=== PATIENT | female | born 1985 | race Caucasian/White ===

== ENCOUNTER 2019-07-07 18:50 | Emergency (ER) | payer OTHER ==
[2019-07-07] MEDS ORDERED: NA CHLORIDE 0.9% 1,000 ML ONE (21:12)
[2019-07-07] MEDS ORDERED: LACTULOSE 20 GM/30 ML UCUP ONE (21:12)
[2019-07-07] MEDS ORDERED: ONDANSETRON 4 MG/2 ML VIAL ONE (21:12)
--- NOTE | 2019-07-07 22:39 | ER ---
Nurse's Notes [facility] Name: Beverly Lino Age: 33 yrs Sex: Female : 1985 Arrival Date: 07/07/2019 Time: 18:52 Bed 23 Private MD: Diagnosis: Constipation, unspecified Presentation: 07/07 19:06 Presenting complaint: Patient states: "I've been having constipation problems for about aj1 2 years and so I've went to 2 different doctors and they can't find out what wrong with me. Sometimes I wake up in the middle of the night throwing up. The doctor told me to take Miralax daily which I've been doing. I normally have a bowel movement everyday. Today when I tried to go I noticed it was hard to go and I have a huge chunk that right there that I can't seem to get out and there's a lot of blood". Transition of care: patient was not received from another setting of care. Onset of symptoms was July 07, 2019. Risk Assessment: Do you want to hurt yourself or someone else? Patient reports no desire to harm self or others. Initial Sepsis Screen: Does the patient meet any 2 criteria? No. Patient's initial sepsis screen is negative. Does the patient have a suspected source of infection? No. Patient's initial sepsis screen is negative. Care prior to arrival: None. 19:06 Method Of Arrival: Ambulatory aj1 19:06 Acuity: SALVADOR 3 aj1 Triage Assessment: 19:11 General: Appears in no apparent distress. comfortable, Behavior is calm, cooperative, aj1 appropriate for age. Pain: Complains of pain in buttocks Pain currently is 9 out of 10 on a pain scale. Neuro: Level of Consciousness is awake, alert, obeys commands. Cardiovascular: Patient's skin is warm and dry. Respiratory: Airway is patent Respiratory effort is even, unlabored, Respiratory pattern is regular, symmetrical. GI: Reports constipation. 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 - Social history:: Smoking status: Patient/guardian denies using tobacco. - Ebola Screening: : Patient denies travel to an Ebola-affected area in the 21 days before illness onset. Screenin:24 Abuse screen: Denies threats or abuse. Denies injuries from another. Nutritional wh screening: No deficits noted. Tuberculosis screening: No symptoms or risk factors identified. Fall Risk None identified. Assessment: 21:25 General: Appears in no apparent distress. Behavior is calm, cooperative, appropriate wh for age. 21:25 Pain: Complains of pain in abdomen Pain does not radiate. Pain currently is 8 out of 10 wh on a pain scale. Quality of pain is described as crampy, Pain began this morning. Neuro: Level of Consciousness is awake, alert, obeys commands. Cardiovascular: Heart tones S1 S2. Respiratory: Airway is patent Respiratory effort is even, unlabored, Respiratory pattern is regular, symmetrical. GI: Abdomen is flat, non-distended, Bowel sounds present X 4 quads. Abd is soft and non tender X 4 quads. Reports constipation, bloody stool, nausea. : No signs and/or symptoms were reported regarding the genitourinary system. EENT: No signs and/or symptoms were reported regarding the EENT system. Derm: Skin is intact, is healthy with good turgor, Skin is pink, warm \\T\\ dry. normal. Musculoskeletal: Circulation, motion, and sensation intact. 22:24 Reassessment: Patient appears in no apparent distress at this time. No changes from previously documented assessment. Patient and/or family updated on plan of care and expected duration. Pain level reassessed. Patient is alert, oriented x 3, equal unlabored respirations, skin warm/dry/pink. Patient states feeling better. 07/08 00:00 Reassessment: Patient appears in no apparent distress at this time. No changes from previously documented assessment. Patient and/or family updated on plan of care and expected duration. Pain level reassessed. Patient is alert, oriented x 3, equal unlabored respirations, skin warm/dry/pink. Patient states feeling better. Vital Signs: 07/07 19:11 BP 146 / 89; Pulse 116; Resp 20; Temp 97.8; Pulse Ox 100% on R/A; Weight 58.97 kg (R); aj1 Height 5 ft. 5 in. (165.10 cm) (R); 21:00 BP 136 / 87; Pulse 107; Resp 18; Pulse Ox 99% on R/A; wh 22:15 BP 132 / 84; Pulse 97; Resp 18; Pulse Ox 100% on R/A; wh 19:11 Body Mass Index 21.63 (58.97 kg, 165.10 cm) aj1 ED Course: 18:52 Patient arrived in ED. as 19:10 Triage completed. aj1 19:11 Arm band placed on Patient placed in waiting room, Patient notified of wait time. aj1 20:48 Efrain Haider MD is Attending Physician. tw4 20:55 Meng Dhillon is Primary Nurse. 21:10 Inserted saline lock: 22 gauge in right antecubital area, using aseptic technique. Blood collected. 22:19 Abdomen 1 View (KUB) XRAY In Process Unspecified. EDSC 22:24 Patient has correct armband on for positive identification. Placed in gown. Bed in low wh position. Call light in reach. Side rails up X 1. Pulse ox on. NIBP on. 07/08 00:00 Served as a fire prevention officer during rectal exam. Ramón Sue RN. IV discontinued, intact, bleeding controlled, No redness/swelling at site. Administered Medications: 07/07 21:16 Drug: Lactulose 20 grams Volume: 30 ml; Route: PO; 22:20 Follow up: Response: No adverse reaction 21:17 Drug: NS 0.9% 1000 ml Route: IV; Rate: 1 bolus; Site: right antecubital; 22:20 Follow up: Response: No adverse reaction; IV Status: Completed infusion 21:17 Drug: Zofran 4 mg Route: IVP; Site: right antecubital; 22:20 Follow up: Response: No adverse reaction Outcome: 22:38 Discharge ordered by . tw4 07/08 00:01 Discharged to home ambulatory. Condition: good Discharge instructions given to patient, Instructed on discharge instructions, follow up and referral plans. medication usage, POC Constipation Demonstrated understanding of instructions, follow-up care, medications, POC Prescriptions given X 2. 00:01 Patient left the ED. Signatures: Dispatcher [employer] EDSC Marii Parker RN RN aj1 Juliane Samuels as Meng Dhillon Efrain Haider MD MD tw4 Corrections: (The following items were deleted from the chart) 07/07 22:21 21:29 General: Appears in no apparent distress. Behavior is calm, cooperative, wh appropriate for age, wh 22:24 21:25 GI: Abdomen is flat, non-distended, Bowel sounds present X 4 quads. Abd is soft wh and non tender X 4 quads. Reports constipation, bloody stool, wh
--- NOTE | 2019-07-07 22:39 | EDPHYS ---
Physician Documentation [facility] Name: Beverly Lino Age: 33 yrs Sex: Female : 1985 Arrival Date: 07/07/2019 Time: 18:52 Bed 23 Private MD: ED Physician Efrain Haider HPI: 07/08 01:50 This 33 yrs old Female presents to ER via Ambulatory with complaints of tw4 Constipation, Rectal Bleeding. 01:50 The patient presents to the emergency department with pain in the rectal area, that is tw4 mild. Onset: The symptoms/episode began/occurred today. Context: the patient constipation. Modifying factors: The symptoms are alleviated by nothing, The symptoms are aggravated by nothing. The patient has not experienced similar symptoms in the past. 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 - Social history:: Smoking status: Patient/guardian denies using tobacco. - Ebola Screening: : Patient denies travel to an Ebola-affected area in the 21 days before illness onset. ROS: 07/08 01:50 Constitutional: Negative for fever, chills, and weight loss, Eyes: Negative for injury, tw4 pain, redness, and discharge, Cardiovascular: Negative for chest pain, palpitations, and edema, Respiratory: Negative for shortness of breath, cough, wheezing, and pleuritic chest pain, Back: Negative for injury and pain, Skin: Negative for injury, rash, and discoloration, Neuro: Negative for headache, weakness, numbness, tingling, and seizure. Abdomen/GI: Positive for constipation, rectal pain. Exam: 01:50 Constitutional: This is a well developed, well nourished patient who is awake, alert, tw4 and in no acute distress. Head/Face: Normocephalic, atraumatic. Chest/axilla: Normal chest wall appearance and motion. Nontender with no deformity. No lesions are appreciated. Cardiovascular: Regular rate and rhythm with a normal S1 and S2. No gallops, murmurs, or rubs. Normal PMI, no JVD. No pulse deficits. Respiratory: Lungs have equal breath sounds bilaterally, clear to auscultation and percussion. No rales, rhonchi or wheezes noted. No increased work of breathing, no retractions or nasal flaring. MS/ Extremity: Pulses equal, no cyanosis. Neurovascular intact. Full, normal range of motion. Neuro: Awake and alert, GCS 15, oriented to person, place, time, and situation. Cranial nerves II-XII grossly intact. Motor strength 5/5 in all extremities. Sensory grossly intact. Cerebellar exam normal. Normal gait. 01:50 Abdomen/GI: Inspection: distension. Vital Signs: 07/07 19:11 BP 146 / 89; Pulse 116; Resp 20; Temp 97.8; Pulse Ox 100% on R/A; Weight 58.97 kg (R); aj1 Height 5 ft. 5 in. (165.10 cm) (R); 21:00 BP 136 / 87; Pulse 107; Resp 18; Pulse Ox 99% on R/A; wh 22:15 BP 132 / 84; Pulse 97; Resp 18; Pulse Ox 100% on R/A; wh 19:11 Body Mass Index 21.63 (58.97 kg, 165.10 cm) aj1 MDM: 20:48 Patient medically screened. tw4 07/08 01:53 Data reviewed: vital signs, nurses notes. Data interpreted: Pulse oximetry: tw4 Interpretation: normal. Counseling: I had a detailed discussion with the patient and/or guardian regarding: the historical points, exam findings, and any diagnostic results supporting the discharge/admit diagnosis. 07/07 20:49 Order name: Abdomen 1 View (KUB) XRAY tw4 Administered Medications: 07/07 21:16 Drug: Lactulose 20 grams Volume: 30 ml; Route: PO; 22:20 Follow up: Response: No adverse reaction 21:17 Drug: NS 0.9% 1000 ml Route: IV; Rate: 1 bolus; Site: right antecubital; 22:20 Follow up: Response: No adverse reaction; IV Status: Completed infusion 21:17 Drug: Zofran 4 mg Route: IVP; Site: right antecubital; 22:20 Follow up: Response: No adverse reaction Disposition: 07/07/19 22:38 Discharged to Home. Impression: Constipation, unspecified. - Condition is Stable. - Discharge Instructions: Constipation, Adult, High-Fiber Diet, Anal Fissure, Adult, [id number]. - Prescriptions for Dulcolax 10 mg Rectal Suppository - insert 1 suppository by RECTAL route every 6 hours As needed; 10 suppository. Miralax 17 gram/dose Oral - take 1 packet by ORAL route once daily dilute powder in 8 ounces of water or juice; 1 packet. - Medication Reconciliation Form, Thank You Letter, Antibiotic Education, Prescription Opioid Use form. - Follow up: Private Physician; When: Upon discharge from the Emergency Department; Reason: If symptoms return, Recheck today's complaints, Continuance of care. - Problem is new. - Symptoms have improved. Signatures: Dispatcher [employer] EDMarii Travis RN RN ajMeng Vera Terrence, MD MD tw4 Corrections: (The following items were deleted from the chart) 07/08 00:01 07/07 22:38 07/07/2019 22:38 Discharged to Home. Impression: Constipation, unspecified. wh Condition is Stable. Forms are Medication Reconciliation Form, Thank You Letter, Antibiotic Education, Prescription Opioid Use. Follow up: Private Physician; When: Upon discharge from the Emergency Department; Reason: If symptoms return, Recheck today's complaints, Continuance of care. Problem is new. Symptoms have improved. tw4
[2019-07-08 00:59] VITALS: TEMP 97.8
[2019-07-08 01:08] VITALS: BP 132/84; O2SAT 100
--- NOTE | 2019-07-08 09:15 | RAD REPORT ---
EXAM DESCRIPTION: RAD - Abdomen 1 View (KUB) - 07/07/2019 10:21 pm CLINICAL HISTORY: ABD PAIN COMPARISON: No comparisons FINDINGS: Moderately large stool volume is present throughout the colon. Colon is distended but not dilated by the retained bowel content. No distention of the stomach. No acute small bowel finding. No obstruction, free air or pneumatosis. No suspicious calcifications. No significant bony findings IMPRESSION: Large stool volume is present filling but not dilating the large intestine.
== END 2019-07-08 00:01 | disposition home or self-care (01) ==
LOC: ER 18:50
DX: K59.00 Constipation, unspecified (principal)
CPT/HCPCS: 96361; 74018; 96374; 99284; J7030; J2405

== ENCOUNTER 2020-07-02 09:46 | Emergency (ER) | payer OTHER ==
--- NOTE | 2020-07-02 12:16 | EDPHYS ---
Physician Documentation [facility] Name: Beverly Lino Age: 34 yrs Sex: Female : 1985 Arrival Date: 07/02/2020 Time: 09:47 Bed 24 Private MD: ED Physician Manuel Ferreira HPI: 07/02 11:30 This 34 yrs old Female presents to ER via Ambulatory with complaints of Arm kb Pain. 11:30 The patient or guardian complains of pain, that is acute. The complaints affect the kb right elbow. Context: The problem was sustained at home, resulted from unknown cause. Onset: The symptoms/episode began/occurred today. Treatment prior to arrival includes: no previous treatment. Modifying factors: The symptoms are alleviated by nothing. the symptoms are aggravated by nothing. Associated signs and symptoms: Pertinent positives: pain, Pertinent negatives: decreased range of motion, deformity, erythema, fever, nausea, numbness, swelling, tingling, vomiting, warmth, weakness. Severity of symptoms: At their worst the symptoms were mild, in the emergency department the symptoms are unchanged. The patient has not experienced similar symptoms in the past. The patient has not recently seen a physician. Historical: - Allergies: 10:02 No Known Allergies; ll1 - PSHx: 10:02 Tubal ligation; Cholecystectomy; ll1 - Immunization history:: Flu vaccine is up to date. - Social history:: Smoking status: Patient denies any tobacco usage or history of. ROS: 11:29 Constitutional: Negative for fever, chills, and weight loss, Cardiovascular: Negative kb for chest pain, palpitations, and edema, Respiratory: Negative for shortness of breath, cough, wheezing, and pleuritic chest pain, Abdomen/GI: Negative for abdominal pain, nausea, vomiting, diarrhea, and constipation, Skin: Negative for injury, rash, and discoloration, Neuro: Negative for headache, weakness, numbness, tingling, and seizure. 11:29 MS/extremity: Positive for pain, tenderness, of the right elbow. Exam: 11:29 Constitutional: This is a well developed, well nourished patient who is awake, alert, kb and in no acute distress. Head/Face: Normocephalic, atraumatic. Chest/axilla: Normal chest wall appearance and motion. Nontender with no deformity. No lesions are appreciated. Cardiovascular: Regular rate and rhythm with a normal S1 and S2. No gallops, murmurs, or rubs. Normal PMI, no JVD. No pulse deficits. Respiratory: Lungs have equal breath sounds bilaterally, clear to auscultation and percussion. No rales, rhonchi or wheezes noted. No increased work of breathing, no retractions or nasal flaring. Abdomen/GI: Soft, non-tender, with normal bowel sounds. No distension or tympany. No guarding or rebound. No evidence of tenderness throughout. Skin: Warm, dry with normal turgor. Normal color with no rashes, no lesions, and no evidence of cellulitis. Neuro: Awake and alert, GCS 15, oriented to person, place, time, and situation. Cranial nerves II-XII grossly intact. Motor strength 5/5 in all extremities. Sensory grossly intact. Cerebellar exam normal. Normal gait. 11:29 Musculoskeletal/extremity: Extremities: grossly normal except: noted in the right elbow: pain, ROM: intact in all extremities, Circulation is intact in all extremities. Sensation intact. Vital Signs: 10:02 BP 103 / 87; Pulse 88; Resp 16; Temp 98.3; Pulse Ox 97% ; Weight 59.87 kg; Height 5 ft. ll1 5 in. (165.10 cm); Pain 9/10; 10:02 Body Mass Index 21.97 (59.87 kg, 165.10 cm) ll1 MDM: 10:28 Patient medically screened. kb 11:29 Data reviewed: vital signs, nurses notes. Data interpreted: Pulse oximetry: on room air kb is 97 %. Interpretation: normal. Counseling: I had a detailed discussion with the patient and/or guardian regarding: the historical points, exam findings, and any diagnostic results supporting the discharge/admit diagnosis, radiology results, the need for outpatient follow up, a family practitioner, to return to the emergency department if symptoms worsen or persist or if there are any questions or concerns that arise at home. 07/02 11:23 Order name: Extremity Nonvascular Complete EDMS 07/02 11:26 Order name: Elbow Right 3 View XRAY kb Administered Medications: No medications were administered Disposition: 07/03 09:25 Co-signature as Attending Physician, Manuel Ferreira MD I agree with the assessment and kdr plan of care. Disposition: 07/02/20 12:15 Discharged to Home. Impression: Pain in right elbow. - Condition is Stable. - Discharge Instructions: Musculoskeletal Pain. - Prescriptions for Diclofenac Sodium 75 mg Oral Tablet, Delayed Release (E.C.) - take 1 tablet by ORAL route 2 times per day As needed; 30 tablet. - Medication Reconciliation Form, Thank You Letter, Antibiotic Education, Prescription Opioid Use form. - Follow up: Emergency Department; When: As needed; Reason: Worsening of condition. Follow up: Private Physician; When: 2 - 3 days; Reason: Recheck today's complaints, Continuance of care, Re-evaluation by your physician. Signatures: Dispatcher [employer] [facility] Esther Frazier, LEATHER SORTER-C LEATHER SORTER-CkManuel Kaplan MD MD kdr Williams, Irene, MAGDIEL RN iw Caryl Chaudhary RN RN ll1 Corrections: (The following items were deleted from the chart) 07/02 11:23 10:43 Extrmty Nonvasular Limited+US.RAD.BRZ ordered. [facility] 12:30 12:15 07/02/2020 12:15 Discharged to Home. Impression: Pain in right elbow. Condition iw is Stable. Forms are Medication Reconciliation Form, Thank You Letter, Antibiotic Education, Prescription Opioid Use. Follow up: Emergency Department; When: As needed; Reason: Worsening of condition. Follow up: Private Physician; When: 2 - 3 days; Reason: Recheck today's complaints, Continuance of care, Re-evaluation by your physician. kb
--- NOTE | 2020-07-02 12:16 | ER ---
Nurse's Notes [facility] Name: Beverly Lino Age: 34 yrs Sex: Female : 1985 Arrival Date: 07/02/2020 Time: 09:47 Bed 24 Private MD: Diagnosis: Pain in right elbow Presentation: 07/02 10:02 Chief complaint: Patient states: Small painful lump to right arm AC area for 2 days. No ll1 fever. Coronavirus screen: Client denies travel out of the [place] in the last 14 days. At this time, the client does not indicate any symptoms associated with coronavirus-19. Ebola Screen: Patient denies travel to an Ebola-affected area in the 21 days before illness onset. Initial Sepsis Screen: Does the patient meet any 2 criteria? No. Patient's initial sepsis screen is negative. Risk Assessment: Do you want to hurt yourself or someone else? Patient reports no desire to harm self or others. Onset of symptoms was July 01, 2020. 10:02 Method Of Arrival: Ambulatory ll1 10:02 Acuity: SALVADOR 4 ll1 11:30 Initial Sepsis Screen: Does the patient have a suspected source of infection? No. iw Patient's initial sepsis screen is negative. Triage Assessment: 11:30 General: Appears in no apparent distress. Behavior is calm, cooperative. iw Historical: - Allergies: 10:02 No Known Allergies; ll1 - PSHx: 10:02 Tubal ligation; Cholecystectomy; ll1 - Immunization history:: Flu vaccine is up to date. - Social history:: Smoking status: Patient denies any tobacco usage or history of. Screenin:00 Abuse screen: Denies threats or abuse. Denies injuries from another. Nutritional iw screening: No deficits noted. Tuberculosis screening: No symptoms or risk factors identified. Fall Risk None identified. Assessment: 11:30 General: Appears in no apparent distress. Behavior is calm, cooperative. Pain: iw Complains of pain in right antecubital area. Neuro: Level of Consciousness is awake, alert, obeys commands, Oriented to person, place, time, situation, Moves all extremities. Full function. Cardiovascular: Patient's skin is warm and dry. Respiratory: Respiratory effort is even, unlabored, Respiratory pattern is regular, symmetrical. Derm: Skin is intact, is healthy with good turgor. Musculoskeletal: Range of motion: intact in all extremities, Swelling present in right antecubital area. Vital Signs: 10:02 BP 103 / 87; Pulse 88; Resp 16; Temp 98.3; Pulse Ox 97% ; Weight 59.87 kg; Height 5 ft. ll1 5 in. (165.10 cm); Pain 9/10; 10:02 Body Mass Index 21.97 (59.87 kg, 165.10 cm) ll1 ED Course: 09:47 Patient arrived in ED. ds1 10:03 Triage completed. ll1 10:03 Arm band placed on. ll1 10:25 Mecca Johnson, RN is Primary Nurse. iw 10:28 Esther Frazier FNP-C [facility]. kb 10:28 Manuel Ferreira MD is Attending Physician. kb 11:23 Extremity Nonvascular Complete In Process Unspecified. EDMS 11:30 Patient has correct armband on for positive identification. iw 12:29 No provider procedures requiring assistance completed. Patient did not have IV access iw during this emergency room visit. 12:47 Elbow Right 3 View XRAY In Process Unspecified. EDMS Administered Medications: No medications were administered Outcome: 12:15 Discharge ordered by . kb 12:29 Discharged to home ambulatory. iw 12:29 Condition: good 12:29 Discharge instructions given to patient, Instructed on discharge instructions, follow up and referral plans. Demonstrated understanding of instructions, follow-up care. 12:30 Patient left the ED. iw Signatures: Dispatcher [employer] EDMS Esther Frazier FNP-C FNP-Ckb Sanford, Demi ds1 Mecca Johnson RN RN iw Caryl Chaudhary RN RN ll1
[2020-07-02 12:34] VITALS: BP 103/87; TEMP 98.3; O2SAT 97
--- NOTE | 2020-07-03 11:10 | RAD REPORT ---
EXAM DESCRIPTION: US - Extremity Nonvascular Complete - 07/02/2020 10:19 pm CLINICAL HISTORY: lump, medial aspect of elbow;Pain COMPARISON: Elbow Right 3 View dated 07/02/2020 FINDINGS: Limited sonographic evaluation of the right antecubital fossa soft tissues. Fat and muscle seen as normal structures. No solid or cystic mass. No suspicious finding seen. Final report was delayed due to malfunction of the real estate teacher system. Preliminary findings were pr ovided at the time of the study. IMPRESSION: Negative ultrasound of the anterior right elbow soft tissues.
--- NOTE | 2020-07-03 13:20 | RAD REPORT ---
EXAM DESCRIPTION: RAD - Elbow Right 3 View - 07/03/2020 7:49 am CLINICAL HISTORY: Right elbow pain FINDINGS: No fracture or dislocation seen. No bone or joint abnormality noted
--- OUTSIDE RECORDS SUMMARY | 2020-07-08 15:18 | XMS REPORT | Continuity of Care Document ---
:1985 Author Organization [facility] t Address [facility] [place] [address] [place] [id number] Care Team Providers Name Role Phone Unavailable Unavailable Unavailable Problems This patient has no known problems. Allergies, Adverse Reactions, Alerts This patient has no known allergies or adverse reactions. Medications This patient has no known medications. Procedures This patient has no known procedures. Results This patient has no known results.
== END 2020-07-02 12:30 | disposition home or self-care (01) ==
LOC: ER 09:46
DX: M25.521 Pain in right elbow (principal)
CPT/HCPCS: 76881; 99283

== ENCOUNTER 2022-10-18 10:30 | Emergency (ER) | payer OTHER ==
--- OUTSIDE RECORDS SUMMARY | 2022-10-18 10:34 | XMS REPORT | Continuity of Care Document ---
:1985 Author Organization [facility] t Address [address] [place] [address] Care Team Providers Name Role Phone Britton Tejeda [facility], [facility] Primary Care P hysician Doctor Unassigned, [place] Attending Clinician Unavailable FIDENCIO DONALD Attending Clinician Unavailable Fidencio Donald MD Attending Clinician [place] Attending Clinician CARMELO PEREZ Attending Clinician Unavailable LOUIE PADRON Attending Clinician Unavailable FIDENCIO DONALD Admitting Clinician Unavailable Payers Payer Name Policy Type Policy Number Effective Date Expiration Date S ource Problems Condition Condition Condition Status Onset Resolution Last Treating Co mments Source Name Details Category Date Date Treatment Clinician Date No known No known Disease Unive rs active active ity of problems problems [facility] Allergies, Adverse Reactions, Alerts Allergy Allergy Status Severity Reaction(s) Onset Inactive Treating Comm ents Source Name Type Date Date Clinician NO KNOWN Drug Active Univers ALLERGIE Class ity of S [facility] Social History Social Habit Start Date Stop Date Quantity Comments Source Exposure to 2022-08-21 2022-08-31 Not sure [facility]-CoV-2 00:00:00 14:04:00 [facility] ([facility] [place] Alcohol intake 2022-07-29 2022-07-29 Current University 00:00:00 00:00:00 non-drinker of [facility] alcohol (finding) Branch Tobacco use and 2022-06-29 2022-06-29 Smokeless tobacco Un iversity of exposure 00:00:00 00:00:00 non-user [facility] Sex Assigned At [birth year] Universit y of 00:00:00 00:00:00 [facility] Smoking Status Start Date Stop Date Source Never smoked tobacco [facility] Medications Ordered Filled Start Stop Current Ordering Indication Dosage Frequency Signature Comments Components Source Medication Medication Date Date Medication? Clinician (SIG) Name Name triamcinolo 2021- No [id number] 40mg Univers nc 06-29 [id number] ity of acetonide 21:30: 20:17 [place] (KENALOG) 00 :00 Medical injection Branch 40 mg triamcinolo 2021- No [id number] 40mg 40 mg, Univers ne 06-29 [id number] Intramuscu ity of acetonide 21:30: 20:17 [place] ([place] 00 :00 1 dose, On [facility] injection Wed Branch 40 mg 06/29/22 at 1630, Routine triamcinolo 2021- No [id number] 40mg Univers ne 06-29 [id number] ity of acetonide 21:30: 20:17 [place] (KENALOG) 00 :00 Medical injection Branch 40 mg triamcinolo 2021- No [id number] 40mg 40 mg, Univers ne 06-29 [id number] Intramuscu ity of acetonide 21:30: 20:17 [place] (KE[place]LOG) 00 :00 1 dose, On [facility] injection Wed Branch 40 mg 06/29/22 at 1630, Routine norethindro Yes 1{tbl} Take 1 Un mick ne-ethinyl 6-26 tablet by ity of estradiol 14:07: mouth [place] 1-5 mg-mcg 55 daily. Medical tablet Branch norethindro Yes 1{tbl} Take 1 Un mick ne-ethinyl 6-26 tablet by ity of estradiol 14:07: mouth [place] 1-5 mg-mcg 55 daily. Medical tablet Branch norethindro Yes 1{tbl} Take 1 Un mick ne-ethinyl 6-26 tablet by ity of estradiol 14:07: mouth [place] 1-5 mg-mcg 55 daily. Medical tablet Branch norethindro Yes 1{tbl} Take 1 Un mick ne-ethinyl 6-26 tablet by ity of estradiol 14:07: mouth [place] 1-5 mg-mcg 55 daily. Medical tablet Branch norethindro Yes 1{tbl} Take 1 Un mick ne-ethinyl 6-26 tablet by ity of estradiol 14:07: mouth [place] 1-5 mg-mcg 55 daily. Medical tablet Branch norethindro Yes 1{tbl} Take 1 Un mick ne-ethinyl 6-26 tablet by ity of estradiol 14:07: mouth [place] 1-5 mg-mcg 55 daily. Medical tablet Branch norethindro Yes 1{tbl} Take 1 Un mick ne-ethinyl 6-26 tablet by ity of estradiol 14:07: mouth [place] 1-5 mg-mcg 55 daily. Medical tablet Branch norethindro Yes 1{tbl} Take 1 Un mick ne-ethinyl 6-26 tablet by ity of estradiol 14:07: mouth [place] 1-5 mg-mcg 55 daily. Medical tablet Branch norethindro Yes 1{tbl} Take 1 Un mick ne-ethinyl 6-26 tablet by ity of estradiol 14:07: mouth [place] 1-5 mg-mcg 55 daily. Medical tablet Branch norethindro Yes 1{tbl} Take 1 Un mick ne-ethinyl 6-26 tablet by ity of estradiol 14:07: mouth [place] 1-5 mg-mcg 55 daily. Medical tablet Branch norethindro Yes 1{tbl} Take 1 Un mick ne-ethinyl 6-26 tablet by ity of estradiol 14:07: mouth [place] 1-5 mg-mcg 55 daily. Medical tablet Branch norethindro Yes 1{tbl} Take 1 Un mick ne-ethinyl 6-26 tablet by ity of estradiol 14:07: mouth [place] 1-5 mg-mcg 55 daily. Medical tablet Branch norethindro 2018-0 Yes 1{tbl} Take 1 Un mick ne-ethinyl 6-26 tablet by ity of estradiol 14:07: mouth [place] 1-5 mg-mcg 55 daily. Medical tablet Branch traMADOL 50 2016-10 Yes Take 1-2 Un mick mg tablet 0-02 tabs by ity of 00:00: mouth [place] 00 every 4-6 Medical hours as Branch needed for severe pain traMADOL 50 2016-10 Yes Take 1-2 Un mick mg tablet 0-02 tabs by ity of 00:00: mouth [place] 00 every 4-6 Medical hours as Branch needed for severe pain traMADOL 50 2016-10 Yes Take 1-2 Un mick mg tablet 0-02 tabs by ity of 00:00: mouth [place] 00 every 4-6 Medical hours as Branch needed for severe pain traMADOL 50 2016-10 Yes Take 1-2 Un mick mg tablet 0-02 tabs by ity of 00:00: mouth [place] 00 every 4-6 Medical hours as Branch needed for severe pain traMADOL 50 2016-10 Yes Take 1-2 Un mick mg tablet 0-02 tabs by ity of 00:00: mouth [place] 00 every 4-6 Medical hours as Branch needed for severe pain traMADOL 50 2016-10 Yes Take 1-2 Un mick mg tablet 0-02 tabs by ity of 00:00: mouth [place] 00 every 4-6 Medical hours as Branch needed for severe pain traMADOL 50 2016-10 Yes Take 1-2 Un mick mg tablet 0-02 tabs by ity of 00:00: mouth [place] 00 every 4-6 Medical hours as Branch needed for severe pain traMADOL 50 2016-10 Yes Take 1-2 Un mick mg tablet 0-02 tabs by ity of 00:00: mouth [place] 00 every 4-6 Medical hours as Branch needed for severe pain traMADOL 50 2016-10 Yes Take 1-2 Un mick mg tablet 0-02 tabs by ity of 00:00: mouth [place] 00 every 4-6 Medical hours as Branch needed for severe pain traMADOL 50 2016-10 Yes Take 1-2 Un mick mg tablet 0-02 tabs by ity of 00:00: mouth [place] 00 every 4-6 Medical hours as Branch needed for severe pain traMADOL 50 2016-10 Yes Take 1-2 Un mick mg tablet 0-02 tabs by ity of 00:00: mouth [place] 00 every 4-6 Medical hours as Branch needed for severe pain traMADOL 50 2016-10 Yes Take 1-2 Un mick mg tablet 0-02 tabs by ity of 00:00: mouth [place] 00 every 4-6 Medical hours as Branch needed for severe pain traMADOL 50 2016-10 Yes Take 1-2 Un mick mg tablet 0-02 tabs by ity of 00:00: mouth [place] 00 every 4-6 Medical hours as Branch needed for severe pain proMETHazin Yes 25mg Take 1 Univ ers e 25 mg 9-07 tablet by ity of tablet 00:00: mouth [place] 00 every 6 Medical (six) Branch hours as needed for N/V unresponsi ve to Ondansetro n. proMETHazin Yes 25mg Take 1 Univ ers e 25 mg 9-07 tablet by ity of tablet 00:00: mouth [place] 00 every 6 Medical (six) Branch hours as needed for N/V unresponsi ve to Ondansetro n. proMETHazin Yes 25mg Take 1 Univ ers e 25 mg 9-07 tablet by ity of tablet 00:00: mouth [place] 00 every 6 Medical (six) Branch hours as needed for N/V unresponsi ve to Ondansetro n. proMETHazin Yes 25mg Take 1 Univ ers e 25 mg 9-07 tablet by ity of tablet 00:00: mouth [place] 00 every 6 Medical (six) Branch hours as needed for N/V unresponsi ve to Ondansetro n. proMETHazin Yes 25mg Take 1 Univ ers e 25 mg 9-07 tablet by ity of tablet 00:00: mouth [place] 00 every 6 Medical (six) Branch hours as needed for N/V unresponsi ve to Ondansetro n. proMETHazin 0 Yes 25mg Take 1 Univ ers e 25 mg 9-07 tablet by ity of tablet 00:00: mouth [place] 00 every 6 Medical (six) Branch hours as needed for N/V unresponsi ve to Ondansetro n. proMETHazin Yes 25mg Take 1 Univ ers e 25 mg 9-07 tablet by ity of tablet 00:00: mouth [place] 00 every 6 Medical (six) Branch hours as needed for N/V unresponsi ve to Ondansetro n. proMETHazin Yes 25mg Take 1 Univ ers e 25 mg 9-07 tablet by ity of tablet 00:00: mouth [place] 00 every 6 Medical (six) Branch hours as needed for N/V unresponsi ve to Ondansetro n. proMETHazin Yes 25mg Take 1 Univ ers e 25 mg 9-07 tablet by ity of tablet 00:00: mouth [place] 00 every 6 Medical (six) Branch hours as needed for N/V unresponsi ve to Ondansetro n. proMETHazin Yes 25mg Take 1 Univ ers e 25 mg 9-07 tablet by ity of tablet 00:00: mouth [place] 00 every 6 Medical (six) Branch hours as needed for N/V unresponsi ve to Ondansetro n. proMETHazin Yes 25mg Take 1 Univ ers e 25 mg 9-07 tablet by ity of tablet 00:00: mouth [place] 00 every 6 Medical (six) Branch hours as needed for N/V unresponsi ve to Ondansetro n. proMETHazin Yes 25mg Take 1 Univ ers e 25 mg 9-07 tablet by ity of tablet 00:00: mouth [place] 00 every 6 Medical (six) Branch hours as needed for N/V unresponsi ve to Ondansetro n. proMETHazin Yes 25mg Take 1 Univ ers e 25 mg 9-07 tablet by ity of tablet 00:00: mouth [place] 00 every 6 Medical (six) Branch hours as needed for N/V unresponsi ve to Ondansetro n. diclofenac Yes Apply 2-3 Un mick 3 % gel 8-18 grams TO ity of 00:00: affected [place] 00 area THREE Medical TIMES Branch DAILY max EIGHT grams/day diclofenac Yes Apply 2-3 Un mick 3 % gel 8-18 grams TO ity of 00:00: affected [place] 00 area THREE Medical TIMES Branch DAILY max EIGHT grams/day diclofenac Yes Apply 2-3 Un mick 3 % gel 8-18 grams TO ity of 00:00: affected [place] 00 area THREE Medical TIMES Branch DAILY max EIGHT grams/day diclofenac Yes Apply 2-3 Un mick 3 % gel 8-18 grams TO ity of 00:00: affected [place] area THREE Medical TIMES Branch DAILY max EIGHT grams/day diclofenac Yes Apply 2-3 Un mick 3 % gel 8-18 grams TO ity of 00:00: affected [place] [address] [facility] THREE Medical TIMES Branch DAILY max EIGHT grams/day diclofenac Yes Apply 2-3 Un mick 3 % gel 8-18 grams TO ity of 00:00: affected [place] area THREE Medical TIMES Branch DAILY max EIGHT grams/day diclofenac Yes Apply 2-3 Un mick 3 % gel 8-18 grams TO ity of 00:00: affected [place] area THREE Medical TIMES Branch DAILY max EIGHT grams/day diclofenac Yes Apply 2-3 Un mick 3 % gel 8-18 grams TO ity of 00:00: affected [place] [facility] THREE Medical TIMES Branch DAILY max EIGHT grams/day diclofenac Yes Apply 2-3 Un mick 3 % gel 8-18 grams TO ity of 00:00: affected [place] area THREE Medical TIMES Branch DAILY max EIGHT grams/day diclofenac Yes Apply 2-3 Un mick 3 % gel 8-18 grams TO ity of 00:00: affected [place] area THREE Medical TIMES Branch DAILY max EIGHT grams/day diclofenac Yes Apply 2-3 Un mick 3 % gel 8-18 grams TO ity of 00:00: affected [place] [facility] THREE Medical TIMES Branch DAILY max EIGHT grams/day diclofenac Yes Apply 2-3 Un mick 3 % gel 8-18 grams TO ity of 00:00: affected [place] area THREE Medical TIMES Branch DAILY max EIGHT grams/day diclofenac Yes Apply 2-3 Un mick 3 % gel 8-18 grams TO ity of 00:00: affected [place] [facility] THREE Medical TIMES Branch DAILY max EIGHT grams/day SUBOXONE Yes Univers 8-2 mg 6-13 ity of sublingual 00:00: [place] film Medical Branch SUBOXONE Yes Univers 8-2 mg 6-13 ity of sublingual 00:00: [place] film Medical Branch SUBOXONE Yes Univers 8-2 mg 6-13 ity of sublingual 00:00: [place] film Medical Branch SUBOXONE Yes Univers 8-2 mg 6-13 ity of sublingual 00:00: [place] film Medical Branch SUBOXONE 2017-0 Yes Univers 8-2 mg 6-13 ity of sublingual 00:00: [place] film Medical Branch SUBOXONE 2017-0 Yes Univers 8-2 mg 6-13 ity of sublingual 00:00: [place] film Medical Branch SUBOXONE 2017-0 Yes Univers 8-2 mg 6-13 ity of sublingual 00:00: [place] film Medical Branch SUBOXONE 2017-0 Yes Univers 8-2 mg 6-13 ity of sublingual 00:00: [place] film Medical Branch SUBOXONE 2017-0 Yes Univers 8-2 mg 6-13 ity of sublingual 00:00: [place] film Medical Branch SUBOXONE 2017-0 Yes Univers 8-2 mg 6-13 ity of sublingual 00:00: [place] film Medical Branch SUBOXONE 2016-0 Yes Univers 8-2 mg 6-13 ity of sublingual 00:00: [place] film Medical Branch SUBOXONE 2016- Yes Univers 8-2 mg 6-13 ity of sublingual 00:00: [place] film Medical Branch SUBOXONE 2016-0 Yes Univers 8-2 mg 6-13 ity of sublingual 00:00: [place] film Medical Branch nystatin Yes APPLY TO Unive rs 100,000 4-20 THE ity of unit/gram 00:00: [place]int[place] 00 AREA BID Medical FOR 10 Branch DAYS nystatin Yes APPLY TO Unive rs 100,000 4-20 THE ity of unit/gram 00:00: [place] 00 AREA BID Medical FOR 10 Branch DAYS nystatin Yes APPLY TO Unive rs 100,000 4-20 THE ity of unit/gram 00:00: [place] 00 AREA BID Medical FOR 10 Branch DAYS nystatin Yes APPLY TO Unive rs 100,000 4-20 THE ity of unit/gram 00:00: [place] 00 AREA BID Medical FOR 10 Branch DAYS nystatin Yes APPLY TO Unive rs 100,000 4-20 THE ity of unit/gram 00:00: [place] 00 AREA BID Medical FOR 10 Branch DAYS nystatin Yes APPLY TO Unive rs 100,000 4-20 THE ity of unit/gram 00:00: [place] 00 AREA BID Medical FOR 10 Branch DAYS nystatin 2017 Yes APPLY TO Unive rs 100,000 4-20 THE ity of unit/gram 00:00: [place] 00 AREA BID Medical FOR 10 Branch DAYS nystatin 2017 Yes APPLY TO Unive rs 100,000 4-20 THE ity of unit/gram 00:00: [place] 00 AREA BID Medical FOR 10 Branch DAYS nystatin 2017 Yes APPLY TO Unive rs 100,000 4-20 THE ity of unit/gram 00:00: [place] 00 AREA BID Medical FOR 10 Branch DAYS nystatin 2017 Yes APPLY TO Unive rs 100,000 4-20 THE ity of unit/gram 00:00: [place] 00 AREA BID Medical FOR 10 Branch DAYS nystatin 2017 Yes APPLY TO Unive rs 100,000 4-20 THE ity of unit/gram 00:00: [place] 00 AREA BID Medical FOR 10 Branch DAYS nystatin 2017 Yes APPLY TO Unive rs 100,000 4-20 THE ity of unit/gram 00:00: [place] 00 AREA BID Medical FOR 10 Branch DAYS nystatin 2017 Yes APPLY TO Unive rs 100,000 4-20 THE ity of unit/gram 00:00: [place] 00 AREA BID Medical FOR 10 Branch DAYS Immunizations Ordered Filled Immunization Date Status Comments [facility] e Immunization Name Name SARS-COV-2 COVID-19 2021-01-07 Completed Unive rsity of PFIZER VACCINE 00:00:00 [facility] SARS-COV-2 COVID-19 2021-01-07 Completed Unive rsity of PFIZER VACCINE 00:00:00 [facility] SARS-COV-2 COVID-19 2021-01-07 Completed Unive rsity of PFIZER VACCINE 00:00:00 [facility] SARS-COV-2 COVID-19 2021-01-07 Completed Unive rsity of PFIZER VACCINE 00:00:00 [facility] SARS-COV-2 COVID-19 2021-01-07 Completed Unive rsity of PFIZER VACCINE 00:00:00 [facility] SARS-COV-2 COVID-19 2021-01-07 Completed Unive rsity of PFIZER VACCINE 00:00:00 [facility] Branch SARS-COV-2 COVID-19 2021-01-07 Completed Unive rsity of PFIZER VACCINE 00:00:00 [facility] Branch SARS-COV-2 COVID-19 2021-01-07 Completed Unive rsity of PFIZER VACCINE 00:00:00 [facility] Branch SARS-COV-2 COVID-19 2021-01-07 Completed Unive rsity of PFIZER VACCINE 00:00:00 [facility] Branch SARS-COV-2 COVID-19 2021-01-07 Completed Unive rsity of PFIZER VACCINE 00:00:00 [facility] Branch SARS-COV-2 COVID-19 2021-01-07 Completed Unive rsity of PFIZER VACCINE 00:00:00 [facility] Branch SARS-COV-2 COVID-19 2021-01-07 Completed Unive rsity of PFIZER VACCINE 00:00:00 [facility] Branch SARS-COV-2 COVID-19 2021-01-07 Completed Unive rsity of PFIZER VACCINE 00:00:00 [facility] Branch SARS-COV-2 COVID-19 2020-12-17 Completed Unive rsity of PFIZER VACCINE 00:00:00 [facility] Branch SARS-COV-2 COVID-19 2020-12-17 Completed Unive rsity of PFIZER VACCINE 00:00:00 [facility] Branch SARS-COV-2 COVID-19 2020-12-17 Completed Unive rsity of PFIZER VACCINE 00:00:00 [facility] Branch SARS-COV-2 COVID-19 2020-12-17 Completed Unive rsity of PFIZER VACCINE 00:00:00 [facility] Branch SARS-COV-2 COVID-19 2020-12-17 Completed Unive rsity of PFIZER VACCINE 00:00:00 [facility] Branch SARS-COV-2 COVID-19 2020-12-17 Completed Unive rsity of PFIZER VACCINE 00:00:00 [facility] Branch SARS-COV-2 COVID-19 2020-12-17 Completed Unive rsity of PFIZER VACCINE 00:00:00 [facility] SARS-COV-2 COVID-19 2020-12-17 Completed Unive rsity of PFIZER VACCINE 00:00:00 [facility] SARS-COV-2 COVID-19 2020-12-17 Completed Unive rsity of PFIZER VACCINE 00:00:00 [facility] SARS-COV-2 COVID-19 2020-12-17 Completed Unive rsity of PFIZER VACCINE 00:00:00 [facility] SARS-COV-2 COVID-19 2020-12-17 Completed Unive rsity of PFIZER VACCINE 00:00:00 [facility] SARS-COV-2 COVID-19 2020-12-17 Completed Unive rsity of PFIZER VACCINE 00:00:00 [facility] SARS-COV-2 COVID-19 2020-12-17 Completed Unive rsity of PFIZER VACCINE 00:00:00 [facility] Vital Signs Vital Name Observation Time Observation Value Comments Source Body height 2022-08-31 20:15:00 165.1 cm Universi ty of [facility] Body weight 2022-08-31 20:15:00 61.689 kg Universi ty [facility] BMI 2022-08-31 20:15:00 22.63 kg/m2 Universi ty [facility] Systolic blood 2022-07-29 14:28:00 145 mm[Hg] Univer [facility] [place] Diastolic blood 2022-07-29 14:28:00 87 mm[Hg] [facility] [place] [facility] Heart rate 2022-07-29 14:28:00 108 /min Universi ty of [facility] Body height 2022-07-29 14:28:00 165.1 cm Universi ty of [facility] Body weight 2022-07-29 14:28:00 61.689 kg Universi ty of [facility] Branch BMI 2022-07-29 14:28:00 22.63 kg/m2 Universi ty of [facility] Body height 2022-06-29 20:01:00 165.1 cm Universi ty of [facility] Body weight 2022-06-29 20:01:00 61.689 kg Universi ty of [facility] BMI 2022-06-29 20:01:00 22.63 kg/m2 Universi ty [facility] Procedures Procedure Date / Time Performed Performing Clinician Sour e REFERRAL- 2022-09-28 06:01:00 Doctor Unassigned, No [facility]iver [facility] [place] REQUEST/RESPONSE Name Medical Branch MR SHOULDER RIGHT WO 2022-08-11 21:44:59 Fidencio Donald [facility] [place] [facility] [place] CONTRAST Medical Branch REFERRAL- 2022-07-27 05:01:00 [facility], [facility] Name [facility] XR SHOULDER 2+ VW 2022-06-28 15:06:30 Fidencio Donald [facility] ASSIGNMENT OF BENEFITS 2022-06-27 20:21:10 Doctor Unassigned, No [facility] Encounters Start End Encounter Admission Attending Care Care Encounter Source Date/Time Date/Time Type Type Clinicians Facility Department ID 2022-09-28 2022-09-28 Orders Doctor AREVALO [id number] Univers 00:00:00 00:00:00 Only Unassigned, [place] 350.1.13.10 ity of [place] [facility] 4.2.7.2.[id number] [facility] 009 Branch 2022-08-31 2022-08-31 [facility] [id number] Univers 14:30:00 14:41:03 FIDENCIO gallego [facility] 2022-08-31 2022-08-31 Office [facility] [id number] Univers 14:30:00 14:41:03 Visit Fidencio Rojas [facility] [id number] it y of [place] [id number] [place] as JL?BLEA [id number] [address] MEDICAL OFFICE BUILDING 2022-08-11 2022-08-11 Outpatient [facility] [id number] Univers 13:26:16 23:59:00 FIDENCIO gallego [facility] 2022-08-11 2022-08-11 [facility] [id number] Univers 13:26:16 23:59:00 Encounter Fidencio [place] 350.1.13.10 it[place]2.[place] [id number] [facility] 804 Branch 2022-07-29 2022-07-29 [facility] [id number] Univers 10:15:00 10:15:00 Visit Fidencio YOUNG 350.1.13.10 it y of [place] 4.2.7.2.686 [place] as JL?BLEA [id number] Ri claus [address] OFFICE [facility] 2022-07-29 2022-07-29 Outpatient [facility] [id number] Univers 10:15:00 10:01:38 FIDENCIO gallego [facility] 2022-07-27 2022-07-27 [facility] [id number] Univers 13:45:00 13:45:00 FIDENCIO gallego [facility] 2022-07-27 2022-07-27 Orders Doctor MICKEY [id number] Univers 00:00:00 00:00:00 Only Unassigned, [place] 350.1.13.10 ity of [place] [facility] 4.2.7.2.686 [place] as [id number] [address] 2022-07-20 2022-07-20 Telephone [facility] [id number] Univers 00:00:00 00:00:00 Reid [facility] 350.1.13.10 it y of [place] 4.2.7.2.686 [place] as JL?BLEA [id number] Ri claus [address] OFFICE [facility] 2022-06-29 2022-06-29 Outpatient [facility] [id number] Univers 14:45:00 15:21:38 FIDENCIO gallego [facility] 2022-06-29 2022-06-29 Office [facility] [id number] Univers 14:45:00 15:21:38 Visit Fidencio Rojas HEALTH 350.1.13.10 it y of [place] 4.2.7.2.686 [place] as JL?BLEA [id number] Ri claus [address] OFFICE [facility] 2022-06-28 2022-06-28 Outpatient [facility] [id number] Univers 09:55:35 23:59:00 FIDENCIO haydeny [facility] 2022-06-28 2022-06-28 [facility] [id number] Univers 09:55:35 23:59:00 Encounter Fidencio GO 350.1.13.10 ity [facility] 4[place]2.7.2.[place] [id number] [facility] [address] [place] 2022-06-27 2022-06-27 Outpatient [facility] [id number] Univers 15:30:00 15:30:00 [facility] 2022-06-27 Orders Doctor MICKEY [id number] Univers 00:00:00 00:00:00 Only Unassigned, [place] 350.1.13.10 ity [place] [facility] 4.2.7.2.[id number] [facility] [address] [place] 2022-06-27 2022-06-27 Telephone [facility] [id number] [facility] 00:00:00 00:00:00 [facility] 350.1.13.10 it y of [place] 4.2.7.2.686 [place] as JL?BLEA [id number] Ri claus [address] MEDICAL OFFICE BUILDING 2021-01-07 2021-01-07 Outpatient Dano PEREZ [facility] [id number] Univers 09:10:00 09:10:00 CARMELO ity of [facility] 2020-12-17 2020-12-17 Outpatient [facility] [id number] Univers 09:20:00 09:20:00 ity of [facility] 2020-10-22 2020-10-22 Outpatient R LOUIE PADRON [facility] [id number] Univers 00:00:00 00:00:00 ity [facility] Results This patient has no known results.
--- NOTE | 2022-10-18 10:38 | ER ---
Nurse's Notes [facility] Name: Beverly Lino Age: 36 yrs Sex: Female : 1985 Arrival Date: 10/18/2022 Time: 10:32 Bed Waiting [facility] MD: Diagnosis: Cutaneous abscess of right lower limb Presentation: 10/18 10:36 Chief complaint: Patient states: "I'm not sure if I got bit by a spider but I have this aa5 redness on my inner thigh". Coronavirus screen: At this time, the client does not indicate any symptoms associated with coronavirus-19. Ebola Screen: Patient denies travel to an Ebola-affected area in the 21 days before illness onset. Initial Sepsis Screen: Does the patient meet any 2 criteria? No. Patient's initial sepsis screen is negative. Does the patient have a suspected source of infection? Yes:. Risk Assessment: Do you want to hurt yourself or someone else? Patient reports no desire to harm self or others. Onset of symptoms was October 2022. 10:36 Method Of Arrival: Ambulatory aa5 10:36 Acuity: [place] 4 aa5 Historical: - Allergies: 10:36 No Known Allergies; aa5 - PMHx: 10:36 None; aa5 - PSHx: 10:36 Cholecystectomy; tubal ligation; R carpal tunnel; aa5 - Immunization history:: Adult Immunizations unknown. - Social history:: Smoking status: Patient denies any tobacco usage or history of. Assessment: 10:43 Reassessment: Patient is alert, oriented x 3, equal unlabored respirations, skin aa5 warm/dry/pink. Vital Signs: 10:36 BP 148 / 82; Pulse 102; Resp 18 S; Temp 98.2(TE); Pulse Ox 100% on R/A; Weight 52.16 kg aa5 (R); Height 5 ft. 5 in. (165.10 cm) (R); 10:36 Body Mass Index 19.14 (52.16 kg, 165.10 cm) aa5 ED Course: 10:32 Patient arrived in ED. mr 10:36 Esther Frazier FNP-C is [facility]. kb 10:36 Shon Sinha MD is Attending Physician. kb 10:36 Arm band placed on. aa5 10:37 Triage completed. aa5 10:43 No provider procedures requiring assistance completed. Patient did not have IV access aa5 during this emergency room visit. Administered Medications: No medications were administered Medication: 10:43 VIS not applicable for this client. aa5 Outcome: 10:38 Discharge ordered by . kb 10:43 Discharged to home ambulatory. aa5 10:43 Condition: stable 10:43 Discharge instructions given to patient, Instructed on discharge instructions, follow up and referral plans. medication usage, Demonstrated understanding of instructions, follow-up care, medications, Prescriptions given X 1. 10:44 Patient left the ED. aa5 Signatures: Esther Frazier, JEFFC AURELIANO-Kari Mendosa CarrilloManjula medina, RN RN aa5
--- NOTE | 2022-10-18 10:38 | EDPHYS ---
Physician Documentation [facility] Name: Beverly Lino Age: 36 yrs Sex: Female : 1985 Arrival Date: 10/18/2022 Time: 10:32 Bed Waiting Private MD: ED Physician Shon Sinha HPI: 10/18 10:56 This 36 yrs old Female presents to ER via Ambulatory with complaints of Abscess. kb 10:56 The patient presents with an abscess of the medial aspect of right thigh. Description: kb erythematous, swollen, warm. Onset: The symptoms/episode began/occurred yesterday. Possible cause(s): unknown. Associated signs and symptoms: Pertinent positives: erythema, swelling. Modifying factors: the symptoms are alleviated by nothing, the symptoms are aggravated by pressure. Severity of symptoms: At their worst the symptoms were mild, moderate, in the emergency department the symptoms are unchanged. The patient has not experienced similar symptoms in the past. The patient has not recently seen a physician. Pt reports she noticed a red spot that looked like an insect bite yesterday. Today the area is bigger and more painful. Historical: - Allergies: 10:36 No Known Allergies; aa5 - PMHx: 10:36 None; aa5 - PSHx: 10:36 Cholecystectomy; tubal ligation; R carpal tunnel; aa5 - Immunization history:: Adult Immunizations unknown. - Social history:: Smoking status: Patient denies any tobacco usage or history of. ROS: 10:55 Constitutional: Negative for fever, chills, and weight loss. kb 10:55 Skin: Positive for abscess, of the medial aspect of right thigh. 10:55 All other systems are negative. Exam: 10:55 Constitutional: This is a well developed, well nourished patient who is awake, alert, kb and in no acute distress. Head/Face: Normocephalic, atraumatic. ENT: Moist Mucous membranes Cardiovascular: Regular rate and rhythm with a normal S1 and S2. No gallops, murmurs, or rubs. No pulse deficits. Respiratory: Respirations even and unlabored. No increased work of breathing. Talking in full sentences Abdomen/GI: Soft, non-tender. No distention MS/ Extremity: Pulses equal, no cyanosis. Neurovascular intact. Full, normal range of motion. Neuro: Awake and alert, GCS 15, oriented to person, place, time, and situation. Moves all extremities. Normal gait. 10:55 Skin: abscess, that is small, of the medial aspect of right thigh, with induration, with surrounding cellulitis, that is mild. Vital Signs: 10:36 BP 148 / 82; Pulse 102; Resp 18 S; Temp 98.2(TE); Pulse Ox 100% on R/A; Weight 52.16 kg aa5 (R); Height 5 ft. 5 in. (165.10 cm) (R); 10:36 Body Mass Index 19.14 (52.16 kg, 165.10 cm) aa5 MDM: 10:36 Patient medically screened. kb 10:55 Differential diagnosis: abscess, cellulitis, insect bite. Data reviewed: vital signs, kb nurses notes. Counseling: I had a detailed discussion with the patient and/or guardian regarding: the historical points, exam findings, and any diagnostic results supporting the discharge/admit diagnosis, the need for outpatient follow up, a family practitioner, to return to the emergency department if symptoms worsen or persist or if there are any questions or concerns that arise at home. Administered Medications: No medications were administered Disposition: 12:48 Co-signature as Attending Physician, Shon Sinha MD I reviewed the patient's care rt provided by the Advanced Practice Provider and agree with the diagnosis and treatment plan. Disposition Summary: 10/18/22 10:38 Discharge Ordered Location: Home kb Condition: Stable kb Diagnosis - Cutaneous abscess of right lower limb kb Followup: kb - With: Emergency Department - When: As needed - Reason: Worsening of condition Followup: kb - With: Private Physician - When: 2 - 3 days - Reason: Recheck today's complaints, Continuance of care, Re-evaluation by your physician Discharge Instructions: - Discharge Summary Sheet kb - Skin Abscess, [id number] kb Forms: - Medication Reconciliation Form kb - Thank You Letter kb - Antibiotic Education kb - Prescription Opioid Use kb Prescriptions: - Bactrim DS 800-160 mg Oral Tablet - take 1 tablet by ORAL route every 12 hours for 7 days; 14 tablet; Refills: 0, kb Product Selection Permitted Signatures: Esther Frazier, Manjula Hardy RN RN aa5 Shon Sinha MD MD rt
[2022-10-18 11:17] VITALS: BP 148/82; TEMP 98.2; O2SAT 100
== END 2022-10-18 10:44 | disposition home or self-care (01) ==
LOC: ER 10:30
DX: L02.415 Cutaneous abscess of right lower limb (principal)

== ENCOUNTER 2024-03-13 10:35 | Emergency (ER) | payer OTHER ==
--- OUTSIDE RECORDS SUMMARY | 2024-03-13 10:46 | XMS REPORT | Continuity of Care Document ---
Author Name Unknown Address [address] [facility]. [address] [facility] Address [address] [facility]. [address] [place] [address] Care Team Providers Care Privacy Officer Name Role Phone Neva Craig PA-C Primary Care Physician MACKENZIE DAVIS Attending Clinician Unavailab CONOR Polk Attending Clinician Unavailable CONOR DIXON Attending Clinician Unavailable Mica Grayson Attending Clinician MICA DUNCAN Attending Clinician Unavailable [facility] Attending Clinician Unavailable Erin Montesinos MD Attending Clinician ERIN MONTESINOS Attending Clinician Antonia vailable Mackenzie Davis DO Attending Clinician [phone] HUNTER YUEN Attending Clinician Unavailable ROE MCGARRY Attending Clinician UnavailROE Hill Attending Clinician UnavailRoe Hill MD Attending Clinician [phone] NIKKI BRUNNER Attending Clinician Unav ailNIKKI Yost Attending Clinician Unav ailable Doctor Unassigned, [place] Attending Clinician U britt JACQUELINE BAINS Attending Clinician Unavailable Jacqueline Rock Attending Clinician [phone] Pob, [facility] Attending Clinician UnavailNIRMALA Zarco Attending Clinician UnavailNIRMALA Zarco Attending Clinician Unavailjavid Webb MD, [facility] Campbell Attending Clinic radha Conor Dixon MD Attending Clinician [phone] AUGUSTIN OTERO Attending Clinician Unavailjavid weiner RADIOLOGY Attending Clinician Unavailable POP GALINDO Attending Clinician Unavail able JUAREZ BENNETT Attending Clinician Unavailable WILFRIDO KENT Attending Clinician Unavailab radames VAZQUEZ, Bashir Attending Clinician [phone] Baldo Cervantes MD Attending Clinician [phone] BALDO CERVANTES Attending Clinician Unavailable Parvin Longo MD Attending Clinician [phone] Gabriella Weaver MD Attending Clinician [phone] Augustin Otero MD Attending Clinician [phone] PARVIN LONGO Attending Clinician Unavailable [facility] Attending Clinician Unavailable ISIDRA BALES Attending Clinician Unavailable AMY VALDEZ Attending Clinician Unavailab Amy Alicia DO Attending Clinician [phone] DOTTIE ANDUJAR Attending Clinician Unavailable Dottie Andujar MD Attending Clinician [phone] Isidra Neville Attending Clinician [phone] Lab, Ang - Db Attending Clinician Unavailable MOHSEN PAULINO Attending Clinician Unavail able MOHSEN PAULINO Attending Clinician Unavail able Mohsen Paulino MD Attending Clinician [phone] JIHAN BAINS Attending Clinician Unavailable Jihan Bains MD Attending Clinician [phone] CARMELO PEREZ Attending Clinician Unavailable LOUIE PADRON Attending Clinician Unavailable ROE MCGARRY Admitting Clinician Roe Pascal MD Admitting Clinician NIKKI BRUNNER Admitting Clinician Unav wichoable DOTTIE ANDUJAR Admitting Clinician Unavailable ROE MCGARRY Admitting Clinician Melissa weiner Payers Payer Name Policy Type Policy Number Effective Date Expirati on Date Source [facility] [id number] 2015 00:00:00 Problems Condition Name Condition Details Condition Category Status Onset Date Resolution Date Last Treatment Date Treating Clinician Comments Source Carpal tunnel syndrome of left wrist Carpal tunnel syndrome of left wrist Disease Active 2022-10 1- 00:00: 00 [facility] Pre-op testing Pre-op testing Disease Active 2022-10 110 00:00: 00 [facility] Chronic interstiti al cystitis Chronic interstiti al cystitis Disease Active 2022-10 0-16 00:00: 00 [facility] Syncope and collapse Syncope and collapse Disease Active 8-24 00:00: 00 [facility] Dizziness Dizziness Disease Active 3-21 00:00: 00 [facility] Weight loss Weight loss Disease Active 3-21 00:00: 00 [facility] Encounter to establish care Encounter to establish care Disease Active 3-21 00:00: 00 [facility] Sinus tachycardi a Sinus tachycardi a Disease Active 3-21 00:00: 00 [facility] Abnormal EKG Abnormal EKG Disease Active 3-21 00:00: 00 [facility] No known active problems No known active problems Disease [facility] Allergies, Adverse Reactions, Alerts Allergy Name Allergy Type Status Severity Reaction(s) Onset Date Inactive Date Treating Clinician Comments Source NO KNOWN ALLERGIE S Drug Class Active [facility] Social History Social Habit Start Date Stop Date Quantity Comments Source Gender identity [facility] intake 2023-12-18 00:00:00 2023-12-18 00:00:00 Current non-drinker of alcohol (finding) [facility] Alcoholic beverage intake 2023-12-18 00:00:00 2023-12-18 00:00:00 Current non-drinker of alcohol (finding) [facility] History of Social function 2023-08-28 00:00:00 2023-08-28 00:00:00 [facility] Exposure to SARS-CoV-2 (event) 2023-03-25 00:00:00 2023-04-04 10:33:00 Not sure [facility] History SDOH Alcohol Frequency 2023-01-28 00:00:00 2023-01-28 00:00:00 2 [facility] History SDOH Alcohol Std Drinks 2023-01-28 00:00:00 2023-01-28 00:00:00 1 [facility] History SDOH Alcohol Binge 2023-01-28 00:00:00 2023-01-28 00:00:00 1 [facility] History SDOH Social Connections Phone 2023-01-28 00:00:00 2023-01-28 00:00:00 5 [facility] History SDOH Social Connections Get Together 2023-01-28 00:00:00 2023-01-28 00:00:00 3 [facility] History SDOH Social Connections Gnosticism 2023-01-28 00:00:00 2023-01-28 00:00:00 2 [facility] SDOH Social Connections Membership 2023-01-28 00:00:00 2023-01-28 00:00:00 2 [facility] History SDOH Social Connections Meetings 2023-01-28 00:00:00 2023-01-28 00:00:00 2 [facility] History SDOH Social Connections Living 2023-01-28 00:00:00 2023-01-28 00:00:00 3 [facility] History SDOH Physical Activity DPW 2023-01-28 00:00:00 2023-01-28 00:00:00 4 [facility] History SDOH Physical Activity MPS 2023-01-28 00:00:00 2023-01-28 00:00:00 10 [facility] History SDOH Stress 2023-01-28 00:00:00 2023-01-28 00:00:00 3 [facility] History SDOH Food Worry 2023-01-28 00:00:00 2023-01-28 00:00:00 1 [facility] History SDOH Food Scarcity 2023-01-28 00:00:00 2023-01-28 00:00:00 2 [facility] History SDOH Transport Med 2023-01-28 00:00:00 2023-01-28 00:00:00 2 [facility] History SDOH Transport Non-Med 2023-01-28 00:00:00 2023-01-28 00:00:00 2 [facility] History SDOH Housing Unable to Pay 2023-01-28 00:00:00 2023-01-28 00:00:00 2 [facility] History SDOH Housing Places Lived 2023-01-28 00:00:00 2023-01-28 00:00:00 1 [facility] History SDOH Housing Homeless Last Year 2023-01-28 00:00:00 2023-01-28 00:00:00 2 [facility] Tobacco use and exposure 2022-06-29 00:00:00 2022-06-29 00:00:00 Smokeless tobacco non-user [facility] Sex assigned at 1985 00:00:00 1985 00:00:00 [facility] Smoking Status Start Date Stop Date Source Never smoked tobacco [facility] Medications Ordered Medication Name Filled Medication Name Start Date Stop Date Current Medication? Ordering Clinician Indication Dosage Frequency Signature (SIG) Comments Components Source mupirocin 2 % topical ointment 02-13 00:00: 00 Yes 1% Britton Fry Bactrim DS 800 mg-160 mg tablet 02-13 00:00: 00 Yes 1mg Britton Fry meclizine 25 mg tablet 01-22 00:00: 00 Yes 1mg Britton Fry NARCAN 4 MG/0.1ML LIQD 01-04 00:00: 00 Yes Britton Fry TAKE 1 TABLET BY MOUTH TWICE DAILY 2024-0 4-05 00:00: 00 Yes Britton Fry calcium carbonate (CALCIUM 500 ORAL) 12-17 16:06: 28 Yes 3{tbl} Take 3 tablets by mouth in the morning. [facility] iron bis-gly/FA/ C/B12/Ca/richardson cc (IRON 21/7 ORAL) 12-17 16:06: 28 Yes 1{tbl} Take 1 tablet by mouth in the morning. [facility] TAKE 1 TABLET BY MOUTH IN THE MORNING AND IN THE EVENING 12-17 00:00: 00 Yes Britton Fry MUPIROCIN 2 % OINT 12-17 00:00: 00 Yes Britton Fry mupirocin 2 % ointment 12-17 00:00: 00 Yes [id number] Apply to area(s) 3 (three) times daily. [facility] sulfamethox azole-trime thoprim (BACTRIM) 400-80 mg per tablet 12-17 00:00: 00 Yes [id number] 1{tbl} Take 1 tablet by mouth in the morning and 1 tablet in the evening. [facility] TAKE 1 TABLET BY MOUTH TWICE DAILY 11-21 00:00: 00 Yes Britton Fry DISSOLVE 1 FILM UNDER THE TONGUE TWICE DAILY FOR 28 DAYS. 11-21 00:00: 00 Yes 8 Britton Fry QUEtiapine 25 mg tablet 10-23 00:00: 00 Yes [id number] 50mg Take 2 tablets by mouth in the morning. NEEDS APPT FOR FUTURE REFILLS [facility] METOPROLOL SUCCINATE ER 50 MG TB24 10-04 00:00: 00 Yes Britton Fry DISSOLVE 1 FILM UNDER THE TONGUE TWICE DAILY. 2022-10 00:00: 00 Yes Britton Fry TAKE 1 TABLET BY MOUTH IN THE MORNING AND IN THE EVENING WITH MEALS 2022-10 00:00: 00 Yes Britton Fry diclofenac 75 mg EC tablet 2022-10 00:00: 00 Yes [id number] 75mg Take 1 tablet by mouth in the morning and 1 tablet in the evening. Take with meals. [facility] lactated ringers IV infusion 1,000 mL 2022-10 19:45: 00 Yes 1000mL at 75 mL/hr, 1,000 mL, IV Infusion, CONTINUOUS , Starting on Mon08/28/23 at 1345, Until Discontinu ed, Routine, PACU [facility] proMETHazin e (PHENERGAN) 12.5 mg in NS 50 mL IV piggyback (CNR) 2022-10 19:32: 33 Yes 12.5mg 12.5 mg, IV Piggyback, at 200 mL/hr Administer over 15 Minutes, PRN, 1 dose, Starting on Mon08/28/23 at 1332, Until Discontinu ed, Routine, Nausea and Vomiting (N/V), PACU [facility] meperidine (DEMEROL) injection 12.5 mg 2022-10 19:32: 33 Yes 12.5mg 12.5 mg, Slow IV Push, PRN, 1 dose, Starting on Mon08/28/23 at 1332, Until Discontinu ed, Routine, Shivering, PACU
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
Us e approved by (Faculty): PACU USE -ANESTHESI A SERVICE-HY DROMORPHON E INJECTIONS [facility] FENTanyl PF (SUBLIMAZE (PF)) injection 25 mcg 2022-10 19:32: 33 Yes 25ug 25 mcg, Slow IV Push, Q5MIN PRN, 4 doses, Starting on Mon08/28/23 at 1332, Until Discontinu ed, Routine, Pain (scale 4-6), PACU [facility] acetaminoph en-codeine (TYLENOL #3) 300-30 mg tablet 1 tablet 2022-10 19:32: 33 08-28 20:07 :00 No 1{tbl} 1 tablet, Oral, PRN, 1 dose, Starting on Mon08/28/23 at 1332, Until Discontinu ed, Routine, Pain (scale 1-3), PACU [facility] bupivacaine (preserv free) (SENSORCAIN E MPF) 0.25 % (2.5 mg/mL) injection 2022-10 19:14: 00 Yes PRN, Starting on Mon08/28/23 at 1314, Until Discontinu ed, Routine, Intra-op [facility] lactated ringers IV infusion 1,000 mL 2022-10 17:00: 00 08-28 17:29 :00 No 1000mL at 42 mL/hr, 1,000 mL, IV Infusion, ONCE, 1 dose, On Mon08/28/23 at 1100, Routine, DSU Pre-op [facility] cetirizine 10 mg tablet 2022-10 15:02: 49 Yes 10mg Take 1 tablet by mouth. [facility] multivit with calcium,iro n,min (WOMEN'S DAILY MULTIVITAMI N ORAL) 2022-10 15:02: 49 Yes 1{tbl} Take 1 tablet by mouth in the morning. [facility] Cholecalcif alisha, Vitamin D3, (VITAMIN D3) 50 mcg (2,000 unit) tablet 2022-10 15:02: 49 Yes 2000U Take 1 tablet by mouth in the morning. [facility] NON-FORMULA RY MEDICATION 2022-10 15:02: 49 Yes 60mg Take 60 mg by mouth in the morning. Tumeric [facility] calcium carbonate (CALCIUM 500 ORAL) 2022-10 15:02: 49 Yes 3{tbl} Take 3 tablets by mouth in the morning. [facility] fluticasone propionate 50 mcg/actuati on nasal spray 2022-10 15:02: 49 Yes [facility] TAKE 1 TABLET BY MOUTH EVERY 6 HOURS FOR UP TO 7 DAYS NEEDED FOR MODERATE PAIN OR SEVERE PAIN OR ACUTE PAIN 2022-10 00:00: 00 Yes Britton Fry traMADoL 50 mg tablet 2022-10 00:00: 00 09-05 05:59 :00 No [id number] 50mg Take 1 tablet by mouth every 6 (six) hours as needed for Pain (scale 4-6) or Pain (scale 7-10) for up to 7 days. Indication s: acute pain [facility] TAKE 1/2 TO 1 TABLET BY MOUTH EVERY NIGHT NEEDED FOR INSOMNIA 2022-10 00:00: 00 Yes Britton Fry iron bis-gly/FA/ C/B12/Ca/richardson cc (IRON 21/7 ORAL) 2022-10 10:25: 06 Yes 1{tbl} Take 1 tablet by mouth in the morning. [facility] iron bis-gly/FA/ C/B12/Ca/richardson cc (IRON 21/7 ORAL) 2022-10 10:22: 55 Yes 1{tbl} Take 1 tablet by mouth in the morning. [facility] Cholecalcif alisha, Vitamin D3, (VITAMIN D3) 50 mcg (2,000 unit) tablet 2022-10 10:22: 55 Yes 2000U Take 1 tablet by mouth in the morning. [facility] NON-FORMULA RY MEDICATION 2022-10 10:22: 55 Yes 60mg Take 60 mg by mouth in the morning. Tumeric [facility] calcium carbonate (CALCIUM 500 ORAL) 2022-10 10:22: 55 Yes 3{tbl} Take 3 tablets by mouth in the morning. [facility] cetirizine 10 mg tablet 2022-10 10:20: 29 Yes 10mg Take 1 tablet by mouth. [facility] SULFAMETHOX AZOLE/TRIME THOPRIM DS 800-160 MG TABS 2022-10 00:00: 00 Yes Britton Fry sulfamethox azole-trime thoprim (BACTRIM DS) 800-160 mg per tablet 2022-10 00:00: 00 08-12 05:59 :00 No [id number] 1{tbl} Take 1 tablet by mouth in the morning and 1 tablet in the evening. Do all this for 10 days. [facility] Chlorhexidi ne Gluconate 2 % Towl 2022-10 0 00:00: 00 08-07 05:59 :00 No [id number] Apply to area(s) daily for 5 days. [facility] pantoprazol e 40 mg EC tablet 2022-10 030 00:00: 00 Yes [facility] buPROPion SR 150 mg SR tablet 2022-10 00:00: 00 Yes 150mg Take 1 tablet by mouth in the morning. [facility] SUBOXONE 8-2 MG FILM 2022-10 0 00:00: 00 Yes Britton Fry TAKE 1 TABLET BY MOUTH EVERY DAY 2022-10 0 00:00: 00 Yes Britton Fry FLUoxetine 40 mg capsule 2022-10 016 16:11: 44 07-17 00:00 :00 No [facility] cetirizine 10 mg tablet 2022-10 016 16:03: 07 Yes 10mg Take 1 tablet by mouth. [facility] metoprolol succinate XL 25 mg 24 hr tablet 2022-10 016 00:00: 00 Yes [id number] 50mg Take 2 tablets by mouth in the morning. [facility] SWISH AND SPIT 15ML BY MOUTH EVERY MORNING AND EVERY EVENING TWICE DAILY 2022-10 016 00:00: 00 Yes Britton Nikhil Fry QUETIAPINE FUMARATE 25 MG TABS 2022-10 016 00:00: 00 Yes Britton Fry QUEtiapine (SEROQUEL) 25 mg tablet 2022-10 016 00:00: 00 10-23 00:00 :00 No [id number] 50mg Take 2 tablets by mouth in the morning. Start with 1 pill every day for 2 weeks then increase to 2 pills daily [facility] chlorhexidi ne 0.12 % mouthwash 2022-10 016 00:00: 00 08-14 00:00 :00 No [id number] 15mL Swish and spit out 15 mL in the morning and 15 mL in the evening. Twice daily x 5 days twice a month x 6 months [facility] Chlorhexidi ne Gluconate 2 % Towl 2022-10 00:00: 00 08-14 00:00 :00 No [id number] Apply to area(s) daily. Once daily x 5 days twice a month x 6 months [facility] TAKE 1 TABLET ONCE DAILY. 06-26 00:00: 00 02-13 00:00 :00 No 50 Britton Nikhil Fry TAKE 1 TABLET EVERY 8 HOURS NEEDED FOR NAUSEA AND VOMITING. 06-26 00:00: 00 02-13 00:00 :00 No 8 Britton Fry TAKE 1 TABLET EVERY 6-8 HOURS NEEDED FOR DIZZINESS 06-26 00:00: 00 02-13 00:00 :00 No 50 Britton Nikhil Ang TAKES 1/2 TO 1 TABLET NIGHTLY NEEDED FOR INSOMNIA 06-26 00:00: 00 02-13 00:00 :00 No 50 Britton Fry metoprolol succinate XL 50 mg 24 hr tablet 06-26 00:00: 00 07-17 00:00 :00 No 50mg Take 1 tablet by mouth in the morning. [facility] PANTOPRAZOL E SODIUM 40 MG TBEC 06-12 00:00: 00 Yes Britton Fry meclizine 25 mg tablet 05-30 00:00: 00 Yes CHEW AND SWALLOW 1 TABLET BY MOUTH EVERY 6 HOURS NEEDED FOR DIZZINESS [facility] TAKE 1 TABLET BY MOUTH EVERY 8 HOURS NEEDED 05-26 00:00: 00 Yes Britton Fry mupirocin 2 % ointment 05-15 00:00: 00 Yes [id number] Apply to nares twice daily for 5 days; repeat monthly for 3 months. [facility] TAKE 1 CAPSULE BY MOUTH IN THE MORNING 05-15 00:00: 00 Yes Britton Fry doxycycline monohydrate 100 mg capsule 05-15 00:00: 00 07-17 00:00 :00 No [id number] 100mg Take 1 capsule by mouth in the morning. [facility] AMOXICILLIN /CLAVULANAT E POTASSIUM 875-125 MG TABS 8-05 00:00: 00 Yes Britton Fry doxycycline monohydrate 100 mg capsule 04-26 00:00: 00 Yes [id number] 100mg Take 1 capsule by mouth in the morning and 1 capsule in the evening. [facility] TAKE 1 TABLET BY MOUTH IN THE MORNING 04-26 00:00: 00 Yes Britton Fry metoprolol succinate XL 25 mg 24 hr tablet 04-26 00:00: 00 07-17 00:00 :00 No [id number] 25mg Take 1 tablet by mouth in the morning. [facility] chlorhexidi ne 0.12 % mouthwash 04-26 00:00: 00 07-17 00:00 :00 No [id number] 15mL Swish and spit out 15 mL in the morning and 15 mL in the evening. Do all this for 120 days. Twice daily x 5 days twice a month x 6 months [facility] Chlorhexidi ne Gluconate 2 % Towl 04-26 00:00: 00 07-17 00:00 :00 No [id number] Apply to area(s) daily for 120 days. Once daily x 5 days twice a month x 6 months [facility] CHEW AND SWALLOW 1 TAB PO Q 6 HRS PRN DIZZINESS 04-20 00:00: 00 02-13 00:00 :00 No 25 Britton Fry SULFAMETHOX AZOLE/TRIME THOPRIM DS 800-160 MG TABS 04-13 00:00: 00 02-13 00:00 :00 No Britton Fry sulfamethox azole-trime thoprim (BACTRIM DS) 800-160 mg per tablet 04-13 00:00: 00 07-17 00:00 :00 No [id number] 1{tbl} Take 1 tablet by mouth in the morning and 1 tablet in the evening. [facility] TAKE 1 CAPSULE BY MOUTH IN THE MORNING AND IN THE EVENING 04-10 00:00: 00 02-13 00:00 :00 No Britton Nikhil Fry MUPIROCIN 2 % OINT 04-10 00:00: 00 02-13 00:00 :00 No Britton Nikhil Fry doxycycline monohydrate 100 mg capsule 04-10 00:00: 00 04-26 00:00 :00 No [id number] 100mg Take 1 capsule by mouth in the morning and 1 capsule in the evening. [facility] DOXYCYCLINE HYC 100MG 04-01 00:00: 00 Yes Britton Fry APPLY SOLUTION WITH CLEAN WASHCLOTH TO ALL SKIN FROM THE NECK DOWN IN THE SHOWER DAILY FOR 5 DAYS. RINSE WELL AFTER EACH APPLICATION . 03-30 00:00: 00 02-13 00:00 :00 No 4 Britton Nikhil Fry TAKE 1 TABLET TWICE DAILY UNTIL FINISHED. 03-30 00:00: 00 02-13 00:00 :00 No [id number] Britton Nikhil Fry APPLY PEA-SIZED AMOUNT OF OINTMENT TO INSIDE OF EACH NARE TWICE DAILY FOR 5 DAYS. 03-30 00:00: 00 02-13 00:00 :00 No 2 Britton Nikhil Fry PANTOPRAZOL E SODIUM 40 MG TBEC 03-13 00:00: 00 Yes Britton Nikhil Ang SUBOXONE 8-2 MG FILM 02-28 00:00: 00 Yes Britton Nikhil Ang TAKE 1 TABLET BY MOUTH IN THE MORNING 02-21 00:00: 00 Yes Britton Nikhil Fry metoprolol succinate XL 25 mg 24 hr tablet 02-21 00:00: 00 04-26 00:00 :00 No [id number] 25mg Take 1 tablet by mouth in the morning. [facility] doxycycline hyclate (Vibramycin ) capsule 100 mg 17 01:00: 00 02-14 21:51 :42 No [id number] 100mg [facility] Zinc 50 mg Tab 02-14 00:00: 00 Yes [id number] 50mg Take 50 mg by mouth in the morning. [facility] Zinc 50 mg Tab 02-14 00:00: 00 Yes [id number] 50mg Take 50 mg by mouth in the morning. [facility] doxycycline hyclate 100 mg capsule 02-14 00:00: 00 03-14 00:00 :00 No [id number] 100mg Take 1 capsule by mouth every 12 (twelve) hours. [facility] TAKE 1 TABLET TWICE DAILY UNTIL FINISHED. 02-09 00:00: 00 02-13 00:00 :00 No [id number] Britton Fry norethindro ne-ethinyl estradiol 1-5 mg-mcg tablet 01-30 08:26: 47 01-30 00:00 :00 No 1{tbl} Take 1 tablet by mouth in the morning. [facility] TAKE 1/2 TABLET BY MOUTH AT BEDTIME 01-30 00:00: 00 Yes Britton Fry CLINDAMYCIN HYDROCHLORI DE 300 MG 01-30 00:00: 00 02-13 00:00 :00 No Britton Fry QUEtiapine (SEROQUEL) 50 mg tablet 01-30 00:00: 00 03-14 00:00 :00 No [id number] 25mg Take 0.5 tablets by mouth at bedtime. [facility] pantoprazol e 40 mg EC tablet 01-30 00:00: 00 03-14 00:00 :00 No [id number] 40mg Take 1 tablet by mouth in the morning. Take 30 minutes before food or coffee or any other medication s [facility] clindamycin 300 mg capsule 01-30 00:00: 00 02-14 00:00 :00 No [id number] 300mg Take 1 capsule by mouth 4 (four) times daily. [facility] TAKE 1 CAPSULE BY MOUTH FOUR TIMES DAILY FOR 7 DAYS 01-05 00:00: 00 02-13 00:00 :00 No Britton Fry clindamycin 300 mg capsule 01-05 00:00: 00 01-13 04:59 :00 No [id number] 300mg Take 1 capsule by mouth 4 (four) times daily for 7 days. [facility] NaCl 0.9% (NS) bolus infusion 1,000 mL 01-04 04:00: 00 01-04 04:05 :00 No 1000mL at 999 mL/hr, 1,000 mL, IV Infusion, ONCE, 1 dose, On Mon01/03/23 at 2300, STAT [facility] cefTRIAXone (ROCEPHIN) 1,000 mg in NaCl 0.9% (NS) 100 mL MINI-BAG 01-04 03:00: 00 01-04 03:41 :00 No 1000mg 1,000 mg, IV Piggyback, ONCE, 1 dose, On Mon01/03/23 at 2200, Administer over 30 Minutes, 100 mL
Reas on for Anti-Infec tive: Documented Infection< br>Documen bernice Infection Site: Urine
D uration of Therapy: Other (see Comments) [facility] CEPHALEXIN 500 MG 01-03 00:00: 00 02-13 00:00 :00 Sinai Fry ONDANSETRON ODT 4 MG TBDP 01-03 00:00: 00 02-13 00:00 :00 [facility] Fry ondansetron 4 mg disintegrat ing tablet 01-03 00:00: 00 01-30 00:00 :00 No [id number] 4mg Take 1 tablet by mouth every 4 (four) hours as needed for Nausea and Vomiting (N/V). [facility] docusate sodium 250 mg capsule 01-03 00:00: 00 01-30 00:00 :00 No [id number] 250mg Take 1 capsule by mouth in the morning. [facility] cephALEXin 500 mg capsule 01-03 00:00: 00 01-05 00:00 :00 No [id number] 500mg Take 1 capsule by mouth in the morning and 1 capsule in the evening. [facility] polyethylen e glycol 3350 (MIRALAX) 17 gram powder 01-03 00:00: 00 01-05 00:00 :00 No [id number] 1{packe t} Take 1 Packet by mouth every 24 (twenty-fo ur) hours as needed for Constipati on. [facility] TAKE 1 TABLET BY MOUTH AT BEDTIME 01-02 00:00: 00 02-13 00:00 :00 No 15 Britton Fry APPLY THIN LAYER TOPICALLY TO THE AFFECTED AREA TWICE DAILY FOR 7 DAYS 12-27 00:00: 00 02-13 00:00 :00 Sinai Fry norethindro ne-ethinyl estradiol 1-5 mg-mcg tablet 12-20 13:12: 15 Yes 1{tbl} Take 1 tablet by mouth in the morning. [facility] SUBOXONE 8-2 MG FILM 12-19 00:00: 00 02-13 00:00 :00 Sinai Fry HYDROCORTIS ONE 2.5 % CREA 12-15 00:00: 00 02-13 00:00 :00 iSnai Fry PANTOPRAZOL E SODIUM 40 MG TBEC 12-15 00:00: 00 02-13 00:00 :00 Sinai Fry ONDANSETRON HYDROCHLORI DE 4 MG TABS 12-15 00:00: 00 02-13 00:00 :00 Sinai Fry TAKE 1 TABLET AT BEDTIME. 12-02 00:00: 00 02-13 00:00 :00 No 15 Britton Fry MIRTAZAPINE 15 MG TABS - 00:00: 00 02-13 00:00 :00 Sinai Fry mirtazapine 15 mg tablet - 00:00: 00 01-30 00:00 :00 No 15mg Take 1 tablet by mouth at bedtime. [facility] [facility] MUPIROCIN 2 % OINT - 00:00: 00 02-13 00:00 :00 [facility] DOXYCYCLINE HYCLATE 100 MG - 00:00: 00 02-13 00:00 :00 [facility] mupirocin 2 % ointment 12-01 00:00: 00 01-30 00:00 :00 No [id number] Apply to area(s) 3 (three) times daily. [facility] doxycycline hyclate 100 mg capsule 12-01 00:00: 00 01-05 00:00 :00 No [id number] 100mg Take 1 capsule by mouth in the morning and 1 capsule in the evening. [facility] DISSOLVE 1 FILM UNDER THE TONGUE TWICE DAILY FOR 28 DAYS 11-16 00:00: 00 02-13 00:00 :00 [facility] SUBOXONE 8-2 MG FILM 10-19 00:00: 00 02-13 00:00 :00 [facility] TAKE 1 TABLET BY MOUTH EVERY 12 HOURS FOR 7 DAYS. 10-18 00:00: 00 02-13 00:00 :00 [facility] DISSOLVE 1 FILM UNDER THE TONGUE TWICE DAILY FOR 28 DAYS. 2021-10 00:00: 00 02-13 00:00 :00 [facility] DISSOLVE 1 FILM ON TONGUE TWICE DAILY 2021-10 0 00:00: 00 02-13 00:00 :00 [facility] triamcinolo ne acetonide (KENALOG) injection 40 mg 06-29 21:30: 00 06-29 20:17 :00 No [id number] 40mg [facility] SUBOXONE 8-2 MG FILM 06-29 00:00: 00 02-13 00:00 :00 [facility] TAKE 1 FILM BY MOUTH TWICE DAILY FOR 28 DAYS 06-24 00:00: 00 02-13 00:00 :00 No [facility] TAKE 1/2 TO 1 TABLET BY MOUTH EVERY NIGHT 06-24 00:00: 00 02-13 00:00 :00 No [facility] BUPRENORPHI NE HYDROCHLORI DE/NALOXON E HYDROCHLORI DE 8-2 MG FILM 03-09 00:00: 00 02-13 00:00 :00 No [facility] BUPRENORPHI NE HYDROCHLORI DE/NALOXON E HYDROCHLORI DE 8-2 MG FILM 02-11 00:00: 00 02-13 00:00 :00 No [facility] Zoloft 50 mg tablet 2020-10 00:00: 00 Yes 1mg [facility] Dose Unknown 2020-10 00:00: 00 Yes [facility] Seroquel 50 mg tablet 2020-10 00:00: 00 Yes 1mg [facility] Zoloft 50 mg tablet 2020-10 00:00: 00 Yes 1mg [facility] Seroquel 50 mg tablet 2020-10 00:00: 00 Yes 1mg [facility] trazodone 100 mg tablet 2020-10 00:00: 00 Yes 51mg [facility] amoxicillin 875 mg-potassiu m clavulanate 125 mg tablet 2020-10 00:00: 00 Yes 1mg [facility] cephalexin 500 mg tablet 2020-10 00:00: 00 Yes 2mg [facility] fluconazole 200 mg tablet 2020-10 0 00:00: 00 Yes 1mg [facility] Zoloft 50 mg tablet 2020-1018 00:00: 00 Yes 1mg [facility] Seroquel 50 mg tablet 2020-1018 00:00: 00 Yes 1mg [facility] trazodone 100 mg tablet 2020-1018 00:00: 00 Yes 51mg [facility] Zoloft 50 mg tablet 06-23 00:00: 00 Yes 1mg [facility] trazodone 100 mg tablet 06-23 00:00: 00 Yes 51mg [facility] Seroquel 50 mg tablet 06-23 00:00: 00 Yes 1mg [facility] levofloxaci n 250 mg tablet 0 8- 00:00: 00 Yes 1mg [facility] Macrobid 100 mg capsule 0 -18 00:00: 00 Yes 1mg [facility] Zoloft 50 mg tablet 0 - 00:00: 00 Yes 1mg [facility] Seroquel 50 mg tablet 0 - 00:00: 00 Yes 1mg [facility] trazodone 100 mg tablet 0 - 00:00: 00 Yes 51mg [facility] Zoloft 50 mg tablet 0 6-16 00:00: 00 Yes 1mg [facility] Seroquel 50 mg tablet 0 - 00:00: 00 Yes 1mg [facility] trazodone 100 mg tablet 0 6- 00:00: 00 Yes 51mg [facility] Zoloft 50 mg tablet 0 5-29 00:00: 00 Yes 1mg [facility] trazodone 50 mg tablet 0 5-29 00:00: 00 Yes 51mg [facility] Seroquel 50 mg tablet 0 5-29 00:00: 00 Yes 1mg [facility] Zoloft 50 mg tablet 0 5-28 00:00: 00 Yes 1mg [facility] trazodone 50 mg tablet 0 5-28 00:00: 00 Yes 51mg [facility] Seroquel 50 mg tablet 0 5-28 00:00: 00 Yes 1mg [facility] Zoloft 25 mg tablet 0 5- 00:00: 00 Yes 1mg [facility] Seroquel 25 mg tablet 0 5- 00:00: 00 Yes 1mg [facility] trazodone 50 mg tablet 0 5-11 00:00: 00 Yes 51mg [facility] Flagyl 500 mg tablet 0 3-30 00:00: 00 Yes 1mg [facility] Zyrtec 10 mg capsule 2019-0 3-03 00:00: 00 Yes 1mg [facility] amoxicillin 875 mg tablet 0 9-17 00:00: 00 Yes 1mg [facility] Bromfed DM 2 mg-30 mg-10 mg/5 mL oral syrup 06-18 00:00: 00 Yes 10mg/5 mL [facility] mupirocin 2 % topical ointment 05-23 00:00: 00 Yes 1% [facility] sulfamethox azole 800 mg-trimetho prim 160 mg tablet 05-23 00:00: 00 Yes 1mg [facility] norethindro ne-ethinyl estradiol 1-5 mg-mcg tablet 03-27 14:07: 55 Yes 1{tbl} Take 1 tablet by mouth daily. [facility] promethazin e 12.5 mg tablet 11-24 00:00: 00 Yes 1mg [facility] amoxicillin 500 mg tablet 2016-10 00:00: 00 Yes 2mg [facility] clarithromy aaliyah 500 mg tablet 2016-10 00:00: 00 Yes 1mg [facility] omeprazole 20 mg capsule,del ayed release 2016-10 00:00: 00 Yes 1mg [facility] traMADOL 50 mg tablet 2016-10 00:00: 00 01-30 00:00 :00 No Take 1-2 tabs by mouth every 4-6 hours as needed for severe pain [facility] proMETHazin e 25 mg tablet 06-08 00:00: 00 01-05 00:00 :00 No 25mg Take 1 tablet by mouth every 6 (six) hours as needed for N/V unresponsi ve to Ondansetro n. [facility] diclofenac 3 % gel 05-19 00:00: 00 01-30 00:00 :00 No Apply 2-3 grams TO affected area THREE TIMES DAILY max EIGHT grams/day [facility] SUBOXONE 8-2 mg sublingual film 03-14 00:00: 00 Yes [facility] prednisone 10 mg tablet 02-09 00:00: 00 Yes mg [facility] gabapentin 100 mg capsule 02-09 00:00: 00 Yes 1mg [facility] cyclobenzap rine 5 mg tablet 02-06 00:00: 00 Yes 1mg [facility] nystatin 100,000 unit/gram ointment 01-19 00:00: 00 01-05 00:00 :00 No APPLY TO THE AFFECTED AREA BID FOR 10 DAYS [facility] prednisone 10 mg tablet 2015-10 00:00: 00 Yes 1mg [facility] cyclobenzap rine 10 mg tablet 2015-10 00:00: 00 Yes 51mg [facility] ibuprofen 800 mg tablet 2015-10 00:00: 00 Yes 1mg [facility] ranitidine 150 mg capsule 2015-10 00:00: 00 Yes 1mg [facility] clarithromy aaliyah 500 mg tablet 2015-10 00:00: 00 Yes 1mg [facility] amoxicillin 500 mg capsule 2015-10 00:00: 00 Yes 2mg [facility] amoxicillin 875 mg tablet 2015-10 00:00: 00 Yes 1mg [facility] Hufed DM 2 mg-30 mg-10 mg/5 mL syrup 2015-10 00:00: 00 Yes 10mg/5 mL [facility] Prozac 20 mg capsule 05-27 00:00: 00 Yes 1mg [facility] hydroxyzine HCl 25 mg tablet 04-22 00:00: 00 Yes 1mg [facility] Prozac 20 mg capsule 04-22 00:00: 00 Yes 1mg [facility] Bactrim DS 800 mg-160 mg tablet 12-06 00:00: 00 Yes 1mg [facility] Zithromax Z-Cameron 250 mg tablet 11-10 00:00: 00 Yes 1mg [facility] Bromfed DM 2 mg-30 mg-10 mg/5 mL syrup 11-10 00:00: 00 Yes 1mg/5 mL [facility] Bromfed DM 2 mg-30 mg-10 mg/5 mL syrup 05-15 00:00: 00 Yes 10mg/5 mL [facility] Lexapro 20 mg tablet 03-24 00:00: 00 Yes 1mg [facility] Vistaril 50 mg capsule 03-24 00:00: 00 Yes mg [facility] trazodone 50 mg tablet 03-05 00:00: 00 Yes 12mg [facility] Prozac 40 mg capsule 03-05 00:00: 00 Yes 1mg [facility] Vistaril 50 mg capsule 03-05 00:00: 00 Yes mg [facility] Prozac 10 mg capsule 01-08 00:00: 00 Yes 3mg [facility] NuvaRing 0.12 mg -0.015 mg/24 hr vaginal 10-28 00:00: 00 Yes 1mg/24 hr [facility] Prozac 10 mg capsule 10-28 00:00: 00 Yes 1mg [facility] Vistaril 50 mg capsule 10-28 00:00: 00 Yes mg [facility] Immunizations Ordered Immunization Name Filled Immunization Name Date Status Comments Source SARS-COV-2 COVID-19 PFIZER VACCINE 2021-08-21 00:00:00 Completed [facility] SARS-COV-2 COVID-19 PFIZER VACCINE 2021-08-21 00:00:00 Completed [facility] SARS-COV-2 COVID-19 PFIZER VACCINE 2021-08-21 00:00:00 Completed [facility] SARS-COV-2 COVID-19 PFIZER VACCINE 2021-08-21 00:00:00 Completed [facility] SARS-COV-2 COVID-19 PFIZER VACCINE 2021-08-21 00:00:00 Completed [facility] SARS-COV-2 COVID-19 PFIZER VACCINE 2021-08-21 00:00:00 Completed [facility] SARS-COV-2 COVID-19 PFIZER VACCINE 2021-08-21 00:00:00 Completed [facility] SARS-COV-2 COVID-19 PFIZER VACCINE 2021-08-21 00:00:00 Completed [facility] SARS-COV-2 COVID-19 PFIZER VACCINE 2021-08-21 00:00:00 Completed [facility] SARS-COV-2 COVID-19 PFIZER VACCINE 2021-08-21 00:00:00 Completed [facility] SARS-COV-2 COVID-19 PFIZER VACCINE 2021-08-21 00:00:00 Completed [facility] SARS-COV-2 COVID-19 PFIZER VACCINE 2021-08-21 00:00:00 Completed [facility] SARS-COV-2 COVID-19 PFIZER VACCINE 2021-08-21 00:00:00 Completed [facility] SARS-COV-2 COVID-19 PFIZER VACCINE 2021-08-21 00:00:00 Completed [facility] SARS-COV-2 COVID-19 PFIZER VACCINE 2021-08-21 00:00:00 Completed [facility] SARS-COV-2 COVID-19 PFIZER VACCINE 2021-08-21 00:00:00 Completed [facility] SARS-COV-2 COVID-19 PFIZER VACCINE 2021-08-21 00:00:00 Completed [facility] SARS-COV-2 COVID-19 PFIZER VACCINE 2021-08-21 00:00:00 Completed [facility] SARS-COV-2 COVID-19 PFIZER VACCINE 2021-08-21 00:00:00 Completed [facility] SARS-COV-2 COVID-19 PFIZER VACCINE 2021-08-21 00:00:00 Completed [facility] SARS-COV-2 COVID-19 PFIZER VACCINE 2021-08-21 00:00:00 Completed [facility] SARS-COV-2 COVID-19 PFIZER VACCINE 2021-08-21 00:00:00 Completed [facility] SARS-COV-2 COVID-19 PFIZER VACCINE 2021-08-21 00:00:00 Completed [facility] SARS-COV-2 COVID-19 PFIZER VACCINE 2021-08-21 00:00:00 Completed [facility] SARS-COV-2 COVID-19 PFIZER VACCINE 2021-08-21 00:00:00 Completed [facility] SARS-COV-2 COVID-19 PFIZER VACCINE 2021-08-21 00:00:00 Completed [facility] SARS-COV-2 COVID-19 PFIZER VACCINE 2021-08-21 00:00:00 Completed [facility] SARS-COV-2 COVID-19 PFIZER VACCINE 2021-08-21 00:00:00 Completed [facility] SARS-COV-2 COVID-19 PFIZER VACCINE 2021-08-21 00:00:00 Completed [facility] SARS-COV-2 COVID-19 PFIZER VACCINE 2021-08-21 00:00:00 Completed [facility] SARS-COV-2 COVID-19 PFIZER VACCINE 2021-08-21 00:00:00 Completed [facility] SARS-COV-2 COVID-19 PFIZER VACCINE 2021-08-21 00:00:00 Completed [facility] SARS-COV-2 COVID-19 PFIZER VACCINE 2021-08-21 00:00:00 Completed [facility] SARS-COV-2 COVID-19 PFIZER VACCINE 2021-08-21 00:00:00 Completed [facility] SARS-COV-2 COVID-19 PFIZER VACCINE 2021-08-21 00:00:00 Completed [facility] SARS-COV-2 COVID-19 PFIZER VACCINE 2021-08-21 00:00:00 Completed [facility] SARS-COV-2 COVID-19 PFIZER VACCINE 2021-08-21 00:00:00 Completed [facility] SARS-COV-2 COVID-19 PFIZER VACCINE 2021-08-21 00:00:00 Completed [facility] SARS-COV-2 COVID-19 PFIZER VACCINE 2021-08-21 00:00:00 Completed [facility] SARS-COV-2 COVID-19 PFIZER VACCINE 2021-08-21 00:00:00 Completed [facility] SARS-COV-2 COVID-19 PFIZER VACCINE 2021-08-21 00:00:00 Completed [facility] SARS-COV-2 COVID-19 PFIZER VACCINE 2021-08-21 00:00:00 Completed [facility] SARS-COV-2 COVID-19 PFIZER VACCINE 2021-08-21 00:00:00 Completed [facility] SARS-COV-2 COVID-19 PFIZER VACCINE 2021-08-21 00:00:00 Completed [facility] SARS-COV-2 COVID-19 PFIZER VACCINE 2021-08-21 00:00:00 Completed [facility] SARS-COV-2 COVID-19 PFIZER VACCINE 2021-08-21 00:00:00 Completed [facility] SARS-COV-2 COVID-19 PFIZER VACCINE 2021-08-21 00:00:00 Completed [facility] SARS-COV-2 COVID-19 PFIZER VACCINE 2021-08-21 00:00:00 Completed [facility] SARS-COV-2 COVID-19 PFIZER VACCINE 2021-08-21 00:00:00 Completed [facility] SARS-COV-2 COVID-19 PFIZER VACCINE 2021-08-21 00:00:00 Completed [facility] SARS-COV-2 COVID-19 PFIZER VACCINE 2021-08-21 00:00:00 Completed [facility] SARS-COV-2 COVID-19 PFIZER VACCINE 2021-08-21 00:00:00 Completed [facility] SARS-COV-2 COVID-19 PFIZER VACCINE 2021-08-21 00:00:00 Completed [facility] SARS-COV-2 COVID-19 PFIZER VACCINE 2021-01-07 00:00:00 Completed [facility] SARS-COV-2 COVID-19 PFIZER VACCINE 2021-01-07 00:00:00 Completed [facility] SARS-COV-2 COVID-19 PFIZER VACCINE 2021-01-07 00:00:00 Completed [facility] SARS-COV-2 COVID-19 PFIZER VACCINE 2021-01-07 00:00:00 Completed [facility] SARS-COV-2 COVID-19 PFIZER VACCINE 2021-01-07 00:00:00 Completed [facility] SARS-COV-2 COVID-19 PFIZER VACCINE 2021-01-07 00:00:00 Completed [facility] SARS-COV-2 COVID-19 PFIZER VACCINE 2021-01-07 00:00:00 Completed [facility] SARS-COV-2 COVID-19 PFIZER VACCINE 2021-01-07 00:00:00 Completed [facility] SARS-COV-2 COVID-19 PFIZER VACCINE 2021-01-07 00:00:00 Completed [facility] SARS-COV-2 COVID-19 PFIZER VACCINE 2021-01-07 00:00:00 Completed [facility] SARS-COV-2 COVID-19 PFIZER VACCINE 2021-01-07 00:00:00 Completed [facility] SARS-COV-2 COVID-19 PFIZER VACCINE 2021-01-07 00:00:00 Completed [facility] SARS-COV-2 COVID-19 PFIZER VACCINE 2021-01-07 00:00:00 Completed [facility] SARS-COV-2 COVID-19 PFIZER VACCINE 2021-01-07 00:00:00 Completed [facility] SARS-COV-2 COVID-19 PFIZER VACCINE 2021-01-07 00:00:00 Completed [facility] SARS-COV-2 COVID-19 PFIZER VACCINE 2021-01-07 00:00:00 Completed [facility] SARS-COV-2 COVID-19 PFIZER VACCINE 2021-01-07 00:00:00 Completed [facility] SARS-COV-2 COVID-19 PFIZER VACCINE 2021-01-07 00:00:00 Completed [facility] SARS-COV-2 COVID-19 PFIZER VACCINE 2021-01-07 00:00:00 Completed [facility] SARS-COV-2 COVID-19 PFIZER VACCINE 2021-01-07 00:00:00 Completed [facility] SARS-COV-2 COVID-19 PFIZER VACCINE 2021-01-07 00:00:00 Completed [facility] SARS-COV-2 COVID-19 PFIZER VACCINE 2021-01-07 00:00:00 Completed [facility] SARS-COV-2 COVID-19 PFIZER VACCINE 2021-01-07 00:00:00 Completed [facility] SARS-COV-2 COVID-19 PFIZER VACCINE 2021-01-07 00:00:00 Completed [facility] SARS-COV-2 COVID-19 PFIZER VACCINE 2021-01-07 00:00:00 Completed [facility] SARS-COV-2 COVID-19 PFIZER VACCINE 2021-01-07 00:00:00 Completed [facility] SARS-COV-2 COVID-19 PFIZER VACCINE 2021-01-07 00:00:00 Completed [facility] SARS-COV-2 COVID-19 PFIZER VACCINE 2021-01-07 00:00:00 Completed [facility] SARS-COV-2 COVID-19 PFIZER VACCINE 2021-01-07 00:00:00 Completed [facility] SARS-COV-2 COVID-19 PFIZER VACCINE 2021-01-07 00:00:00 Completed [facility] SARS-COV-2 COVID-19 PFIZER VACCINE 2021-01-07 00:00:00 Completed [facility] SARS-COV-2 COVID-19 PFIZER VACCINE 2021-01-07 00:00:00 Completed [facility] SARS-COV-2 COVID-19 PFIZER VACCINE 2021-01-07 00:00:00 Completed [facility] SARS-COV-2 COVID-19 PFIZER VACCINE 2021-01-07 00:00:00 Completed [facility] SARS-COV-2 COVID-19 PFIZER VACCINE 2021-01-07 00:00:00 Completed [facility] SARS-COV-2 COVID-19 PFIZER VACCINE 2021-01-07 00:00:00 Completed [facility] SARS-COV-2 COVID-19 PFIZER VACCINE 2021-01-07 00:00:00 Completed [facility] SARS-COV-2 COVID-19 PFIZER VACCINE 2021-01-07 00:00:00 Completed [facility] SARS-COV-2 COVID-19 PFIZER VACCINE 2021-01-07 00:00:00 Completed [facility] SARS-COV-2 COVID-19 PFIZER VACCINE 2021-01-07 00:00:00 Completed [facility] SARS-COV-2 COVID-19 PFIZER VACCINE 2021-01-07 00:00:00 Completed [facility] SARS-COV-2 COVID-19 PFIZER VACCINE 2021-01-07 00:00:00 Completed [facility] SARS-COV-2 COVID-19 PFIZER VACCINE 2021-01-07 00:00:00 Completed [facility] SARS-COV-2 COVID-19 PFIZER VACCINE 2021-01-07 00:00:00 Completed [facility] SARS-COV-2 COVID-19 PFIZER VACCINE 2021-01-07 00:00:00 Completed [facility] SARS-COV-2 COVID-19 PFIZER VACCINE 2021-01-07 00:00:00 Completed [facility] SARS-COV-2 COVID-19 PFIZER VACCINE 2021-01-07 00:00:00 Completed [facility] SARS-COV-2 COVID-19 PFIZER VACCINE 2021-01-07 00:00:00 Completed [facility] SARS-COV-2 COVID-19 PFIZER VACCINE 2021-01-07 00:00:00 Completed [facility] SARS-COV-2 COVID-19 PFIZER VACCINE 2021-01-07 00:00:00 Completed [facility] SARS-COV-2 COVID-19 PFIZER VACCINE 2021-01-07 00:00:00 Completed [facility] SARS-COV-2 COVID-19 PFIZER VACCINE 2021-01-07 00:00:00 Completed [facility] SARS-COV-2 COVID-19 PFIZER VACCINE 2021-01-07 00:00:00 Completed [facility] SARS-COV-2 COVID-19 PFIZER VACCINE 2021-01-07 00:00:00 Completed [facility] SARS-COV-2 COVID-19 PFIZER VACCINE 2021-01-07 00:00:00 Completed [facility] SARS-COV-2 COVID-19 PFIZER VACCINE 2021-01-07 00:00:00 Completed [facility] SARS-COV-2 COVID-19 PFIZER VACCINE 2021-01-07 00:00:00 Completed [facility] SARS-COV-2 COVID-19 PFIZER VACCINE 2021-01-07 00:00:00 Completed [facility] SARS-COV-2 COVID-19 PFIZER VACCINE 2021-01-07 00:00:00 Completed [facility] SARS-COV-2 COVID-19 PFIZER VACCINE 2021-01-07 00:00:00 Completed [facility] SARS-COV-2 COVID-19 PFIZER VACCINE 2021-01-07 00:00:00 Completed [facility] SARS-COV-2 COVID-19 PFIZER VACCINE 2021-01-07 00:00:00 Completed [facility] SARS-COV-2 COVID-19 PFIZER VACCINE 2021-01-07 00:00:00 Completed [facility] SARS-COV-2 COVID-19 PFIZER VACCINE 2021-01-07 00:00:00 Completed [facility] SARS-COV-2 COVID-19 PFIZER VACCINE 2021-01-07 00:00:00 Completed [facility] SARS-COV-2 COVID-19 PFIZER VACCINE 2021-01-07 00:00:00 Completed [facility] SARS-COV-2 COVID-19 PFIZER VACCINE 2021-01-07 00:00:00 Completed [facility] SARS-COV-2 COVID-19 PFIZER VACCINE 2021-01-07 00:00:00 Completed [facility] SARS-COV-2 COVID-19 PFIZER VACCINE 2021-01-07 00:00:00 Completed [facility] SARS-COV-2 COVID-19 PFIZER VACCINE 2021-01-07 00:00:00 Completed [facility] SARS-COV-2 COVID-19 PFIZER VACCINE 2020-12-17 00:00:00 Completed [facility] SARS-COV-2 COVID-19 PFIZER VACCINE 2020-12-17 00:00:00 Completed [facility] SARS-COV-2 COVID-19 PFIZER VACCINE 2020-12-17 00:00:00 Completed [facility] SARS-COV-2 COVID-19 PFIZER VACCINE 2020-12-17 00:00:00 Completed [facility] SARS-COV-2 COVID-19 PFIZER VACCINE 2020-12-17 00:00:00 Completed [facility] SARS-COV-2 COVID-19 PFIZER VACCINE 2020-12-17 00:00:00 Completed [facility] SARS-COV-2 COVID-19 PFIZER VACCINE 2020-12-17 00:00:00 Completed [facility] SARS-COV-2 COVID-19 PFIZER VACCINE 2020-12-17 00:00:00 Completed [facility] SARS-COV-2 COVID-19 PFIZER VACCINE 2020-12-17 00:00:00 Completed [facility] SARS-COV-2 COVID-19 PFIZER VACCINE 2020-12-17 00:00:00 Completed [facility] SARS-COV-2 COVID-19 PFIZER VACCINE 2020-12-17 00:00:00 Completed [facility] SARS-COV-2 COVID-19 PFIZER VACCINE 2020-12-17 00:00:00 Completed [facility] SARS-COV-2 COVID-19 PFIZER VACCINE 2020-12-17 00:00:00 Completed [facility] SARS-COV-2 COVID-19 PFIZER VACCINE 2020-12-17 00:00:00 Completed [facility] SARS-COV-2 COVID-19 PFIZER VACCINE 2020-12-17 00:00:00 Completed [facility] SARS-COV-2 COVID-19 PFIZER VACCINE 2020-12-17 00:00:00 Completed [facility] SARS-COV-2 COVID-19 PFIZER VACCINE 2020-12-17 00:00:00 Completed [facility] SARS-COV-2 COVID-19 PFIZER VACCINE 2020-12-17 00:00:00 Completed [facility] SARS-COV-2 COVID-19 PFIZER VACCINE 2020-12-17 00:00:00 Completed [facility] SARS-COV-2 COVID-19 PFIZER VACCINE 2020-12-17 00:00:00 Completed [facility] SARS-COV-2 COVID-19 PFIZER VACCINE 2020-12-17 00:00:00 Completed [facility] SARS-COV-2 COVID-19 PFIZER VACCINE 2020-12-17 00:00:00 Completed [facility] SARS-COV-2 COVID-19 PFIZER VACCINE 2020-12-17 00:00:00 Completed [facility] SARS-COV-2 COVID-19 PFIZER VACCINE 2020-12-17 00:00:00 Completed [facility] SARS-COV-2 COVID-19 PFIZER VACCINE 2020-12-17 00:00:00 Completed [facility] SARS-COV-2 COVID-19 PFIZER VACCINE 2020-12-17 00:00:00 Completed [facility] SARS-COV-2 COVID-19 PFIZER VACCINE 2020-12-17 00:00:00 Completed [facility] SARS-COV-2 COVID-19 PFIZER VACCINE 2020-12-17 00:00:00 Completed [facility] SARS-COV-2 COVID-19 PFIZER VACCINE 2020-12-17 00:00:00 Completed [facility] SARS-COV-2 COVID-19 PFIZER VACCINE 2020-12-17 00:00:00 Completed [facility] SARS-COV-2 COVID-19 PFIZER VACCINE 2020-12-17 00:00:00 Completed [facility] SARS-COV-2 COVID-19 PFIZER VACCINE 2020-12-17 00:00:00 Completed [facility] SARS-COV-2 COVID-19 PFIZER VACCINE 2020-12-17 00:00:00 Completed [facility] SARS-COV-2 COVID-19 PFIZER VACCINE 2020-12-17 00:00:00 Completed [facility] SARS-COV-2 COVID-19 PFIZER VACCINE 2020-12-17 00:00:00 Completed [facility] SARS-COV-2 COVID-19 PFIZER VACCINE 2020-12-17 00:00:00 Completed [facility] SARS-COV-2 COVID-19 PFIZER VACCINE 2020-12-17 00:00:00 Completed [facility] SARS-COV-2 COVID-19 PFIZER VACCINE 2020-12-17 00:00:00 Completed [facility] SARS-COV-2 COVID-19 PFIZER VACCINE 2020-12-17 00:00:00 Completed [facility] SARS-COV-2 COVID-19 PFIZER VACCINE 2020-12-17 00:00:00 Completed [facility] SARS-COV-2 COVID-19 PFIZER VACCINE 2020-12-17 00:00:00 Completed [facility] SARS-COV-2 COVID-19 PFIZER VACCINE 2020-12-17 00:00:00 Completed [facility] SARS-COV-2 COVID-19 PFIZER VACCINE 2020-12-17 00:00:00 Completed [facility] SARS-COV-2 COVID-19 PFIZER VACCINE 2020-12-17 00:00:00 Completed [facility] SARS-COV-2 COVID-19 PFIZER VACCINE 2020-12-17 00:00:00 Completed [facility] SARS-COV-2 COVID-19 PFIZER VACCINE 2020-12-17 00:00:00 Completed [facility] SARS-COV-2 COVID-19 PFIZER VACCINE 2020-12-17 00:00:00 Completed [facility] SARS-COV-2 COVID-19 PFIZER VACCINE 2020-12-17 00:00:00 Completed [facility] SARS-COV-2 COVID-19 PFIZER VACCINE 2020-12-17 00:00:00 Completed [facility] SARS-COV-2 COVID-19 PFIZER VACCINE 2020-12-17 00:00:00 [facility] [facility] SARS-COV-2 COVID-19 PFIZER VACCINE 2020-12-17 00:00:00 Completed [facility] SARS-COV-2 COVID-19 PFIZER VACCINE 2020-12-17 00:00:00 Completed [facility] SARS-COV-2 COVID-19 PFIZER VACCINE 2020-12-17 00:00:00 Completed [facility] SARS-COV-2 COVID-19 PFIZER VACCINE 2020-12-17 00:00:00 Completed [facility] SARS-COV-2 COVID-19 PFIZER VACCINE 2020-12-17 00:00:00 Completed [facility] SARS-COV-2 COVID-19 PFIZER VACCINE 2020-12-17 00:00:00 Completed [facility] SARS-COV-2 COVID-19 PFIZER VACCINE 2020-12-17 00:00:00 Completed [facility] SARS-COV-2 COVID-19 PFIZER VACCINE 2020-12-17 00:00:00 Completed [facility] SARS-COV-2 COVID-19 PFIZER VACCINE 2020-12-17 00:00:00 Completed [facility] SARS-COV-2 COVID-19 PFIZER VACCINE 2020-12-17 00:00:00 Completed [facility] SARS-COV-2 COVID-19 PFIZER VACCINE 2020-12-17 00:00:00 Completed [facility] SARS-COV-2 COVID-19 PFIZER VACCINE 2020-12-17 00:00:00 Completed [facility] SARS-COV-2 COVID-19 PFIZER VACCINE 2020-12-17 00:00:00 Completed [facility] SARS-COV-2 COVID-19 PFIZER VACCINE 2020-12-17 00:00:00 Completed [facility] SARS-COV-2 COVID-19 PFIZER VACCINE 2020-12-17 00:00:00 Completed [facility] SARS-COV-2 COVID-19 PFIZER VACCINE 2020-12-17 00:00:00 Completed [facility] SARS-COV-2 COVID-19 PFIZER VACCINE 2020-12-17 00:00:00 Completed [facility] SARS-COV-2 COVID-19 PFIZER VACCINE 2020-12-17 00:00:00 Completed [facility] SARS-COV-2 COVID-19 PFIZER VACCINE 2020-12-17 00:00:00 Completed [facility] SARS-COV-2 COVID-19 PFIZER VACCINE 2020-12-17 00:00:00 Completed [facility] Tdap Tdap 2018-05-29 00:00:00 Completed [facility] SARS-COV-2 COVID-19 PFIZER VACCINE Unknown Completed [facility] SARS-COV-2 COVID-19 PFIZER VACCINE Unknown Completed [facility] SARS-COV-2 COVID-19 PFIZER VACCINE Unknown Completed [facility] SARS-COV-2 COVID-19 PFIZER VACCINE Unknown Completed [facility] SARS-COV-2 COVID-19 PFIZER VACCINE Unknown Completed [facility] SARS-COV-2 COVID-19 PFIZER VACCINE Unknown Completed [facility] SARS-COV-2 COVID-19 PFIZER VACCINE Unknown Completed [facility] SARS-COV-2 COVID-19 PFIZER VACCINE Unknown Completed [facility] SARS-COV-2 COVID-19 PFIZER VACCINE Unknown Completed [facility] SARS-COV-2 COVID-19 PFIZER VACCINE Unknown Completed [facility] SARS-COV-2 COVID-19 PFIZER VACCINE Unknown Completed [facility] SARS-COV-2 COVID-19 PFIZER VACCINE Unknown Completed [facility] SARS-COV-2 COVID-19 PFIZER VACCINE Unknown Completed [facility] SARS-COV-2 COVID-19 PFIZER VACCINE Unknown Completed [facility] SARS-COV-2 COVID-19 PFIZER VACCINE Unknown Completed [facility] SARS-COV-2 COVID-19 PFIZER VACCINE Unknown Completed [facility] SARS-COV-2 COVID-19 PFIZER VACCINE Unknown Completed [facility] SARS-COV-2 COVID-19 PFIZER VACCINE Unknown Completed [facility] SARS-COV-2 COVID-19 PFIZER VACCINE Unknown Completed [facility] SARS-COV-2 COVID-19 PFIZER VACCINE Unknown Completed [facility] SARS-COV-2 COVID-19 PFIZER VACCINE Unknown Completed [facility] SARS-COV-2 COVID-19 PFIZER VACCINE Unknown Completed [facility] SARS-COV-2 COVID-19 PFIZER VACCINE Unknown Completed [facility] SARS-COV-2 COVID-19 PFIZER VACCINE Unknown Completed [facility] SARS-COV-2 COVID-19 PFIZER VACCINE Unknown Completed [facility] SARS-COV-2 COVID-19 PFIZER VACCINE Unknown Completed [facility] SARS-COV-2 COVID-19 PFIZER VACCINE Unknown Completed [facility] SARS-COV-2 COVID-19 PFIZER VACCINE Unknown Completed [facility] SARS-COV-2 COVID-19 PFIZER VACCINE Unknown Completed [facility] SARS-COV-2 COVID-19 PFIZER VACCINE Unknown Completed [facility] Influenza Virus Vaccine Quad IM, Preserv and ABX Free 6 MO-64 YRS (FLUCELVAX) Unknown Completed [facility] SARS-COV-2 COVID-19 PFIZER VACCINE Unknown Completed [facility] SARS-COV-2 COVID-19 PFIZER VACCINE Unknown Completed [facility] SARS-COV-2 COVID-19 PFIZER VACCINE Unknown Completed [facility] Influenza Virus Vaccine Quad IM, Preserv and ABX Free 6 MO-64 YRS (FLUCELVAX) Unknown Completed [facility] SARS-COV-2 COVID-19 PFIZER VACCINE Unknown Completed [facility] SARS-COV-2 COVID-19 PFIZER VACCINE Unknown Completed [facility] SARS-COV-2 COVID-19 PFIZER VACCINE Unknown Completed [facility] Influenza Virus Vaccine Quad IM, Preserv and ABX Free 6 MO-64 YRS (FLUCELVAX) Unknown Completed [facility] SARS-COV-2 COVID-19 PFIZER VACCINE Unknown Completed [facility] SARS-COV-2 COVID-19 PFIZER VACCINE Unknown Completed [facility] SARS-COV-2 COVID-19 PFIZER VACCINE Unknown Completed [facility] Influenza Virus Vaccine Quad IM, Preserv and ABX Free 6 MO-64 YRS (FLUCELVAX) Unknown Completed [facility] SARS-COV-2 COVID-19 PFIZER VACCINE Unknown Completed [facility] SARS-COV-2 COVID-19 PFIZER VACCINE Unknown Completed [facility] SARS-COV-2 COVID-19 PFIZER VACCINE Unknown Completed [facility] Influenza Virus Vaccine Quad IM, Preserv and ABX Free 6 MO-64 YRS (FLUCELVAX) Unknown Completed [facility] SARS-COV-2 COVID-19 PFIZER VACCINE Unknown Completed [facility] SARS-COV-2 COVID-19 PFIZER VACCINE Unknown Completed [facility] SARS-COV-2 COVID-19 PFIZER VACCINE Unknown Completed [facility] Influenza Virus Vaccine Quad IM, Preserv and ABX Free 6 MO-64 YRS (FLUCELVAX) Unknown Completed [facility] SARS-COV-2 COVID-19 PFIZER VACCINE Unknown Completed [facility] SARS-COV-2 COVID-19 PFIZER VACCINE Unknown Completed [facility] SARS-COV-2 COVID-19 PFIZER VACCINE Unknown Completed [facility] Influenza Virus Vaccine Quad IM, Preserv and ABX Free 6 MO-64 YRS (FLUCELVAX) Unknown Completed [facility] SARS-COV-2 COVID-19 PFIZER VACCINE Unknown Completed [facility] SARS-COV-2 COVID-19 PFIZER VACCINE Unknown Completed [facility] SARS-COV-2 COVID-19 PFIZER VACCINE Unknown Completed [facility] Influenza Virus Vaccine Quad IM, Preserv and ABX Free 6 MO-64 YRS (FLUCELVAX) Unknown Completed [facility] SARS-COV-2 COVID-19 PFIZER VACCINE Unknown Completed [facility] SARS-COV-2 COVID-19 PFIZER VACCINE Unknown Completed [facility] SARS-COV-2 COVID-19 PFIZER VACCINE Unknown Completed [facility] Influenza Virus Vaccine Quad IM, Preserv and ABX Free 6 MO-64 YRS (FLUCELVAX) Unknown Completed [facility] SARS-COV-2 COVID-19 PFIZER VACCINE Unknown Completed [facility] SARS-COV-2 COVID-19 PFIZER VACCINE Unknown Completed [facility] SARS-COV-2 COVID-19 PFIZER VACCINE Unknown Completed [facility] Influenza Virus Vaccine Quad IM, Preserv and ABX Free 6 MO-64 YRS (FLUCELVAX) Unknown Completed [facility] SARS-COV-2 COVID-19 PFIZER VACCINE Unknown Completed [facility] SARS-COV-2 COVID-19 PFIZER VACCINE Unknown Completed [facility] SARS-COV-2 COVID-19 PFIZER VACCINE Unknown Completed [facility] Influenza Virus Vaccine Quad IM, Preserv and ABX Free 6 MO-64 YRS (FLUCELVAX) Unknown Completed [facility] SARS-COV-2 COVID-19 PFIZER VACCINE Unknown Completed [facility] SARS-COV-2 COVID-19 PFIZER VACCINE Unknown Completed [facility] SARS-COV-2 COVID-19 PFIZER VACCINE Unknown Completed [facility] Influenza Virus Vaccine Quad IM, Preserv and ABX Free 6 MO-64 YRS (FLUCELVAX) Unknown Completed [facility] SARS-COV-2 COVID-19 PFIZER VACCINE Unknown Completed [facility] SARS-COV-2 COVID-19 PFIZER VACCINE Unknown Completed [facility] SARS-COV-2 COVID-19 PFIZER VACCINE Unknown Completed [facility] Influenza Virus Vaccine Quad IM, Preserv and ABX Free 6 MO-64 YRS (FLUCELVAX) Unknown Completed [facility] SARS-COV-2 COVID-19 PFIZER VACCINE Unknown Completed [facility] SARS-COV-2 COVID-19 PFIZER VACCINE Unknown Completed [facility] SARS-COV-2 COVID-19 PFIZER VACCINE Unknown Completed [facility] Influenza Virus Vaccine Quad IM, Preserv and ABX Free 6 MO-64 YRS (FLUCELVAX) Unknown Completed [facility] SARS-COV-2 COVID-19 PFIZER VACCINE Unknown Completed [facility] SARS-COV-2 COVID-19 PFIZER VACCINE Unknown Completed [facility] SARS-COV-2 COVID-19 PFIZER VACCINE Unknown Completed [facility] Influenza Virus Vaccine Quad IM, Preserv and ABX Free 6 MO-64 YRS (FLUCELVAX) Unknown Completed [facility] SARS-COV-2 COVID-19 PFIZER VACCINE Unknown Completed [facility] SARS-COV-2 COVID-19 PFIZER VACCINE Unknown Completed [facility] SARS-COV-2 COVID-19 PFIZER VACCINE Unknown Completed [facility] Influenza Virus Vaccine Quad IM, Preserv and ABX Free 6 MO-64 YRS (FLUCELVAX) Unknown Completed [facility] SARS-COV-2 COVID-19 PFIZER VACCINE Unknown Completed [facility] SARS-COV-2 COVID-19 PFIZER VACCINE Unknown Completed [facility] SARS-COV-2 COVID-19 PFIZER VACCINE Unknown Completed [facility] Influenza Virus Vaccine Quad IM, Preserv and ABX Free 6 MO-64 YRS (FLUCELVAX) Unknown Completed [facility] SARS-COV-2 COVID-19 PFIZER VACCINE Unknown Completed [facility] SARS-COV-2 COVID-19 PFIZER VACCINE Unknown Completed [facility] SARS-COV-2 COVID-19 PFIZER VACCINE Unknown Completed [facility] Influenza Virus Vaccine Quad IM, Preserv and ABX Free 6 MO-64 YRS (FLUCELVAX) Unknown Completed [facility] SARS-COV-2 COVID-19 PFIZER VACCINE Unknown Completed [facility] SARS-COV-2 COVID-19 PFIZER VACCINE Unknown Completed [facility] SARS-COV-2 COVID-19 PFIZER VACCINE Unknown Completed [facility] Influenza Virus Vaccine Quad IM, Preserv and ABX Free 6 MO-64 YRS (FLUCELVAX) Unknown Completed [facility] SARS-COV-2 COVID-19 PFIZER VACCINE Unknown Completed [facility] SARS-COV-2 COVID-19 PFIZER VACCINE Unknown Completed [facility] SARS-COV-2 COVID-19 PFIZER VACCINE Unknown Completed [facility] Influenza Virus Vaccine Quad IM, Preserv and ABX Free 6 MO-64 YRS (FLUCELVAX) Unknown Completed [facility] SARS-COV-2 COVID-19 PFIZER VACCINE Unknown Completed [facility] SARS-COV-2 COVID-19 PFIZER VACCINE Unknown Completed [facility] SARS-COV-2 COVID-19 PFIZER VACCINE Unknown Completed [facility] Influenza Virus Vaccine Quad IM, Preserv and ABX Free 6 MO-64 YRS (FLUCELVAX) Unknown Completed [facility] SARS-COV-2 COVID-19 PFIZER VACCINE Unknown Completed [facility] SARS-COV-2 COVID-19 PFIZER VACCINE Unknown Completed [facility] SARS-COV-2 COVID-19 PFIZER VACCINE Unknown Completed [facility] Influenza Virus Vaccine Quad IM, Preserv and ABX Free 6 MO-64 YRS (FLUCELVAX) Unknown Completed [facility] SARS-COV-2 COVID-19 PFIZER VACCINE Unknown Completed [facility] SARS-COV-2 COVID-19 PFIZER VACCINE Unknown Completed [facility] SARS-COV-2 COVID-19 PFIZER VACCINE Unknown Completed [facility] Influenza Virus Vaccine Quad IM, Preserv and ABX Free 6 MO-64 YRS (FLUCELVAX) Unknown Completed [facility] SARS-COV-2 COVID-19 PFIZER VACCINE Unknown Completed [facility] SARS-COV-2 COVID-19 PFIZER VACCINE Unknown Completed [facility] SARS-COV-2 COVID-19 PFIZER VACCINE Unknown Completed [facility] Influenza Virus Vaccine Quad IM, Preserv and ABX Free 6 MO-64 YRS (FLUCELVAX) Unknown Completed [facility] SARS-COV-2 COVID-19 PFIZER VACCINE Unknown Completed [facility] SARS-COV-2 COVID-19 PFIZER VACCINE Unknown Completed [facility] SARS-COV-2 COVID-19 PFIZER VACCINE Unknown Completed [facility] Influenza Virus Vaccine Quad IM, Preserv and ABX Free 6 MO-64 YRS (FLUCELVAX) Unknown Completed [facility] SARS-COV-2 COVID-19 PFIZER VACCINE Unknown Completed [facility] SARS-COV-2 COVID-19 PFIZER VACCINE Unknown Completed [facility] SARS-COV-2 COVID-19 PFIZER VACCINE Unknown Completed [facility] Influenza Virus Vaccine Quad IM, Preserv and ABX Free 6 MO-64 YRS (FLUCELVAX) Unknown Completed [facility] SARS-COV-2 COVID-19 PFIZER VACCINE Unknown Completed [facility] SARS-COV-2 COVID-19 PFIZER VACCINE Unknown Completed [facility] SARS-COV-2 COVID-19 PFIZER VACCINE Unknown Completed [facility] Influenza Virus Vaccine Quad IM, Preserv and ABX Free 6 MO-64 YRS (FLUCELVAX) Unknown Completed [facility] SARS-COV-2 COVID-19 PFIZER VACCINE Unknown Completed [facility] SARS-COV-2 COVID-19 PFIZER VACCINE Unknown Completed [facility] SARS-COV-2 COVID-19 PFIZER VACCINE Unknown Completed [facility] Influenza Virus Vaccine Quad IM, Preserv and ABX Free 6 MO-64 YRS (FLUCELVAX) Unknown Completed [facility] SARS-COV-2 COVID-19 PFIZER VACCINE Unknown Completed [facility] SARS-COV-2 COVID-19 PFIZER VACCINE Unknown Completed [facility] SARS-COV-2 COVID-19 PFIZER VACCINE Unknown Completed [facility] Influenza Virus Vaccine Quad IM, Preserv and ABX Free 6 MO-64 YRS (FLUCELVAX) Unknown Completed [facility] SARS-COV-2 COVID-19 PFIZER VACCINE Unknown Completed [facility] SARS-COV-2 COVID-19 PFIZER VACCINE Unknown Completed [facility] SARS-COV-2 COVID-19 PFIZER VACCINE Unknown Completed [facility] Influenza Virus Vaccine Quad IM, Preserv and ABX Free 6 MO-64 YRS (FLUCELVAX) Unknown Completed [facility] SARS-COV-2 COVID-19 PFIZER VACCINE Unknown Completed [facility] SARS-COV-2 COVID-19 PFIZER VACCINE Unknown Completed [facility] SARS-COV-2 COVID-19 PFIZER VACCINE Unknown Completed [facility] Influenza Virus Vaccine Quad IM, Preserv and ABX Free 6 MO-64 YRS (FLUCELVAX) Unknown Completed [facility] Vital Signs Vital Name Observation Time Observation Value Comments S ource Systolic blood pressure 2023-12-18 21:04:00 145 mm[Hg] [facility] Diastolic blood pressure 2023-12-18 21:04:00 98 mm[Hg] [facility] Heart rate 2023-12-18 21:04:00 110 /min [facility] Body temperature 2023-12-18 21:04:00 36.5 Radha [facility] Respiratory rate 2023-12-18 21:04:00 18 /min [facility] Body height 2023-12-18 21:04:00 165.1 cm [facility] Body weight 2023-12-18 21:04:00 46.267 kg [facility] BMI 2023-12-18 21:04:00 16.97 kg/m2 [facility] Oxygen saturation in Arterial blood by Pulse oximetry 2023-12-18 21:04:00 98 /min [facility] Body height 2023-09-11 21:41:00 165.1 cm [facility] Body weight 2023-09-11 21:41:00 50.304 kg [facility] BMI 2023-09-11 21:41:00 18.45 kg/m2 [facility] Heart rate 2023-08-28 20:25:00 82 /min [facility] Arterial blood by Pulse oximetry 2023-08-28 20:25:00 100 /min [facility] Systolic blood pressure 2023-08-28 20:20:00 127 mm[Hg] [facility] Diastolic blood pressure 2023-08-28 20:20:00 81 mm[Hg] [facility] Respiratory rate 2023-08-28 20:20:00 16 /min [facility] Body temperature 2023-08-28 19:26:00 36.39 Radha [facility] Body height 2023-08-16 16:00:00 165.1 cm [facility] Body weight 2023-08-16 16:00:00 48.535 kg [facility] BMI 2023-08-16 16:00:00 17.81 kg/m2 [facility] Heart rate 2023-08-28 20:25:00 82 /min [facility] Oxygen saturation in Arterial blood by Pulse oximetry 2023-08-28 20:25:00 100 /min [facility] Systolic blood pressure 2023-08-28 20:20:00 127 mm[Hg] [facility] Diastolic blood pressure 2023-08-28 20:20:00 81 mm[Hg] [facility] Respiratory rate 2023-08-28 20:20:00 16 /min [facility] Body temperature 2023-08-28 19:26:00 36.39 Radha [facility] Body height 2023-08-16 16:00:00 165.1 cm [facility] Body [facility] 2023-08-16 16:00:00 48.535 kg [facility] BMI 2023-08-16 16:00:00 17.81 kg/m2 [facility] Body weight 2023-08-10 19:00:00 48.535 kg [facility] BMI 2023-08-10 19:00:00 17.81 kg/m2 [facility] Systolic blood pressure 2023-08-01 18:01:00 120 mm[Hg] [facility] Diastolic blood pressure 2023-08-01 18:01:00 79 mm[Hg] [facility] Heart rate 2023-08-01 18:01:00 112 /min [facility] Body temperature 2023-08-01 18:01:00 35.11 Radha [facility] Respiratory rate 2023-08-01 18:01:00 16 /min [facility] Body height 2023-08-01 18:01:00 165.1 cm [facility] Body weight 2023-08-01 18:01:00 48.626 kg [facility] BMI 2023-08-01 18:01:00 17.84 kg/m2 [facility] Oxygen saturation in Arterial blood by Pulse oximetry 2023-08-01 18:01:00 100 /min [facility] Systolic blood pressure 2023-07-17 20:45:00 106 mm[Hg] [facility] Diastolic blood pressure 2023-07-17 20:45:00 68 mm[Hg] [facility] Heart rate 2023-07-17 20:45:00 101 /min [facility] Body temperature 2023-07-17 20:45:00 36.17 Radha [facility] Respiratory rate 2023-07-17 20:45:00 18 /min [facility] Body height 2023-07-17 20:45:00 165.1 cm [facility] Body weight 2023-07-17 20:45:00 46.448 kg [facility] BMI 2023-07-17 20:45:00 17.04 kg/m2 [facility] Oxygen saturation in Arterial blood by Pulse oximetry 2023-07-17 20:45:00 100 /min Room air [facility] Systolic blood pressure 2023-06-12 16:52:00 122 mm[Hg] [facility] Diastolic blood pressure 2023-06-12 16:52:00 82 mm[Hg] [facility] Respiratory rate 2023-06-12 16:52:00 13 /min [facility] Oxygen saturation in Arterial blood by Pulse oximetry 2023-06-12 16:52:00 100 /min [facility] Systolic blood pressure 2023-06-12 16:52:00 122 mm[Hg] [facility] Diastolic blood pressure 2023-06-12 16:52:00 82 mm[Hg] [facility] Respiratory rate 2023-06-12 16:52:00 13 /min [facility] Oxygen saturation in Arterial blood by Pulse oximetry 2023-06-12 16:52:00 100 /min [facility] Systolic blood pressure 2023-06-12 16:52:00 122 mm[Hg] [facility] Diastolic blood pressure 2023-06-12 16:52:00 82 mm[Hg] [facility] Respiratory rate 2023-06-12 16:52:00 13 /min [facility] Oxygen saturation in Arterial blood by Pulse oximetry 2023-06-12 16:52:00 100 /min [facility] Systolic blood pressure 2023-05-25 15:48:00 136 mm[Hg] [facility] Diastolic blood pressure 2023-05-25 15:48:00 89 mm[Hg] [facility] Heart rate 2023-05-25 15:48:00 123 /[facility] Res[facility] 2023-05-25 15:46:00 21 /min [facility] Body height 2023-05-25 15:46:00 165.1 cm [facility] Body weight 2023-05-25 15:46:00 43.999 kg [facility] BMI 2023-05-25 15:46:00 16.14 kg/m2 [facility] Oxygen saturation in Arterial blood by Pulse oximetry 2023-05-25 15:46:00 99 /min [facility] Systolic blood pressure 2023-04-26 13:27:00 93 mm[Hg] [facility] Diastolic blood pressure 2023-04-26 13:27:00 55 mm[Hg] [facility] Heart rate 2023-04-26 13:27:00 104 /min [facility] Body temperature 2023-04-26 13:27:00 36.89 Rdaha [facility] Respiratory rate 2023-04-26 13:27:00 18 /min [facility] Body height 2023-04-26 13:27:00 167.6 cm [facility] Body weight 2023-04-26 13:27:00 42.82 kg [facility] BMI 2023-04-26 13:27:00 15.24 kg/m2 [facility] Oxygen saturation in Arterial blood by Pulse oximetry 2023-04-26 13:27:00 100 /min [facility] Systolic blood pressure 2023-04-06 19:07:00 124 mm[Hg] [facility] Diastolic blood pressure 2023-04-06 19:07:00 74 mm[Hg] [facility] Heart rate 2023-04-06 19:07:00 102 /min [facility] Respiratory rate 2023-04-06 19:07:00 18 /min [facility] Body height 2023-04-06 19:07:00 165.1 cm [facility] Body weight 2023-04-06 19:07:00 43.908 kg [facility] BMI 2023-04-06 19:07:00 16.11 kg/m2 [facility] Oxygen saturation in Arterial blood by Pulse oximetry 2023-04-06 19:07:00 99 /min [facility] Systolic blood pressure 2023-03-14 15:46:00 125 mm[Hg] [facility] Diastolic blood pressure 2023-03-14 15:46:00 84 mm[Hg] [facility] Heart rate 2023-03-14 15:46:00 103 /min [facility] Body temperature 2023-03-14 15:46:00 36.78 Radha [facility] Respiratory rate 2023-03-14 15:46:00 16 /min [facility] Body height 2023-03-14 15:46:00 165.1 cm Univ [facility] Body weight 2023-03-14 15:46:00 43.5 kg [facility] BMI 2023-03-14 15:46:00 15.96 kg/m2 [facility] Oxygen saturation in Arterial blood by Pulse oximetry 2023-03-14 15:46:00 95 /min [facility] Systolic blood pressure 2023-02-14 20:22:00 134 mm[Hg] [facility] Diastolic blood pressure 2023-02-14 20:22:00 92 mm[Hg] [facility] Heart rate 2023-02-14 20:21:00 123 /min [facility] Body temperature 2023-02-14 20:21:00 36.61 Radha [facility] Respiratory rate 2023-02-14 20:21:00 16 /min [facility] Body height 2023-02-14 20:21:00 165.1 cm [facility] Body weight 2023-02-14 20:21:00 43.681 kg [facility] BMI 2023-02-14 20:21:00 16.03 kg/m2 [facility] Oxygen saturation in Arterial blood by Pulse oximetry 2023-02-14 20:21:00 96 /min room air [facility] Systolic blood pressure 2023-01-30 13:12:00 115 mm[Hg] [facility] Diastolic blood pressure 2023-01-30 13:12:00 71 mm[Hg] [facility] Heart rate 2023-01-30 13:12:00 107 /min [facility] Body temperature 2023-01-30 13:12:00 36.94 Radha [facility] Respiratory rate 2023-01-30 13:12:00 18 /min [facility] Body height 2023-01-30 13:12:00 165.1 cm [facility] Body weight 2023-01-30 13:12:00 43.545 kg [facility] BMI 2023-01-30 13:12:00 15.98 kg/m2 [facility] Oxygen saturation in Arterial blood by Pulse oximetry 2023-01-30 13:12:00 100 /min [facility] Systolic blood pressure 2023-01-05 16:39:00 127 mm[Hg] [facility] Diastolic blood pressure 2023-01-05 16:39:00 85 mm[Hg] [facility] Heart rate 2023-01-05 16:39:00 102 /min [facility] Body temperature 2023-01-05 16:39:00 37.28 Radha [facility] Respiratory rate 2023-01-05 16:39:00 18 /min [facility] Body height 2023-01-05 16:39:00 165.1 cm [facility] Body weight 2023-01-05 16:39:00 47.628 kg [facility] BMI 2023-01-05 16:39:00 17.47 kg/m2 [facility] Oxygen saturation in Arterial blood by Pulse oximetry 2023-01-05 16:39:00 98 /min [facility] Systolic blood pressure 2023-01-05 16:07:00 110 mm[Hg] [facility] Diastolic blood pressure 2023-01-05 16:07:00 76 mm[Hg] [facility] Heart rate 2023-01-05 16:07:00 109 /min [facility] Oxygen saturation in Arterial blood by Pulse oximetry 2023-01-05 16:07:00 97 /min [facility] Respiratory rate 2023-01-05 15:46:00 17 /min [facility] Body height 2023-01-05 15:46:00 165.1 cm [facility] 2023-01-05 15:46:00 47.129 kg [facility] BMI 2023-01-05 15:46:00 17.29 kg/m2 [facility] Systolic blood pressure 2023-01-04 04:00:00 130 mm[Hg] [facility] Diastolic blood pressure 2023-01-04 04:00:00 96 mm[Hg] [facility] Heart rate 2023-01-04 04:00:00 107 /min [facility] Respiratory rate 2023-01-04 04:00:00 16 /min [facility] Oxygen saturation in Arterial blood by Pulse oximetry 2023-01-04 04:00:00 100 /min [facility] Body temperature 2023-01-04 00:24:00 36.94 Radha [facility] Body height 2023-01-04 00:24:00 165.1 cm [facility] Body weight 2023-01-04 00:24:00 52.164 kg [facility] BMI 2023-01-04 00:24:00 19.14 kg/m2 [facility] Systolic blood pressure 2022-12-20 18:11:00 134 mm[Hg] [facility] Diastolic blood pressure 2022-12-20 18:11:00 83 mm[Hg] [facility] Heart rate 2022-12-20 18:11:00 107 /min [facility] Body temperature 2022-12-20 18:11:00 36.72 Radha [facility] Respiratory rate 2022-12-20 18:11:00 16 /min [facility] Body height 2022-12-20 18:11:00 165.1 cm [facility] Body weight 2022-12-20 18:11:00 47.446 kg [facility] BMI 2022-12-20 18:11:00 17.41 kg/m2 [facility] Oxygen saturation in Arterial blood by Pulse oximetry 2022-12-20 18:11:00 100 /min [facility] Systolic blood pressure 2022-12-13 19:56:00 128 mm[Hg] [facility] Diastolic blood pressure 2022-12-13 19:56:00 72 mm[Hg] [facility] Heart rate 2022-12-13 19:56:00 111 /min [facility] Body height 2022-12-13 19:56:00 165.1 cm [facility] Body weight 2022-12-13 19:56:00 46.267 kg [facility] BMI 2022-12-13 19:56:00 16.97 kg/m2 [facility] Oxygen saturation in Arterial blood by Pulse oximetry 2022-12-13 19:56:00 98 /min [facility] Systolic blood pressure 2022-12-01 17:22:00 124 mm[Hg] [facility] Diastolic blood pressure 2022-12-01 17:22:00 88 mm[Hg] [facility] Heart rate 2022-12-01 17:22:00 80 /min [facility] Body temperature 2022-12-01 17:22:00 37.11 Radha [facility] Respiratory rate 2022-12-01 17:22:00 18 /min [facility] Body weight 2022-12-01 17:22:00 48.535 kg [facility] BMI 2022-12-01 17:22:00 18.37 kg/m2 [facility] Oxygen saturation in Arterial blood by Pulse oximetry 2022-12-01 17:22:00 99 /min [facility] Systolic blood pressure 2022-10-19 20:30:00 150 mm[Hg] [facility] Diastolic blood pressure 2022-10-19 20:30:00 88 mm[Hg] [facility] Heart rate 2022-10-19 20:30:00 99 /min [facility] Body temperature 2022-10-19 20:30:00 37 Radha [facility] Respiratory rate 2022-10-19 20:30:00 18 /min [facility] Oxygen saturation in Arterial blood by Pulse oximetry 2022-10-19 20:30:00 99 /min [facility] Body height 2022-10-19 19:56:00 162.6 cm [facility] Body weight 2022-10-19 19:56:00 52.617 kg [facility] BMI 2022-10-19 19:56:00 19.91 kg/m2 [facility] Body height 2022-08-31 20:15:00 165.1 cm [facility] Body weight 2022-08-31 20:15:00 61.689 kg [facility] BMI 2022-08-31 20:15:00 22.63 kg/m2 [facility] Systolic blood pressure 2022-07-29 14:28:00 145 mm[Hg] [facility] Diastolic blood pressure 2022-07-29 14:28:00 87 mm[Hg] [facility] Heart rate 2022-07-29 14:28:00 108 /min [facility] Body height 2022-07-29 14:28:00 165.1 cm [facility] Body weight 2022-07-29 14:28:00 61.689 kg [facility] BMI 2022-07-29 14:28:00 22.63 kg/m2 [facility] Body height 2022-06-29 20:01:00 165.1 cm [facility] Body weight 2022-06-29 20:01:00 61.689 kg [facility] BMI 2022-06-29 20:01:00 22.63 kg/m2 [facility] BP Systolic 2024-02-14 17:46:00 131 mm[Hg] Step hen F Ang BP Diastolic 2024-02-14 17:46:00 78 mm[Hg] Milind phen F Ang Weight Measured 2024-02-14 17:46:00 101.40 pounds Britton Nikhil Fry Height Measured 2024-02-14 17:46:00 65.00 inches Britton F Ang Body Temperature 2024-02-14 17:46:00 98.00 degrees Britton F Ang Heart Rate 2024-02-14 17:46:00 99.00 /min Mely en F Ang Respiratory Rate 2024-02-14 17:46:00 18.00 /min Britton Nikhil Fry BP Systolic 2024-01-22 14:54:00 142 mm[Hg] Step hen F [facility] BP Diastolic 2024-01-22 14:54:00 86 mm[Hg] Milind phen F Ang Weight Measured 2024-01-22 14:54:00 100.60 pounds Britton F Ang Height Measured 2024-01-22 14:54:00 65.00 inches Britton F Ang Body Temperature 2024-01-22 14:54:00 98.10 degrees Britton F Ang Heart Rate 2024-01-22 14:54:00 109.00 /min Step hen F [facility] Respiratory Rate 2024-01-22 14:54:00 18.00 /min Britton F Ang BP Systolic 2023-06-26 11:19:00 150 mm[Hg] Step hen F Ang BP Diastolic 2023-06-26 11:19:00 102 mm[Hg] Milind phen F Ang Weight Measured 2023-06-26 11:19:00 96.80 pounds Britton F Ang Height Measured 2023-06-26 11:19:00 65.00 inches Britton F Ang Body Temperature 2023-06-26 11:19:00 98.20 degrees Britton F Ang Heart Rate 2023-06-26 11:19:00 114.00 /min Step hen F [facility] Respiratory Rate 2023-06-26 11:19:00 18.00 /min Britton F Ang BP Systolic 2023-04-20 13:42:00 151 mm[Hg] Step hen F Ang BP Diastolic 2023-04-20 13:42:00 108 mm[Hg] Milind phen F Ang Weight Measured 2023-04-20 13:42:00 95.00 pounds Britton F Ang Height Measured 2023-04-20 13:42:00 65.00 inches Britton F Ang Body Temperature 2023-04-20 13:42:00 98.00 degrees Britton F Ang Heart Rate 2023-04-20 13:42:00 120.00 /min Step hen F [facility] Respiratory Rate 2023-04-20 13:42:00 18.00 /min Britton F Ang BP Systolic 2023-03-30 13:53:00 125 mm[Hg] Step hen F Ang BP Diastolic 2023-03-30 13:53:00 93 mm[Hg] Milind phen F Ang Weight Measured 2023-03-30 13:53:00 95.20 pounds Britton F Ang Height Measured 2023-03-30 13:53:00 65.00 inches Britton F Ang Body Temperature 2023-03-30 13:53:00 98.10 degrees Britton F Ang Heart Rate 2023-03-30 13:53:00 103.00 /min Step hen F Ang Respiratory Rate 2023-03-30 13:53:00 Britton F Ang BP Systolic 2023-02-09 13:20:00 134 mm[Hg] Step hen F Ang BP Diastolic 2023-02-09 13:20:00 88 mm[Hg] Milind phen F Ang Weight Measured 2023-02-09 13:20:00 97.40 pounds Britton F Ang Height Measured 2023-02-09 13:20:00 65.00 inches Britton F Ang Body Temperature 2023-02-09 13:20:00 98.50 degrees Britton F Ang Heart Rate 2023-02-09 13:20:00 125.00 /min Step hen F Ang Respiratory Rate 2023-02-09 13:20:00 18.00 /min Britton F Ang BP Systolic 2022-12-27 16:49:00 145 mm[Hg] Step hen F Ang BP Diastolic 2022-12-27 16:49:00 93 mm[Hg] Milind phen F Ang Weight Measured 2022-12-27 16:49:00 100.80 pounds Britton F Ang Height Measured 2022-12-27 16:49:00 65.00 inches Britton F Ang Body Temperature 2022-12-27 16:49:00 98.40 degrees Britton F Ang Heart Rate 2022-12-27 16:49:00 105.00 /min Step hen F Ang Respiratory Rate 2022-12-27 16:49:00 Britton F Ang BP Systolic 2022-12-02 13:18:00 130 mm[Hg] Step hen F Ang BP Diastolic 2022-12-02 13:18:00 82 mm[Hg] Milind phen F Ang Weight Measured 2022-12-02 13:18:00 106.80 pounds Britton F Ang Height Measured 2022-12-02 13:18:00 65.00 inches Britton F Ang Body Temperature 2022-12-02 13:18:00 98.10 degrees Britton F Ang Heart Rate 2022-12-02 13:18:00 104.00 /min Step hen F Ang Respiratory Rate 2022-12-02 13:18:00 Britton F Ang BP Systolic 2022-11-28 14:19:00 143 mm[Hg] Step hen F Ang BP Diastolic 2022-11-28 14:19:00 85 mm[Hg] Milind phen F Ang Weight Measured 2022-11-28 14:19:00 105.80 pounds Britton F Ang Height Measured 2022-11-28 14:19:00 65.00 inches Britton F Ang Body Temperature 2022-11-28 14:19:00 98.40 degrees Britton F Ang Heart Rate 2022-11-28 14:19:00 108.00 /min Step hen F Ang Respiratory Rate 2022-11-28 14:19:00 Britton F Ang BP Systolic 2022-11-08 14:00:00 142 mm[Hg] Step hen F Ang BP Diastolic 2022-11-08 14:00:00 91 mm[Hg] Milind phen F Ang Weight Measured 2022-11-08 14:00:00 108.60 pounds Britton F Ang Height Measured 2022-11-08 14:00:00 65.00 inches Britton F Ang Body Temperature 2022-11-08 14:00:00 98.30 degrees Britton F Ang Heart Rate 2022-11-08 14:00:00 117.00 /min Step hen F Ang Respiratory Rate 2022-11-08 14:00:00 Britton F Ang BP Systolic 2021-08-02 12:48:00 123 mm[Hg] Step hen F Ang BP Diastolic 2021-08-02 12:48:00 75 mm[Hg] Milind phen F Ang Weight Measured 2021-08-02 12:48:00 140.40 pounds Britton F Ang Height Measured 2021-08-02 12:48:00 65.00 inches Britton F Ang Body Temperature 2021-08-02 12:48:00 97.60 degrees Britton F Ang Heart Rate 2021-08-02 12:48:00 92.00 /min Mely en F Ang Respiratory Rate 2021-08-02 12:48:00 Britton F Ang Procedures Procedure Date / Time Performed Performing Clinician Source OPEN CARPAL TUNNEL RELEASE 2023-08-28 18:30:00 Roe Mcgarry [facility] HB ABO GROUPING 2023-08-28 17:27:00 Jacqueline Bains [facility] HB ABO GROUPING 2023-08-28 17:27:00 Jacqueline Bains [facility] DAY SURGERY - ADC 2023-08-28 06:01:00 Doctor Unassigned, Pico Rivera [facility] EXTRA TUBE LAV 2023-08-17 22:50:00 Jacqueline Bains [facility] BASIC METABOLIC PANEL (NA, K, CL, CO2, GLUCOSE, BUN, CREATININE, CA) 2023-08-17 22:48:00 Jacqueline Bains [facility] CBC WITH DIFF 2023-08-17 22:48:00 Jacqueline Bains [facility] HB ABO GROUPING 2023-08-17 22:48:00 Jacqueline Bains [facility] XR CHEST 2 VW 2023-08-17 22:34:40 Jacqueline Bains [facility] INSURANCE CORRESPONDENCE 2023-08-17 06:01:00 Doctor Unassigned, Pico Rivera [facility] INSURANCE CORRESPONDENCE 2023-08-17 06:01:00 Doctor Unassigned, Pico Rivera [facility] INSURANCE CORRESPONDENCE 2023-08-16 06:01:00 Doctor Unassigned, Pico Rivera [facility] INSURANCE CORRESPONDENCE 2023-08-16 06:01:00 Doctor Unassigned, Pico Rivera [facility] EXTERNAL PROVIDER RECORDS 2023-08-11 06:01:00 Doctor Unassigned, Pico Rivera [facility] EXTERNAL PROVIDER RECORDS 2023-08-11 06:01:00 Doctor Unassigned, Pico Rivera [facility] DSU PRE-OP 2023-08-10 06:01:00 Doctor Unassigned, Pico Rivera [facility] DSU PRE-OP 2023-08-10 06:01:00 Doctor Unassigned, Pico Rivera [facility] FLU VACC ([id number]), 6 MO-64 YRS, .5ML, IM, QUAD (FLUCELVAX) 2023-07-17 21:16:29 Mica Duncan [facility] CONSENT/REFUSAL FOR DIAGNOSIS AND TREATMENT 2023-07-17 20:36:38 Doctor Unassigned, Pico Rivera [facility] ELECTROPHYSIOLOGY PROCEDURE 2023-06-12 16:52:46 Nikki Brunner [facility] ELECTROPHYSIOLOGY PROCEDURE 2023-06-12 16:52:46 Nikki Brunner [facility] HB ECG ROUTINE & RHYTHM STRIP 2023-06-12 15:46:15 Nikki Brunner [facility] DISCLOSURE AND CONSENT, MEDICAL AND SURGICAL PROCEDURES 2023-06-12 05:01:00 Doctor Unassigned, Pico Rivera [facility] WOUND CULTURE 2023-04-10 15:04:00 Gabriella Weaver [facility] THYROID STIMULATING HORMONE 2023-03-14 17:42:00 Mackenzie Davis [facility] COMP. METABOLIC PANEL ([id number]) 2023-03-14 17:42:00 Mackenzie Davis [facility] SEDIMENTATION RATE 2023-03-14 17:42:00 Mackenzie Davis [facility] CBC WITH DIFF 2023-03-14 17:42:00 Mackenzie Davis [facility] URINALYSIS 2023-03-14 17:42:00 Mackenzie Davis [facility] C-REACTIVE PROTEIN 2023-03-14 17:42:00 Mackenzie Davis [facility] C4 COMPLEMENT 2023-03-14 17:42:00 Mackenzie Davis [facility] HCV ANTIBODY 2023-03-14 17:42:00 Mackenzie Davis [facility] PROTEIN CREAT RATIO URINE RANDOM 2023-03-14 17:42:00 Mackenzie Davis [facility] ANTI-CENTROMERE B 2023-03-14 17:42:00 Mackenzie Davis [facility] ANTI-SSB(LA) 2023-03-14 17:42:00 Mackenzie Davis [facility] ANTI-DOUBLE STRANDED DNA 2023-03-14 17:42:00 Mackenzie Davis [facility] FREE T4 2023-03-14 17:42:00 Mackenzie Davsi [facility] TRIIODOTHYRONINE 2023-03-14 17:42:00 Mackenzie Davis [facility] HIV 1/2 AG-AB WITH REFLEX 2023-03-14 17:42:00 Mackenzie Davis [facility] WOUND CULTURE 2023-02-14 21:07:00 Jaguar Webb [facility] WOUND CULTURE 2023-02-14 21:06:00 [facility] CONSENT/REFUSAL FOR DIAGNOSIS AND TREATMENT 2023-01-05 16:36:40 Doctor Unassigned, Pico Rivera [facility] URINALYSIS 2023-01-04 02:14:00 [facility] URINE DRUG (IMMUNOASSAY) - COMPREHENSIVE DRUG SCREEN W/O REFLEX 2023-01-04 02:14:00 Dottie Andujar [facility] LIPASE 2023-01-04 00:37:00 [facility] TEST, SERUM 2023-01-04 00:37:00 [facility] COMP. METABOLIC PANEL ([id number]) 2023-01-04 00:37[facility] 2023-01-04 00:37:00 [facility] EKG-12 LEAD 2022-12-13 20:19:06 Doctor Unassigned, Pico Rivera [facility] NH INCISION & DRAINAGE ABSCESS SIMPLE/SINGLE 2022-12-01 17:34:50 Jihan Bains [facility] CONSENT/REFUSAL FOR DIAGNOSIS AND TREATMENT 2022-12-01 17:17:50 Doctor Unassigned, Pico Rivera [facility] REFERRAL- REQUEST/RESPONSE 2022-11-25 06:01:00 Doctor Unassigned, Pico Rivera [facility] NH INCISION & DRAINAGE ABSCESS SIMPLE/SINGLE 2022-10-19 20:12:40 Jihan Bains [facility] NOTICE OF PRIVACY PRACTICES 2022-10-19 19:46:53 Doctor Unassigned, Pico Rivera [facility] CONSENT/REFUSAL FOR DIAGNOSIS AND TREATMENT 2022-10-19 19:45:38 Doctor Unassigned, Pico Rivera [facility] REFERRAL- REQUEST/RESPONSE 2022-09-28 06:01:00 Doctor Unassigned, Pico Rivera [facility] MR SHOULDER RIGHT WO CONTRAST 2022-08-11 21:44:59 Roe Mcgarry [facility] REFERRAL- REQUEST/RESPONSE 2022-07-27 05:01:00 Doctor Unassigned, Pico Rivera [facility] XR SHOULDER 2+ VW RIGHT 2022-06-28 15:06:30 Roe Mcgarry [facility] ASSIGNMENT OF BENEFITS 2022-06-27 20:21:10 Doctor Unassigned, Pico Rivera [facility] Encounters Start Date/Time End Date/Time Encounter Type Admission Type Attending [facility] Facility Care Department Encounter ID Source 2024-06-18 15:00:00 2024-06-18 15:00:00 Outpatient MACKENZIE ANDUJAR [facility] [id number] [facility] 2024-03-21 13:00:00 2024-03-21 13:00:00 Outpatient MACKENZIE ANDUJAR [facility] [id number] [facility] 2024-02-23 10:00:00 2024-02-23 10:30:00 Office Visit Mica Duncan [facility] [id number] [id number] [id number] [id number] [facility] 2024-02-23 10:00:00 2024-02-23 10:00:00 Outpatient MICA CADE [facility] [id number] [facility] 2024-02-16 11:19:29 2024-02-16 11:19:29 Outpatient SFA [id number] [id number] Britton Nikhil Ang 2024-02-14 17:42:16 2024-02-14 17:42:16 Outpatient SFA [id number] [id number] Britton Fry 2024-02-14 00:00:00 2024-02-14 00:00:00 Outpatient Visit S[facility] [id number] Britton Fry 2024-01-22 14:50:28 2024-01-22 14:50:28 Outpatient SFA SFA [id number] Britton Fry 2024-01-22 00:00:00 2024-01-22 00:00:00 Outpatient Visit [facility] [id number] Britton Fry 2023-12-18 16:30:00 2023-12-18 16:45:00 Molding Room Supervisor Visit [facility] [id number] 350.1.13.10 4.2.7.2.686 [id number] [facility] 2023-12-18 16:00:00 2023-12-18 16:30:00 [facility] [id number] 350.1.13.10 4.2.7.2.686 [id number] [facility] 2023-12-18 16:00:00 2023-12-18 16:00:00 Outpatient R ELSI SYLVESTER [facility] [id number] [facility] 2023-12-15 00:00:00 2023-12-15 00:00:00 Telephone Mackenzie Davis [facility] [id number] 350.1.13.10 [id number] [id number] [facility] 2023-12-05 15:00:00 2023-12-05 15:00:00 Outpatient R MACKENZIE DAVIS [facility] [id number] [facility] 2023-11-17 10:00:00 2023-11-17 10:30:00 Office Visit Mica Duncan [facility] [id number] 350.1.13.10 [id number] [id number] [facility] 2023-11-17 10:00:00 2023-11-17 10:00:00 Outpatient R MICA DUNCAN [facility] [id number] [facility] 2023-10-31 13:30:00 2023-10-31 13:30:00 Outpatient R [facility] [id number] [facility] 2023-09-29 15:00:00 2023-09-29 15:00:00 Outpatient R HUNTER YUEN [facility] [id number] [facility] 2023-09-28 14:45:00 2023-09-28 14:45:00 Outpatient R ROE MCGARRY CRAIG [facility] [id number] [facility] 2023-09-11 16:15:00 2023-09-11 16:15:00 [facility] [id number] 350.1.13.10 4.2.7.2.686 [id number] [facility] 2023-09-11 16:15:00 2023-09-11 15:55:54 Outpatient R ROE MCGARRY CRAIG [facility] [id number] [facility] 2023-08-31 15:40:00 2023-08-31 15:40:00 Outpatient R PALMER BRUNNER CHOCKALINGA M [facility] [id number] [facility] 2023-08-30 00:00:00 2023-08-30 00:00:00 Patient Secure Msg Doctor Unassigned, Pico Rivera [facility] [id number] 350.1.13.10 4.2.7.2.686 [id number] [facility] 2023-08-29 00:00:00 2023-08-29 00:00:00 Telephone Roe Mcgarry [facility] [id number]..840.114 350.1.13.10 4.2.7.2.686 [id number] [facility] 2023-08-28 10:56:00 2023-08-28 14:45:00 Outpatient R ROE MCGARRY CRAIG [facility] [id number] [facility] 2023-08-28 10:56:00 2023-08-28 14:45:00 Hospital Encounter Roe Mcgarry [facility] [id number] 350.1.13.10 4.2.7.2.686 [id number] [facility] 2023-08-28 13:20:00 2023-08-28 14:36:00 Surgery [facility]oe Mcgar[facility] [facility] 1.2840.114 350.1.13.10 4.2.7.2.686 [id number] [facility] 2023-08-28 00:00:00 2023-08-28 00:00:00 Orders Only Doctor Unassigned, Pico Rivera [facility] 1.2840.114 350.1.13.10 4.2.7.2.686 [id number] [facility] 2023-08-21 16:00:00 2023-08-21 16:00:00 Outpatient R MICA DUNCAN [facility] [id number] [facility] 2023-08-17 16:02:25 2023-08-17 23:59:00 Outpatient R JACQUELINE BAINS [facility] [id number] [facility] 2023-08-17 16:00:00 2023-08-17 23:59:00 Hospital Encounter Jacqueline Bains [facility] 1.2840.114 350.1.13.10 4.2.7.2.686 [id number] [facility] 2023-08-17 16:30:00 2023-08-17 16:45:00 Molding Room Supervisor Visit Pob, Adc Lab Main [facility] 1.114 350.1.13.10 4.2.7.2.686 [id number] [facility] 2023-08-17 00:00:00 2023-08-17 00:00:00 Patient Secure Msg Doctor Unassigned, Pico Rivera [facility] 1.114 350.1.13.10 4.2.7.2.686 [id number] [facility] 2023-08-14 15:00:00 2023-08-14 15:00:00 Outpatient NIRMALA MAY EMILY [facility] [id number] [facility] 2023-08-11 00:00:00 2023-08-11 00:00:00 Prep For Surgery Jacqueline Bains [facility]?LINDYMalissa [facility] 1.114 350.1.13.10 4.2.7.2.686 [id number] [facility] 2023-08-10 13:15:00 2023-08-10 13:20:33 Outpatient R ROE MCGARRY CRAIG [facility] [id number] [facility] 2023-08-10 13:15:00 2023-08-10 13:20:33 Office Visit Roe Mcgarry [facility]?ALEENA MCGILL [facility] 1.114 350.1.13.10 4.2.7.2.686 [id number] [facility] 2023-08-01 13:00:00 2023-08-01 13:30:00 Office Visit Jaguar Webb Lucas S [facility] 1.114 350.1.13.10 4.2.7.2.686 [id number] [facility] 2023-08-01 13:00:00 2023-08-01 13:00:00 Outpatient R CONOR DIXON LUCAS [facility] [id number] [facility] 2023-08-01 00:00:00 2023-08-01 00:00:00 David Webb Jaguar Horndenilson [facility] 1.0.114 350.1.13.10 4.2.7.2.686 [id number] [facility] 2023-07-20 14:30:00 2023-07-20 14:30:00 Outpatient R AUGUTSIN OTERO [facility] [id number] [facility] 2023-07-17 16:00:00 2023-07-17 16:27:54 Outpatient MICA CADE [facility] [id number] [facility] 2023-07-17 16:00:00 2023-07-17 16:27:54 Office Visit Mica Duncan [facility] 1.0.114 350.1.13.10 4.2.7.2.686 [id number] [facility] 2023-07-17 00:00:00 2023-07-17 00:00:00 Orders Only Doctor Unassigned, Pico Rivera [facility] 1.840.114 350.1.13.10 4.2.7.2.686 [id number] [facility] 2023-07-17 00:00:00 2023-07-17 00:00:00 Patient Secure Msg Doctor Unassigned, Pico Rivera [facility] 1.2840.114 350.1.13.10 4.2.7.2.686 [id number] [facility] 2023-07-05 00:00:00 2023-07-05 00:00:00 Outpatient R RADIOLOGY [facility] [id number] [facility] 2023-06-27 13:00:00 2023-06-27 13:00:00 Outpatient R [facility] [id number] [facility] 2023-06-26 11:11:23 2023-06-26 11:11:23 Outpatient BRANDON TAYLOR [id number] Britton Fry 2023-06-12 10:20:00 2023-06-12 12:26:00 Outpatient R PALMER BRUNNER CHOCKALINGA M [facility] [id number] [facility] 2023-06-12 10:20:00 2023-06-12 12:26:00 Hospital Encounter Palmer Brunner [facility] 1.840.114 350.1.13.10 4.2.7.2.686 [id number] [facility] 2023-06-12 11:30:00 2023-06-12 12:15:00 Surgery Palmer Brunner [facility] 1.2840.114 350.1.13.10 4.2.7.2.686 [id number] [facility] 2023-06-12 00:00:00 2023-06-12 00:00:00 Orders Only Doctor Unassigned, Pico Rivera [facility] 1.2840.114 350.1.13.10 4.2.7.2.686 [id number] [facility] 2023-06-08 13:00:00 2023-06-08 13:15:00 Molding Room Supervisor Visit Pob, Adc Lab Main Palmer Brunner [facility] 1.2840.114 350.1.13.10 4.2.7.2.686 [id number] [facility] 2023-06-08 13:00:00 2023-06-08 13:00:00 Outpatient R PALMER BRUNNER CHOCKALINGA M [facility] [id number] [facility] 2023-06-01 16:00:00 2023-06-01 16:00:00 Outpatient R [facility] [id number] [facility] 2023-05-25 10:40:00 2023-05-25 11:20:28 Outpatient R PALMER BRUNNER CHOCKALINGA M [facility] [id number] [facility] 2023-05-25 10:40:00 2023-05-25 11:20:28 [facility] ..840.114 350.1.13.10 4.2.7.2.686 [id number] [facility] 2023-05-15 11:15:00 2023-05-15 11:38:24 Outpatient R JUAREZ BENNETT [facility] [id number] [facility] 2023-05-06 16:23:00 2023-05-06 18:53:00 Emergency [facility] [id number] [facility] 2023-05-06 16:23:00 2023-05-06 18:53:00 emergency [id number] 2023-04-26 14:30:00 2023-04-26 15:00:00 Office Visit Mica Duncan [facility] ..840.114 350.1.13.10 4.2.7.2.686 [id number] [facility] 2023-04-26 08:00:00 2023-04-26 08:30:00 Office Visit Bashir Vasquez [facility] 1.114 350.1.13.10 4.2.7.2.686 [id number] [facility] 2023-04-26 08:00:00 2023-04-26 08:00:00 Outpatient BALDO CORONEL [facility] [id number] [facility] 2023-04-26 00:00:00 2023-04-26 00:00:00 Parvin Daily [facility] 1.114 350.1.13.10 4.2.7.2.686 [id number] [facility] 2023-04-26 00:00:00 2023-04-26 00:00:00 Telephone Bashir Vasquez [facility] 1.114 350.1.13.10 4.2.7.2.686 [id number] [facility] 2023-04-20 13:31:38 2023-04-20 13:31:38 Outpatient SFA [facility] [id number] Britton Fry 2023-04-10 09:00:00 2023-04-10 09:23:49 Outpatient AUGUSTIN KEITH [facility] [id number] [facility] 2023-04-10 09:00:00 2023-04-10 09:23:49 Office Visit Gabriella Weaver [facility] 1.114 350.1.13.10 4.2.7.2.686 [id number] [facility] 2023-04-08 00:00:00 2023-04-08 00:00:00 Patient Secure Mica Frankel [facility] 1.114 350.1.13.10 4.2.7.2.686 [id number] [facility] 2023-04-06 14:20:00 2023-04-06 14:20:00 Office Visit [facility] 1.2840.114 350.1.13.10 4.2.7.2.686 [id number] [facility] 2023-04-06 14:20:00 2023-04-06 14:18:35 [facility] [id number] [facility] 2023-03-30 13:39:52 2023-03-30 13:39:52 Outpatient SFA [facility] [id number] Britton Fry 2023-03-28 00:00:00 2023-03-28 00:00:00 Telephone Jaguar Webb [facility] 1.284.114 350.1.13.10 4.2.7.2.686 [id number] [facility] 2023-03-26 00:00:00 2023-03-26 00:00:00 Patient Secure Msg Mica Duncan [facility] 1.2840.114 350.1.13.10 4.2.7.2.686 [id number] [facility] 2023-03-15 15:00:00 2023-03-15 15:15:00 Molding Room Supervisor Visit Pob, Adc Lab Main Mackenzie Davis [facility] 1.284.114 350.1.13.10 4.2.7.2.686 [id number] [facility] 2023-03-15 15:00:00 2023-03-15 15:00:00 Outpatient R MACKENZIE DAVIS [facility] [id number] [facility] 2023-03-14 14:30:00 2023-03-14 14:45:00 Molding Room Supervisor Visit Pcp-Lab Mackenzie Davis [facility] 1.2.840.114 350.1.13.10 4.2.7.2.686 [id number] [facility] 2023-03-14 11:00:00 2023-03-14 11:48:29 Outpatient R MACKENZIE DAVIS [facility] [id number] [facility] 2023-03-14 11:00:00 2023-03-14 11:48:29 Office Visit Mackenzie Davis [facility] 1.2.840.114 350.1.13.10 4.2.7.2.686 [id number] [facility] 2023-03-14 09:30:00 2023-03-14 10:00:00 Office Visit Mica Duncan [facility] 1.2.840.114 350.1.13.10 4.2.7.2.686 [id number] [facility] 2023-03-14 00:00:00 2023-03-14 00:00:00 Telephone Mackenzie Davis [facility] 1.2.840.114 350.1.13.10 4.2.7.2.686 [id number] [facility] 2023-02-14 15:30:00 2023-02-14 16:30:00 Office Visit Jaguar Webb Lucas S [facility] 1.2.840.114 350.1.13.10 4.2.7.2.686 [id number] [facility] 2023-02-14 15:30:00 2023-02-14 15:30:00 Outpatient CONOR UNGER LUCAS [facility] [id number] [facility] 2023-02-09 13:15:02 2023-02-09 13:15:02 Outpatient BRANDON TAYLOR [id number] Britton Fry 2023-02-09 00:00:00 2023-02-09 00:00:00 [facility] 1.2.840.114 350.1.13.10 4.2.7.2.686 [id number] [facility] 2023-02-01 00:00:00 2023-02-01 00:00:00 Patient [facility] 1.2.840.114 350.1.13.10 4.2.7.2.686 [id number] [facility] 2023-01-31 14:27:04 2023-01-31 23:59:00 [facility] [id number] 2023-01-30 10:45:00 2023-01-30 11:00:00 Molding Room Supervisor Visit Pcp-Lab Mica Duncan [facility] 1.2.840.114 350.1.13.10 4.2.7.2.686 [id number] [facility] 2023-01-30 08:30:00 2023-01-30 09:18:35 Outpatient MICA CADE [facility] [id number] [facility] 2023-01-30 08:30:00 2023-01-30 09:18:35 Office Visit Mica Duncan [facility] 1.2.840.114 350.1.13.10 4.2.7.2.686 [id number] [facility] 2023-01-17 14:30:00 2023-01-17 14:30:00 Outpatient ISIDRA TORRES [facility] [id number] [facility] 2023-01-10 00:00:00 2023-01-10 00:00:00 Outpatient ISIDRA TORRES [facility] [id number] [facility] 2023-01-08 00:00:00 2023-01-08 00:00:00 Patient Secure Modesto Robleskem [facility] 1.2.840.114 350.1.13.10 4.2.7.2.686 [id number] [facility] 2023-01-05 11:41:00 2023-01-05 12:20:00 Emergency X AMY VALDEZ [facility] ERT [id number] [facility] 2023-01-05 11:41:00 2023-01-05 12:20:00 Emergency Amy Valdez [facility] 1.2.840.114 350.1.13.10 4.2.7.2.686 [id number] [facility] 2023-01-05 11:00:00 2023-01-05 11:15:54 Out[facility] [id number] [facility] 2023-01-05 11:00:00 2023-01-05 11:15:54 [facility] 1.2.840.114 350.1.13.10 4.2.7.2.686 [id number] [facility] 2023-01-04 13:05:09 2023-01-04 13:05:00 Emergency [facility] [id number] [facility] 2023-01-03 19:20:00 2023-01-03 23:13:00 Emergency X DOTTIE ANDUJAR [facility] E[facility] [id number] [facility] 2023-01-03 19:20:00 2023-01-03 23:13:00 Emergency Dottie Andujar [facility] 1.2.840.114 350.1.13.10 4.2.7.2.686 [id number] [facility] 2022-12-27 16:43:57 2022-12-27 16:43:57 Outpatient SFA [facility] [id number] Britton Fry 2022-12-26 00:00:00 2022-12-26 00:00:00 Patient Secure Msg Doctor Unassigned, Pico Rivera [facility] 1.0114 350.1.13.10 4.2.7.2.686 [id number] [facility] 2022-12-26 00:00:00 2022-12-26 00:00:00 Telephone Nii Isidra [facility] 1..114 350.1.13.10 4.2.7.2.686 [id number] [facility] 2022-12-24 00:00:00 2022-12-24 00:00:00 Patient Secure Msg Doctor Unassigned, Pico Rivera [facility] 1.114 350.1.13.10 4.2.7.2.686 [id number] [facility] 2022-12-20 13:45:00 2022-12-20 16:43:47 Outpatient R ISIDRA BALES [facility] [id number] [facility] 2022-12-20 13:45:00 2022-12-20 14:00:00 Molding Room Supervisor Visit Lab, Tk - Carlton Bales IsidraCounts include 234 beds at the [facility] JL?[facility] 1..114 350.1.13.10 4.2.7.2.686 [id number] [facility] 2022-12-20 13:00:00 2022-12-20 13:39:25 Office [facility] 1..114 350.1.13.10 4.2.7.2.686 [id number] [facility] 2022-12-19 14:08:10 2022-12-19 14:08:10 Outpatient [place] [id number] Britton Fry 2022-12-13 15:20:00 2022-12-13 16:26:29 Outpatient MOHSEN BEAULIEU HOWARD [facility] [id number] [facility] 2022-12-13 15:20:00 2022-12-13 16:26:29 Office Visit Mohsen Paulino [facility]?ALEENA MCGILL [facility] 1..114 350.1.13.10 4.2.7.2.686 [id number] [facility] 2022-12-07 11:20:56 2022-12-07 11:20:[address] [facility] [id number] Britton Fry 2022-12-02 13:13:09 2022-12-02 13:13:09 Outpatient [place] [id number] Britton Fry 2022-12-01 11:23:00 2022-12-01 11:42:00 Emergency X JIHAN BAINS [facility] ERT [id number] [facility] 2022-12-01 11:23:00 2022-12-01 11:42:00 Emergency Jihan Bains [facility] 1..114 350.1.13.10 4.2.7.2.686 [id number] [facility] 2022-11-28 14:01:21 2022-11-28 14:01:21 Outpatient [place] [id number] Britton Fry 2022-11-25 00:00:00 2022-11-25 00:00:00 Orders Only Doctor Unassigned, Pico Rivera [facility] 1.0.114 350.1.13.10 4.2.7.2.686 [id number] [facility] 2022-11-08 13:54:40 2022-11-08 13:54:40 Outpatient SFA [facility] [id number] Britton Fry 2022-10-19 13:59:00 2022-10-19 14:50:00 Emergency X BAINSJIHAN [facility] ERT [id number] [facility] 2022-10-19 13:59:00 2022-10-19 14:50:00 Emergency Sydnee Jihan Landis [facility] 1.840.114 350.1.13.10 4.2.7.2.686 [id number] [facility] 2022-10-19 00:00:00 2022-10-19 00:00:00 Orders Only Doctor Unassigned, Pico Rivera [facility] 1.840.114 350.1.13.10 4.2.7.2.686 [id number] [facility] 2022-09-28 00:00:00 2022-09-28 00:00:00 Orders Only Doctor Unassigned, Pico Rivera [facility] 1.2840.114 350.1.13.10 4.2.7.2.686 [id number] [facility] 2022-08-31 14:30:00 2022-08-31 14:41:03 Outpatient R ROE MCGARRY [facility] [id number] [facility] 2022-08-31 14:30:00 2022-08-31 14:41:03 Office Visit Roe Mcgarry [facility]?ALEENA MCGILL [facility] 1..840.114 350.1.13.10 4.2.7.2.686 [id number] [facility] 2022-08-11 13:26:16 2022-08-11 23:59:00 Outpatient R ROE MCGARRY [facility] [id number] [facility] 2022-08-11 13:26:16 2022-08-11 23:59:00 Hospital Encounter Roe Mcgarry [facility] 1..114 350.1.13.10 4.2.7.2.686 [id number] [facility] 2022-07-29 10:15:00 2022-07-29 10:15:00 Office Visit Roe Mcgarry [facility]?LINDYMalissa MADELYNALISHA MEDICAL OFFICE BUILDING 1.114 350.1.13.10 4.2.7.2.686 [id number] [facility] 2022-07-29 10:15:00 2022-07-29 10:01:38 Outpatient R ROE MCGARRY [facility] [id number] [facility] 2022-07-27 13:45:00 2022-07-27 13:45:00 Outpatient R ROE MCGARRY [facility] [id number] [facility] 2022-07-27 00:00:00 2022-07-27 00:00:00 Orders Only Doctor Unassigned, Pico Rivera [facility] 1.114 350.1.13.10 4.2.7.2.686 [id number] [facility] 2022-07-20 00:00:00 2022-07-20 00:00:00 Telephone Jacqueline Bains [facility]?ALEENA JOSHI [facility] OFF[facility]ILD[facility] 1.114 350.1.13.10 4.2.7.2.686 [id number] [facility] 2022-06-29 14:45:00 2022-06-29 15:21:38 Outpatient R ROE MCGARRY [facility] [id number] [facility] 2022-06-29 14:45:00 2022-06-29 15:21:38 Office Visit Roe Mcgarry [facility]?LINDYMalissa MADELYN [facility] 1.114 350.1.13.10 4.2.7.2.686 [id number] [facility] 2022-06-28 09:55:35 2022-06-28 23:59:00 Outpatient ROE CAMACHO [facility] [id number] [facility] 2022-06-28 09:55:35 2022-06-28 23:59:00 Hospital Encounter Roe Mcgarry [facility] 1..840.114 350.1.13.10 4.2.7.2.686 [id number] [facility] 2022-06-27 15:30:00 2022-06-27 15:30:00 Outpatient ROE CAMACHO [facility] [id number] [facility] 2022-06-27 00:00:00 2022-06-27 00:00:00 Orders Only Doctor Unassigned, Pico Rivera [facility] 1..840.114 350.1.13.10 4.2.7.2.686 [id number] [facility] 2022-06-27 00:00:00 2022-06-27 00:00:00 Telephone Jacqueline Bains [facility]?LINDYMalissa [facility] 1..840.114 350.1.13.10 4.2.7.2.686 [id number] [facility] 2021-01-07 09:10:00 2021-01-07 09:10:00 Outpatient CARMELO JACOB [facility] [id number] [facility] 2020-12-17 09:20:00 2020-12-17 09:20:00 Outpatient [facility] [id number] [facility] 2020-10-22 00:00:00 2020-10-22 00:00:00 Outpatient LOUIE ROSENBERG [facility] [id number] [facility] Results Test Description Test Time Test Comments Results Result Co mments Source TSH REFLEX TO FREE [id number] 05:22:45* Test Item Value Reference Range Interpretation Comme nts TSH REFLEX TO FREE T4 (test code = 2834) 1.070 UIU/ML 0.400-4.100 UNLESS OTHERWISE INDICATED, ALL TESTING PERFORMED AT [facility] [address] [place] [id number] [employer] COORDINATOR: PATY POLLARD M.D. CLIA NUMBER [id number] [facility] [place]. [id number] CBC W/AUTO DIFF WITH [id number] 03:29:48* Test Item Value Reference Range Interpretation Comme nts WBC (test code = 1001) 3.6 K/UL 3.5-11.0 RBC (test code = 1002) 3.99 M/UL 3.80-5.40 HEMOGLOBIN (test code = 1003) 11.9 G/DL 11.5-15.5 HEMATOCRIT (test code = 1004) 36.4 % 34.0-45.0 MCV (test code = 1005) 91.2 fL 80.0-99.0 MCH (test code = 1006) 29.8 PG 25.0-33.0 MCHC (test code = 1007) 32.7 G/DL 31.0-36.0 RDW (test code = 1038) 14.2 % 11.5-15.0 NEUTROPHILS (test code = 1008) 53.9 % LYMPHOCYTES (test code = 1010) 34.1 % MONOCYTES (test code = 1011) 9.5 % EOSINOPHILS (test code = 1012) 2.2 % BASOPHILS (test code = 1013) 0.0 % IMMATURE GRANULOCYTES (test code = 1036) 0.3 % NUCLEATED RBCS (test code = 1065) 0.0 /100 WBC'S See_Comment [Automated messa ge] The system which generated this result transmitted reference range: 0.0. The reference range was not used to interpret this result as normal/abnormal. PLATELET COUNT (test code = 1015) 324 K/UL 130-400 ABSOLUTE NEUTROPHILS (test code = 1066) 1.93 K/UL 1.50-7.50 ABSOLUTE LYMPHOCYTES (test code = 1067) 1.22 K/UL 1.00-4.00 ABSOLUTE MONOCYTES (test code = 1068) 0.34 K/UL 0.20-1.00 ABSOLUTE EOSINOPHILS (test code = 1040) 0.08 K/UL 0.00-0.50 ABSOLUTE BASOPHILS (test code = 1069) 0.00 K/UL 0.00-0.20 ABS IMMATURE GRANULOCYTES (test code = 1020) 0.01 K/UL 0.00-0.10 ABS NUCLEATED RBCS (test code = 91586) 0.00 K/UL 0.00-0.11 COMPREHENSIVE METABOLIC [id number] 00:00:00* Test Item Value Reference Range Interpretation Comme nts GLUCOSE (test code = 2217) 86 MG/DL BUN (test code = 2208) 14 MG/DL CREATININE (test code = 2214) 0.75 MG/DL eGFR (2020 CKD-EPI) (test code = 01019) 104 ML/MIN/1.73 CALC BUN/CREAT (test code = 2235) 19 RATIO SODIUM (test code = 2231) 139 MEQ/L POTASSIUM (test code = 2228) 4.1 MEQ/L CHLORIDE (test code = 2215) 102 MEQ/L CARBON DIOXIDE (test code = 2206) 29 MEQ/L CALCIUM (test code = 2209) 9.3 MG/DL PROTEIN, TOTAL (test code = 2229) 6.9 G/DL ALBUMIN (test code = 2201) 4.5 G/DL CALC GLOBULIN (test code = 2240) 2.4 G/DL CALC A/G RATIO (test code = 2234) 1.9 RATIO BILIRUBIN, TOTAL (test code = 2207) <0.2 MG/DL ALKALINE PHOSPHATASE (test code = 2204) 101 U/L AST (test code = 2218) 18 U/L ALT (test code = 2219) 19 U/L Britton FryTSH REFLEX TO FREE [id number] 00:00:00* Test Item Value Reference Range Interpretation Comme nts TSH REFLEX TO FREE T4 (test code = 2834) 1.070 UIU/ML Britton FryCBC W/AUTO [id number] 00:00:00* Test Item Value Reference Range Interpretation Comme nts WBC (test code = 1001) 3.6 K/UL RBC (test code = 1002) 3.99 M/UL HEMOGLOBIN (test code = 1003) 11.9 G/DL HEMATOCRIT (test code = 1004) 36.4 % MCV (test code = 1005) 91.2 fL MCH (test code = 1006) 29.8 PG MCHC (test code = 1007) 32.7 G/DL RDW (test code = 1038) 14.2 % NEUTROPHILS (test code = 1008) 53.9 % LYMPHOCYTES (test code = 1010) 34.1 % MONOCYTES (test code = 1011) 9.5 % EOSINOPHILS (test code = 1012) 2.2 % BASOPHILS (test code = 1013) 0.0 % IMMATURE GRANULOCYTES (test code = 1036) 0.3 % NUCLEATED RBCS (test code = 1065) 0.0 /100WBC'S PLATELET COUNT (test code = 1015) 324 K/UL ABSOLUTE NEUTROPHILS (test c ode = 1066) 1.93 K/UL ABSOLUTE LYMPHOCYTES (test c ode = 1067) 1.22 K/UL ABSOLUTE MONOCYTES (test cod e = 1068) 0.34 K/UL ABSOLUTE EOSINOPHILS (test c ode = 1040) 0.08 K/UL ABSOLUTE BASOPHILS (test cod e = 1069) 0.00 K/UL ABS IMMATURE GRANULOCYTES (t est code = 1020) 0.01 K/UL ABS NUCLEATED RBCS (test cod e = 40392) 0.00 K/UL Britton F AngCOMPREHENSIVE METABOLIC [id number] 00:00:00* Test Item Value Reference Range Interpretation Comme nts GLUCOSE (test code = 2217) 86 MG/DL BUN (test code = 2208) 14 MG/DL CREATININE (test code = 2214) 0.75 MG/DL eGFR (2020 CKD-EPI) (test code = 21392) 104 ML/MIN/1.73 CALC BUN/CREAT (test code = 2235) 19 RATIO SODIUM (test code = 2231) 139 MEQ/L POTASSIUM (test code = 2228) 4.1 MEQ/L CHLORIDE (test code = 2215) 102 MEQ/L CARBON DIOXIDE (test code = 2206) 29 MEQ/L CALCIUM (test code = 2209) 9.3 MG/DL PROTEIN, TOTAL (test code = 2229) 6.9 G/DL ALBUMIN (test code = 2201) 4.5 G/DL CALC GLOBULIN (test code = 2240) 2.4 G/DL CALC A/G RATIO (test code = 2234) 1.9 RATIO BILIRUBIN, TOTAL (test code = 2207) <0.2 MG/DL ALKALINE PHOSPHATASE (test code = 2204) 101 U/L AST (test code = 2218) 18 U/L ALT (test code = 2219) 19 U/L Britton FryTSH REFLEX TO FREE [id number] 00:00:00* Test Item Value Reference Range Interpretation Comme nts TSH REFLEX TO FREE T4 (test code = 2834) 1.070 UIU/ML Britton Tejeda AngCBC W/AUTO [id number] 00:00:00* Test Item Value Reference Range Interpretation Comme nts WBC (test code = 1001) 3.6 K/UL RBC (test code = 1002) 3.99 M/UL HEMOGLOBIN (test code = 1003) 11.9 G/DL HEMATOCRIT (test code = 1004) 36.4 % MCV (test code = 1005) 91.2 fL MCH (test code = 1006) 29.8 PG MCHC (test code = 1007) 32.7 G/DL RDW (test code = 1038) 14.2 % NEUTROPHILS (test code = 1008) 53.9 % LYMPHOCYTES (test code = 1010) 34.1 % MONOCYTES (test code = 1011) 9.5 % EOSINOPHILS (test code = 1012) 2.2 % BASOPHILS (test code = 1013) 0.0 % IMMATURE GRANULOCYTES (test code = 1036) 0.3 % NUCLEATED RBCS (test code = 1065) 0.0 /100WBC'S PLATELET COUNT (test code = 1015) 324 K/UL ABSOLUTE NEUTROPHILS (test c ode = 1066) 1.93 K/UL ABSOLUTE LYMPHOCYTES (test c ode = 1067) 1.22 K/UL ABSOLUTE MONOCYTES (test cod e = 1068) 0.34 K/UL ABSOLUTE EOSINOPHILS (test c ode = 1040) 0.08 K/UL ABSOLUTE BASOPHILS (test cod e = 1069) 0.00 K/UL ABS IMMATURE GRANULOCYTES (t est code = 1020) 0.01 K/UL ABS NUCLEATED RBCS (test cod e = 99193) 0.00 K/UL Britton Tejeda AngType and Screen - This is a pre-surgical type and screen. ONCE [id number] 17:33:00* Test Item Value Reference Range Interpretation Comme nts ABO & RH (test code = 20) A Positive IAT (test code = 1185) Negative [facility] This is a pre-surgical type and screen. ONCE [id number] 17:33:00* Test Item Value Reference Range Interpretation Comme nts ABO & RH (test code = 20) A Positive IAT (test code = 1185) Negative [facility] (NA, K, CL, CO2, GLUCOSE, BUN, CREATININE, CA)2023-08-17 23:30:33* Test Item Value Reference Range Interpretation Comme nts NA (test code = 9729217014) 137 mmol/L 135-145 K (test code = 2145304056) 3.9 mmol/L 3.5-5.0 CL (test code = 6715919756) 102 mmol/L 98-108 CO2 TOTAL (test code = 2539171421) 26 mmol/L 23-31 AGAP (test code = 3491959245) 9 2-16 BUN (test code = 6065734415) 17 mg/dL 7-23 GLUCOSE (test code = 6599739579) 105 mg/dL 70-110 CREATININE (test code = 9994615890) 0.55 mg/dL 0.50-1.04 CALCIUM (test code = 1555405103) 9.2 mg/dL 8.6-10.6 eGFR (test code = 24310-8) 120.5 mL/min/1.73m2 CKD-EPI eGFR (20 21). Assuming creatinine has been stable day-to-day for at least three months, the eGFR indicates Category G1 (>= 90 mL/min/1.73 m2) [facility] WITH [id number] 22:58:06* Test Item Value Reference Range Interpretation Comme nts WBC (test code = 6690-2) 5.23 See_Comment [Automated Blaasta ge] The system which generated this result transmitted reference range: 4.30 - 11.10 10*3/?L. The reference range was not used to interpret this result as normal/abnormal. RBC (test code = 789-8) 4.13 See_Comment [Automated Blaasta ge] The system which generated this result transmitted reference range: 3.93 - 5.25 10*6/?L. The reference range was not used to interpret this result as normal/abnormal. HGB (test code = 718-7) 12.3 g/dL 11.6-15.0 HCT (test code = 4544-3) 37.5 % 35.7-45.2 MCV (test code = 787-2) 90.8 fL 80.6-95.5 MCH (test code = 785-6) 29.8 pg 25.9-32.8 MCHC (test code = 786-4) 32.8 g/dL 31.6-35.1 RDW-SD (test code = 38813-1) 50.2 fL 39.0-49.9 H RDW-CV (test code = 788-0) 15.2 % 12.0-15.5 PLT (test code = 777-3) 388 See_Comment H [Automated messa ge] The system which generated this result transmitted reference range: 166 - 358 10*3/?L. The reference range was not used to interpret this result as normal/abnormal. MPV (test code = 03217-4) 8.7 fL 9.5-12.9 L NRBC/100 WBC (test code = 2016678410) 0.0 See_Comment [Automated BALALIKEA ssage] The system which generated this result transmitted reference range: 0.0 - 10.0 /100 WBCs. The reference range was not used to interpret this result as normal/abnormal. NRBC x10^3 (test code = 0886569553) See_Comment [Automated messa ge] The system which generated this result transmitted reference range: 10*3/?L. The reference range was not used to interpret this result as normal/abnormal. GRAN MAT (NEUT) % (test code = 770-8) 59.2 % IMM GRAN % (test code = 0038593192) 0.20 % LYMPH % (test code = 736-9) 31.5 % MONO % (test code = 5905-5) 7.6 % EOS % (test code = 713-8) 1.5 % BASO % (test code = 706-2) 0.0 % GRAN MAT x10^3(ANC) (test code = 3135675893) 3.09 10*3/uL 1.88-7.09 IMM GRAN x10^3 (test code = 1172754341) 0.00-0.06 LYMPH x10^3 (test code = 731-0) 1.65 10*3/uL 1.32-3.29 MONO x10^3 (test code = 742-7) 0.40 10*3/uL 0.33-0.92 EOS x10^3 (test code = 711-2) 0.08 10*3/uL 0.03-0.39 BASO x10^3 (test code = 704-7) 0.01-0.07 Lab Interpretation (test code = 73213-3) [facility]normal [facility] -[facility]23-[facility]-17 22:48:00* Test Item Value Reference Range Interpretation Comme nts ABO & RH (test code = 20) A Positive IAT (test code = 1185) Negative [facility]AUTO [id number] 00:00:00* Test Item Value Reference Range Interpretation Comme nts WBC (test code = 1001) 3.6 K/UL RBC (test code = 1002) 4.09 M/UL HEMOGLOBIN (test code = 1003) 12.4 G/DL HEMATOCRIT (test code = 1004) 36.6 % MCV (test code = 1005) 89.5 fL MCH (test code = 1006) 30.3 PG MCHC (test code = 1007) 33.9 G/DL RDW (test code = 1038) 13.7 % NEUTROPHILS (test code = 1008) 59.7 % LYMPHOCYTES (test code = 1010) 31.5 % MONOCYTES (test code = 1011) 7.9 % EOSINOPHILS (test code = 1012) 0.6 % BASOPHILS (test code = 1013) 0.3 % IMMATURE GRANULOCYTES (test code = 1036) 0.0 % NUCLEATED RBCS (test code = 1065) 0.0 /100WBC'S PLATELET COUNT (test code = 1015) 347 K/UL ABSOLUTE NEUTROPHILS (test c ode = 1066) 2.12 K/UL ABSOLUTE LYMPHOCYTES (test c ode = 1067) 1.12 K/UL ABSOLUTE MONOCYTES (test cod e = 1068) 0.28 K/UL ABSOLUTE EOSINOPHILS (test c ode = 1040) 0.02 K/UL ABSOLUTE BASOPHILS (test cod e = 1069) 0.01 K/UL ABS IMMATURE GRANULOCYTES (t est code = 1020) 0.00 K/UL ABS NUCLEATED RBCS (test cod e = 94506) 0.00 K/UL Britton Garrett, THIRD [id number] 00:00:00* Test Item Value Reference Range Interpretation Comme nts TSH, THIRD GENERATION (test code = 2821) 0.659 UIU/ML Britton FryCOMPREHENSIVE METABOLIC [id number] 00:00:00* Test Item Value Reference Range Interpretation Comme nts GLUCOSE (test code = 2217) 119 MG/DL BUN (test code = 2208) 10 MG/DL CREATININE (test code = 2214) 0.66 MG/DL eGFR (2020 CKD-EPI) (test code = 85597) 115 ML/MIN/1.73 CALC BUN/CREAT (test code = 2235) 15 RATIO SODIUM (test code = 2231) 139 MEQ/L POTASSIUM (test code = 2228) 3.6 MEQ/L CHLORIDE (test code = 2215) 101 MEQ/L CARBON DIOXIDE (test code = 2206) 26 MEQ/L CALCIUM (test code = 2209) 9.3 MG/DL PROTEIN, TOTAL (test code = 2229) 6.9 G/DL ALBUMIN (test code = 2201) 4.4 G/DL CALC GLOBULIN (test code = 2240) 2.5 G/DL CALC A/G RATIO (test code = 2234) 1.8 RATIO BILIRUBIN, TOTAL (test code = 2207) <0.2 MG/DL ALKALINE PHOSPHATASE (test code = 2204) 95 U/L AST (test code = 2218) 18 U/L ALT (test code = 2219) 17 U/L Britton FryCBC W/AUTO [id number] 00:00:00* Test Item Value Reference Range Interpretation Comme nts WBC (test code = 1001) 3.6 K/UL RBC (test code = 1002) 4.09 M/UL HEMOGLOBIN (test code = 1003) 12.4 G/DL HEMATOCRIT (test code = 1004) 36.6 % MCV (test code = 1005) 89.5 fL MCH (test code = 1006) 30.3 PG MCHC (test code = 1007) 33.9 G/DL RDW (test code = 1038) 13.7 % NEUTROPHILS (test code = 1008) 59.7 % LYMPHOCYTES (test code = 1010) 31.5 % MONOCYTES (test code = 1011) 7.9 % EOSINOPHILS (test code = 1012) 0.6 % BASOPHILS (test code = 1013) 0.3 % IMMATURE GRANULOCYTES (test code = 1036) 0.0 % NUCLEATED RBCS (test code = 1065) 0.0 /100WBC'S PLATELET COUNT (test code = 1015) 347 K/UL ABSOLUTE NEUTROPHILS (test c ode = 1066) 2.12 K/UL ABSOLUTE LYMPHOCYTES (test c ode = 1067) 1.12 K/UL ABSOLUTE MONOCYTES (test cod e = 1068) 0.28 K/UL ABSOLUTE EOSINOPHILS (test c ode = 1040) 0.02 K/UL ABSOLUTE BASOPHILS (test cod e = 1069) 0.01 K/UL ABS IMMATURE GRANULOCYTES (t est code = 1020) 0.00 K/UL ABS NUCLEATED RBCS (test cod e = 26394) 0.00 K/UL Britton TrevinoH, THIRD [id number] 00:00:00* Test Item Value Reference Range Interpretation Comme nts TSH, THIRD GENERATION (test code = 2821) 0.659 UIU/ML Britton Tejeda AngCOMPREHENSIVE METABOLIC [id number] 00:00:00* Test Item Value Reference Range Interpretation Comme nts GLUCOSE (test code = 2217) 119 MG/DL BUN (test code = 2208) 10 MG/DL CREATININE (test code = 2214) 0.66 MG/DL eGFR (2020 CKD-EPI) (test code = 23314) 115 ML/MIN/1.73 CALC BUN/CREAT (test code = 2235) 15 RATIO SODIUM (test code = 2231) 139 MEQ/L POTASSIUM (test code = 2228) 3.6 MEQ/L CHLORIDE (test code = 2215) 101 MEQ/L CARBON DIOXIDE (test code = 2206) 26 MEQ/L CALCIUM (test code = 2209) 9.3 MG/DL PROTEIN, TOTAL (test code = 2229) 6.9 G/DL ALBUMIN (test code = 2201) 4.4 G/DL CALC GLOBULIN (test code = 2240) 2.5 G/DL CALC A/G RATIO (test code = 2234) 1.8 RATIO BILIRUBIN, TOTAL (test code = 2207) <0.2 MG/DL ALKALINE PHOSPHATASE (test code = 2204) 95 U/L AST (test code = 2218) 18 U/L ALT (test code = 2219) 17 U/L Britton Tejeda AustinANTI-CENTROMERE [id number] 17:57:36* Test Item Value Reference Range Interpretation Comme nts ANTI-CENTR (test code = 2760534510) Negative Negative HIEN (test code = HIEN) Positive - Antibod y detected.Negative - No antibody detected. Lab Interpretation (test code = 68204-9) [facility]-[id number] 17:57:36* Test Item Value Reference Range Interpretation Comme nts ANTI-SCL70 (test code = 4498719627) Negative Negative HIEN (test code = HIEN) Positive - Antibod y detected.Negative - No antibody detected. Lab Interpretation (test code = 85860-2) [facility]-SM/[id number] 17:57:36* Test Item Value Reference Range Interpretation Comme nts ANTI-SMRNP (test code = 1796799075) Negative Negative HIEN (test code = HIEN) Positive - Antibod y detected.Negative - No antibody detected. Lab Interpretation (test code = 44654-9) [facility]-SSA(RO)2023-03-15 17:57:36* Test Item Value Reference Range Interpretation Comme nts ANTI-SSA(RO) (test code = 6736545282) Negative Negative HIEN (test code = HIEN) Positive - Antibod y detected.Negative - No antibody detected. Lab Interpretation (test code = 26114-0) [facility]-DOUBLE STRANDED [id number] 17:57:16* Test Item Value Reference Range Interpretation Comme nts ANTI-DSDNA (test code = 1373540350) See_Comment [Automated message] The system which generated this result transmitted reference range: 0.0 - 4.0 IU/mL. The reference range was not used to interpret this result as normal/abnormal. HIEN (test code = HIEN) Negative ? ?< or = 4 IU/mLPositive ? ? ?> or = 10 IU/mLIndetermin ate ?5-9 IU/mL Lab Interpretation (test code = 18578-5) Normal [facility]2023-[facility]-15 17:57:16* Test Item Value Reference Range Interpretation Comme nts Anti-SSB(LA) (test code = 2248421642) Negative Negative HIEN (test code = HIEN) Positive - Antibod y detected.Negative - No antibody detected. Lab Interpretation (test code = 03622-5) Normal [facility] [id number] 14:04:35* Test Item Value Reference Range Interpretation Comme nts C3 (test code = 8487714693) 92 mg/dL 86-184 Lab Interpretation (test cod e = 50406-9) Normal [place] [address] [id number] 14:04:35* Test Item Value Reference Range Interpretation Comme nts C3 (test code = 6614971525) 92 mg/dL 86-184 Lab Interpretation (test cod e = 70697-3) [facility] [id number] 13:53:46* Test Item Value Reference Range Interpretation Comme nts C4 (test code = 9189097932) 15 mg/dL 20-59 L Lab Interpretation (test cod e = 72062-1) Abnormal [facility] CentralC-REACTIVE [id number] 13:53:46* Test Item Value Reference Range Interpretation Comme nts CRP (test code = 7749785722) 0.1 mg/dL <=0.8 Lab Interpretation (test cod e = 81081-0) Normal [place] [address] [id number] 13:53:46* Test Item Value Reference Range Interpretation Comme nts C4 (test code = 9056250846) 15 mg/dL 20-59 L Lab Interpretation (test cod e = 14913-7) [facility]normal [facility]-REACT[facility] [id number] 13:53:46* Test Item Value Reference Range Interpretation Comme nts CRP (test code = 1595975892) 0.1 mg/dL <=0.8 Lab Interpretation (test cod e = 71884-2) Normal [facility] CentralHCV [id number] 22:18:15* Test Item Value Reference Range Interpretation Comme nts HCV Ab (test code = 93969-7) Negative HCV Semi-Quantitative (test code = 34257-6) 0.02 [facility] [id number] 22:18:15* Test Item Value Reference Range Interpretation Comme nts HCV Ab (test code = 01491-3) Negative HCV Semi-Quantitative (test code = 10308-5) 0.02 [facility] WITH [id number] 20:52:19* Test Item Value Reference Range Interpretation Comme nts WBC (test code = 6690-2) 3.61 See_Comment L [Automated messa ge] The system which generated this result transmitted reference range: 4.30 - 11.10 10*3/?L. The reference range was not used to interpret this result as normal/abnormal. RBC (test code = 789-8) 4.25 See_Comment [Automated messa ge] The system which generated this result transmitted reference range: 3.93 - 5.25 10*6/?L. The reference range was not used to interpret this result as normal/abnormal. HGB (test code = 718-7) 12.9 g/dL 11.6-15.0 HCT (test code = 4544-3) 39.1 % 35.7-45.2 MCV (test code = 787-2) 92.0 fL 80.6-95.5 MCH (test code = 785-6) 30.4 pg 25.9-32.8 MCHC (test code = 786-4) 33.0 g/dL 31.6-35.1 RDW-SD (test code = 11816-2) 48.1 fL 39.0-49.9 RDW-CV (test code = 788-0) 14.2 % 12.0-15.5 PLT (test code = 777-3) 419 See_Comment H [Automated messa ge] The system which generated this result transmitted reference range: 166 - 358 10*3/?L. The reference range was not used to interpret this result as normal/abnormal. MPV (test code = 32692-3) 8.7 fL 9.5-12.9 L NRBC/100 WBC (test code = 9449189664) 0.0 See_Comment [Automated me ssage] The system which generated this result transmitted reference range: 0.0 - 10.0 /100 WBCs. The reference range was not used to interpret this result as normal/abnormal. NRBC x10^3 (test code = 4380108374) See_Comment [Automated messa ge] The system which generated this result transmitted reference range: 10*3/?L. The reference range was not used to interpret this result as normal/abnormal. GRAN MAT (NEUT) % (test code = 770-8) 54.0 % IMM GRAN % (test code = 7020705879) 0.00 % LYMPH % (test code = 736-9) 37.7 % MONO % (test code = 5905-5) 5.3 % EOS % (test code = 713-8) 3.0 % BASO % (test code = 706-2) 0.0 % GRAN MAT x10^3(ANC) (test code = 5119323432) 1.95 10*3/uL 1.88-7.09 IMM GRAN x10^3 (test code = 8907881007) 0.00-0.06 LYMPH x10^3 (test code = 731-0) 1.36 10*3/uL 1.32-3.29 MONO x10^3 (test code = 742-7) 0.19 10*3/uL 0.33-0.92 L EOS x10^3 (test code = 711-2) 0.11 10*3/uL 0.03-0.39 BASO x10^3 (test code = 704-7) 0.01-0.07 Lab Interpretation (test code = 67774-0) Abnormal [facility] WITH [id number] 20:52:19* Test Item Value Reference Range Interpretation Comme nts WBC (test code = 6690-2) 3.61 See_Comment L [Automated messa ge] The system which generated this result transmitted reference range: 4.30 - 11.10 10*3/?L. The reference range was not used to interpret this result as normal/abnormal. RBC (test code = 789-8) 4.25 See_Comment [Automated messa ge] The system which generated this result transmitted reference range: 3.93 - 5.25 10*6/?L. The reference range was not used to interpret this result as normal/abnormal. HGB (test code = 718-7) 12.9 g/dL 11.6-15.0 HCT (test code = 4544-3) 39.1 % 35.7-45.2 MCV (test code = 787-2) 92.0 fL 80.6-95.5 MCH (test code = 785-6) 30.4 pg 25.9-32.8 MCHC (test code = 786-4) 33.0 g/dL 31.6-35.1 RDW-SD (test code = 53996-7) 48.1 fL 39.0-49.9 RDW-CV (test code = 788-0) 14.2 % 12.0-15.5 PLT (test code = 777-3) 419 See_Comment H [Automated messa ge] The system which generated this result transmitted reference range: 166 - 358 10*3/?L. The reference range was not used to interpret this result as normal/abnormal. MPV (test code = 74532-3) 8.7 fL 9.5-12.9 L NRBC/100 WBC (test code = 9683419326) 0.0 See_Comment [Automated BALALIKEA ssage] The system which generated this result transmitted reference range: 0.0 - 10.0 /100 WBCs. The reference range was not used to interpret this result as normal/abnormal. NRBC x10^3 (test code = 6435689454) See_Comment [Automated Blaasta ge] The system which generated this result transmitted reference range: 10*3/?L. The reference range was not used to interpret this result as normal/abnormal. GRAN MAT (NEUT) % (test code = 770-8) 54.0 % IMM GRAN % (test code = 0732888143) 0.00 % LYMPH % (test code = 736-9) 37.7 % MONO % (test code = 5905-5) 5.3 % EOS % (test code = 713-8) 3.0 % BASO % (test code = 706-2) 0.0 % GRAN MAT x10^3(ANC) (test code = 5815991833) 1.95 10*3/uL 1.88-7.09 IMM GRAN x10^3 (test code = 1307206925) 0.00-0.06 LYMPH x10^3 (test code = 731-0) 1.36 10*3/uL 1.32-3.29 MONO x10^3 (test code = 742-7) 0.19 10*3/uL 0.33-0.92 L EOS x10^3 (test code = 711-2) 0.11 10*3/uL 0.03-0.39 BASO x10^3 (test code = 704-7) 0.01-0.07 Lab Interpretation (test code = 73128-9) Abnormal [facility] WITH [id number] 20:52:19* Test Item Value Reference Range Interpretation Comme nts WBC (test code = 6690-2) 3.61 See_Comment L [Automated messa ge] The system which generated this result transmitted reference range: 4.30 - 11.10 10*3/?L. The reference range was not used to interpret this result as normal/abnormal. RBC (test code = 789-8) 4.25 See_Comment [Automated messa ge] The system which generated this result transmitted reference range: 3.93 - 5.25 10*6/?L. The reference range was not used to interpret this result as normal/abnormal. HGB (test code = 718-7) 12.9 g/dL 11.6-15.0 HCT (test code = 4544-3) 39.1 % 35.7-45.2 MCV (test code = 787-2) 92.0 fL 80.6-95.5 MCH (test code = 785-6) 30.4 pg 25.9-32.8 MCHC (test code = 786-4) 33.0 g/dL 31.6-35.1 RDW-SD (test code = 22728-2) 48.1 fL 39.0-49.9 RDW-CV (test code = 788-0) 14.2 % 12.0-15.5 PLT (test code = 777-3) 419 See_Comment H [Automated messa ge] The system which generated this result transmitted reference range: 166 - 358 10*3/?L. The reference range was not used to interpret this result as normal/abnormal. MPV (test code = 63349-6) 8.7 fL 9.5-12.9 L NRBC/100 WBC (test code = 0606063233) 0.0 See_Comment [Automated me ssage] The system which generated this result transmitted reference range: 0.0 - 10.0 /100 WBCs. The reference range was not used to interpret this result as normal/abnormal. NRBC x10^3 (test code = 3122056172) See_Comment [Automated messa ge] The system which generated this result transmitted reference range: 10*3/?L. The reference range was not used to interpret this result as normal/abnormal. GRAN MAT (NEUT) % (test code = 770-8) 54.0 % IMM GRAN % (test code = 2266626824) 0.00 % LYMPH % (test code = 736-9) 37.7 % MONO % (test code = 5905-5) 5.3 % EOS % (test code = 713-8) 3.0 % BASO % (test code = 706-2) 0.0 % GRAN MAT x10^3(ANC) (test code = 1271431082) 1.95 10*3/uL 1.88-7.09 IMM GRAN x10^3 (test code = 4097494122) 0.00-0.06 LYMPH x10^3 (test code = 731-0) 1.36 10*3/uL 1.32-3.29 MONO x10^3 (test code = 742-7) 0.19 10*3/uL 0.33-0.92 L EOS x10^3 (test code = 711-2) 0.11 10*3/uL 0.03-0.39 BASO x10^3 (test code = 704-7) 0.01-0.07 Lab Interpretation (test code = 33016-2) Abnormal [facility] WITH [id number] 20:52:19* Test Item Value Reference Range Interpretation Comme nts WBC (test code = 6690-2) 3.61 See_Comment L [Automated messa ge] The system which generated this result transmitted reference range: 4.30 - 11.10 10*3/?L. The reference range was not used to interpret this result as normal/abnormal. RBC (test code = 789-8) 4.25 See_Comment [Automated messa ge] The system which generated this result transmitted reference range: 3.93 - 5.25 10*6/?L. The reference range was not used to interpret this result as normal/abnormal. HGB (test code = 718-7) 12.9 g/dL 11.6-15.0 HCT (test code = 4544-3) 39.1 % 35.7-45.2 MCV (test code = 787-2) 92.0 fL 80.6-95.5 MCH (test code = 785-6) 30.4 pg 25.9-32.8 MCHC (test code = 786-4) 33.0 g/dL 31.6-35.1 RDW-SD (test code = 06724-3) 48.1 fL 39.0-49.9 RDW-CV (test code = 788-0) 14.2 % 12.0-15.5 PLT (test code = 777-3) 419 See_Comment H [Automated messa ge] The system which generated this result transmitted reference range: 166 - 358 10*3/?L. The reference range was not used to interpret this result as normal/abnormal. MPV (test code = 25979-5) 8.7 fL 9.5-12.9 L NRBC/100 WBC (test code = 1631295341) 0.0 See_Comment [Automated BALALIKEA ssage] The system which generated this result transmitted reference range: 0.0 - 10.0 /100 WBCs. The reference range was not used to interpret this result as normal/abnormal. NRBC x10^3 (test code = 8214972625) See_Comment [Automated messa ge] The system which generated this result transmitted reference range: 10*3/?L. The reference range was not used to interpret this result as normal/abnormal. GRAN MAT (NEUT) % (test code = 770-8) 54.0 % IMM GRAN % (test code = 3282029142) 0.00 % LYMPH % (test code = 736-9) 37.7 % MONO % (test code = 5905-5) 5.3 % EOS % (test code = 713-8) 3.0 % BASO % (test code = 706-2) 0.0 % GRAN MAT x10^3(ANC) (test code = 8303212107) 1.95 10*3/uL 1.88-7.09 IMM GRAN x10^3 (test code = 9720874803) 0.00-0.06 LYMPH x10^3 (test code = 731-0) 1.36 10*3/uL 1.32-3.29 MONO x10^3 (test code = 742-7) 0.19 10*3/uL 0.33-0.92 L EOS x10^3 (test code = 711-2) 0.11 10*3/uL 0.03-0.39 BASO x10^3 (test code = 704-7) 0.01-0.07 Lab Interpretation (test code = 99097-0) [facility] WITH [id number] 20:43:58* Test Item Value Reference Range Interpretation Comme nts HIV Semi-quantitative (test code = 00597-8) 0.08 Negative HIEN (test code = HIEN) Non-reactive for HIV-1 antigen and HIV-1/HIV-2 antibodies. ?No laboratory evidence of HIV infection. ?Repeat in 2-4 weeks if acute HIV infection is suspected. [facility] [id number] 20:10:51 * Test Item Value Reference Range Interpretation Comme nts TSH (test code = 7779968539) 0.66 See_Comment [Automated [place] ge] The system which generated this result transmitted reference range: 0.45 - 4.70 mIU/L. The reference range was not used to interpret this result as normal/abnormal. Lab Interpretation (test code = 12758-3) Normal [facility] [id number] 20:10:51 * Test Item Value Reference Range Interpretation Comme nts TSH (test code = 3547583463) 0.66 See_Comment [Automated [place] ge] The system which generated this result transmitted reference range: 0.45 - 4.70 mIU/L. The reference range was not used to interpret this result as normal/abnormal. Lab Interpretation (test code = 92929-6) [facility] [id number] 20:10:51 * Test Item Value Reference Range Interpretation Comme nts TSH (test code = 7720381629) 0.66 See_Comment [Automated messa ge] The system which generated this result transmitted reference range: 0.45 - 4.70 mIU/L. The reference range was not used to interpret this result as normal/abnormal. Lab Interpretation (test code = 17017-6) [facility] [id number] 20:10:51 * Test Item Value Reference Range Interpretation Comme nts TSH (test code = 5541111517) 0.66 See_Comment [Automated messa ge] The system which generated this result transmitted reference range: 0.45 - 4.70 mIU/L. The reference range was not used to interpret this result as normal/abnormal. Lab Interpretation (test code = 14834-9) [facility]INE2023-[facility]-13 20:10:51* Test Item Value Reference Range Interpretation Comme nts T3 (test code = 9330122560) 153.0 ng/dL 97.0-170.0 Lab Interpretation (test cod e = 05717-0) [id number]:56:44* Test Item Value Reference Range Interpretation Comme nts FREE T4 (test code = 1639583138) 1.13 See_Comment [Automated messa ge] The system which generated this result transmitted reference range: 0.78 - 2.20 ng/dL:. The reference range was not used to interpret this result as normal/abnormal. Lab Interpretation (test code = 40989-7) Normal [facility] [id number] 19:43:45* Test Item Value Reference Range Interpretation Comme nts ESR (test code = 00668-6) 14 See_Comment [Automated message] The system which generated this result transmitted reference range: 2 - 30 mm/HR. The reference range was not used to interpret this result as normal/abnormal. Lab Interpretation (test code = 02956-8) Normal [facility] [id number] 19:43:45* Test Item Value Reference Range Interpretation Comme nts ESR (test code = 54668-3) 14 See_Comment [Automated message] The system which generated this result transmitted reference range: 2 - 30 mm/HR. The reference range was not used to interpret this result as normal/abnormal. Lab Interpretation (test code = 82180-7) Normal [facility] [id number] 19:43:45* Test Item Value Reference Range Interpretation Comme nts ESR (test code = 54151-4) 14 See_Comment [Automated message] The system which generated this result transmitted reference range: 2 - 30 mm/HR. The reference range was not used to interpret this result as normal/abnormal. Lab Interpretation (test code = 35941-5) Normal [facility] [id number] 19:43:45* Test Item Value Reference Range Interpretation Comme nts ESR (test code = 82083-4) 14 See_Comment [Automated message] The system which generated this result transmitted reference range: 2 - 30 mm/HR. The reference range was not used to interpret this result as normal/abnormal. Lab Interpretation (test code = 11650-2) [facility] METABOLIC PANEL ([id number])2023-03-14 19:38:19* Test Item Value Reference Range Interpretation Comme nts NA (test code = 0370241828) 139 mmol/L 135-145 K (test code = 9904311201) 3.5 mmol/L 3.5-5.0 CL (test code = 3559873510) 99 mmol/L 98-108 CO2 TOTAL (test code = 3404030070) 29 mmol/L 23-31 AGAP (test code = 6888195459) 11 2-16 BUN (test code = 3048597361) 18 mg/dL 7-23 GLUCOSE (test code = 9256203402) 80 mg/dL 70-110 CREATININE (test code = 1849786606) 0.60 mg/dL 0.50-1.04 TOTAL BILI (test code = 2336783953) 0.5 mg/dL 0.1-1.1 CALCIUM (test code = 0339901459) 9.2 mg/dL 8.6-10.6 T PROTEIN (test code = 1246857933) 7.7 g/dL 6.3-8.2 ALBUMIN (test code = 8392402614) 4.4 g/dL 3.5-5.0 ALK PHOS (test code = 5455881732) 98 U/L 34-122 ALTv (test code = 1742-6) 44 U/L 5-35 H AST(SGOT) (test code = 3645847587) 31 U/L 13-40 eGFR (test code = 0708628868) 111.9 mL/min/1.73m2 HIEN (test code = HIEN) Association of Glomerular Filtration Rate (GFR) and Staging of Kidney Disease* + --+ --+ ------+| GFR (mL/min/1.73 m2) ?| With Kidney Damage ?| ?Without Kidney Damage+ --------+ --------+ +| ?>90 ?| ?Stage one ?| ? Normal ?+ ---+ ---+ -------+| ?60-89 ?| ?Stage two ?| ? Decreased GFR ? + --+ --+ ------+| ?30-59 ?| ?Stage three ?| ? Stage three ? + --+ --+ ------+| ?15-29 ?| ?Stage four ? | ? Stage four ?+ ---+ ---+ -------+| ?<15 (or dialysis) ? ?| ?Stage five ? | ? Stage five ?+ ---+ ---+ -------+ *Each stage assumes the associated GFR level has been in effect for at least three months. ?Stages 1 to 5, with or without kidney disease, indicate chronic kidney disease. Notes: Determination of stages one and two (with eGFR >59mL/min/1.73 m2) requires estimation of kidney damage for at least three months as defined by structural or functional abnormalities of the kidney, manifested by either:Pathological abnormalities or Markers of kidney damage (including abnormalities in the composition of the blood or urine or abnormalities in imaging tests). Lab Interpretation (test code = 34622-3) [facility] METABOLIC PANEL ([id number])2023-03-14 19:38:19* Test Item Value Reference Range Interpretation Comme nts NA (test code = 2241607671) 139 mmol/L 135-145 K (test code = 7543885797) 3.5 mmol/L 3.5-5.0 CL (test code = 6746910427) 99 mmol/L 98-108 CO2 TOTAL (test code = 5860589521) 29 mmol/L 23-31 AGAP (test code = 1661064524) 11 2-16 BUN (test code = 0427083658) 18 mg/dL 7-23 GLUCOSE (test code = 7953994391) 80 mg/dL 70-110 CREATININE (test code = 7897388265) 0.60 mg/dL 0.50-1.04 TOTAL BILI (test code = 1663488122) 0.5 mg/dL 0.1-1.1 CALCIUM (test code = 2103507756) 9.2 mg/dL 8.6-10.6 T PROTEIN (test code = 3425987559) 7.7 g/dL 6.3-8.2 ALBUMIN (test code = 3925358151) 4.4 g/dL 3.5-5.0 ALK PHOS (test code = 0742300925) 98 U/L 34-122 ALTv (test code = 1742-6) 44 U/L 5-35 H AST(SGOT) (test code = 0479674606) 31 U/L 13-40 eGFR (test code = 8632388491) 111.9 mL/min/1.73m2 HIEN (test code = HIEN) Association of Glomerular Filtration Rate (GFR) and Staging of Kidney Disease* + --+ --+ ------+| GFR (mL/min/1.73 m2) ?| With Kidney Damage ?| ?Without Kidney Damage+ --------+ --------+ +| ?>90 ?| ?Stage one ?| ? Normal ?+ ---+ ---+ -------+| ?60-89 ?| ?Stage two ?| ? Decreased GFR ? + --+ --+ ------+| ?30-59 ?| ?Stage three ?| ? Stage three ? + --+ --+ ------+| ?15-29 ?| ?Stage four ? | ? Stage four ?+ ---+ ---+ -------+| ?<15 (or dialysis) ? ?| ?Stage five ? | ? Stage five ?+ ---+ ---+ -------+ *Each stage assumes the associated GFR level has been in effect for at least three months. ?Stages 1 to 5, with or without kidney disease, indicate chronic kidney disease. Notes: Determination of stages one and two (with eGFR >59mL/min/1.73 m2) requires estimation of kidney damage for at least three months as defined by structural or functional abnormalities of the kidney, manifested by either:Pathological abnormalities or Markers of kidney damage (including abnormalities in the composition of the blood or urine or abnormalities in imaging tests). Lab Interpretation (test code = 20486-2) [facility] METABOLIC PANEL ([id number])2023-03-14 19:38:19* Test Item Value Reference Range Interpretation Comme nts NA (test code = 6090274862) 139 mmol/L 135-145 K (test code = 4008242976) 3.5 mmol/L 3.5-5.0 CL (test code = 7534793742) 99 mmol/L 98-108 CO2 TOTAL (test code = 3728934564) 29 mmol/L 23-31 AGAP (test code = 8445256093) 11 2-16 BUN (test code = 1129420997) 18 mg/dL 7-23 GLUCOSE (test code = 4569219628) 80 mg/dL 70-110 CREATININE (test code = 2239788992) 0.60 mg/dL 0.50-1.04 TOTAL BILI (test code = 0157545297) 0.5 mg/dL 0.1-1.1 CALCIUM (test code = 4485610629) 9.2 mg/dL 8.6-10.6 T PROTEIN (test code = 8079093107) 7.7 g/dL 6.3-8.2 ALBUMIN (test code = 3473773257) 4.4 g/dL 3.5-5.0 ALK PHOS (test code = 0070118285) 98 U/L 34-122 ALTv (test code = 1742-6) 44 U/L 5-35 H AST(SGOT) (test code = 4399972993) 31 U/L 13-40 eGFR (test code = 9475894859) 111.9 mL/min/1.73m2 HIEN (test code = HIEN) Association of Glomerular Filtration Rate (GFR) and Staging of Kidney Disease* + --+ --+ ------+| GFR (mL/min/1.73 m2) ?| With Kidney Damage ?| ?Without Kidney Damage+ --------+ --------+ +| ?>90 ?| ?Stage one ?| ? Normal ?+ ---+ ---+ -------+| ?60-89 ?| ?Stage two ?| ? Decreased GFR ? + --+ --+ ------+| ?30-59 ?| ?Stage three ?| ? Stage three ? + --+ --+ ------+| ?15-29 ?| ?Stage four ? | ? Stage four ?+ ---+ ---+ -------+| ?<15 (or dialysis) ? ?| ?Stage five ? | ? Stage five ?+ ---+ ---+ -------+ *Each stage assumes the associated GFR level has been in effect for at least three months. ?Stages 1 to 5, with or without kidney disease, indicate chronic kidney disease. Notes: Determination of stages one and two (with eGFR >59mL/min/1.73 m2) requires estimation of kidney damage for at least three months as defined by structural or functional abnormalities of the kidney, manifested by either:Pathological abnormalities or Markers of kidney damage (including abnormalities in the composition of the blood or urine or abnormalities in imaging tests). Lab Interpretation (test code = 00596-2) [facility] METABOLIC PANEL ([id number])2023-03-14 19:38:19* Test Item Value Reference Range Interpretation Comme nts NA (test code = 0409518683) 139 mmol/L 135-145 K (test code = 2604412109) 3.5 mmol/L 3.5-5.0 CL (test code = 5099062667) 99 mmol/L 98-108 CO2 TOTAL (test code = 1099117483) 29 mmol/L 23-31 AGAP (test code = 9751029344) 11 2-16 BUN (test code = 3277796122) 18 mg/dL 7-23 GLUCOSE (test code = 2573440031) 80 mg/dL 70-110 CREATININE (test code = 6466817703) 0.60 mg/dL 0.50-1.04 TOTAL BILI (test code = 2812425943) 0.5 mg/dL 0.1-1.1 CALCIUM (test code = 7860777424) 9.2 mg/dL 8.6-10.6 T PROTEIN (test code = 2588989904) 7.7 g/dL 6.3-8.2 ALBUMIN (test code = 7321654722) 4.4 g/dL 3.5-5.0 ALK PHOS (test code = 8704513360) 98 U/L 34-122 ALTv (test code = 1742-6) 44 U/L 5-35 H AST(SGOT) (test code = 1017218066) 31 U/L 13-40 eGFR (test code = 5328612997) 111.9 mL/min/1.73m2 HIEN (test code = HIEN) Association of Glomerular Filtration Rate (GFR) and Staging of Kidney Disease* + --+ --+ ------+| GFR (mL/min/1.73 m2) ?| With Kidney Damage ?| ?Without Kidney Damage+ --------+ --------+ +| ?>90 ?| ?Stage one ?| ? Normal ?+ ---+ ---+ -------+| ?60-89 ?| ?Stage two ?| ? Decreased GFR ? + --+ --+ ------+| ?30-59 ?| ?Stage three ?| ? Stage three ? + --+ --+ ------+| ?15-29 ?| ?Stage four ? | ? Stage four ?+ ---+ ---+ -------+| ?<15 (or dialysis) ? ?| ?Stage five ? | ? Stage five ?+ ---+ ---+ -------+ *Each stage assumes the associated GFR level has been in effect for at least three months. ?Stages 1 to 5, with or without kidney disease, indicate chronic kidney disease. Notes: Determination of stages one and two (with eGFR >59mL/min/1.73 m2) requires estimation of kidney damage for at least three months as defined by structural or functional abnormalities of the kidney, manifested by either:Pathological abnormalities or Markers of kidney damage (including abnormalities in the composition of the blood or urine or abnormalities in imaging tests). Lab Interpretation (test code = 76261-7) [facility] METABOLIC PANEL ([id number])2023-01-04 01:26:46* Test Item Value Reference Range Interpretation Comme nts NA (test code = 1447489848) 134 mmol/L 135-145 L K (test code = 0714953278) 4.1 mmol/L 3.5-5.0 CL (test code = 4767250996) 99 mmol/L 98-108 CO2 TOTAL (test code = 0509285754) 29 mmol/L 23-31 AGAP (test code = 0871003218) 6 2-16 BUN (test code = 5553519341) 18 mg/dL 7-23 GLUCOSE (test code = 3472532125) 116 mg/dL 70-110 H CREATININE (test code = 9858621433) 0.55 mg/dL 0.50-1.04 TOTAL BILI (test code = 2506910367) 0.4 mg/dL 0.1-1.1 CALCIUM (test code = 1094698329) 8.3 mg/dL 8.6-10.6 L T PROTEIN (test code = 8529392755) 6.4 g/dL 6.3-8.2 ALBUMIN (test code = 4869614246) 3.8 g/dL 3.5-5.0 ALK PHOS (test code = 6827198813) 91 U/L 34-122 ALTv (test code = 1742-6) 29 U/L 5-35 AST(SGOT) (test code = 5776981693) 44 U/L 13-40 H eGFR (test code = 1636669635) 123.7 mL/min/1.73m2 HIEN (test code = HIEN) Association of Glomerular Filtration Rate (GFR) and Staging of Kidney Disease* + --+ --+ ------+| GFR (mL/min/1.73 m2) ?| With Kidney Damage ?| ?Without Kidney Damage+ --------+ --------+ +| ?>90 ?| ?Stage one ?| ? Normal ?+ ---+ ---+ -------+| ?60-89 ?| ?Stage two ?| ? Decreased GFR ? + --+ --+ ------+| ?30-59 ?| ?Stage three ?| ? Stage three ? + --+ --+ ------+| ?15-29 ?| ?Stage four ? | ? Stage four ?+ ---+ ---+ -------+| ?<15 (or dialysis) ? ?| ?Stage five ? | ? Stage five ?+ ---+ ---+ -------+ *Each stage assumes the associated GFR level has been in effect for at least three months. ?Stages 1 to 5, with or without kidney disease, indicate chronic kidney disease. Notes: Determination of stages one and two (with eGFR >59mL/min/1.73 m2) requires estimation of kidney damage for at least three months as defined by structural or functional abnormalities of the kidney, manifested by either:Pathological abnormalities or Markers of kidney damage (including abnormalities in the composition of the blood or urine or abnormalities in imaging tests). Lab Interpretation (test code = 47725-3) [facility] 01:26:46* Test Item Value Reference Range Interpretation Comme nts LIPASE (test code = 5037318029) 110 U/L 0-220 Lab Interpretation (test cod e = 54328-9) [facility], [id number] 01:24:51* Test Item Value Reference Range Interpretation Comme nts PREG SERUM (test code = 5582457637) Negative HIEN (test code = HIEN) Less than 10 IU/L. ?If low titer or ectopic is suspected, resubmit specimen in 48-72 hours. [facility] WITH [id number] 01:16:28* Test Item Value Reference Range Interpretation Comme nts WBC (test code = 6690-2) 10.41 See_Comment [Automated Blaasta ge] The system which generated this result transmitted reference range: 4.30 - 11.10 10*3/?L. The reference range was not used to interpret this result as normal/abnormal. RBC (test code = 789-8) 3.62 See_Comment L [Automated Blaasta ge] The system which generated this result transmitted reference range: 3.93 - 5.25 10*6/?L. The reference range was not used to interpret this result as normal/abnormal. HGB (test code = 718-7) 11.2 g/dL 11.6-15.0 L HCT (test code = 4544-3) 33.9 % 35.7-45.2 L MCV (test code = 787-2) 93.6 fL 80.6-95.5 MCH (test code = 785-6) 30.9 pg 25.9-32.8 MCHC (test code = 786-4) 33.0 g/dL 31.6-35.1 RDW-SD (test code = 37944-3) 45.4 fL 39.0-49.9 RDW-CV (test code = 788-0) 13.2 % 12.0-15.5 PLT (test code = 777-3) 293 See_Comment [Automated messa ge] The system which generated this result transmitted reference range: 166 - 358 10*3/?L. The reference range was not used to interpret this result as normal/abnormal. MPV (test code = 39691-4) 9.5 fL 9.5-12.9 NRBC/100 WBC (test code = 9687482485) 0.0 See_Comment [Automated BALALIKEA ssage] The system which generated this result transmitted reference range: 0.0 - 10.0 /100 WBCs. The reference range was not used to interpret this result as normal/abnormal. NRBC x10^3 (test code = 8790401137) See_Comment [Automated Blaasta ge] The system which generated this result transmitted reference range: 10*3/?L. The reference range was not used to interpret this result as normal/abnormal. GRAN MAT (NEUT) % (test code = 770-8) 87.2 % IMM GRAN % (test code = 2904309517) 0.30 % LYMPH % (test code = 736-9) 7.5 % MONO % (test code = 5905-5) 4.3 % EOS % (test code = 713-8) 0.6 % BASO % (test code = 706-2) 0.1 % GRAN MAT x10^3(ANC) (test code = 2433885237) 9.08 10*3/uL 1.88-7.09 H IMM GRAN x10^3 (test code = 6967381761) 0.03 10*3/uL 0.00-0.06 LYMPH x10^3 (test code = 731-0) 0.78 10*3/uL 1.32-3.29 L MONO x10^3 (test code = 742-7) 0.45 10*3/uL 0.33-0.92 EOS x10^3 (test code = 711-2) 0.06 10*3/uL 0.03-0.39 BASO x10^3 (test code = 704-7) 0.01-0.07 Lab Interpretation (test code = 09979-7) [facility]HEMOGLOB[facility] [id number] 15:40:25* Test Item Value Reference Range Interpretation Comme nts HEMOGLOBIN A1c (test code = 41235) 5.8 % 4.2-5.6 H [employer] GUIDELINES FOR HGB A1C: PREDIABETES/INCREASED RISK . . . . . . . 5.7-6.4% DIAGNOSIS OF DIABETES . . . . . . . . . >=6.5% WITH CONFIRMATION OR APPROPRIATE SYMPTOMS NOTE: ASSAY MAY BE AFFECTED BY HEMOGLOBINOPATHIES (SICKLE CELL ANEMIA, S-C DISEASE, OTHERS) OR ARTIFICIALLY LOWERED BY DECREASED RED CELL SURVIVAL (HEMOLYTIC ANEMIAS, BLOOD LOSS, ETC.). CONSIDER ALTERNATE TESTING OR LABORATORY CONSULTATION. CBC W/AUTO DIFF WITH [id number] 12:25:44* Test Item Value Reference Range Interpretation Comme nts WBC (test code = 1001) 4.0 K/UL 3.5-11.0 RBC (test code = 1002) 3.85 M/UL 3.80-5.40 HEMOGLOBIN (test code = 1003) 12.1 G/DL 11.5-15.5 HEMATOCRIT (test code = 1004) 36.5 % 34.0-45.0 MCV (test code = 1005) 94.8 fL 80.0-99.0 MCH (test code = 1006) 31.4 PG 25.0-33.0 MCHC (test code = 1007) 33.2 G/DL 31.0-36.0 RDW (test code = 1038) 12.6 % 11.5-15.0 NEUTROPHILS (test code = 1008) 38.9 % LYMPHOCYTES (test code = 1010) 50.5 % MONOCYTES (test code = 1011) 7.3 % EOSINOPHILS (test code = 1012) 3.0 % BASOPHILS (test code = 1013) 0.0 % IMMATURE GRANULOCYTES (test code = 1036) 0.3 % NUCLEATED RBCS (test code = 1065) 0.0 /100 WBC'S See_Comment [Automated message] The system which generated this result transmitted reference range: 0.0. The reference range was not used to interpret this result as normal/abnormal. PLATELET COUNT (test code = 1015) 441 K/UL 130-400 H ABSOLUTE NEUTROPHILS (test code = 1066) 1.54 K/UL 1.50-7.50 ABSOLUTE LYMPHOCYTES (test code = 1067) 2.00 K/UL 1.00-4.00 ABSOLUTE MONOCYTES (test code = 1068) 0.29 K/UL 0.20-1.00 ABSOLUTE EOSINOPHILS (test code = 1040) 0.12 K/UL 0.00-0.50 ABSOLUTE BASOPHILS (test code = 1069) 0.00 K/UL 0.00-0.20 ABS IMMATURE GRANULOCYTES (test code = 1020) 0.01 K/UL 0.00-0.10 ABS NUCLEATED RBCS (test code = 56738) 0.00 K/UL 0.00-0.11 [facility] has important pathology staff changes effective 11/30/2022. New pathology staff will provide uninterrupted, excellent patient care and clinical consultation. See URL: [email or web address]. UNLESS OTHERWISE INDICATED, ALL TESTING PERFORMED AT [facility] [address] [place] [address] [employer] COORDINATOR: PATY POLLARD M.D. CLIA NUMBER [id number] [facility] [place]. [id number] CBC W/AUTO DIFF WITH PLATELETS [ADDED]2022-12-08 00:00:00* Test Item Value Reference Range Interpretation Comme nts WBC (test code = 1001) 4.0 K/UL RBC (test code = 1002) 3.85 M/UL HEMOGLOBIN (test code = 1003) 12.1 G/DL HEMATOCRIT (test code = 1004) 36.5 % MCV (test code = 1005) 94.8 fL MCH (test code = 1006) 31.4 PG MCHC (test code = 1007) 33.2 G/DL RDW (test code = 1038) 12.6 % NEUTROPHILS (test code = 1008) 38.9 % LYMPHOCYTES (test code = 1010) 50.5 % MONOCYTES (test code = 1011) 7.3 % EOSINOPHILS (test code = 1012) 3.0 % BASOPHILS (test code = 1013) 0.0 % IMMATURE GRANULOCYTES (test code = 1036) 0.3 % NUCLEATED RBCS (test code = 1065) 0.0 /100WBC'S PLATELET COUNT (test code = 1015) 441 K/UL ABSOLUTE NEUTROPHILS (test c ode = 1066) 1.54 K/UL ABSOLUTE LYMPHOCYTES (test c ode = 1067) 2.00 K/UL ABSOLUTE MONOCYTES (test cod e = 1068) 0.29 K/UL ABSOLUTE EOSINOPHILS (test c ode = 1040) 0.12 K/UL ABSOLUTE BASOPHILS (test cod e = 1069) 0.00 K/UL ABS IMMATURE GRANULOCYTES (t est code = 1020) 0.01 K/UL ABS NUCLEATED RBCS (test cod e = 99896) 0.00 K/UL Britton FryHEMOGLOBIN [id number] 00:00:00* Test Item Value Reference Range Interpretation Comme nts HEMOGLOBIN A1c (test code = 19460) 5.8 % Britton FryCBC W/AUTO DIFF WITH PLATELETS [ADDED]2022-12-08 00:00:00* Test Item Value Reference Range Interpretation Comme nts WBC (test code = 1001) 4.0 K/UL RBC (test code = 1002) 3.85 M/UL HEMOGLOBIN (test code = 1003) 12.1 G/DL HEMATOCRIT (test code = 1004) 36.5 % MCV (test code = 1005) 94.8 fL MCH (test code = 1006) 31.4 PG MCHC (test code = 1007) 33.2 G/DL RDW (test code = 1038) 12.6 % NEUTROPHILS (test code = 1008) 38.9 % LYMPHOCYTES (test code = 1010) 50.5 % MONOCYTES (test code = 1011) 7.3 % EOSINOPHILS (test code = 1012) 3.0 % BASOPHILS (test code = 1013) 0.0 % IMMATURE GRANULOCYTES (test code = 1036) 0.3 % NUCLEATED RBCS (test code = 1065) 0.0 /100WBC'S PLATELET COUNT (test code = 1015) 441 K/UL ABSOLUTE NEUTROPHILS (test c ode = 1066) 1.54 K/UL ABSOLUTE LYMPHOCYTES (test c ode = 1067) 2.00 K/UL ABSOLUTE MONOCYTES (test cod e = 1068) 0.29 K/UL ABSOLUTE EOSINOPHILS (test c ode = 1040) 0.12 K/UL ABSOLUTE BASOPHILS (test cod e = 1069) 0.00 K/UL ABS IMMATURE GRANULOCYTES (t est code = 1020) 0.01 K/UL ABS NUCLEATED RBCS (test cod e = 36441) 0.00 K/UL Britton FryHEMOGLOBIN [id number] 00:00:00* Test Item Value Reference Range Interpretation Comme nts HEMOGLOBIN A1c (test code = 85022) 5.8 % Britton FryHPV HIGH RISK WITH GENOTYPE, [id number] 16:58:23* Test Item Value Reference Range Interpretation Comme nts HPV HIGH RISK INTERP (test code = 24049) NEGATIVE NEGATIVE HPV 16 (test code = 08395) NEGATIVE HPV 18 (test code = 55753) NEGATIVE HPV, HR, OTHER GENOTYPES (test code = 41805) NEGATIVE Testing methodol ogy is real-time PCR utilizing hydrolysis probes with the [employer] 4800 system. The test individually detects genotypes 16 and 18, as well as the other 12 high risk types (31,33,35,39,45,51,52,56 ,58,59,66,68). The expected result is negative. A negative result does not rule out the presence of HPV not included in the genotype set, a low level of infection or specimen sampling error. NOTE:2022-12-06 06:05:21* Test Item Value Reference Range Interpretation Comme nts NOTE: (test code = 998) (NOTE) IN ACCORDANCE [facility] FEDERAL GUIDELINES REQUIRING ALL VERBAL REQUESTS FOR LABORATORY TESTS TO BE ACCOMPANIED BY WRITTEN AUTHORIZATION WITHIN 30 DAYS OF THIS REQUEST, PLEASE SIGN BELOW AND RETURN A COPY OF THIS REPORT BY FAX TO THE LABORATORY SCANNING DEPARTMENT AT [phone]. PHYSICIAN'S SIGNATURE DATE [facility] has important pathology staff changes effective 11/30/2022. New pathology staff will provide uninterrupted, excellent patient care and clinical consultation. See URL: [email or web address]. UNLESS OTHERWISE INDICATED, ALL TESTING PERFORMED AT [facility] [address] [place] [id number] [employer] COORDINATOR: PATY POLLARD M.D. CLIA NUMBER [id number] [facility] [place] [place]. [id number] NOTE: [ADDED]2022-12-06 00:00:00* Test Item Value Reference Range Interpretation Comme nts NOTE: (test code = 998) (NOTE) Britton FryHPV HIGH RISK WITH GENOTYPE, TP [ADDED]2022-12-06 00:00:00* Test Item Value Reference Range Interpretation Comme nts HPV HIGH RISK INTERP (test c ode = 59232) NEGATIVE HPV 16 (test code = 29779) NEGATIVE HPV 18 (test code = 21790) NEGATIVE HPV, HR, OTHER GENOTYPES (te st code = 14576) NEGATIVE Britton FryNOTE: [ADDED]2022-12-06 00:00:00* Test Item Value Reference Range Interpretation Comme nts NOTE: (test code = 998) (NOTE) Britton FryHPV HIGH RISK WITH GENOTYPE, TP [ADDED]2022-12-06 00:00:00* Test Item Value Reference Range Interpretation Comme nts HPV HIGH RISK INTERP (test c ode = 54772) NEGATIVE HPV 16 (test code = 34797) NEGATIVE HPV 18 (test code = 87689) NEGATIVE HPV, HR, OTHER GENOTYPES (te st code = 63651) NEGATIVE Britton FryFOLATE, [id number] 13:36:15* Test Item Value Reference Range Interpretation Comme nts HEMATOCRIT (test code = 1004) 35.6 % 34.0-45.0 FOLATE, RBC (test code = 2690) 1295 NG/ML 499-1504 INTERPRETI VE RANGES DEFICIENCY . . . . . . . . . . . . . . . NG/ML <=150 POSSIBLE DEFICIENCY. . . . . . . . . . . NG/ML 151-498 SUFFICIENT . . . . . . . . . . . . . . . NG/ML 499-1504 EXCESS . . . . . . . . . . . . . . . . . NG/ML >1504 [facility] has important pathology staff changes effective 11/30/2022. New pathology staff will provide uninterrupted, excellent patient care and clinical consultation. See URL: [email or web address]. UNLESS OTHERWISE INDICATED, ALL TESTING PERFORMED AT [facility] [address] [place] [address] RESIDENCE LIFE COORDINATOR: INGRID BURKETT M.D. [place] NUMBER [id number] [facility] [place]. [id number] VITAMIN D, 25 [id number] 06:40:49* Test Item Value Reference Range Interpretation Comme [facility] VITAMIN D, 25 OH (test code = 4958) 28 NG/ML SEE BELOW L EFFECTIVE 06/2023, PLEASE NOTE NEW METHODOLOGY IS ELECTROCHEMILUMINESCENCE BINDING ASSAY. NOTE: 25-HYDROXYVITAMIN D ASSAY INCLUDES 25-HYDROXYVITAMIN D2 AND D3. INTERPRETIVE RANGES PEDIATRIC (<17 YEARS) . . . . . . . . . . . NG/ML 20-100ADULT: INSUFFICIENT . . . . . . . . . . . . . . NG/ML <20 SUBOPTIMAL . . . . . . . . . . . . . . . NG/ML 20-29 OPTIMAL . . . . . . . . . . . . . . . . . NG/ML 30-100 TSH, THIRD [id number] 06:40:01* Test Item Value Reference Range Interpretation Comme [facility] TSH, THIRD GENERATION (test code = 2821) 0.466 UIU/ML 0.400-4.100 VITAMIN [id number] 06:40:01* Test Item Value Reference Range Interpretation Comme [facility] VITAMIN B-12 (test code = 2840) 580 PG/ML 200-950 COMPREHENSIVE METABOLIC [id number] 03:56:35* Test Item Value Reference Range Interpretation Comme nts GLUCOSE (test code = 2217) 115 MG/DL 70-99 H BUN (test code = 2208) 16 MG/DL 6-20 CREATININE (test code = 2214) 0.55 MG/DL 0.60-1.30 L eGFR (2020 CKD-EPI) (test code = 48268) 120 ML/MIN/1.73 >60 CALC BUN/CREAT (test code = 2235) 29 RATIO 6-28 H SODIUM (test code = 2231) 140 MEQ/L 133-146 POTASSIUM (test code = 2228) 3.7 MEQ/L 3.5-5.4 CHLORIDE (test code = 2215) 101 MEQ/L 95-107 CARBON DIOXIDE (test code = 2205) 31 MEQ/L 19-31 CALCIUM (test code = 2208) 9.1 MG/DL 8.5-10.5 PROTEIN, TOTAL (test code = 2228) 6.6 G/DL 6.1-8.3 ALBUMIN (test code = 2200) 4.2 G/DL 3.5-5.2 CALC GLOBULIN (test code = 0) 2.4 G/DL 1.9-3.7 CALC A/G RATIO (test code = 2233) 1.8 RATIO 1.0-2.6 BILIRUBIN, TOTAL (test code = 2206) 0.3 MG/DL See_Comment [Automated me ssage] The system which generated this result transmitted reference range: <=1.2. The reference range was not used to interpret this result as normal/abnormal. ALKALINE PHOSPHATASE (test code = 2203) 107 U/L 40-112 AST (test code = 2217) 17 U/L 9-40 ALT (test code = 2218) 16 U/L 5-40 CBC W/AUTO DIFF WITH [id number] 03:05:55* Test Item Value Reference Range Interpretation Comme nts WBC (test code = 1001) 12.2 K/UL 3.5-11.0 H RBC (test code = 1002) 3.85 M/UL 3.80-5.40 HEMOGLOBIN (test code = 1003) 12.1 G/DL 11.5-15.5 HEMATOCRIT (test code = 1004) 35.6 % 34.0-45.0 MCV (test code = 1005) 92.5 fL 80.0-99.0 MCH (test code = 1006) 31.4 PG 25.0-33.0 MCHC (test code = 1007) 34.0 G/DL 31.0-36.0 RDW (test code = 1038) 12.2 % 11.5-15.0 NEUTROPHILS (test code = 1008) 82.3 % LYMPHOCYTES (test code = 1010) 11.6 % MONOCYTES (test code = 1011) 4.7 % EOSINOPHILS (test code = 1012) 0.9 % BASOPHILS (test code = 1013) 0.0 % IMMATURE GRANULOCYTES (test code = 1036) 0.5 % NUCLEATED RBCS (test code = 1065) 0.0 /100 WBC'S See_Comment [Automated messa ge] The system which generated this result transmitted reference range: 0.0. The reference range was not used to interpret this result as normal/abnormal. PLATELET COUNT (test code = 1015) 364 K/UL 130-400 ABSOLUTE NEUTROPHILS (test code = 1066) 10.00 K/UL 1.50-7.50 H ABSOLUTE LYMPHOCYTES (test code = 1067) 1.41 K/UL 1.00-4.00 ABSOLUTE MONOCYTES (test code = 1068) 0.57 K/UL 0.20-1.00 ABSOLUTE EOSINOPHILS (test code = 1040) 0.11 K/UL 0.00-0.50 ABSOLUTE BASOPHILS (test code = 1069) 0.00 K/UL 0.00-0.20 ABS IMMATURE GRANULOCYTES (test code = 1020) 0.06 K/UL 0.00-0.10 ABS NUCLEATED RBCS (test code = 88541) 0.00 K/UL 0.00-0.11 [id number] 00:00:00* Test Item Value Reference Range Interpretation Comme [facility] TSH, THIRD GENERATION (test code = 2821) 0.466 UIU/ML Britton FryVITAMIN [id number] 00:00:00* Test Item Value Reference Range Interpretation Comme [facility] VITAMIN B-12 (test code = 2840) 580 PG/ML Britton FryVITAMIN D, 25 [id number] 00:00:00* Test Item Value Reference Range Interpretation Comme [facility] VITAMIN D, 25 OH (test code = 4958) 28 NG/ML Britton FryFOLATE, [id number] 00:00:00* Test Item Value Reference Range Interpretation Comme [facility] HEMATOCRIT (test code = 1004) 35.6 % FOLATE, RBC (test code = 2690) 1295 NG/ML Britton FryCBC W/AUTO [id number] 00:00:00* Test Item Value Reference Range Interpretation Comme nts WBC (test code = 1001) 12.2 K/UL RBC (test code = 1002) 3.85 M/UL HEMOGLOBIN (test code = 1003) 12.1 G/DL HEMATOCRIT (test code = 1004) 35.6 % MCV (test code = 1005) 92.5 fL MCH (test code = 1006) 31.4 PG MCHC (test code = 1007) 34.0 G/DL RDW (test code = 1038) 12.2 % NEUTROPHILS (test code = 1008) 82.3 % LYMPHOCYTES (test code = 1010) 11.6 % MONOCYTES (test code = 1011) 4.7 % EOSINOPHILS (test code = 1012) 0.9 % BASOPHILS (test code = 1013) 0.0 % IMMATURE GRANULOCYTES (test code = 1036) 0.5 % NUCLEATED RBCS (test code = 1065) 0.0 /100WBC'S PLATELET COUNT (test code = 1015) 364 K/UL ABSOLUTE NEUTROPHILS (test c ode = 1066) 10.00 K/UL ABSOLUTE LYMPHOCYTES (test c ode = 1067) 1.41 K/UL ABSOLUTE MONOCYTES (test cod e = 1068) 0.57 K/UL ABSOLUTE EOSINOPHILS (test c ode = 1040) 0.11 K/UL ABSOLUTE BASOPHILS (test cod e = 1069) 0.00 K/UL ABS IMMATURE GRANULOCYTES (t est code = 1020) 0.06 K/UL ABS NUCLEATED RBCS (test cod e = 62070) 0.00 K/UL Britton F AngCOMPREHENSIVE METABOLIC [id number] 00:00:00* Test Item Value Reference Range Interpretation Comme nts GLUCOSE (test code = 2217) 115 MG/DL BUN (test code = 2208) 16 MG/DL CREATININE (test code = 2214) 0.55 MG/DL eGFR (2020 CKD-EPI) (test code = 84072) 120 ML/MIN/1.73 CALC BUN/CREAT (test code = 2235) 29 RATIO SODIUM (test code = 2231) 140 MEQ/L POTASSIUM (test code = 2228) 3.7 MEQ/L CHLORIDE (test code = 2215) 101 MEQ/L CARBON DIOXIDE (test code = 2206) 31 MEQ/L CALCIUM (test code = 2209) 9.1 MG/DL PROTEIN, TOTAL (test code = 2229) 6.6 G/DL ALBUMIN (test code = 2201) 4.2 G/DL CALC GLOBULIN (test code = 2240) 2.4 G/DL CALC A/G RATIO (test code = 2234) 1.8 RATIO BILIRUBIN, TOTAL (test code = 2207) 0.3 MG/DL ALKALINE PHOSPHATASE (test code = 2204) 107 U/L AST (test code = 2218) 17 U/L ALT (test code = 2219) 16 U/L Britton [id number] 00:00:00* Test Item Value Reference Range Interpretation Comme [facility] TSH, THIRD GENERATION (test code = 2821) 0.466 UIU/ML Britton FryVITAMIN [id number] 00:00:00* Test Item Value Reference Range Interpretation Comme [facility] VITAMIN B-12 (test code = 2840) 580 PG/ML Britton FryVITAMIN D, 25 [id number] 00:00:00* Test Item Value Reference Range Interpretation Comme [facility] VITAMIN D, 25 OH (test code = 4958) 28 NG/ML Britton FryFOLATE, [id number] 00:00:00* Test Item Value Reference Range Interpretation Comme [facility] HEMATOCRIT (test code = 1004) 35.6 % FOLATE, RBC (test code = 2690) 1295 NG/ML Britton FryCBC W/AUTO [id number] 00:00:00* Test Item Value Reference Range Interpretation Comme [facility] WBC (test code = 1001) 12.2 K/UL RBC (test code = 1002) 3.85 M/UL HEMOGLOBIN (test code = 1003) 12.1 G/DL HEMATOCRIT (test code = 1004) 35.6 % MCV (test code = 1005) 92.5 fL MCH (test code = 1006) 31.4 PG MCHC (test code = 1007) 34.0 G/DL RDW (test code = 1038) 12.2 % NEUTROPHILS (test code = 1008) 82.3 % LYMPHOCYTES (test code = 1010) 11.6 % MONOCYTES (test code = 1011) 4.7 % EOSINOPHILS (test code = 1012) 0.9 % BASOPHILS (test code = 1013) 0.0 % IMMATURE GRANULOCYTES (test code = 1036) 0.5 % NUCLEATED RBCS (test code = 1065) 0.0 /100WBC'S PLATELET COUNT (test code = 1015) 364 K/UL ABSOLUTE NEUTROPHILS (test c ode = 1066) 10.00 K/UL ABSOLUTE LYMPHOCYTES (test c ode = 1067) 1.41 K/UL ABSOLUTE MONOCYTES (test cod e = 1068) 0.57 K/UL ABSOLUTE EOSINOPHILS (test c ode = 1040) 0.11 K/UL ABSOLUTE BASOPHILS (test cod e = 1069) 0.00 K/UL ABS IMMATURE GRANULOCYTES (t est code = 1020) 0.06 K/UL ABS NUCLEATED RBCS (test cod e = 33612) 0.00 K/UL Britton FryCOMPREHENSIVE METABOLIC [id number] 00:00:00* Test Item Value Reference Range Interpretation Comme nts GLUCOSE (test code = 2217) 115 MG/DL BUN (test code = 2208) 16 MG/DL CREATININE (test code = 2214) 0.55 MG/DL eGFR (2020 CKD-EPI) (test code = 16255) 120 ML/MIN/1.73 CALC BUN/CREAT (test code = 2235) 29 RATIO SODIUM (test code = 2231) 140 MEQ/L POTASSIUM (test code = 2228) 3.7 MEQ/L CHLORIDE (test code = 2215) 101 MEQ/L CARBON DIOXIDE (test code = 2206) 31 MEQ/L CALCIUM (test code = 2209) 9.1 MG/DL PROTEIN, TOTAL (test code = 2229) 6.6 G/DL ALBUMIN (test code = 2201) 4.2 G/DL CALC GLOBULIN (test code = 2240) 2.4 G/DL CALC A/G RATIO (test code = 2234) 1.8 RATIO BILIRUBIN, TOTAL (test code = 2207) 0.3 MG/DL ALKALINE PHOSPHATASE (test code = 2204) 107 U/L AST (test code = 2218) 17 U/L ALT (test code = 2219) 16 U/L Britton FryCT/NG, NAAT, [id number] 21:32:13* Test Item Value Reference Range Interpretation Comme nts CHLAMYDIA, NAAT, URINE (test code = 63330) NEGATIVE NEGATIVE Testing is perfo rmed with [employer] 6800/8800 systems usingreal-time polymerase chain reaction (PCR) method. A negative result does not exclude low level infection, specimensampling error, or collection error. GONORRHEA, NAAT, URINE (test code = 62072) NEGATIVE NEGATIVE Testing is perfo rmed with [employer] 6800/8800 systems usingreal-time polymerase chain reaction (PCR) method. A negative result does not exclude low level infection, specimensampling error, or collection error. PAP TEST, THINPREP, [id number] 11:59:30* Test Item Value Reference Range Interpretation Comme nts SOURCE: (test code = 8001) Cervical/Endo cervical SLIDES: (test code = 8011) 1 LMP: (test code = 8021) 07/2022 SPECIMEN ADEQUACY: (test code = 67216) (NOTE) Satisfactory for evaluation. Endocervical cells/transformation zone component not identified. INTERPRETATION: (test code = 48970) NILM/NO EPITH. ABNORMALITY;S EE BELOW ---- NEGATIVE FOR INTRAEPITHELIAL LESION OR MALIGNANCY (NILM) - MOLDER HAND: (test code = 8101) [place], [place]( )[facility] LOCATION: (test code = 50780) (NOTE) Specimens proces sed and interpreted at [facility], [address] [place], [place] [id number], , CLIA: [id number] CPT: (test code = 8140) (NOTE) [address]39 UNLESS OTH ERWISE INDICATED, COMPUTER AIDED AND MOLDER HAND SCREENING PERFORMED. The Pap test is a screening test with an inherent, but low probability of error. Your patient should be reminded to consult you immediately if she experiences any suspicious signs or symptoms, regardless of her Pap test result. An alternate report format containing images or consolidated prior Pap history is available as applicable. [facility] has important pathology staff changes effective 11/30/2022. New pathology staff will provide uninterrupted, excellent patient care and clinical consultation. See URL: [email or web address]. UNLESS OTHERWISE INDICATED, ALL TESTING PERFORMED AT [facility] [address] [place] [address] [employer] COORDINATOR: INGRID BURKETT M.D. CLIA NUMBER [id number] [place]. [id number] HIV 1/2 4TH GEN, RFLX [id number] 04:20:00* Test Item Value Reference Range Interpretation Comme nts HIV 1/2 4TH GEN, RFLX CONF (test code = 3514) NON-REACTIVE NON-REACTIVE [facility] has impo rtant pathology staff changes effective 11/30/2022. New pathology staff will provide uninterrupted, excellent patient care and clinical consultation. See URL: [email or web address]. UNLESS OTHERWISE INDICATED, ALL TESTING PERFORMED AT [facility], [employer] [address] [place] [address] RESIDENCE LIFE COORDINATOR: INGRID BURKETT M.D. CLIA NUMBER [id number] [place]. [id number] HEPATITIS PANEL, [id number] 04:20:00* Test Item Value Reference Range Interpretation Comme nts HEPATITIS A IgM (test code = 16490) NON-REACTIVE NON-REACTIVE HEPATITIS B CORE IgM (test code = 4644) NON-REACTIVE NON-REACTIVE HEPATITIS B SURF AG (test code = 2739) NON-REACTIVE NON-REACTIVE HEPATITIS C ANTIBODY (test code = 4675) NON-REACTIVE NON-REACTIVE INTERPRETATION HEPATITIS A: (test code = 2552) (NOTE) Hepatitis A serology shows no evidence of acute hepatitis A. INTERPRETATION HEPATITIS B: (test code = 35091) (NOTE) Hepatitis B serology shows no evidence of acute hepatitis B andno indication of exposure to hepatitis B virus in the previous richie eight months. INTERPRETATION HEPATITIS C: (test code = 43787) (NOTE) Hepatitis C serology shows no evidence of exposure to hepatitisC virus at this time. It can take up to 12 months after exposure tothe hepatitis C virus for antibodies to become detectable in the blood in certain patients. [id number] 03:36:27* Test Item Value Reference Range Interpretation Comme nts RPR RESULT (test code = 3501) NON-REACTIVE NON-REACTIVE RPR TITER (test code = 3500) NOT INDIC. TITER NOT INDIC. [id number] 00:00:00* Test Item Value Reference Range Interpretation Comme nts RPR RESULT (test code = 3501) NON-REACTIVE RPR TITER (test code = 3500) NOT INDIC. TITER Britton FryCT/NG, TMA, [id number] 00:00:00* Test Item Value Reference Range Interpretation Comme nts CHLAMYDIA, NAAT, URINE (test code = 87041) NEGATIVE GONORRHEA, NAAT, URINE (test code = 31473) NEGATIVE Britton FryHIV 1/2 4TH GEN, RFLX [id number] 00:00:00* Test Item Value Reference Range Interpretation Comme nts HIV 1/2 4TH GEN, RFLX CONF ( test code = 3514) NON-REACTIVE Britton FryPAP TEST, THINPREP, [id number] 00:00:00* Test Item Value Reference Range Interpretation Comme nts SOURCE: (test code = 8001) Cervical/Endocervical SLIDES: (test code = 8011) 1 LMP: (test code = 8021) 07/2022 SPECIMEN ADEQUACY: (test code = 68075) (NOTE) INTERPRETATION: (test code = 01724) NILM/NO EPITH. ABNORMALITY;SEE BELOW MOLDER HAND: (test code = 8101) [place](ASCP)IAC LOCATION: (test code = 83944) (NOTE) CPT: (test code = 8140) (NOTE) Britton FryACUTE HEPATITIS [id number] 00:00:00* Test Item Value Reference Range Interpretation Comme nts HEPATITIS A IgM (test code = 47719) NON-REACTIVE HEPATITIS B CORE IgM (test c ode = 4644) NON-REACTIVE HEPATITIS B SURF AG (test co de = 2739) NON-REACTIVE HEPATITIS C ANTIBODY (test c ode = 46) NON-REACTIVE INTERPRETATION HEPATITIS A: (test code = 2552) (NOTE) INTERPRETATION HEPATITIS B: (test code = 17344) (NOTE) INTERPRETATION HEPATITIS C: (test code = 11700) (NOTE) Britton [id number] 00:00:00* Test Item Value Reference Range Interpretation Comme nts RPR RESULT (test code = 3501) NON-REACTIVE RPR TITER (test code = 3500) NOT INDIC. TITER Britton FryCT/NG, TMA, [id number] 00:00:00* Test Item Value Reference Range Interpretation Comme nts CHLAMYDIA, NAAT, URINE (test code = 12781) NEGATIVE GONORRHEA, NAAT, URINE (test code = 44065) NEGATIVE Britton FryHIV 1/2 4TH GEN, RFLX [id number] 00:00:00* Test Item Value Reference Range Interpretation Comme nts HIV 1/2 4TH GEN, RFLX CONF ( test code = 3514) NON-REACTIVE Britton FryACUTE HEPATITIS [id number] 00:00:00* Test Item Value Reference Range Interpretation Comme nts HEPATITIS A IgM (test code = 30797) NON-REACTIVE HEPATITIS B CORE IgM (test c ode = 4644) NON-REACTIVE HEPATITIS B SURF AG (test co de = 2739) NON-REACTIVE HEPATITIS C ANTIBODY (test c ode = 4675) NON-REACTIVE INTERPRETATION HEPATITIS A: (test code = 2552) (NOTE) INTERPRETATION HEPATITIS B: (test code = 32789) (NOTE) INTERPRETATION HEPATITIS C: (test code = 24096) (NOTE) Britton FryPAP TEST, THINPREP, [id number] 00:00:00* Test Item Value Reference Range Interpretation Comme nts SOURCE: (test code = 8001) Cervical/Endocervical SLIDES: (test code = 8011) 1 LMP: (test code = 8021) 07/2022 SPECIMEN ADEQUACY: (test code = 81723) (NOTE) INTERPRETATION: (test code = 76142) NILM/NO EPITH. ABNORMALITY;SEE BELOW MOLDER HAND: (test code = 8101) [facility] [place](ASCP)IAC LOCATION: (test code = 34014) (NOTE) CPT: (test code = 8140) (NOTE) Britton FryTHYROID II PROFILE (TU,T4,FTI,TSH)2022-11-09 05:51:41* Test Item Value Reference Range Interpretation Comme nts T-UPTAKE (test code = 2817) 30.2 % 24.3-39.0 THYROX. BIND. CAPAC. (test code = 78367) 1.1 0.8-1.3 T4 (THYROXINE) (test code = 2819) 8.2 UG/DL 4.5-10.5 CORRECTED T4 (FTI) (test code = 2820) 7.5 UG/DL 4.2-11.6 TSH, THIRD GENERATION (test code = 2821) 0.227 UIU/ML 0.400-4.100 L [facility] has important pathology staff changes effective 11/30/2022. New pathology staff will provide uninterrupted, excellent patient care and clinical consultation. See URL: [email or web address]. UNLESS OTHERWISE INDICATED, ALL TESTING PERFORMED AT [facility] [address] [place] [address] CLIA: [id number], CAP: [id number] COMPREHENSIVE METABOLIC [id number] 03:40:11* Test Item Value Reference Range Interpretation Comme nts GLUCOSE (test code = 2217) 85 MG/DL 70-99 BUN (test code = 2207) 11 MG/DL 6-20 CREATININE (test code = 2214) 0.66 MG/DL 0.60-1.30 eGFR (2020 CKD-EPI) (test code = 58354) 115 ML/MIN/1.73 >60 CALC BUN/CREAT (test code = 2235) 17 RATIO 6-28 SODIUM (test code = 2231) 142 MEQ/L 133-146 POTASSIUM (test code = 2228) 3.4 MEQ/L 3.5-5.4 L CHLORIDE (test code = 2215) 102 MEQ/L 95-107 CARBON DIOXIDE (test code = 2206) 27 MEQ/L 19-31 CALCIUM (test code = 2209) 9.4 MG/DL 8.5-10.5 PROTEIN, TOTAL (test code = 2229) 7.0 G/DL 6.1-8.3 ALBUMIN (test code = 2201) 4.7 G/DL 3.5-5.2 CALC GLOBULIN (test code = 2240) 2.3 G/DL 1.9-3.7 CALC A/G RATIO (test code = 2234) 2.0 RATIO 1.0-2.6 BILIRUBIN, TOTAL (test code = 2207) 0.2 MG/DL See_Comment [Automated me ssage] The system which generated this result transmitted reference range: <=1.2. The reference range was not used to interpret this result as normal/abnormal. ALKALINE PHOSPHATASE (test code = 2204) 88 U/L 40-112 AST (test code = 2218) 19 U/L 9-40 ALT (test code = 2219) 15 U/L 5-40 LIPID [id number] 03:40:11* Test Item Value Reference Range Interpretation Comme nts CHOLESTEROL (test code = 2210) 165 MG/DL <200 TRIGLYCERIDES (test code = 2232) 43 MG/DL <150 HDL CHOLESTEROL (test code = 2220) 61 MG/DL >39 CALC LDL CHOL (test code = 2237) 91 MG/DL <100 NOTE: CALCULATED LDL IS BASED ON JASSI-HERRMANN METHOD WHICHINCLUDES ADJUSTABLE TRIGLYCERIDE:VLDL CHOLESTEROL RATIO.THIS FACTOR VARIES BY MEASURED TRIGLYCERIDE AND NON-HDLCHOLESTEROL CONCENTRATIONS WITH INCREASED CALCULATED LDL SEENIN HIGHER TRIGLYCERIDE OR LOWER NON-HDL SPECIMENS. FOR MOREINFORMATION, SEE CLIENT ANNOUNCEMENT AT [email or web address] RATIO LDL/HDL (test code = 2238) 1.49 RATIO <3.22 CBC W/AUTO DIFF WITH [id number] 02:49:31* Test Item Value Reference Range Interpretation Comme nts WBC (test code = 1001) 4.3 K/UL 3.5-11.0 RBC (test code = 1002) 3.94 M/UL 3.80-5.40 HEMOGLOBIN (test code = 1003) 12.3 G/DL 11.5-15.5 HEMATOCRIT (test code = 1004) 36.8 % 34.0-45.0 MCV (test code = 1005) 93.4 fL 80.0-99.0 MCH (test code = 1006) 31.2 PG 25.0-33.0 MCHC (test code = 1007) 33.4 G/DL 31.0-36.0 RDW (test code = 1038) 12.3 % 11.5-15.0 NEUTROPHILS (test code = 1008) 61.3 % LYMPHOCYTES (test code = 1010) 30.6 % MONOCYTES (test code = 1011) 7.4 % EOSINOPHILS (test code = 1012) 0.5 % BASOPHILS (test code = 1013) 0.0 % IMMATURE GRANULOCYTES (test code = 1036) 0.2 % NUCLEATED RBCS (test code = 1065) 0.0 /100 WBC'S See_Comment [Automated Blaasta ge] The system which generated this result transmitted reference range: 0.0. The reference range was not used to interpret this result as normal/abnormal. PLATELET COUNT (test code = 1015) 408 K/UL 130-400 H ABSOLUTE NEUTROPHILS (test code = 1066) 2.64 K/UL 1.50-7.50 ABSOLUTE LYMPHOCYTES (test code = 1067) 1.32 K/UL 1.00-4.00 ABSOLUTE MONOCYTES (test code = 1068) 0.32 K/UL 0.20-1.00 ABSOLUTE EOSINOPHILS (test code = 1040) 0.02 K/UL 0.00-0.50 ABSOLUTE BASOPHILS (test code = 1069) 0.00 K/UL 0.00-0.20 ABS IMMATURE GRANULOCYTES (test code = 1020) 0.01 K/UL 0.00-0.10 ABS NUCLEATED RBCS (test code = 49971) 0.00 K/UL 0.00-0.11 HEMOGLOBIN [id number] 02:40:38* Test Item Value Reference Range Interpretation Comme nts HEMOGLOBIN A1c (test code = 96554) 5.8 % 4.2-5.6 H COMPREHENSIVE METABOLIC PANEL [ADDED]2022-11-09 00:00:00* Test Item Value Reference Range Interpretation Comme nts GLUCOSE (test code = 2217) 85 MG/DL BUN (test code = 2208) 11 MG/DL CREATININE (test code = 2214) 0.66 MG/DL eGFR (2020 CKD-EPI) (test code = 43112) 115 ML/MIN/1.73 CALC BUN/CREAT (test code = 2235) 17 RATIO SODIUM (test code = 2231) 142 MEQ/L POTASSIUM (test code = 2228) 3.4 MEQ/L CHLORIDE (test code = 2215) 102 MEQ/L CARBON DIOXIDE (test code = 2206) 27 MEQ/L CALCIUM (test code = 2209) 9.4 MG/DL PROTEIN, TOTAL (test code = 2229) 7.0 G/DL ALBUMIN (test code = 2201) 4.7 G/DL CALC GLOBULIN (test code = 2240) 2.3 G/DL CALC A/G RATIO (test code = 2234) 2.0 RATIO BILIRUBIN, TOTAL (test code = 2207) 0.2 MG/DL ALKALINE PHOSPHATASE (test code = 2204) 88 U/L AST (test code = 2218) 19 U/L ALT (test code = 2219) 15 U/L Britton FryHEMOGLOBIN A1c [ADDED]2022-11-09 00:00:00* Test Item Value Reference Range Interpretation Comme nts HEMOGLOBIN A1c (test code = 51905) 5.8 % Britton FryLIPID PANEL [ADDED]2022-11-09 00:00:00* Test Item Value Reference Range Interpretation Comme nts CHOLESTEROL (test code = 2210) 165 MG/DL TRIGLYCERIDES (test code = 2232) 43 MG/DL HDL CHOLESTEROL (test code = 2220) 61 MG/DL CALC LDL CHOL (test code = 2237) 91 MG/DL RISK RATIO LDL/HDL (test cod e = 2238) 1.49 RATIO Britton FryTHYROID II PROFILE (TU,T4,FTI,TSH) [ADDED]2022-11-09 00:00:00* Test Item Value Reference Range Interpretation Comme nts T-UPTAKE (test code = 2817) 30.2 % THYROX. BIND. CAPAC. (test c ode = 76417) 1.1 T4 (THYROXINE) (test code = 2819) 8.2 UG/DL CORRECTED T4 (FTI) (test cod e = 2820) 7.5 UG/DL TSH, THIRD GENERATION (test code = 2821) 0.227 UIU/ML Britton FryCBC W/AUTO DIFF WITH PLATELETS [ADDED]2022-11-09 00:00:00* Test Item Value Reference Range Interpretation Comme nts WBC (test code = 1001) 4.3 K/UL RBC (test code = 1002) 3.94 M/UL HEMOGLOBIN (test code = 1003) 12.3 G/DL HEMATOCRIT (test code = 1004) 36.8 % MCV (test code = 1005) 93.4 fL MCH (test code = 1006) 31.2 PG MCHC (test code = 1007) 33.4 G/DL RDW (test code = 1038) 12.3 % NEUTROPHILS (test code = 1008) 61.3 % LYMPHOCYTES (test code = 1010) 30.6 % MONOCYTES (test code = 1011) 7.4 % EOSINOPHILS (test code = 1012) 0.5 % BASOPHILS (test code = 1013) 0.0 % IMMATURE GRANULOCYTES (test code = 1036) 0.2 % NUCLEATED RBCS (test code = 1065) 0.0 /100WBC'S PLATELET COUNT (test code = 1015) 408 K/UL ABSOLUTE NEUTROPHILS (test c ode = 1066) 2.64 K/UL ABSOLUTE LYMPHOCYTES (test c ode = 1067) 1.32 K/UL ABSOLUTE MONOCYTES (test cod e = 1068) 0.32 K/UL ABSOLUTE EOSINOPHILS (test c ode = 1040) 0.02 K/UL ABSOLUTE BASOPHILS (test cod e = 1069) 0.00 K/UL ABS IMMATURE GRANULOCYTES (t est code = 1020) 0.01 K/UL ABS NUCLEATED RBCS (test cod e = 07029) 0.00 K/UL Britton FryCOMPREHENSIVE METABOLIC PANEL [ADDED]2022-11-09 00:00:00* Test Item Value Reference Range Interpretation Comme nts GLUCOSE (test code = 2217) 85 MG/DL BUN (test code = 2208) 11 MG/DL CREATININE (test code = 2214) 0.66 MG/DL eGFR (2020 CKD-EPI) (test code = 33479) 115 ML/MIN/1.73 CALC BUN/CREAT (test code = 2235) 17 RATIO SODIUM (test code = 2231) 142 MEQ/L POTASSIUM (test code = 2228) 3.4 MEQ/L CHLORIDE (test code = 2215) 102 MEQ/L CARBON DIOXIDE (test code = 2206) 27 MEQ/L CALCIUM (test code = 2209) 9.4 MG/DL PROTEIN, TOTAL (test code = 2229) 7.0 G/DL ALBUMIN (test code = 2201) 4.7 G/DL CALC GLOBULIN (test code = 2240) 2.3 G/DL CALC A/G RATIO (test code = 2234) 2.0 RATIO BILIRUBIN, TOTAL (test code = 2207) 0.2 MG/DL ALKALINE PHOSPHATASE (test code = 2204) 88 U/L AST (test code = 2218) 19 U/L ALT (test code = 2219) 15 U/L Britton FryHEMOGLOBIN A1c [ADDED]2022-11-09 00:00:00* Test Item Value Reference Range Interpretation Comme nts HEMOGLOBIN A1c (test code = 70888) 5.8 % Britton FryLIPID PANEL [ADDED]2022-11-09 00:00:00* Test Item Value Reference Range Interpretation Comme nts CHOLESTEROL (test code = 2210) 165 MG/DL TRIGLYCERIDES (test code = 2232) 43 MG/DL HDL CHOLESTEROL (test code = 2220) 61 MG/DL CALC LDL CHOL (test code = 2237) 91 MG/DL RISK RATIO LDL/HDL (test cod e = 2238) 1.49 RATIO Britton FryTHYROID II PROFILE (TU,T4,FTI,TSH) [ADDED]2022-11-09 00:00:00* Test Item Value Reference Range Interpretation Comme nts T-UPTAKE (test code = 2817) 30.2 % THYROX. BIND. CAPAC. (test c ode = 01110) 1.1 T4 (THYROXINE) (test code = 2819) 8.2 UG/DL CORRECTED T4 (FTI) (test cod e = 2820) 7.5 UG/DL TSH, THIRD GENERATION (test code = 2821) 0.227 UIU/ML Britton FryCBC W/AUTO DIFF WITH PLATELETS [ADDED]2022-11-09 00:00:00* Test Item Value Reference Range Interpretation Comme nts WBC (test code = 1001) 4.3 K/UL RBC (test code = 1002) 3.94 M/UL HEMOGLOBIN (test code = 1003) 12.3 G/DL HEMATOCRIT (test code = 1004) 36.8 % MCV (test code = 1005) 93.4 fL MCH (test code = 1006) 31.2 PG MCHC (test code = 1007) 33.4 G/DL RDW (test code = 1038) 12.3 % NEUTROPHILS (test code = 1008) 61.3 % LYMPHOCYTES (test code = 1010) 30.6 % MONOCYTES (test code = 1011) 7.4 % EOSINOPHILS (test code = 1012) 0.5 % BASOPHILS (test code = 1013) 0.0 % IMMATURE GRANULOCYTES (test code = 1036) 0.2 % NUCLEATED RBCS (test code = 1065) 0.0 /100WBC'S PLATELET COUNT (test code = 1015) 408 K/UL ABSOLUTE NEUTROPHILS (test c ode = 1066) 2.64 K/UL ABSOLUTE LYMPHOCYTES (test c ode = 1067) 1.32 K/UL ABSOLUTE MONOCYTES (test cod e = 1068) 0.32 K/UL ABSOLUTE EOSINOPHILS (test c ode = 1040) 0.02 K/UL ABSOLUTE BASOPHILS (test cod e = 1069) 0.00 K/UL ABS IMMATURE GRANULOCYTES (t est code = 1020) 0.01 K/UL ABS NUCLEATED RBCS (test cod e = 58464) 0.00 K/UL Britton FryCULTURE, [id number] 00:00:00* Test Item Value Reference Range Interpretation Comme nts CULTURE, URINE (test code = 76454) SPECIMEN NUMBER: [id number] Britton FryCULTURE, [id number] 00:00:00* Test Item Value Reference Range Interpretation Comme nts CULTURE, URINE (test code = 94590) SPECIMEN NUMBER: [id number] Britton Tejeda AustinURINALYSIS WITH [id number] 00:00:00* Test Item Value Reference Range Interpretation Comme nts COLOR (test code = 1501) DARK YELLOW APPEARANCE (test code = 1502) TURBID SPECIFIC GRAVITY (test code = 1503) 1.025 LEUKOCYTE ESTERASE (test cod e = 1504) 1+ NITRITE (test code = 1505) POSITIVE pH (test code = 1506) 5.5 PROTEIN (test code = 1507) TRACE GLUCOSE (test code = 1508) NEGATIVE KETONES (test code = 1509) NEGATIVE UROBILINOGEN (test code = 1510) 0.2 MG/DL BILIRUBIN (test code = 1511) NEGATIVE OCCULT BLOOD (test code = 1512) TRACE WHITE BLOOD CELLS (test code = 1513) >50 /HPF RED BLOOD CELLS (test code = 1514) 0-2 /HPF EPITHELIAL CELLS (test code = 75500) 5-10 /HPF BACTERIA (test code = 1515) 4+ CASTS, HYALINE (test code = 1517) TRACE Britton Tejeda AustinURINALYSIS WITH [id number] 00:00:00* Test Item Value Reference Range Interpretation Comme nts COLOR (test code = 1501) DARK YELLOW APPEARANCE (test code = 1502) TURBID SPECIFIC GRAVITY (test code = 1503) 1.025 LEUKOCYTE ESTERASE (test cod e = 1504) 1+ NITRITE (test code = 1505) POSITIVE pH (test code = 1506) 5.5 PROTEIN (test code = 1507) TRACE GLUCOSE (test code = 1508) NEGATIVE KETONES (test code = 1509) NEGATIVE UROBILINOGEN (test code = 1510) 0.2 MG/DL BILIRUBIN (test code = 1511) NEGATIVE OCCULT BLOOD (test code = 1512) TRACE WHITE BLOOD CELLS (test code = 1513) >50 /HPF RED BLOOD CELLS (test code = 1514) 0-2 /HPF EPITHELIAL CELLS (test code = 09938) 5-10 /HPF BACTERIA (test code = 1515) 4+ CASTS, HYALINE (test code = 1517) TRACE Britton FryVITAMIN [id number] 00:00:00* Test Item Value Reference Range Interpretation Comme atilio VITAMIN B-12 (test code = 2840) 1017 PG/ML Britton FryVITAMIN D, 25 [id number] 00:00:00* Test Item Value Reference Range Interpretation Comme atilio VITAMIN D, 25 OH (test code = 4958) 36 NG/ML Britton Tejeda AustinVITAMIN [id number] 00:00:00* Test Item Value Reference Range Interpretation Comme atilio VITAMIN B-12 (test code = 2840) 1017 PG/ML Britton FryVITAMIN D, 25 [id number] 00:00:00* Test Item Value Reference Range Interpretation Comme atilio VITAMIN D, 25 OH (test code = 4958) 36 NG/ML Britton FryLIPID [id number] 00:00:00* Test Item Value Reference Range Interpretation Comme nts CHOLESTEROL (test code = 2210) 181 MG/DL TRIGLYCERIDES (test code = 2232) 63 MG/DL HDL CHOLESTEROL (test code = 2220) 60 MG/DL CALC LDL CHOL (test code = 2237) 106 MG/DL RISK RATIO LDL/HDL (test cod e = 2238) 1.77 RATIO Britton FryCOMPREHENSIVE METABOLIC [id number] 00:00:00* Test Item Value Reference Range Interpretation Comme nts GLUCOSE (test code = 2217) 116 MG/DL BUN (test code = 2208) 12 MG/DL CREATININE (test code = 2214) 0.62 MG/DL eGFR AMER. (test cod e = 90145) 134 ML/MIN/1.73 eGFR NON- AMER. (test code = 72090) 116 ML/MIN/1.73 CALC BUN/CREAT (test code = 2235) 19 RATIO SODIUM (test code = 2231) 141 MEQ/L POTASSIUM (test code = 2228) 4.0 MEQ/L CHLORIDE (test code = 2215) 102 MEQ/L CARBON DIOXIDE (test code = 2206) 28 MEQ/L CALCIUM (test code = 2209) 9.2 MG/DL PROTEIN, TOTAL (test code = 2229) 6.6 G/DL ALBUMIN (test code = 2201) 4.3 G/DL CALC GLOBULIN (test code = 2240) 2.3 G/DL CALC A/G RATIO (test code = 2234) 1.9 RATIO BILIRUBIN, TOTAL (test code = 2207) <0.2 MG/DL ALKALINE PHOSPHATASE (test code = 2204) 77 U/L AST (test code = 2218) 22 U/L ALT (test code = 2219) 23 U/L Britton [id number] 00:00:00* Test Item Value Reference Range Interpretation Comme nts TSH, THIRD GENERATION (test code = 2821) 1.240 UIU/ML Britton FryCBC W/AUTO [id number] 00:00:00* Test Item Value Reference Range Interpretation Comme nts WBC (test code = 1001) 3.7 K/UL RBC (test code = 1002) 3.85 M/UL HEMOGLOBIN (test code = 1003) 12.1 G/DL HEMATOCRIT (test code = 1004) 36.2 % MCV (test code = 1005) 94.0 fL MCH (test code = 1006) 31.4 PG MCHC (test code = 1007) 33.4 G/DL RDW (test code = 1038) 12.2 % NEUTROPHILS (test code = 1008) 43.8 % LYMPHOCYTES (test code = 1010) 44.3 % MONOCYTES (test code = 1011) 6.5 % EOSINOPHILS (test code = 1012) 4.3 % BASOPHILS (test code = 1013) 0.0 % IMMATURE GRANULOCYTES (test code = 1036) 1.1 % NUCLEATED RBCS (test code = 1065) 0.0 /100WBC'S PLATELET COUNT (test code = 1015) 201 K/UL ABSOLUTE NEUTROPHILS (test c ode = 1066) 1.62 K/UL ABSOLUTE LYMPHOCYTES (test c ode = 1067) 1.64 K/UL ABSOLUTE MONOCYTES (test cod e = 1068) 0.24 K/UL ABSOLUTE EOSINOPHILS (test c ode = 1040) 0.16 K/UL ABSOLUTE BASOPHILS (test cod e = 1069) 0.00 K/UL ABS IMMATURE GRANULOCYTES (t est code = 1020) 0.04 K/UL ABS NUCLEATED RBCS (test cod e = 64141) 0.00 K/UL Britton FryHEMOGLOBIN [id number] 00:00:00* Test Item Value Reference Range Interpretation Comme nts HEMOGLOBIN A1c (test code = 46602) 5.4 % Britton FryLIPID [id number] 00:00:00* Test Item Value Reference Range Interpretation Comme nts CHOLESTEROL (test code = 2210) 181 MG/DL TRIGLYCERIDES (test code = 2232) 63 MG/DL HDL CHOLESTEROL (test code = 2220) 60 MG/DL CALC LDL CHOL (test code = 2237) 106 MG/DL RISK RATIO LDL/HDL (test cod e = 2238) 1.77 RATIO Britton FryCOMPREHENSIVE METABOLIC [id number] 00:00:00* Test Item Value Reference Range Interpretation Comme nts GLUCOSE (test code = 2217) 116 MG/DL BUN (test code = 2208) 12 MG/DL CREATININE (test code = 2214) 0.62 MG/DL eGFR AMER. (test cod e = 25180) 134 ML/MIN/1.73 eGFR NON- AMER. (test code = 63022) 116 ML/MIN/1.73 CALC BUN/CREAT (test code = 2235) 19 RATIO SODIUM (test code = 2231) 141 MEQ/L POTASSIUM (test code = 2228) 4.0 MEQ/L CHLORIDE (test code = 2215) 102 MEQ/L CARBON DIOXIDE (test code = 2206) 28 MEQ/L CALCIUM (test code = 2209) 9.2 MG/DL PROTEIN, TOTAL (test code = 2229) 6.6 G/DL ALBUMIN (test code = 2201) 4.3 G/DL CALC GLOBULIN (test code = 2240) 2.3 G/DL CALC A/G RATIO (test code = 2234) 1.9 RATIO BILIRUBIN, TOTAL (test code = 2207) <0.2 MG/DL ALKALINE PHOSPHATASE (test code = 2204) 77 U/L AST (test code = 2218) 22 U/L ALT (test code = 2219) 23 U/L Britton [id number] 00:00:00* Test Item Value Reference Range Interpretation Comme nts TSH, THIRD GENERATION (test code = 2821) 1.240 UIU/ML Britton FryCBC W/AUTO [id number] 00:00:00* Test Item Value Reference Range Interpretation Comme nts WBC (test code = 1001) 3.7 K/UL RBC (test code = 1002) 3.85 M/UL HEMOGLOBIN (test code = 1003) 12.1 G/DL HEMATOCRIT (test code = 1004) 36.2 % MCV (test code = 1005) 94.0 fL MCH (test code = 1006) 31.4 PG MCHC (test code = 1007) 33.4 G/DL RDW (test code = 1038) 12.2 % NEUTROPHILS (test code = 1008) 43.8 % LYMPHOCYTES (test code = 1010) 44.3 % MONOCYTES (test code = 1011) 6.5 % EOSINOPHILS (test code = 1012) 4.3 % BASOPHILS (test code = 1013) 0.0 % IMMATURE GRANULOCYTES (test code = 1036) 1.1 % NUCLEATED RBCS (test code = 1065) 0.0 /100WBC'S PLATELET COUNT (test code = 1015) 201 K/UL ABSOLUTE NEUTROPHILS (test c ode = 1066) 1.62 K/UL ABSOLUTE LYMPHOCYTES (test c ode = 1067) 1.64 K/UL ABSOLUTE MONOCYTES (test cod e = 1068) 0.24 K/UL ABSOLUTE EOSINOPHILS (test c ode = 1040) 0.16 K/UL ABSOLUTE BASOPHILS (test cod e = 1069) 0.00 K/UL ABS IMMATURE GRANULOCYTES (t est code = 1020) 0.04 K/UL ABS NUCLEATED RBCS (test cod e = 51430) 0.00 K/UL Britton F AustinHEMOGLOBIN [id number] 00:00:00* Test Item Value Reference Range Interpretation Comme nts HEMOGLOBIN A1c (test code = 47052) 5.4 % Britton FryCHLAMYDIA, AMPLIFIED, [id number] 00:00:00* Test Item Value Reference Range Interpretation Comme nts CHLAMYDIA, TMA (test code = 18898) NEGATIVE Britton Tejeda AustinGC, AMPLIFIED, [id number] 00:00:00* Test Item Value Reference Range Interpretation Comme nts GONORRHEA, TMA (test code = 26647) NEGATIVE Britton F AustinCHLAMYDIA, AMPLIFIED, [id number] 00:00:00* Test Item Value Reference Range Interpretation Comme nts CHLAMYDIA, TMA (test code = 02539) NEGATIVE Britton Tejeda AustinGC, AMPLIFIED, [id number] 00:00:00* Test Item Value Reference Range Interpretation Comme nts GONORRHEA, TMA (test code = 79174) NEGATIVE Britton Tejeda AustinGC AND CHLAMYDIA, AMPLIFIED, [id number] 00:00:00* Test Item Value Reference Range Interpretation Comme nts GONORRHEA, TMA (test code = 04963) NEGATIVE CHLAMYDIA, TMA (test code = 88970) NEGATIVE Britton F AustinGC AND CHLAMYDIA, AMPLIFIED, [id number] 00:00:00* Test Item Value Reference Range Interpretation Comme nts GONORRHEA, TMA (test code = 81284) NEGATIVE CHLAMYDIA, TMA (test code = 96339) NEGATIVE Britton Tejeda AustinHPV HIGH RISK WITH GENOTYPE, [id number] 00:00:00* Test Item Value Reference Range Interpretation Comme nts HPV HIGH RISK INTERP (test c ode = 29720) NEGATIVE HPV 16 (test code = 71938) NEGATIVE HPV 18 (test code = 38071) NEGATIVE HPV, HR, OTHER GENOTYPES (te st code = 91084) NEGATIVE Britton Tejeda AustinPAP TEST, THINPREP, [id number] 00:00:00* Test Item Value Reference Range Interpretation Comme nts SOURCE: (test code = 8001) Cervical/Endocervical SLIDES: (test code = 8011) 1 LMP: (test code = 8021) 05/09/18 SPECIMEN ADEQUACY: (test code = 38369) (NOTE) INTERPRETATION: (test code = 08841) NO EPITHELIAL ABNORMALITY SEE BELOW MOLDER HAND: (test code = 8101) [place], [place](ASCP) IAC LOCATION: (test code = 95513) (NOTE) CPT: (test code = 8140) (NOTE) Britton FryHPV HIGH RISK WITH GENOTYPE, [id number] 00:00:00* Test Item Value Reference Range Interpretation Comme nts HPV HIGH RISK INTERP (test c ode = 25751) NEGATIVE HPV 16 (test code = 09471) NEGATIVE HPV 18 (test code = 51506) NEGATIVE HPV, HR, OTHER GENOTYPES (te st code = 65765) NEGATIVE Britton FryPAP TEST, THINPREP, [id number] 00:00:00* Test Item Value Reference Range Interpretation Comme nts SOURCE: (test code = 8001) Cervical/Endocervical SLIDES: (test code = 8011) 1 LMP: (test code = 8021) 05/09/18 SPECIMEN ADEQUACY: (test code = 27077) (NOTE) INTERPRETATION: (test code = 70956) NO EPITHELIAL ABNORMALITY SEE BELOW MOLDER HAND: (test code = 8101) [place], [place](ASCP) IAC LOCATION: (test code = 56752) (NOTE) CPT: (test code = 8140) (NOTE) Britton FryCULTURE, [id number] 00:00:00* Test Item Value Reference Range Interpretation Comme nts CULTURE, URINE (test code = 03987) SPECIMEN NUMBER: [id number] Britton FryCULTURE, [id number] 00:00:00* Test Item Value Reference Range Interpretation Comme nts CULTURE, URINE (test code = 90911) SPECIMEN NUMBER: [id number] Britton FryVITAMIN D,1,67-[id number] 00:00:00* Test Item Value Reference Range Interpretation Comme nts VITAMIN D,1,25-DIHYDROXY (te st code = 4960) 40.2 PG/ML Britton Tejeda AustinVITAMIN D,1,93-[id number] 00:00:00* Test Item Value Reference Range Interpretation Comme nts VITAMIN D,1,25-DIHYDROXY (te st code = 4960) 40.2 PG/ML Britton F AustinHEMOGLOBIN [id number] 00:00:00* Test Item Value Reference Range Interpretation Comme atilio HEMOGLOBIN A1c (test code = 78255) 5.8 % Britton [id number] 00:00:00* Test Item Value Reference Range Interpretation Comme atilio TSH (test code = 2821) 1.08 UIU/ML Britton FryCOMPREHENSIVE METABOLIC [id number] 00:00:00* Test Item Value Reference Range Interpretation Comme nts GLUCOSE (test code = 2217) 90 MG/DL BUN (test code = 2208) 11 MG/DL CREATININE (test code = 2214) 0.61 MG/DL eGFR AMER. (test cod e = 24476) 139 ML/MIN/1.73 eGFR NON- AMER. (test code = 97466) 120 ML/MIN/1.73 CALC BUN/CREAT (test code = 2235) 18 RATIO SODIUM (test code = 2231) 139 MEQ/L POTASSIUM (test code = 2228) 4.2 MEQ/L CHLORIDE (test code = 2215) 97 MEQ/L CARBON DIOXIDE (test code = 2206) 18 MEQ/L CALCIUM (test code = 2209) 8.7 MG/DL PROTEIN, TOTAL (test code = 2229) 6.8 G/DL ALBUMIN (test code = 2201) 4.2 G/DL CALC GLOBULIN (test code = 2240) 2.6 G/DL CALC A/G RATIO (test code = 2234) 1.6 RATIO BILIRUBIN, TOTAL (test code = 2207) 0.1 MG/DL ALKALINE PHOSPHATASE (test code = 2204) 93 U/L AST (test code = 2218) 24 U/L ALT (test code = 2219) 20 U/L Britton FryVITAMIN [id number] 00:00:00* Test Item Value Reference Range Interpretation Comme atilio VITAMIN B-12 (test code = 2840) 647 PG/ML Britton FryCBC W/AUTO [id number] 00:00:00* Test Item Value Reference Range Interpretation Comme atilio WBC (test code = 1001) 4.6 K/UL RBC (test code = 1002) 3.74 M/UL HEMOGLOBIN (test code = 1003) 11.7 G/DL HEMATOCRIT (test code = 1004) 34.5 % MCV (test code = 1005) 92.2 fL MCH (test code = 1006) 31.3 PG MCHC (test code = 1007) 33.9 G/DL RDW (test code = 1038) 12.6 % NEUTROPHILS (test code = 1008) 36.5 % LYMPHOCYTES (test code = 1010) 50.4 % MONOCYTES (test code = 1011) 8.4 % EOSINOPHILS (test code = 1012) 4.1 % BASOPHILS (test code = 1013) 0.6 % PLATELET COUNT (test code = 1015) 335 K/UL Britton FryHEMOGLOBIN [id number] 00:00:00* Test Item Value Reference Range Interpretation Comme nts HEMOGLOBIN A1c (test code = 59631) 5.8 % Britton [id number] 00:00:00* Test Item Value Reference Range Interpretation Comme nts TSH (test code = 2821) 1.08 UIU/ML Britton FryCOMPREHENSIVE METABOLIC [id number] 00:00:00* Test Item Value Reference Range Interpretation Comme nts GLUCOSE (test code = 2217) 90 MG/DL BUN (test code = 2208) 11 MG/DL CREATININE (test code = 2214) 0.61 MG/DL eGFR AMER. (test cod e = 99551) 139 ML/MIN/1.73 eGFR NON- AMER. (test code = 74934) 120 ML/MIN/1.73 CALC BUN/CREAT (test code = 2235) 18 RATIO SODIUM (test code = 2231) 139 MEQ/L POTASSIUM (test code = 2228) 4.2 MEQ/L CHLORIDE (test code = 2215) 97 MEQ/L CARBON DIOXIDE (test code = 2206) 18 MEQ/L CALCIUM (test code = 2209) 8.7 MG/DL PROTEIN, TOTAL (test code = 2229) 6.8 G/DL ALBUMIN (test code = 2201) 4.2 G/DL CALC GLOBULIN (test code = 2240) 2.6 G/DL CALC A/G RATIO (test code = 2234) 1.6 RATIO BILIRUBIN, TOTAL (test code = 2207) 0.1 MG/DL ALKALINE PHOSPHATASE (test code = 2204) 93 U/L AST (test code = 2218) 24 U/L ALT (test code = 2219) 20 U/L [facility]CH[id number] 00:00:00* Test Item Value Reference Range Interpretation Comme nts VITAMIN B-12 (test code = 2840) 647 PG/ML Britton FryCBC W/AUTO [id number] 00:00:00* Test Item Value Reference Range Interpretation Comme nts WBC (test code = 1001) 4.6 K/UL RBC (test code = 1002) 3.74 M/UL HEMOGLOBIN (test code = 1003) 11.7 G/DL HEMATOCRIT (test code = 1004) 34.5 % MCV (test code = 1005) 92.2 fL MCH (test code = 1006) 31.3 PG MCHC (test code = 1007) 33.9 G/DL RDW (test code = 1038) 12.6 % NEUTROPHILS (test code = 1008) 36.5 % LYMPHOCYTES (test code = 1010) 50.4 % MONOCYTES (test code = 1011) 8.4 % EOSINOPHILS (test code = 1012) 4.1 % BASOPHILS (test code = 1013) 0.6 % PLATELET COUNT (test code = 1015) 335 K/UL Britton rFyCBC W/AUTO [id number] 00:00:00* Test Item Value Reference Range Interpretation Comme nts WBC (test code = 1001) 6.2 K/UL RBC (test code = 1002) 3.88 M/UL HEMOGLOBIN (test code = 1003) 12.4 G/DL HEMATOCRIT (test code = 1004) 36.5 % MCV (test code = 1005) 94.1 fL MCH (test code = 1006) 32.0 PG MCHC (test code = 1007) 34.0 G/DL RDW (test code = 1038) 11.5 % NEUTROPHILS (test code = 1008) 58.9 % LYMPHOCYTES (test code = 1010) 30.6 % MONOCYTES (test code = 1011) 6.0 % EOSINOPHILS (test code = 1012) 3.9 % BASOPHILS (test code = 1013) 0.6 % PLATELET COUNT (test code = 1015) 392 K/UL Britton FryCBC W/AUTO [id number] 00:00:00* Test Item Value Reference Range Interpretation Comme nts WBC (test code = 1001) 6.2 K/UL RBC (test code = 1002) 3.88 M/UL HEMOGLOBIN (test code = 1003) 12.4 G/DL HEMATOCRIT (test code = 1004) 36.5 % MCV (test code = 1005) 94.1 fL MCH (test code = 1006) 32.0 PG MCHC (test code = 1007) 34.0 G/DL RDW (test code = 1038) 11.5 % NEUTROPHILS (test code = 1008) 58.9 % LYMPHOCYTES (test code = 1010) 30.6 % MONOCYTES (test code = 1011) 6.0 % EOSINOPHILS (test code = 1012) 3.9 % BASOPHILS (test code = 1013) 0.6 % PLATELET COUNT (test code = 1015) 392 K/UL Britton FryCOMPREHENSIVE METABOLIC [id number] 00:00:00* Test Item Value Reference Range Interpretation Comme nts GLUCOSE (test code = 2217) 71 MG/DL BUN (test code = 2208) 13 MG/DL CREATININE (test code = 2214) 0.70 MG/DL eGFR AMER. (test cod e = 06084) 134 ML/MIN/1.73 eGFR NON- AMER. (test code = 07963) 115 ML/MIN/1.73 CALC BUN/CREAT (test code = 2235) 19 RATIO SODIUM (test code = 2231) 140 MEQ/L POTASSIUM (test code = 2228) 4.2 MEQ/L CHLORIDE (test code = 2215) 97 MEQ/L CARBON DIOXIDE (test code = 2206) 31 MEQ/L CALCIUM (test code = 2209) 9.4 MG/DL PROTEIN, TOTAL (test code = 2229) 7.2 G/DL ALBUMIN (test code = 2201) 4.3 G/DL CALC GLOBULIN (test code = 2240) 2.9 G/DL CALC A/G RATIO (test code = 2234) 1.5 RATIO BILIRUBIN, TOTAL (test code = 2207) 0.2 MG/DL ALKALINE PHOSPHATASE (test code = 2204) 87 U/L AST (test code = 2218) 29 U/L ALT (test code = 2219) 32 U/L Britton F AustinCOMPREHENSIVE METABOLIC [id number] 00:00:00* Test Item Value Reference Range Interpretation Comme nts GLUCOSE (test code = 2217) 71 MG/DL BUN (test code = 2208) 13 MG/DL CREATININE (test code = 2214) 0.70 MG/DL eGFR AMER. (test cod e = 24733) 134 ML/MIN/1.73 eGFR NON- AMER. (test code = 31635) 115 ML/MIN/1.73 CALC BUN/CREAT (test code = 2235) 19 RATIO SODIUM (test code = 2231) 140 MEQ/L POTASSIUM (test code = 2228) 4.2 MEQ/L CHLORIDE (test code = 2215) 97 MEQ/L CARBON DIOXIDE (test code = 2206) 31 MEQ/L CALCIUM (test code = 2209) 9.4 MG/DL PROTEIN, TOTAL (test code = 2229) 7.2 G/DL ALBUMIN (test code = 2201) 4.3 G/DL CALC GLOBULIN (test code = 2240) 2.9 G/DL CALC A/G RATIO (test code = 2234) 1.5 RATIO BILIRUBIN, TOTAL (test code = 2207) 0.2 MG/DL ALKALINE PHOSPHATASE (test code = 2204) 87 U/L AST (test code = 2218) 29 U/L ALT (test code = 2219) 32 U/L Britton FryPAP TEST, THINPREP, [id number] 00:00:00* Test Item Value Reference Range Interpretation Comme nts SOURCE: (test code = 8001) A) Unspecified SLIDES: (test code = 8011) 1 LMP: (test code = 8021) 06/28/2015 SPECIMEN ADEQUACY: (test code = 54786) (NOTE) INTERPRETATION: (test code = 12705) NO EPITHELIAL ABNORMALITY SEE BELOW MOLDER HAND: (test code = 8101) GARRICK AMOS(ASCP) LOCATION: (test code = 12718) (NOTE) CPT: (test code = 8140) (NOTE) Britton FryHPV HIGH RISK WITH GENOTYPE, [id number] 00:00:00* Test Item Value Reference Range Interpretation Comme nts HPV HIGH RISK INTERP (test c ode = 43748) NEGATIVE HPV 16 (test code = 96911) NEGATIVE HPV 18 (test code = 67388) NEGATIVE HPV, HR, OTHER GENOTYPES (te st code = 93088) NEGATIVE Britton FryPAP TEST, THINPREP, [id number] 00:00:00* Test Item Value Reference Range Interpretation Comme nts SOURCE: (test code = 8001) A) Unspecified SLIDES: (test code = 8011) 1 LMP: (test code = 8021) 06/28/2015 SPECIMEN ADEQUACY: (test code = 45824) (NOTE) INTERPRETATION: (test code = 32322) NO EPITHELIAL ABNORMALITY SEE BELOW MOLDER HAND: (test code = 8101) GARRICK AMOS(ASCP) LOCATION: (test code = 24505) (NOTE) CPT: (test code = 8140) (NOTE) Britton FryHPV HIGH RISK WITH GENOTYPE, [id number] 00:00:00* Test Item Value Reference Range Interpretation Comme nts HPV HIGH RISK INTERP (test c ode = 67913) NEGATIVE HPV 16 (test code = 99778) NEGATIVE HPV 18 (test code = 04670) NEGATIVE HPV, HR, OTHER GENOTYPES (te st code = 35144) NEGATIVE Britton FryFOLLICLE STIM [id number] 00:00:00* Test Item Value Reference Range Interpretation Comme nts FOLLICLE STIM HORMONE (test code = 2700) 6.8 MIU/ML FSH INTERPRETATION: (test co de = 14485) (NOTE) Britton [id number] 00:00:00* Test Item Value Reference Range Interpretation Comme nts TSH (test code = 2821) 1.7 UIU/ML Britton FryFOLLICLE STIM [id number] 00:00:00* Test Item Value Reference Range Interpretation Comme nts FOLLICLE STIM HORMONE (test code = 2700) 6.8 MIU/ML FSH INTERPRETATION: (test co de = 74290) (NOTE) Britton [id number] 00:00:00* Test Item Value Reference Range Interpretation Comme nts TSH (test code = 2821) 1.7 UIU/ML Britton Tejeda Ang Notes Date/Time Note Provider Source 2024-02-14 00:00:00 [id number] 5-15T00:00:00+ +-------- ----+| Plan Activity | Plan Date |+ + +| Continue OCPs and change Trinessa to sprintec one po qd after finishing pack | 2015-07-07 || Medication sent to pharmacy | || Verbal Prescription and side effects given | || RTC 2 weeks for WWE | || Transvaginal US | || TSH, FSH | || Await lab results | |+ + +| RTC on annual exam | 2015-07-21 || SBE | || If 40 or greater, schedule 1-2 year MMG | || If 50 or greater, schedule colonoscpy or give Heme card. | || Await labs | |+ + +| Meagan Barnes | 2015-11-10 || Increased rest | || Fluids | || Humidify inspired air | || Discontinue tobacco products | || Hard candy or lozenges for scratchy throat | || Saline nose drops and bulb syringe for infants | || Avoid tobacco products and alcohol | || Teach patients that hand washing is the single most effective preventive | || measure | || Flonase 2 sprays each nostril every day for 7 days | || Bromfed DM 10 ml by mouth every 4 hours as needed for cough. No refills | || Appended: 2019-06-18 | || amoxicillin 875mg 1 tablet by mouth BID | || Bromfed DM 2-30-10mg/5 mL 10 ml by mouth Q6h every 6 hours as needed | || prescription and side effects verbally given | || Rest. Push fluids. Salt water gargle. Good hand washing | || Fever/pain control with OTC Tylenol or ibuprofen. | || Return for worsening symptoms like rising fever, severe throat pain or ear pain | |+ + +| Referral for Urologist - Dr. Dickson | 2015-12-07 || Urinalysis dipstick - unable to read results secondary to patient taking Azo | || Bactrim DS take by mouth twice a day for 10 days | || Drink extra water | || Good perineal hygiene | || Monitor urine for blood | || Call 911 or go to nearest emergency room if experience intense abdominal pain. | |+ + +| Discontinue sprintec | 2016-04-19 || Begin trivora one po QD | || Medication sent to pharmacy | || Verbal prescription and side effects given | || RTC 3 months if remains with irregular menses | |+ + +| Hydroxyzine 25 mg by mouth at night as needed for sleep | 2016-04-22 || Appended: 2020-02-13 | || [facility] | |+ + +| H Pylori ,CMP, | 2016-07-20 || Plenty of fluids , diet as tolerated | || Go to ER for uncontolled vomiting, diarrhea or pain | || Appended: 2017-07-24 | || Recommend Vitamin B6, brandon and gingerale for nausea | || Recommend hydration | || Recommend b land diet and advance as tolerated | || RTC if no improvement of symptoms in 48-72 hours | || To ER for worsening s/s | || Appended: 2017-11-24 | || promethazine 12.5 mg tablet | || Discussed medication purpose and side effects | || When there is continued vomiting, make certain dehydration does not occur. | || Consume enough extra fluids to restore what has been lost through throwing up. | || Eat a bland diet | || Avoid exposure to cigarette smoke or fumes. | || Wash hands often | || Return to clinic in 7 days if symptoms do not improve | |+ + +| OTC miralax daily . 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 sitz bath for anal pain | |+ + +| Triple therapy as prescribed . Med SE as per pharmacy | 2016-07-23 || small frequent meals , avoid spicy food , Have meals 2 hrs prior to go to bed | || RTC for failure to improve the symptoms in 2 weeks | || Plan for GI referral if symptom continues | || Appended: 2017-07-24 | || h. pylori- positive | || Omeprazole 20mg BID x14 days | || Clarithromycin 500mg BID x 14 days | || Amoxicillin 1gram BID x 14 days | |+ + +| CBC today. Ranitidine 150 mg twice daily x 30 days | 2016-07-29 || Referral to gastroenterology | || small frequent meals , avoid spicy food , Have meals 2 hrs prior to go to bed | || RTC as needed | |+ + +| stool for occult blood | 2016-07-29 || Plenty of fluids , diet as tolerated , eat more of green vegetables and fruits | || , high fiber content food | || avoid constipation . continue miralax stay active , plenty of fluids | || Go to ER for severe bleeding from the rectum , abdominal pain or vomiting | |+ + +| stool for occult blood | 2016-07-29 || Plenty of fluids , diet as tolerated , eat more of green vegetables and fruits | || , high fiber content food | || avoid constipation . continue miralax stay active , sitz bath | || Go to ER for severe bleeding from the rectum , abdominal pain or vomiting | |+ + +| Radiography of right shoulder | 2016-09-13 || Cyclobenzaprine 10 mg take 0.5 or 1 pill every 6 hours for pain | || Prednisone 10 mg by mouth daily | || Solumedrol injection 120 mg im x 1 dose | || Ibuprofen 800 mg every 8 hours as needed for pain | || Discussed medication purpose and side effects | || sleep on back | || Follow up in two weeks to evaluate treatment plan | || Full panel labs | |+ + +| discussed the nature of the following dx with patient as being overuse | 2017-02-08 || injuries. Patient given stretching exercises to do daily, heating pad prn, | || consider TPI if not improving, tylenol/ibuprofen prn pain | |+ + +| Arterial and venous doppler of right arm | 2017-02-09 |+ + +| Limit fat intake to no more than 20% to 35% of your total calorie intake. For a | 2017-02-19 || person following a 1,800-calorie diet, this means eating no more than 40 to 70 | || grams of fat each day. | || Choose complex carbohydrates, such as whole grains, vegetables, and fruits. | || About 45% to 65% of your total calorie intake should come from carbohydrate. | || For someone following a 1,800-calorie diet, this means eating about 200 to 300 | || grams of carbohydrate each day. | || Choose low-fat protein sources, such as fish, poultry, and legumes (for | || example, chavarria beans, lentils, and split peas). About 10% to 35% of your total | || calorie intake should come from protein. For someone following a 1,800-calorie | || diet, this means eating about 45 to 160 grams of protein each day. | || Get enough fiber each day. Men should aim for 38 grams a day, and women should | || aim for 25 grams a day. | || Have no more than 1 alcohol drink a day for women and 2 alcohol drinks a day | || for men. | |+ + +| UA | 2017-07-24 || Urine culture | || Await results | || RTC if no improvement in 48-72 hours | || To ER for worsening s/s | || Appended: 2019-07-01 | || Ketorlac 30 mg IM x 1 dose | || Transvaginal ultrasound | || Clinical treatment will be based on results. | || Follow up with clinic after ultrasound | || Follow up with Dr. Ignacio regarding recent IUD placement | || Appended: 2019-12-09 | || Refer for complete abdominal ultrasound | |+ + +| Referral to GI for chronic abdominal pain | 2017-11-24 || Follow up with GI | || CBC, CMP, A1c | || Treatment will be based on labs | |+ + +| Prescribed: | 2018-05-23 || mupirocin 2 % 1 application apply on the skin BID | || sulfamethoxazole-trimethoprim 800-160 mg 1 tablet by mouth BID | || F/up with infectious disease | |+ + +| PAP with HPV | 2018-06-01 || STI today | || appropriate vaccines | || well-woman care visit includes screening, evaluation and counseling, and | || immunizations based on age and risk factors. | || PAP smear + HPV | || Pelvic exam | || vaccine up-todate | |+ + +| Hx of BTL | 2018-06-01 || Start TriNessa | || RTO in six months for follow-up | |+ + +| Immunizations given | 2018-06-01 |+ + +| Referral for pelvic ultrasound | 2018-06-01 || Appended: 2019-07-29 | || TV US | || send GC/chlam | || patient declined wet mount today, recommend if other testing is normal that she | || return for wet mount | |+ + +| Encouraged healthy diet, portion control, exercise, and weight management. | 2018-06-01 |+ + +| amoxicillin 875mg 1 tablet by mouth BID. | 2019-06-18 || prescription and side effects verbally given. | || take antibiotic food. | || RTO in 2 weeks to assess ear and edema of neck. pt reports maternal aunt and | || cousin have thyroid cancer. | || RTO sooner if symptoms worsen | |+ + +| Recommend healthy eating with foods from a variety of food groups. Encourage to | 2019-06-18 || eat more vegetables and appropriate portion sizes, and few sugary | || snacks/drinks/sodas. Recommend daily exercise for 20-30 minutes | || Limit fat intake to no more than 20% to 35% of your total calorie intake. For a | || person following a 1,800-calorie diet, this means eating no more than 40 to 70 | || grams of fat each day. | || Choose complex carbohydrates, such as whole grains, vegetables, and fruits. | || About 45% to 65% of your total calorie intake should come from carbohydrate. | || For someone following a 1,800-calorie diet, this means eating about 200 to 300 | || grams of carbohydrate each day. | || Choose low-fat protein sources, such as fish, poultry, and legumes (for | || example, chavarria beans, lentils, and split peas). About 10% to 35% of your total | || calorie intake should come from protein. For someone following a 1,800-calorie | || diet, this means eating about 45 to 160 grams of protein each day. | || Get enough fiber each day. Men should aim for 38 grams a day, and women should | || aim for 25 grams a day. | || Have no more than 1 alcohol drink a day for women and 2 alcohol drinks a day | || for men. | |+ + +| Rx OCPs x 2m | 2019-07-29 || order Mirena today | |+ + +| IUD insertion today, see procedure note | 2019-11-08 || UPT negative, urine sent for GC/Chlam | || RTO 2w for string check | |+ + +| Zyrtec 10mg 1 capsule by mouth DAILY | 2019-12-03 || Avoid exposure to cigarette smoke or fumes. | || Over the counter saline nasal spray can help "wash" offending | || particles away. | || Reduce flare-ups by identifying the allergens that affect you and avoiding | || exposure to them. Common allergens include trees, pollen, dust mites, animal | || fur, mold, and insects. | || Remove the offending allergen (for example: frequent vacuuming, dusting, change | || air conditioner filter frequently, washing bed sheets, and pet control). | || Discussed purpose and side effects of prescribed medications. | || Return to clinic if symptoms worsen over the next 7 days. | |+ + +| Begin Nuvaring PV x 3 weeks as directed RF 11 | 2019-12-30 || Verbal prescription and side effects given | || Medication sent to pharmacy | || Return to clinic in 3 months as indicated if side effects | |+ + +| normal BMI | 2021-04-08 |+ + +| Discussed possible causes including Hyperthyroidism, fluid depletion, lack of | 2023-04-20 || energy, BPPV, and Cardiac related in setting of long standing Tachycardia | || Meclizine 25mg BID PRN Dizziness | || Medication usage and side effects discussed with patient | || EKG: Sinus tachycardia 107bpm | || Follow with cardiology: Appointment in 1 month already scheduled per patient | || Strongly encouraged on hydration and caloric intake in setting of underweight | || ENT referral | || RTO as needd | |+ + +| Can take Tylenol PRN for headaches | 2021-04-08 || Stay hydrated well | || limit sound and visual stimuli | |+ + +| microscopic UA | 2021-05-19 |+ + +| Urine dipstick | 2021-05-19 || Urine cx | || Macrobid 100 mg qd po x 5 days | || s/e of meds discussed with pt | |+ + +| starting augmentin 875mg bid for 7 days | 2021-08-02 || RTO in 1 week if sxs are not improving | |+ + +| fluconazole 200mg #2 | 2021-07-29 || Follow up PRN | || Discussed keeping area clean and dry | |+ + +| Patient underweight | 2023-04-20 || Discussed possible influence on dizziness due to lack of energy | || Discussed importance of full meals per day that are calorically dense | || Recommend eating small frequent meals. smoothies with fruits and vegetables at | || least once a day. | || May drink Ensure once a day | || RTO as needed | |+ + +| HIV pending | 2022-11-08 || all other labs pending | || high protein, high calories snack, snack between meals | |+ + +| lipid panel | 2022-11-08 || await results | || RTO based on lab results | || recommend increasing fiber like kale, spinach, spring mix | |+ + +| A1c | 2022-11-08 |+ + +| refer to neurologist | 2022-11-25 |+ + +| HIV pending | 2022-11-28 |+ + +| RPR and GC pending | 2022-11-28 |+ + +| hepatitis panel pending | 2022-11-28 |+ + +| PAP with HPV | 2022-11-28 |+ + +| Recommend healthy eating with foods from a variety of food groups. Encourage to | 2022-12-27 || eat more vegetables like kale, spinach, colorful vegetables and appropriate | || portion sizes, and few sugary snacks/drinks/sodas. | || Avoid high fructose corn syrup, drink at least 64 ounces of water a day. | |+ + +| Bactrim as Rx x 10 days | 2023-02-09 || Finish full course of antibiotics | || RTO if persists, discussed possible I&D | |+ + +| Plan #2 | 2023-02-09 |+ + +| Start Bactrim 800-160mg BID X 7 days | 2023-03-30 || MRSA decolonization: Bactroban 2% ointment, pea-sized amount to each nare BID. | || Hibiclens 4% wash daily X 5 days. | || Decolonization instruction printout provided. | || Warm compresses daily | || RTO for f/u on Monday (4 days). | || Keep appts for ID and dermatology. | || ER precautions given | |+ + +| Concerned about patient's elevated bp. | 2023-04-20 || patient clinically stable no neurological or cardiac symptoms ' | || Decrease caffeine intake | || Also concern with patient on OCP | || | || Discussed with the patient risk of elevated bp for acute and jail | || complications. | || Noted 3 elevated bps [id number] on 3 different occasions indicated a need to | || start medications with lifestyle modifications. | || Recommend keeping a log Goal is less 140/80 | || Recommend low salt diet, healthier choices and exercise. | || RTO in 1 month | |+ + +| increased Metoprolol to 50 mg daily | 2023-06-26 || ER precautions given | |+ + +| CT of head | 2023-06-26 || pt can take OTC tylenol for pain control | || ER precautions given | |+ + +| trazadone prescribed | 2023-06-26 || As otc modalities have not been effective | |+ + +| referral for x-ray | 2024-02-14 || ? foreign body | |+ + +[id number] [facility] [id number] for patient [id number] Section NarrativeNARRATIVEFormatted C-CDA narrative textSLovelace Regional Hospital, [place]luisjony Beal [facility]2024-05-19T00:00:00 Britton Beal [facility] 2024-01-22 00:00:00 [id number] 01-21T00:00:00+ +-------- ----+| Plan Activity | Plan Date |+ + +| Continue OCPs and change Trinessa to sprintec one po qd after finishing pack | 2015-07-07 || Medication sent to pharmacy | || Verbal Prescription and side effects given | || RTC 2 weeks for WWE | || Transvaginal US | || TSH, FSH | || Await lab results | |+ + +| RTC on annual exam | 2015-07-21 || SBE | || If 40 or greater, schedule 1-2 year MMG | || If 50 or greater, schedule colonoscpy or give Heme card. | || Await labs | |+ + +| Z Cameron | 2015-11-10 || Increased rest | || Fluids | || Humidify inspired air | || Discontinue tobacco products | || Hard candy or lozenges for scratchy throat | || Saline nose drops and bulb syringe for infants | || Avoid tobacco products and alcohol | || Teach patients that hand washing is the single most effective preventive | || measure | || Flonase 2 sprays each nostril every day for 7 days | || Bromfed DM 10 ml by mouth every 4 hours as needed for cough. No refills | || Appended: 2019-06-18 | || amoxicillin 875mg 1 tablet by mouth BID | || Bromfed DM 2-30-10mg/5 mL 10 ml by mouth Q6h every 6 hours as needed | || prescription and side effects verbally given | || Rest. Push fluids. Salt water gargle. Good hand washing | || Fever/pain control with OTC Tylenol or ibuprofen. | || Return for worsening symptoms like rising fever, severe throat pain or ear pain | |+ + +| Referral for Urologist - Dr. Dickson | 2015-12-07 || Urinalysis dipstick - unable to read results secondary to patient taking Azo | || Bactrim DS take by mouth twice a day for 10 days | || Drink extra water | || Good perineal hygiene | || Monitor urine for blood | || Call 911 or go to nearest emergency room if experience intense abdominal pain. | |+ + +| Discontinue sprintec | 2016-04-19 || Begin trivora one po QD | || Medication sent to pharmacy | || Verbal prescription and side effects given | || RTC 3 months if remains with irregular menses | |+ + +| Hydroxyzine 25 mg by mouth at night as needed for sleep | 2016-04-22 || Appended: 2020-02-13 | || [facility] | |+ + +| H Pylori ,CMP, | 2016-07-20 || Plenty of fluids , diet as tolerated | || Go to ER for uncontolled vomiting, diarrhea or pain | || Appended: 2017-07-24 | || Recommend Vitamin B6, brandon and gingerale for nausea | || Recommend hydration | || Recommend b land diet and advance as tolerated | || RTC if no improvement of symptoms in 48-72 hours | || To ER for worsening s/s | || Appended: 2017-11-24 | || promethazine 12.5 mg tablet | || Discussed medication purpose and side effects | || When there is continued vomiting, make certain dehydration does not occur. | || Consume enough extra fluids to restore what has been lost through throwing up. | || Eat a bland diet | || Avoid exposure to cigarette smoke or fumes. | || Wash hands often | || Return to clinic in 7 days if symptoms do not improve | |+ + +| OTC miralax daily . 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 sitz bath for anal pain | |+ + +| Triple therapy as prescribed . Med SE as per pharmacy | 2016-07-23 || small frequent meals , avoid spicy food , Have meals 2 hrs prior to go to bed | || RTC for failure to improve the symptoms in 2 weeks | || Plan for GI referral if symptom continues | || Appended: 2017-07-24 | || h. pylori- positive | || Omeprazole 20mg BID x14 days | || Clarithromycin 500mg BID x 14 days | || Amoxicillin 1gram BID x 14 days | |+ + +| CBC today. Ranitidine 150 mg twice daily x 30 days | 2016-07-29 || Referral to gastroenterology | || small frequent meals , avoid spicy food , Have meals 2 hrs prior to go to bed | || RTC as needed | |+ + +| stool for occult blood | 2016-07-29 || Plenty of fluids , diet as tolerated , eat more of green vegetables and fruits | || , high fiber content food | || avoid constipation . continue miralax stay active , plenty of fluids | || Go to ER for severe bleeding from the rectum , abdominal pain or vomiting | |+ + +| stool for occult blood | 2016-07-29 || Plenty of fluids , diet as tolerated , eat more of green vegetables and fruits | || , high fiber content food | || avoid constipation . continue miralax stay active , sitz bath | || Go to ER for severe bleeding from the rectum , abdominal pain or vomiting | |+ + +| Radiography of right shoulder | 2016-09-13 || Cyclobenzaprine 10 mg take 0.5 or 1 pill every 6 hours for pain | || Prednisone 10 mg by mouth daily | || Solumedrol injection 120 mg im x 1 dose | || Ibuprofen 800 mg every 8 hours as needed for pain | || Discussed medication purpose and side effects | || sleep on back | || Follow up in two weeks to evaluate treatment plan | || Full panel labs | |+ + +| discussed the nature of the following dx with patient as being overuse | 2017-02-08 || injuries. Patient given stretching exercises to do daily, heating pad prn, | || consider TPI if not improving, tylenol/ibuprofen prn pain | |+ + +| Arterial and venous doppler of right arm | 2017-02-09 |+ + +| Limit fat intake to no more than 20% to 35% of your total calorie intake. For a | 2017-02-19 || person following a 1,800-calorie diet, this means eating no more than 40 to 70 | || grams of fat each day. | || Choose complex carbohydrates, such as whole grains, vegetables, and fruits. | || About 45% to 65% of your total calorie intake should come from carbohydrate. | || For someone following a 1,800-calorie diet, this means eating about 200 to 300 | || grams of carbohydrate each day. | || Choose low-fat protein sources, such as fish, poultry, and legumes (for | || example, chavarria beans, lentils, and split peas). About 10% to 35% of your total | || calorie intake should come from protein. For someone following a 1,800-calorie | || diet, this means eating about 45 to 160 grams of protein each day. | || Get enough fiber each day. Men should aim for 38 grams a day, and women should | || aim for 25 grams a day. | || Have no more than 1 alcohol drink a day for women and 2 alcohol drinks a day | || for men. | |+ + +| UA | 2017-07-24 || Urine culture | || Await results | || RTC if no improvement in 48-72 hours | || To ER for worsening s/s | || Appended: 2019-07-01 | || Ketorlac 30 mg IM x 1 dose | || Transvaginal ultrasound | || Clinical treatment will be based on results. | || Follow up with clinic after ultrasound | || Follow up with Dr. Ignacio regarding recent IUD placement | || Appended: 2019-12-09 | || Refer for complete abdominal ultrasound | |+ + +| Referral to GI for chronic abdominal pain | 2017-11-24 || Follow up with GI | || CBC, CMP, A1c | || Treatment will be based on labs | |+ + +| Educated pt. to get the artificial nails removed | 2018-05-23 || mupirocin 2 % 1 application apply on the skin BID | || sulfamethoxazole-trimethoprim 800-160 mg 1 tablet by mouth BID | |+ + +| PAP with HPV | 2018-06-01 || STI today | || appropriate vaccines | || well-woman care visit includes screening, evaluation and counseling, and | || immunizations based on age and risk factors. | || PAP smear + HPV | || Pelvic exam | || vaccine up-todate | |+ + +| Hx of BTL | 2018-06-01 || Start TriNessa | || RTO in six months for follow-up | |+ + +| Immunizations given | 2018-06-01 |+ + +| Referral for pelvic ultrasound | 2018-06-01 || Appended: 2019-07-29 | || TV US | || send GC/chlam | || patient declined wet mount today, recommend if other testing is normal that she | || return for wet mount | |+ + +| Encouraged healthy diet, portion control, exercise, and weight management. | 2018-06-01 |+ + +| amoxicillin 875mg 1 tablet by mouth BID. | 2019-06-18 || prescription and side effects verbally given. | || take antibiotic food. | || RTO in 2 weeks to assess ear and edema of neck. pt reports maternal aunt and | || cousin have thyroid cancer. | || RTO sooner if symptoms worsen | |+ + +| Recommend healthy eating with foods from a variety of food groups. Encourage to | 2019-06-18 || eat more vegetables and appropriate portion sizes, and few sugary | || snacks/drinks/sodas. Recommend daily exercise for 20-30 minutes | || Limit fat intake to no more than 20% to 35% of your total calorie intake. For a | || person following a 1,800-calorie diet, this means eating no more than 40 to 70 | || grams of fat each day. | || Choose complex carbohydrates, such as whole grains, vegetables, and fruits. | || About 45% to 65% of your total calorie intake should come from carbohydrate. | || For someone following a 1,800-calorie diet, this means eating about 200 to 300 | || grams of carbohydrate each day. | || Choose low-fat protein sources, such as fish, poultry, and legumes (for | || example, chavarria beans, lentils, and split peas). About 10% to 35% of your total | || calorie intake should come from protein. For someone following a 1,800-calorie | || diet, this means eating about 45 to 160 grams of protein each day. | || Get enough fiber each day. Men should aim for 38 grams a day, and women should | || aim for 25 grams a day. | || Have no more than 1 alcohol drink a day for women and 2 alcohol drinks a day | || for men. | |+ + +| Rx OCPs x 2m | 2019-07-29 || order Mirena today | |+ + +| IUD insertion today, see procedure note | 2019-11-08 || UPT negative, urine sent for GC/Chlam | || RTO 2w for string check | |+ + +| Zyrtec 10mg 1 capsule by mouth DAILY | 2019-12-03 || Avoid exposure to cigarette smoke or fumes. | || Over the counter saline nasal spray can help "wash" offending | || particles away. | || Reduce flare-ups by identifying the allergens that affect you and avoiding | || exposure to them. Common allergens include trees, pollen, dust mites, animal | || fur, mold, and insects. | || Remove the offending allergen (for example: frequent vacuuming, dusting, change | || air conditioner filter frequently, washing bed sheets, and pet control). | || Discussed purpose and side effects of prescribed medications. | || Return to clinic if symptoms worsen over the next 7 days. | |+ + +| Recommend healthy eating with foods from a variety of food groups, appropriate | 2019-12-22 || portion sizes, and few sugary snacks/drinks. | || | || Well-rounded, whole foods diet focused on fresh vegetables and fruits, lean | || proteins. Avoid sugary drinks. Avoid fried, greasy foods. Portion control. | |+ + +| Participate in physical activities and exercise. | 2019-12-22 || 30 of moderate aerobic exercise 5 times a week. Increase your activity as | || tolerated. | |+ + +| Begin Nuvaring PV x 3 weeks as directed RF 11 | 2019-12-30 || Verbal prescription and side effects given | || Medication sent to pharmacy | || Return to clinic in 3 months as indicated if side effects | |+ + +| normal BMI | 2021-04-08 |+ + +| Discussed possible causes including Hyperthyroidism, fluid depletion, lack of | 2023-04-20 || energy, BPPV, and Cardiac related in setting of long standing Tachycardia | || Meclizine 25mg BID PRN Dizziness | || Medication usage and side effects discussed with patient | || EKG: Sinus tachycardia 107bpm | || Follow with cardiology: Appointment in 1 month already scheduled per patient | || Strongly encouraged on hydration and caloric intake in setting of underweight | || ENT referral | || RTO as needd | |+ + +| Can take Tylenol PRN for headaches | 2021-04-08 || Stay hydrated well | || limit sound and visual stimuli | |+ + +| microscopic UA | 2021-05-19 |+ + +| Urine dipstick | 2021-05-19 || Urine cx | || Macrobid 100 mg qd po x 5 days | || s/e of meds discussed with pt | |+ + +| starting augmentin 875mg bid for 7 days | 2021-08-02 || RTO in 1 week if sxs are not improving | |+ + +| fluconazole 200mg #2 | 2021-07-29 || Follow up PRN | || Discussed keeping area clean and dry | |+ + +| Patient underweight | 2023-04-20 || Discussed possible influence on dizziness due to lack of energy | || Discussed importance of full meals per day that are calorically dense | || Recommend eating small frequent meals. smoothies with fruits and vegetables at | || least once a day. | || May drink Ensure once a day | || RTO as needed | |+ + +| HIV pending | 2022-11-08 || all other labs pending | || high protein, high calories snack, snack between meals | |+ + +| lipid panel | 2022-11-08 || await results | || RTO based on lab results | || recommend increasing fiber like kale, spinach, spring mix | |+ + +| A1c | 2022-11-08 |+ + +| refer to neurologist | 2022-11-25 |+ + +| HIV pending | 2022-11-28 |+ + +| RPR and GC pending | 2022-11-28 |+ + +| hepatitis panel pending | 2022-11-28 |+ + +| PAP with HPV | 2022-11-28 |+ + +| Recommend healthy eating with foods from a variety of food groups. Encourage to | 2022-12-27 || eat more vegetables like kale, spinach, colorful vegetables and appropriate | || portion sizes, and few sugary snacks/drinks/sodas. | || Avoid high fructose corn syrup, drink at least 64 ounces of water a day. | |+ + +| Bactrim as Rx x 10 days | 2023-02-09 || Finish full course of antibiotics | || RTO if persists, discussed possible I&D | |+ + +| Plan #2 | 2023-02-09 |+ + +| Start Bactrim 800-160mg BID X 7 days | 2023-03-30 || MRSA decolonization: Bactroban 2% ointment, pea-sized amount to each nare BID. | || Hibiclens 4% wash daily X 5 days. | || Decolonization instruction printout provided. | || Warm compresses daily | || RTO for f/u on Monday (4 days). | || Keep appts for ID and dermatology. | || ER precautions given | |+ + +| Concerned about patient's elevated bp. | 2023-04-20 || patient clinically stable no neurological or cardiac symptoms ' | || Decrease caffeine intake | || Also concern with patient on OCP | || | || Discussed with the patient risk of elevated bp for acute and jail | || complications. | || Noted 3 elevated bps rhnd596/80 on 3 different occasions indicated a need to | || start medications with lifestyle modifications. | || Recommend keeping a log Goal is less 140/80 | || Recommend low salt diet, healthier choices and exercise. | || RTO in 1 month | |+ + +| increased Metoprolol to 50 mg daily | 2023-06-26 || ER precautions given | |+ + +| CT of head | 2023-06-26 || pt can take OTC tylenol for pain control | || ER precautions given | |+ + +| trazadone prescribed | 2023-06-26 || As otc modalities have not been effective | |+ + +82680-6 Plan of TreatmentLNCARE PLANTXTSFA|[id number]|2.16.840.1.1 44926.10.20.22.2.10AVAvailable for patient seylGvidpagKreliznqdGHLJt87 Section NarrativeNARRATIVEFormatted C-CDA narrative textSFAStpravin Beal [facility]2024-05-11T00:00:[address] [facility] 2023-12-18 16:30:00 2787-22-22K91:30:00 Images from the original note were not included.Venipuncture collection performed by clean technique on the right anticubitus. Total of 1 attempts were made. Slight pressure and a bandage/dressing were applied to the site(s). The patient experienced no complications. The following specimens were processed according to instructions and sent to [facility] per lab order on 12/18/2023:LT BLUESST 1REDLAV 2PPTDK GREEN (LiHep)DK GREEN (SodH)GRAYDK BLUE (K2)DK BLUE (S)ACDBlood CultureNIPT/NTD 98712-6Guutk WalzET7523-58-73Z42:36:16Nurse NoteTXT1.2.840.788141.1.13.104.2.7. 2.678329|[id number] for patient cofd20125-0Cxnxy NoteLNNARRATIVEFormatted C-CDA narrative text[id number] 7KRZQIQSCTFNULZCHIIYMMN1037-02-75U7 6:36:161.2.840.097702.1.72.3.15|1.2 .840.592099.1.13.104.2.7.2.727879_2 [id number] [facility] 2023-12-18 09:21:36 2410-92-85F30:21:36 m offering an earlier appointment at our [place] location. 47002-6Vpobkbeyx encounter GlwcDS0643-74-83W04:22:11Telephone encounter NoteTXT1.2.840.371588.1.13.104.2.7. 2.902211|[id number] for patient fkvy29619-7EvteWNUUJUYAJERWuekzhbfp C-CDA narrative [id number] Schultz[id number] 8GWOUMSHUVGCNMADQUGBCSN5121-86-20R3 9:22:111.2.840.664877.1.72.3.15|1.2 .840.222057.1.13.104.2.7.2.727879_2 [id number] Lisandro Armenta [facility] 2023-12-15 16:19:51 3182-99-74Z26:19:51 Not sure why I am receiving this. 85725-7Fotmmqttx encounter YhgjNZ7200-25-57T42:20:09Telephone encounter NoteTXT1.2.840.130366.1.13.104.2.7. 2.341561|[id number] for patient mzrx16742-1GsjvOIFODTLBNOOPydyjefob C-CDA narrative textIM-RHEUMATOLOGY STAFFIM-RHEUMATOLOGY [address] Johns [id number] 2LFNRYOEAANNZZEYWOQUFLN5254-28-88P8 6:20:091.2.840.787760.1.72.3.15|1.2 .840.561172.1.13.104.2.7.2.727879_2 [id number] IM-RHEUMATOLOGY STAFF [facility] 2023-12-15 14:39:16 7087-42-43D34:39:16 Attempted to call pt back 2x, please offer [facility] for earlier appointment date. 20806-0Pygytjqap encounter ZnmpAL2829-14-93I57:39:52Telephone encounter NoteTXT1.2.840.481531.1.13.104.2.7. 2.290991|[id number] for patient lrgy50193-8LdutUAZWGEFMSEPJiljrwliq C-CDA narrative woib106099962WkhsdtLisandro Armenta[address] StreetMfuiLnpfmkldcXefoxcpmpLJDW156538342 5FSGACKKLZPQIWJMAAGIFTE6986-30-82X8 4:39:521.2.840.690667.1.72.3.15|1.2 .840.871883.1.13.104.2.7.2.727879_2 [id number] Lisandro Armenta [facility] 2023-12-15 14:32:43 4562-88-63P17:32:43 Veronica Lino is a 38 year old femalePt is calling back to accept sooner appt. She missed a call. 76755-6Mezmaebvj encounter UlsoDB0550-19-21U98:33:50Telephone encounter NoteTXT1.2.840.270577.1.13.104.2.7. 2.627428|[id number] for patient sopv86749-3OgxaRTORVUKROYWPxhgfzxdi C-CDA narrative [id number] [address][id number] 8LSSBXGRVNVWAIGUZBSTRRT5069-23-05I5 4:33:501.2.840.537469.1.72.3.15|1.2 .840.007118.1.13.104.2.7.2.727879_2 [id number] Katy Keene [facility] 2023-08-30 15:51:54 7084-57-53R62:51:54 Please advise, Thank you 22973-7Gtxxbxotj encounter BoioLL1082-83-64L64:52:42Telephone encounter NoteTXT1.2.840.105733.1.13.104.2.7. 2.156142|[id number] for patient qgky95889-5JyunXMJSGWXDHEELzciblomk C-CDA narrative [id number] M [place] [address][id number] 4WPDGZNQGCGAHIWZCVMIBCG5070-70-46A0 5:52:421.2.840.220853.1.72.3.15|1.2 .840.732230.1.13.104.2.7.2.727879_1 [id number] Kinga Richards [employer] [facility] 2023-06-08 13:00:00 6540-03-94E55:00:00 Images from the original note were not included.Venipuncture collection performed by clean technique on the right anticubitus. Total of 1 attempts were made. Slight pressure and a bandage/dressing were applied to the site(s). The patient experienced no complications. The following specimens were processed according to instructions and sent to [facility] laboratories per lab order on 06/08/2023: LT BLUE 1 SST 1 RED LAV 1 PPT DK GREEN (LiHep) DK GREEN (SodH) DOMINGUEZ DK BLUE (K2) DK BLUE (S) ACD Blood Culture NIPT/NTD 65371-1Mgbtv UvbdEG4108-69-07R81:20:49Nurse NoteTXT1.2.840.898461.1.13.104.2.7. 2.511006|[id number] for patient qwta85712-4Qndwo NoteLNUT[address] QoehGc[id number] 1SOQBJXHASSWGAFBJQIHNBA8402-24-89T2 3:20:491.2.840.337420.1.72.3.15|1.2 .840.292316.1.13.104.2.7.2.727879_1 [id number] [facility] 2023-06-08 08:45:55 1621-77-32X73:45:55 [facility] EP LAB PRE-CALL INSTRUCTIONSEP Instructions were sent to patient via: Other - telephoneYour physician has determined that you need to undergo a(n) Tilt Test procedure.Listed below are some instructions for you to follow prior to the procedure.Do not eat or drink anything after midnight the night before the procedure, except for enough water to take your medications if so directed.Take all medications except do not take metformin (Glucophage) 2 days prior to the procedure and do not take insulin or furosemide (lasix) the day of the procedure. If you are on blood thinners special instructions will be given to you prior to the procedure.If you are allergic to iodine or shellfish, take pre-treatment medications as directed. Please call your referring physician for prescription.Bring a list of all current medications.Bring one adult family member or friend with you to drive you home, as you will be unable to drive for 48 hours after the procedure. Due to limited space and patient privacy, only one (1) visitor is permitted with the patient while they are recovering in the recovery area.No children under the age of 14 years will be allowed in recovery area.Please park in the Hospital Garage via [address] from either [address] or [address]. Bring your parking ticket with you to be validated, only one parking ticket may be validated per patient.There may be a possibility of hospital admission or late evening discharge; therefore, bring leisure reading and an overnight bag.On the day of your procedure, come directly to the Electrophysiology Lab medical reception specialist desk, located on the 6th floor of [facility] (1A- 5.056.) You will be escorted to the Cardiac Cath/EP recovery room.Please call the Electrophysiology Lab at if you have any questions regarding your procedure. Date of Procedure: 06/12/23 Time of Procedure: 1030Vendors Needed: Vendors Verified: Anesthesia Verified: Anesthesia Consent: Drug Allergies? NoLabs Verified? Note in Chart and any Important Info needed for the case: Instructions given to patient: yesPatient provided with preferred teaching of verbal information on 06/08/23. Shows readiness to learn. Verbal instruction teaching provided. Individual is able to read and verbalizes understanding of teaching provided. 83030-7Shect XeakBH5752-64-83L95:18:53Nurse NoteTXT1.2.840.638621.1.13.104.2.7. 2.803407|[id number] for patient xamy27567-2LevtLH117014266Lqpiycu G Dyer RNUT[id number] 7FHNRRVCDTNDICGRGJEOWMC3444-94-28G6 9:18:531.2.840.357978.1.72.3.15|1.2 .840.254676.1.13.104.2.7.2.727879_1 [id number] Jayleen Dumas RN [facility] 2023-05-04 16:31:12 7222-67-06W60:31:12 Rerouting for closure and completion 31311-6Lzrvwxcfz encounter SkbkIQ3294-70-03H75:31:22Telephone encounter NoteTXT1.2.840.073321.1.13.104.2.7. 2.782601|[id number] for patient lfaz34212-9TnczGC400433194Zkfzcmlk [id number] 0GZZFNUFJHUYJEQSPLBWAQH1636-20-68E1 6:31:221.2.840.587146.1.72.3.15|1.2 .840.403194.1.13.104.2.7.2.727879_1 [id number] [facility] 13:17:48 2384-90-60B78:17:48 Dr. Vasquez,Please advise on alternative to Chlorhexidine Gluconate 2 % Towel (pharmacy does not carry this product)The directions for chlorhexidine 0.12% mouthwash, not clear.There are different directions on the prescription . Please advise on which ones patient needs to be taking.Thank you 42806-1Xocrdlcjs encounter TyjfCJ5845-76-08G69:23:01Telephone encounter NoteTXT1.2.840.296919.1.13.104.2.7. 2.137172|[id number] for patient [id number] M Evans RN[address] [id number] 1HMOINFAWHTMWXXTJHYXPEP8298-32-91B5 3:23:011.2.840.057562.1.72.3.15|1.2 .840.331047.1.13.104.2.7.2.727879_1 [id number] Kinga Carballo RN [facility] 2023-04-26 10:03:10 5291-62-89T75:03:10 Pharmacy requesting clarification on the directions for chlorhexidine 0.12 % mouthwash. They're also stating that they do not carry Chlorhexidine Gluconate 2 % Towl. [id number] - [place], [place] - [address] [facility] & [address] [address] [place] [address]Devfx: 129.750.8615 23620-7Uoltegkqg encounter QvxyQJ4412-77-31J49:05:40Telephone encounter NoteTXT1.2.840.655745.1.13.104.2.7. 2.567601|[id number] for patient kpwl20070-9VgsuKAGOOIUNEJ[id number] 6NRAPXBBCJDKFCIPQCKPGFZ0202-23-60N8 0:05:401.2.840.382739.1.72.3.15|1.2 .840.491914.1.13.104.2.7.2.727879_1 [id number] [facility] 2023-04-26 08:05:57 5638-06-30H76:05:57 Images from the original note were not included.Refill approved per cardiology protocol:Cardiovascular: ?Beta Blockers Passed 04/26/2023 08:01 AM Protocol Details Valid encounter within last 12 months Heart rate within normal limits and completed in the last 12 months 32000-9Bzhgdqgcj encounter KfgaQQ6426-94-49P67:05:57Telephone encounter NoteTXT1.2.840.652777.1.13.104.2.7. 2.500323|[id number] for patient [id number] D Garcia [id number] 1BFNIKMFGPYSPJVYUZNWVUM5448-22-53O2 8:05:571.2.840.459946.1.72.3.15|1.2 .840.855006.1.13.104.2.7.2.727879_1 [id number] Marj Trejo [facility] 2023-04-26 08:00:00 8995-57-32X75:00:00 Addended by: BALDO CERVANTES MD on: 05/08/2023 11:55 AM Modules accepted: Level of Service 16224-2Bdngdoyb FudngbxpJP9057-11-39Q87:55:53Addend um DocumentTXT1.2.840.382891.1.13.104. 2.7.2.708191|[id number] for patient yjbj74844-3IzorXVCVAKCFLQ[id number] 0NPTLIJVFMVAEZJTZADZFPS8722-91-66F6 1:55:531.2.840.033756.1.72.3.15|1.2 .840.013836.1.13.104.2.7.2.727879_1 [id number] [facility]
[2024-03-13] MEDS ORDERED: NA CHLORIDE 0.9% 1,000 ML ONE (10:56)
[2024-03-13 11:00] LABS: Absolute Eosinophils 0.2 K/uL (0-0.5); Absolute Monocytes 0.6 K/uL (0.1-1.3); Eosinophils % 3.2 % (0-4.4); Hematocrit 36.2 % (36.0-45.0); Lymphocytes % 35.3 % (15.3-44.8); MCH 30.2 pg (27.0-35.0); MCHC 33.2 g/dL (32.0-36.0); MCV 91.1 fL (80-100); MPV 6.7 fL (7.6-11.3); Monocytes % 9.6 % (3.3-12.3); Neutrophils % 51.9 % (41.7-73.7); Platelets 359 thou/uL (152-406); RBC Red Blood Cell Count 3.98 M/uL (3.86-4.86); Red Cell Distribution Width 14.4 % (12.1-15.2)
--- NOTE | 2024-03-13 11:18 | RAD REPORT ---
EXAM DESCRIPTION: RAD - Chest Single View - 03/13/2024 11:06 am CLINICAL HISTORY: CHEST PAIN Chest pain. COMPARISON: Abdomen 1 View (KUB) dated 07/07/2019; CHEST SINGLE VIEW dated 01/05/2014 FINDINGS: Portable technique limits examination quality. The lungs are grossly clear. The heart is normal in size. No displaced fractures. IMPRESSION: No acute intrathoracic process suspected.
[2024-03-13 11:19] LABS: Anion Gap 6.5 mEq/L (5.0-15.0); BUN Blood Urea Nitrogen 20 mg/dL (7-18); Bicarbonate 27 mEq/L (21-32); Glomerular Filtration Rate 93 ml/min (=/>90); Glucose Level 101 mg/dL (74-106); Potassium 3.5 mEq/L (3.5-5.1); Sodium Level 134 mEq/L (136-145)
[2024-03-13 11:22] LABS: Troponin High Sensitivity < 3.0 pg/mL (<58.9)
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
[2024-03-13 12:41] VITALS: BP 136/81; TEMP 97.8; O2SAT 99
--- NOTE | 2024-03-18 15:12 | EKG ---
Test Date: 2024-03-13 Test Time: 11:26:36 Servomechanism Assembler: DOM MEASUREMENT RESULTS: Intervals: Rate: 112 ID: [id number] QRSD: 82 QT: 340 QTc: 464 [place]: P: 77 ID: [id number] QRS: 84 T: 75 INTERPRETIVE STATEMENTS: Sinus tachycardia Otherwise normal ECG Compared to ECG 02/16/2024 21:33:02 No significant changes Electronically Signed On 03-18-24 14:57:20 CDT by Davin Henning
== END 2024-03-13 12:14 | disposition home or self-care (01) ==
LOC: ER 10:35
DX: R07.9 Chest pain, unspecified (principal); R42 Dizziness and giddiness; V47.5XXA Car driver injured in collision with fixed or stationary object in traffic accident, initial encounter
CPT/HCPCS: 93005; 85025; 80048; 36415; 83735; 84484; 71045; 96360; 99284; J7030

== ENCOUNTER 2024-03-18 17:45 | Emergency (ER) | payer OTHER ==
--- OUTSIDE RECORDS SUMMARY | 2024-03-18 18:03 | XMS REPORT | Continuity of Care Document ---
Author Name Unknown Address [address] [facility]. [address] [facility] Address [address] [facility]. [address] [place] [address] Care Team Providers Care Workers Compensation Coordinator Name Role Phone Neva Craig PA-C Primary Care Physician [phone] MACKENZIE DAVIS Attending Clinician Unavailab CONOR Polk Attending Clinician Unavailable CONOR DIXON Attending Clinician Unavailable Mica Grayson Attending Clinician MICA DUNCAN Attending Clinician Unavailable [facility] Attending Clinician Unavailable Erin Montesinos MD Attending Clinician ERIN MONTESINSO Attending Clinician Antonia vailable Mackenzie Davis DO Attending Clinician [phone] HUNTER YUEN Attending Clinician Unavailable ROE MCGARRY Attending Clinician UnavailROE Hill Attending Clinician UnavailRoe Hill MD Attending Clinician [phone] NIKKI BRUNNER Attending Clinician Unav ailNIKKI Yost Attending Clinician Unav ailable Doctor Unassigned, [place] Attending Clinician U britt JACQUELINE BAINS Attending Clinician Unavailable Jacqueline Rock Attending Clinician [phone] Pob, [facility] Attending Clinician UnavailNIRMALA Zarco Attending Clinician UnavailNIRMALA Zarco Attending Clinician Unavailjavid Webb MD, [facility] Attending Clinic radha Conor Dixon MD Attending Clinician [phone] AUGUSTIN OTERO Attending Clinician Unavailjavid weiner RADIOLOGY Attending Clinician Unavailable POP GALINDO Attending Clinician Unavail able JUAREZ BENNETT Attending Clinician Unavailable WILFRIDO KENT Attending Clinician Unavailab radames VAZQUEZ, Bashir Attending Clinician [phone] Baldo Cervantes MD Attending Clinician [phone] BALDO CERVANTES Attending Clinician Unavailable Parvin Longo MD Attending Clinician [phone] Gabriella Weaver MD Attending Clinician [phone] Augustin Otero MD Attending Clinician [phone] PARVIN LONGO Attending Clinician Unavailable [facility] Attending Clinician Unavailable ISIDRA BALES Attending Clinician Unavailable AMY VALDEZ Attending Clinician Unavailab Amy Alicia DO Attending Clinician [phone] DOTTIE ANDUJAR Attending Clinician Unavailable Dottie Andujar MD Attending Clinician [phone] Isidra Neville Attending Clinician [phone] Lab, Ang - Db Attending Clinician Unavailable MOHSEN PAULINO Attending Clinician Unavail able MOHSEN PAULINO Attending Clinician Unavail able Mohsen Paulino MD Attending Clinician [phone] JIHAN BAINS Attending Clinician Unavailable Jihan Bains MD Attending Clinician [phone] CARMELO PEREZ Attending Clinician Unavailable LOUIE PADRON Attending Clinician Unavailable ROE MCGARRY Admitting Clinician Roe Pascal MD Admitting Clinician NIKKI BRUNNER Admitting Clinician Unav wichoable DOTTIE ANDUJAR Admitting Clinician Unavailable ROE MCGARRY Admitting Clinician Melissa weiner Payers Payer Name Policy Type Policy Number Effective Date Expirati on Date Source [facility] [id number] 2015 00:00:00 Problems Condition Name Condition Details Condition Category Status Onset Date Resolution Date Last Treatment Date Treating Clinician Comments Source Carpal tunnel syndrome of left wrist Carpal tunnel syndrome of left wrist Disease Active 2022-10 1- 00:00: 00 [facility] Pre-op testing Pre-op testing Disease Active 2022-10 110 00:00: 00 [facility] Chronic interstiti al cystitis Chronic interstiti al cystitis Disease Active 2022-10 0-16 00:00: 00 [facility] Syncope and collapse Syncope and collapse Disease Active 8-24 00:00: 00 [facility] Dizziness Dizziness Disease Active 3-21 00:00: 00 [facility] Weight loss Weight loss Disease Active 3-21 00:00: 00 [facility] Encounter to establish care Encounter to establish care Disease Active 3-21 00:00: 00 [facility] Sinus tachycardi a Sinus tachycardi a Disease Active 3-21 00:00: 00 [facility] Abnormal EKG Abnormal EKG Disease Active 3-21 00:00: 00 [facility] No known active problems No known active problems Disease [facility] Allergies, Adverse Reactions, Alerts Allergy Name Allergy Type Status Severity Reaction(s) Onset Date Inactive Date Treating Clinician Comments Source NO KNOWN ALLERGIE S Drug Class Active [facility] Social History Social Habit Start Date Stop Date Quantity Comments Source Gender [facility] intake 2023-12-18 00:00:00 2023-12-18 00:00:00 Current non-drinker of alcohol (finding) [facility] Alcoholic beverage intake 2023-12-18 00:00:00 2023-12-18 00:00:00 Current non-drinker of alcohol (finding) [facility] History of Social function 2023-08-28 00:00:00 2023-08-28 00:00:00 [facility] Exposure to SARS-CoV-2 (event) 2023-03-25 00:00:00 2023-04-04 10:33:00 Not sure [facility] History SDOH Alcohol Frequency 2023-01-28 00:00:00 2023-01-28 00:00:00 2 [facility] History SDOH Alcohol Std Drinks 2023-01-28 00:00:00 2023-01-28 00:00:00 1 [facility] History SDOH Alcohol Binge 2023-01-28 00:00:00 2023-01-28 00:00:00 1 [facility] History SDOH Social Connections Phone 2023-01-28 00:00:00 2023-01-28 00:00:00 5 [facility] History SDOH Social Connections Get Together 2023-01-28 00:00:00 2023-01-28 00:00:00 3 [facility] History SDOH Social Connections Gnosticist 2023-01-28 00:00:00 2023-01-28 00:00:00 2 [facility] SDOH Social Connections Membership 2023-01-28 00:00:00 2023-01-28 00:00:00 2 [facility] History SDOH Social Connections Meetings 2023-01-28 00:00:00 2023-01-28 00:00:00 2 [facility] History SDOH Social Connections Living 2023-01-28 00:00:00 2023-01-28 00:00:00 3 [facility] History SDOH Physical Activity DPW 2023-01-28 00:00:00 2023-01-28 00:00:00 4 [facility] History SDOH Physical Activity MPS 2023-01-28 00:00:00 2023-01-28 00:00:00 10 [facility] History SDOH Stress 2023-01-28 00:00:00 2023-01-28 00:00:00 3 [facility] History SDOH Food Worry 2023-01-28 00:00:00 2023-01-28 00:00:00 1 [facility] History SDOH Food Scarcity 2023-01-28 00:00:00 2023-01-28 00:00:00 2 [facility] History SDOH Transport Med 2023-01-28 00:00:00 2023-01-28 00:00:00 2 [facility] History SDOH Transport Non-Med 2023-01-28 00:00:00 2023-01-28 00:00:00 2 [facility] History SDOH Housing Unable to Pay 2023-01-28 00:00:00 2023-01-28 00:00:00 2 [facility] History SDOH Housing Places Lived 2023-01-28 00:00:00 2023-01-28 00:00:00 1 [facility] History SDOH Housing Homeless Last Year 2023-01-28 00:00:00 2023-01-28 00:00:00 2 [facility] Tobacco use and exposure 2022-06-29 00:00:00 2022-06-29 00:00:00 Smokeless tobacco non-user [facility] Sex assigned at 1985 00:00:00 1985 00:00:00 [facility] Smoking Status Start Date Stop Date Source Never smoked tobacco [facility] Medications Ordered Medication Name Filled Medication Name [...] 3 tablets by mouth in the morning. [facility] iron bis-gly/FA/ C/B12/Ca/richardson cc (IRON 21/7 ORAL) 12-17 16:06: 28 Yes 1{tbl} Take 1 tablet by mouth in the morning. [facility] TAKE 1 TABLET BY MOUTH IN THE MORNING AND IN THE EVENING 12-17 00:00: 00 Yes Britton Fry MUPIROCIN 2 % OINT 12-17 00:00: 00 Yes Britton Fry mupirocin 2 % ointment 12-17 00:00: 00 Yes [id number] Apply to area(s) 3 (three) times daily. [facility] sulfamethox azole-trime thoprim (BACTRIM) 400-80 mg per tablet 12-17 00:00: 00 Yes [id number] 1{tbl} Take 1 tablet by mouth in the morning and 1 tablet in the evening. [facility] TAKE 1 TABLET BY MOUTH TWICE DAILY 11-21 00:00: 00 Yes Britton Fry DISSOLVE 1 FILM UNDER THE TONGUE TWICE DAILY FOR 28 DAYS. 11-21 00:00: 00 Yes 8 Britton Fry QUEtiapine 25 mg tablet 10-23 00:00: 00 Yes [id number] 50mg Take 2 tablets by mouth in the morning. NEEDS APPT FOR FUTURE REFILLS [facility] METOPROLOL SUCCINATE ER 50 MG TB24 10-04 00:00: 00 Yes Britton Fry DISSOLVE 1 FILM UNDER THE TONGUE TWICE DAILY. 2022-10 00:00: 00 Yes Britton Fry TAKE 1 TABLET BY MOUTH IN THE MORNING AND IN THE EVENING WITH MEALS 2022-10 00:00: 00 Yes Britton Fry diclofenac 75 mg EC tablet 2022-10 00:00: 00 Yes [id number] 75mg Take 1 tablet by mouth in the morning and 1 tablet in the evening. Take with meals. [facility] lactated ringers IV infusion 1,000 mL 2022-10 19:45: 00 Yes 1000mL at 75 mL/hr, 1,000 mL, IV Infusion, CONTINUOUS , Starting on Mon08/28/23 at 1345, Until Discontinu ed, Routine, PACU [facility] proMETHazin e (PHENERGAN) 12.5 mg in NS 50 mL IV piggyback (CNR) 2022-10 19:32: 33 Yes 12.5mg 12.5 mg, IV Piggyback, at 200 mL/hr Administer over 15 Minutes, PRN, 1 dose, Starting on Mon08/28/23 at 1332, Until Discontinu ed, Routine, Nausea and Vomiting (N/V), PACU [facility] meperidine (DEMEROL) injection 12.5 mg 2022-10 19:32: 33 Yes 12.5mg 12.5 mg, Slow IV Push, PRN, 1 dose, Starting on Mon08/28/23 at 1332, Until Discontinu ed, Routine, Shivering, PACU
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
Us e approved by (Faculty): PACU USE -ANESTHESI A SERVICE-HY DROMORPHON E INJECTIONS [facility] FENTanyl PF (SUBLIMAZE (PF)) injection 25 mcg 2022-10 19:32: 33 Yes 25ug 25 mcg, Slow IV Push, Q5MIN PRN, 4 doses, Starting on Mon08/28/23 at 1332, Until Discontinu ed, Routine, Pain (scale 4-6), PACU [facility] acetaminoph en-codeine (TYLENOL #3) 300-30 mg tablet 1 tablet 2022-10 19:32: 33 08-28 20:07 :00 No 1{tbl} 1 tablet, Oral, PRN, 1 dose, Starting on Mon08/28/23 at 1332, Until Discontinu ed, Routine, Pain (scale 1-3), PACU [facility] bupivacaine (preserv free) (SENSORCAIN E MPF) 0.25 % (2.5 mg/mL) injection 2022-10 19:14: 00 Yes PRN, Starting on Mon08/28/23 at 1314, Until Discontinu ed, Routine, Intra-op [facility] lactated ringers IV infusion 1,000 mL 2022-10 17:00: 00 08-28 17:29 :00 No 1000mL at 42 mL/hr, 1,000 mL, IV Infusion, ONCE, 1 dose, On Mon08/28/23 at 1100, Routine, DSU Pre-op [facility] cetirizine 10 mg tablet 2022-10 15:02: 49 Yes 10mg Take 1 tablet by mouth. [facility] multivit with calcium,iro n,min (WOMEN'S DAILY MULTIVITAMI N ORAL) 2022-10 15:02: 49 Yes 1{tbl} Take 1 tablet by mouth in the morning. [facility] Cholecalcif alisha, Vitamin D3, (VITAMIN D3) 50 mcg (2,000 unit) tablet 2022-10 15:02: 49 Yes 2000U Take 1 tablet by mouth in the morning. [facility] NON-FORMULA RY MEDICATION 2022-10 15:02: 49 Yes 60mg Take 60 mg by mouth in the morning. Tumeric [facility] calcium carbonate (CALCIUM 500 ORAL) 2022-10 15:02: 49 Yes 3{tbl} Take 3 tablets by mouth in the morning. [facility] fluticasone propionate 50 mcg/actuati on nasal spray 2022-10 15:02: 49 Yes [facility] TAKE 1 TABLET BY MOUTH EVERY 6 [...] to 7 days. Indication s: acute pain [facility] TAKE 1/2 TO 1 TABLET BY MOUTH EVERY NIGHT NEEDED FOR INSOMNIA 2022-10 00:00: 00 Yes Britton Fry iron bis-gly/FA/ C/B12/Ca/richardson cc (IRON 21/7 ORAL) 2022-10 10:25: 06 Yes 1{tbl} Take 1 tablet by mouth in the morning. [facility] iron bis-gly/FA/ C/B12/Ca/richardson cc (IRON 21/7 ORAL) 2022-10 10:22: 55 Yes 1{tbl} Take 1 tablet by mouth in the morning. [facility] Cholecalcif alisha, Vitamin D3, (VITAMIN D3) 50 mcg (2,000 unit) tablet 2022-10 10:22: 55 Yes 2000U Take 1 tablet by mouth in the morning. [facility] NON-FORMULA RY MEDICATION 2022-10 10:22: 55 Yes 60mg Take 60 mg by mouth in the morning. Tumeric [facility] calcium carbonate (CALCIUM 500 ORAL) 2022-10 10:22: 55 Yes 3{tbl} Take 3 tablets by mouth in the morning. [facility] cetirizine 10 mg tablet 2022-10 10:20: 29 Yes 10mg Take 1 tablet by mouth. [facility] SULFAMETHOX AZOLE/TRIME THOPRIM DS 800-160 MG TABS 2022-10 00:00: 00 Yes Britton Fry sulfamethox azole-trime thoprim (BACTRIM DS) 800-160 mg per tablet 2022-10 00:00: 00 08-12 05:59 :00 No [id number] 1{tbl} Take 1 tablet by mouth in the morning and 1 tablet in the evening. Do all this for 10 days. [facility] Chlorhexidi ne Gluconate 2 % Towl 2022-10 0 00:00: 00 08-07 05:59 :00 No [id number] Apply to area(s) daily for 5 days. [facility] pantoprazol e 40 mg EC tablet 2022-10 030 00:00: 00 Yes [facility] buPROPion SR 150 mg SR tablet 2022-10 00:00: 00 Yes 150mg Take 1 tablet by mouth in the morning. [facility] SUBOXONE 8-2 MG FILM 2022-10 0 00:00: 00 Yes Britton Fry TAKE 1 TABLET BY MOUTH EVERY DAY 2022-10 0 00:00: 00 Yes Britton Fry FLUoxetine 40 mg capsule 2022-10 016 16:11: 44 07-17 00:00 :00 No [facility] cetirizine 10 mg tablet 2022-10 016 16:03: 07 Yes 10mg Take 1 tablet by mouth. [facility] metoprolol succinate XL 25 mg 24 hr tablet 2022-10 016 00:00: 00 Yes [id number] 50mg Take 2 tablets by mouth in the morning. [facility] SWISH AND SPIT 15ML BY MOUTH EVERY MORNING AND EVERY EVENING TWICE DAILY 2022-10 016 00:00: 00 Yes Britton Nikhil Fry QUETIAPINE FUMARATE 25 MG TABS 2022-10 016 00:00: 00 Yes Britton Fry QUEtiapine (SEROQUEL) 25 mg tablet 2022-10 016 00:00: 00 10-23 00:00 :00 No [id number] 50mg Take 2 tablets by mouth in the morning. Start with 1 pill every day for 2 weeks then increase to 2 pills daily [facility] chlorhexidi ne 0.12 % mouthwash 2022-10 016 00:00: 00 08-14 00:00 :00 No [id number] 15mL Swish and spit out 15 mL in the morning and 15 mL in the evening. Twice daily x 5 days twice a month x 6 months [facility] Chlorhexidi ne Gluconate 2 % Towl 2022-10 00:00: 00 08-14 00:00 :00 No [id number] Apply to area(s) daily. Once daily x 5 days twice a month x 6 months [facility] TAKE 1 TABLET ONCE DAILY. 06-26 00:00: [...] 1 tablet by mouth in the morning. [facility] PANTOPRAZOL E SODIUM 40 MG TBEC 06-12 00:00: 00 Yes Britton Fry meclizine 25 mg tablet 05-30 00:00: 00 Yes CHEW AND SWALLOW 1 TABLET BY MOUTH EVERY 6 HOURS NEEDED FOR DIZZINESS [facility] TAKE 1 TABLET BY MOUTH EVERY 8 HOURS NEEDED 05-26 00:00: 00 Yes Britton Fry mupirocin 2 % ointment 05-15 00:00: 00 Yes [id number] Apply to nares twice daily for 5 days; repeat monthly for 3 months. [facility] TAKE 1 CAPSULE BY MOUTH IN THE MORNING 05-15 00:00: 00 Yes Britton Fry doxycycline monohydrate 100 mg capsule 05-15 00:00: 00 07-17 00:00 :00 No [id number] 100mg Take 1 capsule by mouth in the morning. [facility] AMOXICILLIN /CLAVULANAT E POTASSIUM 875-125 MG TABS 8-05 00:00: 00 Yes Britton Fry doxycycline monohydrate 100 mg capsule 04-26 00:00: 00 Yes [id number] 100mg Take 1 capsule by mouth in the morning and 1 capsule in the evening. [facility] TAKE 1 TABLET BY MOUTH IN THE MORNING 04-26 00:00: 00 Yes Britton Fry metoprolol succinate XL 25 mg 24 hr tablet 04-26 00:00: 00 07-17 00:00 :00 No [id number] 25mg Take 1 tablet by mouth in the morning. [facility] chlorhexidi ne 0.12 % mouthwash 04-26 00:00: 00 07-17 00:00 :00 No [id number] 15mL Swish and spit out 15 mL in the morning and 15 mL in the evening. Do all this for 120 days. Twice daily x 5 days twice a month x 6 months [facility] Chlorhexidi ne Gluconate 2 % Towl 04-26 00:00: 00 07-17 00:00 :00 No [id number] Apply to area(s) daily for 120 days. Once daily x 5 days twice a month x 6 months [facility] CHEW AND SWALLOW 1 TAB PO Q 6 HRS PRN DIZZINESS 04-20 00:00: 00 02-13 00:00 :00 No 25 Britton Fry SULFAMETHOX AZOLE/TRIME THOPRIM DS 800-160 MG TABS 04-13 00:00: 00 02-13 00:00 :00 No Britton Fry sulfamethox azole-trime thoprim (BACTRIM DS) 800-160 mg per tablet 04-13 00:00: 00 07-17 00:00 :00 No [id number] 1{tbl} Take 1 tablet by mouth in the morning and 1 tablet in the evening. [facility] TAKE 1 CAPSULE BY MOUTH IN THE MORNING AND IN THE EVENING 04-10 00:00: 00 02-13 00:00 :00 No Britton Nikhil Fry MUPIROCIN 2 % OINT 04-10 00:00: 00 02-13 00:00 :00 No Britton Nikhil Fry doxycycline monohydrate 100 mg capsule 04-10 00:00: 00 04-26 00:00 :00 No [id number] 100mg Take 1 capsule by mouth in the morning and 1 capsule in the evening. [facility] DOXYCYCLINE HYC 100MG 04-01 00:00: 00 Yes Britton Fry APPLY SOLUTION WITH CLEAN WASHCLOTH TO ALL SKIN FROM THE NECK DOWN IN THE SHOWER DAILY FOR 5 DAYS. RINSE WELL AFTER EACH APPLICATION . 03-30 00:00: 00 02-13 00:00 :00 No 4 Britton Nikhil Fry TAKE 1 TABLET TWICE DAILY UNTIL FINISHED. 03-30 00:00: 00 02-13 00:00 :00 No [id number] Britton Nikhil Fry APPLY PEA-SIZED AMOUNT OF [...] 02-21 00:00: 00 04-26 00:00 :00 No [id number] 25mg Take 1 tablet by mouth in the morning. [facility] doxycycline hyclate (Vibramycin ) capsule 100 mg 17 01:00: 00 02-14 21:51 :42 No [id number] 100mg [facility] Zinc 50 mg Tab 02-14 00:00: 00 Yes [id number] 50mg Take 50 mg by mouth in the morning. [facility] Zinc 50 mg Tab 02-14 00:00: 00 Yes [id number] 50mg Take 50 mg by mouth in the morning. [facility] doxycycline hyclate 100 mg capsule 02-14 00:00: 00 03-14 00:00 :00 No [id number] 100mg Take 1 capsule by mouth every 12 (twelve) hours. [facility] TAKE 1 TABLET TWICE DAILY UNTIL FINISHED. 02-09 00:00: 00 02-13 00:00 :00 No [id number] Britton Fry norethindro ne-ethinyl estradiol 1-5 mg-mcg tablet 01-30 08:26: 47 01-30 00:00 :00 No 1{tbl} Take 1 tablet by mouth in the morning. [facility] TAKE 1/2 TABLET BY MOUTH AT BEDTIME 01-30 00:00: 00 Yes Britton Fry CLINDAMYCIN HYDROCHLORI DE 300 MG 01-30 00:00: 00 02-13 00:00 :00 No Britton Fry QUEtiapine (SEROQUEL) 50 mg tablet 01-30 00:00: 00 03-14 00:00 :00 No [id number] 25mg Take 0.5 tablets by mouth at bedtime. [facility] pantoprazol e 40 mg EC tablet 01-30 00:00: 00 03-14 00:00 :00 No [id number] 40mg Take 1 tablet by mouth in the morning. Take 30 minutes before food or coffee or any other medication s [facility] clindamycin 300 mg capsule 01-30 00:00: 00 02-14 00:00 :00 No [id number] 300mg Take 1 capsule by mouth 4 (four) times daily. [facility] TAKE 1 CAPSULE BY MOUTH FOUR TIMES DAILY FOR 7 DAYS 01-05 00:00: 00 02-13 00:00 :00 No Britton Fry clindamycin 300 mg capsule 01-05 00:00: 00 01-13 04:59 :00 No [id number] 300mg Take 1 capsule by mouth 4 (four) times daily for 7 days. [facility] NaCl 0.9% (NS) bolus infusion 1,000 mL 01-04 04:00: 00 01-04 04:05 :00 No 1000mL at 999 mL/hr, 1,000 mL, IV Infusion, ONCE, 1 dose, On Mon01/03/23 at 2300, STAT [facility] cefTRIAXone (ROCEPHIN) 1,000 mg in NaCl 0.9% (NS) 100 mL MINI-BAG 01-04 03:00: 00 01-04 03:41 :00 No 1000mg 1,000 mg, IV Piggyback, ONCE, 1 dose, On Mon01/03/23 at 2200, Administer over 30 Minutes, 100 mL
Reas on for Anti-Infec tive: Documented Infection< br>Documen bernice Infection Site: Urine
D uration of Therapy: Other (see Comments) [facility] CEPHALEXIN 500 MG 01-03 00:00: 00 02-13 00:00 :00 Sinai Fry ONDANSETRON ODT 4 MG TBDP 01-03 00:00: 00 02-13 00:00 :00 Sinai Fry ondansetron 4 mg disintegrat ing tablet 01-03 00:00: 00 01-30 00:00 :00 No [id number] 4mg Take 1 tablet by mouth every 4 (four) hours as needed for Nausea and Vomiting (N/V). [facility] docusate sodium 250 mg capsule 01-03 00:00: 00 01-30 00:00 :00 No [id number] 250mg Take 1 capsule by mouth in the morning. [facility] cephALEXin 500 mg capsule 01-03 00:00: 00 01-05 00:00 :00 No [id number] 500mg Take 1 capsule by mouth in the morning and 1 capsule in the evening. [facility] polyethylen e glycol 3350 (MIRALAX) 17 gram powder 01-03 00:00: 00 01-05 00:00 :00 No [id number] 1{packe t} Take 1 Packet by mouth every 24 (twenty-fo ur) hours as needed for Constipati on. [facility] TAKE 1 TABLET BY MOUTH AT BEDTIME 01-02 00:00: 00 02-13 00:00 :00 No 15 Britton Fry APPLY THIN LAYER TOPICALLY TO THE AFFECTED AREA TWICE DAILY FOR 7 DAYS 12-27 00:00: 00 02-13 00:00 :00 Sinai Fry norethindro ne-ethinyl estradiol 1-5 mg-mcg tablet 12-20 13:12: 15 Yes 1{tbl} Take 1 tablet by mouth in the morning. [facility] SUBOXONE 8-2 MG FILM 12-19 00:00: 00 02-13 00:00 :00 Sinai Fry HYDROCORTIS ONE 2.5 % CREA 12-15 00:00: 00 02-13 00:00 :00 Sinai Fry PANTOPRAZOL E SODIUM 40 MG TBEC [...] Take 1 tablet by mouth at bedtime. [facility] MUPIROCIN 2 % OINT - 00:00: 00 02-13 00:00 :00 Sinai Fry DOXYCYCLINE HYCLATE 100 MG - 00:00: 00 02-13 00:00 :00 Sinai Fry mupirocin 2 % ointment 12-01 00:00: 00 01-30 00:00 :00 No [id number] Apply to area(s) 3 (three) times daily. [facility] doxycycline hyclate 100 mg capsule 12-01 00:00: 00 01-05 00:00 :00 No [id number] 100mg Take 1 capsule by mouth in the morning and 1 capsule in the evening. [facility] DISSOLVE 1 FILM UNDER THE TONGUE TWICE [...] 06-29 21:30: 00 06-29 20:17 :00 No [id number] 40mg [facility] SUBOXONE 8-2 MG FILM 06-29 00:00: 00 [...] 1{tbl} Take 1 tablet by mouth daily. [facility] promethazin e 12.5 mg tablet 11-24 00:00: [...] 4-6 hours as needed for severe pain [facility] proMETHazin e 25 mg tablet 06-08 00:00: 00 01-05 00:00 :00 No 25mg Take 1 tablet by mouth every 6 (six) hours as needed for N/V unresponsi ve to Ondansetro n. [facility] diclofenac 3 % gel 05-19 00:00: 00 01-30 00:00 :00 No Apply 2-3 grams TO affected area THREE TIMES DAILY max EIGHT grams/day [facility] SUBOXONE 8-2 mg sublingual film 03-14 00:00: 00 Yes [facility] prednisone 10 mg tablet 02-09 00:00: 00 Yes mg Britton Fry gabapentin 100 mg capsule 02-09 00:00: 00 Yes 1mg Britton Fry cyclobenzap rine 5 mg tablet 02-06 00:00: 00 Yes 1mg Britton Fry nystatin 100,000 unit/gram ointment 01-19 00:00: 00 01-05 00:00 :00 No APPLY TO THE AFFECTED AREA BID FOR 10 DAYS [facility] prednisone 10 mg tablet 2015-10 00:00: 00 [...] mg capsule 01-08 00:00: 00 Yes 3mg Brtiton Fry NuvaRing 0.12 mg -0.015 mg/24 hr vaginal 10-28 00:00: 00 Yes 1mg/24 hr Britton Fry Prozac 10 mg capsule 10-28 00:00: 00 Yes 1mg Britton Fry Vistaril 50 mg capsule 10-28 00:00: 00 Yes mg Britton Fry Immunizations Ordered Immunization Name Filled Immunization Name Date Status Comments Source SARS-COV-2 COVID-19 PFIZER VACCINE 2021-08-21 00:00:00 Completed [facility] SARS-COV-2 COVID-19 PFIZER VACCINE 2021-08-21 00:00:00 [facility] [facility] SARS-COV-2 COVID-19 PFIZER VACCINE 2021-08-21 00:00:00 Completed [facility] SARS-COV-2 COVID-19 PFIZER VACCINE 2021-08-21 00:00:00 Completed [facility] SARS-COV-2 COVID-19 PFIZER VACCINE 2021-08-21 00:00:00 Completed [facility] SARS-COV-2 COVID-19 PFIZER VACCINE 2021-08-21 00:00:00 Completed [facility] SARS-COV-2 COVID-19 PFIZER VACCINE 2021-08-21 00:00:00 Completed [facility] SARS-COV-2 COVID-19 PFIZER VACCINE 2021-08-21 00:00:00 Completed [facility] SARS-COV-2 COVID-19 PFIZER VACCINE 2021-08-21 00:00:00 Completed [facility] SARS-COV-2 COVID-19 PFIZER VACCINE 2021-08-21 00:00:00 Completed [facility] SARS-COV-2 COVID-19 PFIZER VACCINE 2021-08-21 00:00:00 Completed [facility] SARS-COV-2 COVID-19 PFIZER VACCINE 2021-08-21 00:00:00 Completed [facility] SARS-COV-2 COVID-19 PFIZER VACCINE 2021-08-21 00:00:00 Completed [facility] SARS-COV-2 COVID-19 PFIZER VACCINE 2021-08-21 00:00:00 Completed [facility] SARS-COV-2 COVID-19 PFIZER VACCINE 2021-08-21 00:00:00 Completed [facility] SARS-COV-2 COVID-19 PFIZER VACCINE 2021-08-21 00:00:00 Completed [facility] SARS-COV-2 COVID-19 PFIZER VACCINE 2021-08-21 00:00:00 Completed [facility] SARS-COV-2 COVID-19 PFIZER VACCINE 2021-08-21 00:00:00 Completed [facility] SARS-COV-2 COVID-19 PFIZER VACCINE 2021-08-21 00:00:00 Completed [facility] SARS-COV-2 COVID-19 PFIZER VACCINE 2021-08-21 00:00:00 Completed [facility] SARS-COV-2 COVID-19 PFIZER VACCINE 2021-08-21 00:00:00 Completed [facility] SARS-COV-2 COVID-19 PFIZER VACCINE 2021-08-21 00:00:00 Completed [facility] SARS-COV-2 COVID-19 PFIZER VACCINE 2021-08-21 00:00:00 Completed [facility] SARS-COV-2 COVID-19 PFIZER VACCINE 2021-08-21 00:00:00 Completed [facility] SARS-COV-2 COVID-19 PFIZER VACCINE 2021-08-21 00:00:00 Completed [facility] SARS-COV-2 COVID-19 PFIZER VACCINE 2021-08-21 00:00:00 Completed [facility] SARS-COV-2 COVID-19 PFIZER VACCINE 2021-08-21 00:00:00 Completed [facility] SARS-COV-2 COVID-19 PFIZER VACCINE 2021-08-21 00:00:00 Completed [facility] SARS-COV-2 COVID-19 PFIZER VACCINE 2021-08-21 00:00:00 Completed [facility] [place] SARS-COV-2 COVID-19 PFIZER VACCINE 2021-08-21 00:00:00 Completed [facility] SARS-COV-2 COVID-19 PFIZER VACCINE 2021-08-21 00:00:00 Completed [facility] SARS-COV-2 COVID-19 PFIZER VACCINE 2021-08-21 00:00:00 Completed [facility] SARS-COV-2 COVID-19 PFIZER VACCINE 2021-08-21 00:00:00 Completed [facility] SARS-COV-2 COVID-19 PFIZER VACCINE 2021-08-21 00:00:00 Completed [facility] SARS-COV-2 COVID-19 PFIZER VACCINE 2021-08-21 00:00:00 Completed [facility] SARS-COV-2 COVID-19 PFIZER VACCINE 2021-08-21 00:00:00 Completed [facility] SARS-COV-2 COVID-19 PFIZER VACCINE 2021-08-21 00:00:00 Completed [facility] SARS-COV-2 COVID-19 PFIZER VACCINE 2021-08-21 00:00:00 Completed [facility] [place] SARS-COV-2 COVID-19 PFIZER VACCINE 2021-08-21 00:00:00 Completed [facility] SARS-COV-2 COVID-19 PFIZER VACCINE 2021-08-21 00:00:00 Completed [facility] [place] SARS-COV-2 COVID-19 PFIZER VACCINE 2021-08-21 00:00:00 Completed [facility] SARS-COV-2 COVID-19 PFIZER VACCINE 2021-08-21 00:00:00 Completed [facility] SARS-COV-2 COVID-19 PFIZER VACCINE 2021-08-21 00:00:00 Completed [facility] [place] SARS-COV-2 COVID-19 PFIZER VACCINE 2021-08-21 00:00:00 Completed [facility] [place] SARS-COV-2 COVID-19 PFIZER VACCINE 2021-08-21 00:00:00 Completed [facility] [place] SARS-COV-2 COVID-19 PFIZER VACCINE 2021-08-21 00:00:00 Completed [facility] [place] SARS-COV-2 COVID-19 PFIZER VACCINE 2021-08-21 00:00:00 Completed [facility] [place] SARS-COV-2 COVID-19 PFIZER VACCINE 2021-08-21 00:00:00 Completed [facility] [place] SARS-COV-2 COVID-19 PFIZER VACCINE 2021-08-21 00:00:00 Completed [facility] [place] SARS-COV-2 COVID-19 PFIZER VACCINE 2021-08-21 00:00:00 Completed [facility] [place] SARS-COV-2 COVID-19 PFIZER VACCINE 2021-08-21 00:00:00 Completed [facility] [place] SARS-COV-2 COVID-19 PFIZER VACCINE 2021-08-21 00:00:00 Completed [facility] [place] SARS-COV-2 COVID-19 PFIZER VACCINE 2021-08-21 00:00:00 Completed [facility] [place] SARS-COV-2 COVID-19 PFIZER VACCINE 2021-01-07 00:00:00 Completed [facility] [place] SARS-COV-2 COVID-19 PFIZER VACCINE 2021-01-07 00:00:00 Completed [facility] [place] SARS-COV-2 COVID-19 PFIZER VACCINE 2021-01-07 00:00:00 Completed [facility] [place] SARS-COV-2 COVID-19 PFIZER VACCINE 2021-01-07 00:00:00 Completed [facility] SARS-COV-2 COVID-19 PFIZER VACCINE 2021-01-07 00:00:00 Completed [facility] [place] SARS-COV-2 COVID-19 PFIZER VACCINE 2021-01-07 00:00:00 Completed [facility] [place] SARS-COV-2 COVID-19 PFIZER VACCINE 2021-01-07 00:00:00 Completed [facility] SARS-COV-2 COVID-19 PFIZER VACCINE 2021-01-07 00:00:00 Completed [facility] [place] SARS-COV-2 COVID-19 PFIZER VACCINE 2021-01-07 00:00:00 Completed [facility] [place] SARS-COV-2 COVID-19 PFIZER VACCINE 2021-01-07 00:00:00 Completed [facility] [place] SARS-COV-2 COVID-19 PFIZER VACCINE 2021-01-07 00:00:00 Completed [facility] [place] SARS-COV-2 COVID-19 PFIZER VACCINE 2021-01-07 00:00:00 Completed [facility] [place] SARS-COV-2 COVID-19 PFIZER VACCINE 2021-01-07 00:00:00 Completed [facility] [place] SARS-COV-2 COVID-19 PFIZER VACCINE 2021-01-07 00:00:00 Completed [facility] [place] SARS-COV-2 COVID-19 PFIZER VACCINE 2021-01-07 00:00:00 Completed [facility] SARS-COV-2 COVID-19 PFIZER VACCINE 2021-01-07 00:00:00 Completed [facility] [place] SARS-COV-2 COVID-19 PFIZER VACCINE 2021-01-07 00:00:00 Completed [facility] [place] SARS-COV-2 COVID-19 PFIZER VACCINE 2021-01-07 00:00:00 Completed [facility] [place] SARS-COV-2 COVID-19 PFIZER VACCINE 2021-01-07 00:00:00 Completed [facility] [place] SARS-COV-2 COVID-19 PFIZER VACCINE 2021-01-07 00:00:00 Completed [facility] SARS-COV-2 COVID-19 PFIZER VACCINE 2021-01-07 00:00:00 Completed [facility] [place] SARS-COV-2 COVID-19 PFIZER VACCINE 2021-01-07 00:00:00 Completed [facility] [place] SARS-COV-2 COVID-19 PFIZER VACCINE 2021-01-07 00:00:00 Completed [facility] [place] SARS-COV-2 COVID-19 PFIZER VACCINE 2021-01-07 00:00:00 Completed [facility] [place] SARS-COV-2 COVID-19 PFIZER VACCINE 2021-01-07 00:00:00 Completed [facility] [place] SARS-COV-2 COVID-19 PFIZER VACCINE 2021-01-07 00:00:00 Completed [facility] [place] SARS-COV-2 COVID-19 PFIZER VACCINE 2021-01-07 00:00:00 Completed [facility] [place] SARS-COV-2 COVID-19 PFIZER VACCINE 2021-01-07 00:00:00 Completed [facility] [place] SARS-COV-2 COVID-19 PFIZER VACCINE 2021-01-07 00:00:00 Completed [facility] [place] SARS-COV-2 COVID-19 PFIZER VACCINE 2021-01-07 00:00:00 Completed [facility] [place] SARS-COV-2 COVID-19 PFIZER VACCINE 2021-01-07 00:00:00 Completed [facility] [place] SARS-COV-2 COVID-19 PFIZER VACCINE 2021-01-07 00:00:00 Completed [facility] [place] SARS-COV-2 COVID-19 PFIZER VACCINE 2021-01-07 00:00:00 Completed [facility] [place] SARS-COV-2 COVID-19 PFIZER VACCINE 2021-01-07 00:00:00 Completed [facility] [place] SARS-COV-2 COVID-19 PFIZER VACCINE 2021-01-07 00:00:00 Completed [facility] [place] SARS-COV-2 COVID-19 PFIZER VACCINE 2021-01-07 00:00:00 Completed [facility] [place] SARS-COV-2 COVID-19 PFIZER VACCINE 2021-01-07 00:00:00 Completed [facility] [place] SARS-COV-2 COVID-19 PFIZER VACCINE 2021-01-07 00:00:00 Completed [facility] [place] SARS-COV-2 COVID-19 PFIZER VACCINE 2021-01-07 00:00:00 Completed [facility] [place] SARS-COV-2 COVID-19 PFIZER VACCINE 2021-01-07 00:00:00 Completed [facility] [place] SARS-COV-2 COVID-19 PFIZER VACCINE 2021-01-07 00:00:00 Completed [facility] [place] SARS-COV-2 COVID-19 PFIZER VACCINE 2021-01-07 00:00:00 Completed [facility] [place] SARS-COV-2 COVID-19 PFIZER VACCINE 2021-01-07 00:00:00 Completed [facility] [place] SARS-COV-2 COVID-19 PFIZER VACCINE 2021-01-07 00:00:00 Completed [facility] [place] SARS-COV-2 COVID-19 PFIZER VACCINE 2021-01-07 00:00:00 Completed [facility] [place] SARS-COV-2 COVID-19 PFIZER VACCINE 2021-01-07 00:00:00 Completed [facility] SARS-COV-2 COVID-19 PFIZER VACCINE 2021-01-07 00:00:00 Completed [facility] [place] SARS-COV-2 COVID-19 PFIZER VACCINE 2021-01-07 00:00:00 Completed [facility] SARS-COV-2 COVID-19 PFIZER VACCINE 2021-01-07 00:00:00 Completed [facility] [place] SARS-COV-2 COVID-19 PFIZER VACCINE 2021-01-07 00:00:00 Completed [facility] [place] SARS-COV-2 COVID-19 PFIZER VACCINE 2021-01-07 00:00:00 Completed [facility] [place] SARS-COV-2 COVID-19 PFIZER VACCINE 2021-01-07 00:00:00 Completed [facility] [place] SARS-COV-2 COVID-19 PFIZER VACCINE 2021-01-07 00:00:00 Completed [facility] [place] SARS-COV-2 COVID-19 PFIZER VACCINE 2021-01-07 00:00:00 Completed [facility] [place] SARS-COV-2 COVID-19 PFIZER VACCINE 2021-01-07 00:00:00 Completed [facility] [place] SARS-COV-2 COVID-19 PFIZER VACCINE 2021-01-07 00:00:00 Completed [facility] [place] SARS-COV-2 COVID-19 PFIZER VACCINE 2021-01-07 00:00:00 Completed [facility] [place] SARS-COV-2 COVID-19 PFIZER VACCINE 2021-01-07 00:00:00 Completed [facility] [place] SARS-COV-2 COVID-19 PFIZER VACCINE 2021-01-07 00:00:00 Completed [facility] [place] SARS-COV-2 COVID-19 PFIZER VACCINE 2021-01-07 00:00:00 Completed [facility] [place] SARS-COV-2 COVID-19 PFIZER VACCINE 2021-01-07 00:00:00 Completed [facility] [place] SARS-COV-2 COVID-19 PFIZER VACCINE 2021-01-07 00:00:00 Completed [facility] [place] SARS-COV-2 COVID-19 PFIZER VACCINE 2021-01-07 00:00:00 Completed [facility] [place] SARS-COV-2 COVID-19 PFIZER VACCINE 2021-01-07 00:00:00 Completed [facility] [place] SARS-COV-2 COVID-19 PFIZER VACCINE 2021-01-07 00:00:00 Completed [facility] [place] SARS-COV-2 COVID-19 PFIZER VACCINE 2021-01-07 00:00:00 Completed [facility] [place] SARS-COV-2 COVID-19 PFIZER VACCINE 2021-01-07 00:00:00 Completed [facility] [place] SARS-COV-2 COVID-19 PFIZER VACCINE 2021-01-07 00:00:00 Completed [facility] [place] SARS-COV-2 COVID-19 PFIZER VACCINE 2021-01-07 00:00:00 Completed [facility] [place] SARS-COV-2 COVID-19 PFIZER VACCINE 2021-01-07 00:00:00 Completed [facility] [place] SARS-COV-2 COVID-19 PFIZER VACCINE 2020-12-17 00:00:00 Completed [facility] [place] SARS-COV-2 COVID-19 PFIZER VACCINE 2020-12-17 00:00:00 Completed [facility] [place] SARS-COV-2 COVID-19 PFIZER VACCINE 2020-12-17 00:00:00 Completed [facility] [place] SARS-COV-2 COVID-19 PFIZER VACCINE 2020-12-17 00:00:00 Completed [facility] [place] SARS-COV-2 COVID-19 PFIZER VACCINE 2020-12-17 00:00:00 Completed [facility] [place] SARS-COV-2 COVID-19 PFIZER VACCINE 2020-12-17 00:00:00 Completed [facility] [place] SARS-COV-2 COVID-19 PFIZER VACCINE 2020-12-17 00:00:00 Completed [facility] [place] SARS-COV-2 COVID-19 PFIZER VACCINE 2020-12-17 00:00:00 Completed [facility] [place] SARS-COV-2 COVID-19 PFIZER VACCINE 2020-12-17 00:00:00 Completed [facility] [place] SARS-COV-2 COVID-19 PFIZER VACCINE 2020-12-17 00:00:00 Completed [facility] [place] SARS-COV-2 COVID-19 PFIZER VACCINE 2020-12-17 00:00:00 Completed [facility] [place] SARS-COV-2 COVID-19 PFIZER VACCINE 2020-12-17 00:00:00 Completed [facility] [place] SARS-COV-2 COVID-19 PFIZER VACCINE 2020-12-17 00:00:00 Completed [facility] [place] SARS-COV-2 COVID-19 PFIZER VACCINE 2020-12-17 00:00:00 Completed [facility] [place] SARS-COV-2 COVID-19 PFIZER VACCINE 2020-12-17 00:00:00 Completed [facility] [place] SARS-COV-2 COVID-19 PFIZER VACCINE 2020-12-17 00:00:00 Completed [facility] [place] SARS-COV-2 COVID-19 PFIZER VACCINE 2020-12-17 00:00:00 Completed [facility] SARS-COV-2 COVID-19 PFIZER VACCINE 2020-12-17 00:00:00 Completed [facility] [place] SARS-COV-2 COVID-19 PFIZER VACCINE 2020-12-17 00:00:00 Completed [facility] [place] SARS-COV-2 COVID-19 PFIZER VACCINE 2020-12-17 00:00:00 Completed [facility] [place] SARS-COV-2 COVID-19 PFIZER VACCINE 2020-12-17 00:00:00 Completed [facility] [place] SARS-COV-2 COVID-19 PFIZER VACCINE 2020-12-17 00:00:00 Completed [facility] SARS-COV-2 COVID-19 PFIZER VACCINE 2020-12-17 00:00:00 Completed [facility] [place] SARS-COV-2 COVID-19 PFIZER VACCINE 2020-12-17 00:00:00 Completed [facility] SARS-COV-2 COVID-19 PFIZER VACCINE 2020-12-17 00:00:00 Completed [facility] [place] SARS-COV-2 COVID-19 PFIZER VACCINE 2020-12-17 00:00:00 Completed [facility] [place] SARS-COV-2 COVID-19 PFIZER VACCINE 2020-12-17 00:00:00 Completed [facility] [place] SARS-COV-2 COVID-19 PFIZER VACCINE 2020-12-17 00:00:00 Completed [facility] [place] SARS-COV-2 COVID-19 PFIZER VACCINE 2020-12-17 00:00:00 Completed [facility] [place] SARS-COV-2 COVID-19 PFIZER VACCINE 2020-12-17 00:00:00 Completed [facility] [place] SARS-COV-2 COVID-19 PFIZER VACCINE 2020-12-17 00:00:00 Completed [facility] [place] SARS-COV-2 COVID-19 PFIZER VACCINE 2020-12-17 00:00:00 Completed [facility] [place] SARS-COV-2 COVID-19 PFIZER VACCINE 2020-12-17 00:00:00 Completed [facility] [place] SARS-COV-2 COVID-19 PFIZER VACCINE 2020-12-17 00:00:00 Completed [facility] [place] SARS-COV-2 COVID-19 PFIZER VACCINE 2020-12-17 00:00:00 Completed [facility] [place] SARS-COV-2 COVID-19 PFIZER VACCINE 2020-12-17 00:00:00 Completed [facility] [place] SARS-COV-2 COVID-19 PFIZER VACCINE 2020-12-17 00:00:00 Completed [facility] [place] SARS-COV-2 COVID-19 PFIZER VACCINE 2020-12-17 00:00:00 Completed [facility] [place] SARS-COV-2 COVID-19 PFIZER VACCINE 2020-12-17 00:00:00 Completed [facility] [place] SARS-COV-2 COVID-19 PFIZER VACCINE 2020-12-17 00:00:00 Completed [facility] [place] SARS-COV-2 COVID-19 PFIZER VACCINE 2020-12-17 00:00:00 Completed [facility] [place] SARS-COV-2 COVID-19 PFIZER VACCINE 2020-12-17 00:00:00 Completed [facility] [place] SARS-COV-2 COVID-19 PFIZER VACCINE 2020-12-17 00:00:00 Completed [facility] [place] SARS-COV-2 COVID-19 PFIZER VACCINE 2020-12-17 00:00:00 Completed [facility] [place] SARS-COV-2 COVID-19 PFIZER VACCINE 2020-12-17 00:00:00 Completed [facility] [place] SARS-COV-2 COVID-19 PFIZER VACCINE 2020-12-17 00:00:00 Completed [facility] [place] SARS-COV-2 COVID-19 PFIZER VACCINE 2020-12-17 00:00:00 Completed [facility] [place] SARS-COV-2 COVID-19 PFIZER VACCINE 2020-12-17 00:00:00 Completed [facility] [place] SARS-COV-2 COVID-19 PFIZER VACCINE 2020-12-17 00:00:00 Completed [facility] [place] SARS-COV-2 COVID-19 PFIZER VACCINE 2020-12-17 00:00:00 Completed [facility] [place] SARS-COV-2 COVID-19 PFIZER VACCINE 2020-12-17 00:00:00 Completed [facility] [place] SARS-COV-2 COVID-19 PFIZER VACCINE 2020-12-17 00:00:00 Completed [facility] [place] SARS-COV-2 COVID-19 PFIZER VACCINE 2020-12-17 00:00:00 Completed [facility] [place] SARS-COV-2 COVID-19 PFIZER VACCINE 2020-12-17 00:00:00 Completed [facility] [place] SARS-COV-2 COVID-19 PFIZER VACCINE 2020-12-17 00:00:00 Completed [facility] [place] SARS-COV-2 COVID-19 PFIZER VACCINE 2020-12-17 00:00:00 Completed [facility] [place] SARS-COV-2 COVID-19 PFIZER VACCINE 2020-12-17 00:00:00 Completed [facility] [place] SARS-COV-2 COVID-19 PFIZER VACCINE 2020-12-17 00:00:00 Completed [facility] [place] SARS-COV-2 COVID-19 PFIZER VACCINE 2020-12-17 00:00:00 Completed [facility] [place] SARS-COV-2 COVID-19 PFIZER VACCINE 2020-12-17 00:00:00 Completed [facility] [place] SARS-COV-2 COVID-19 PFIZER VACCINE 2020-12-17 00:00:00 Completed [facility] [place] SARS-COV-2 COVID-19 PFIZER VACCINE 2020-12-17 00:00:00 Completed [facility] [place] SARS-COV-2 COVID-19 PFIZER VACCINE 2020-12-17 00:00:00 Completed [facility] [place] SARS-COV-2 COVID-19 PFIZER VACCINE 2020-12-17 00:00:00 Completed [facility] [place] SARS-COV-2 COVID-19 PFIZER VACCINE 2020-12-17 00:00:00 Completed [facility] [place] SARS-COV-2 COVID-19 PFIZER VACCINE 2020-12-17 00:00:00 Completed [facility] [place] SARS-COV-2 COVID-19 PFIZER VACCINE 2020-12-17 00:00:00 Completed [facility] [place] SARS-COV-2 COVID-19 PFIZER VACCINE 2020-12-17 00:00:00 Completed [facility] [place] SARS-COV-2 COVID-19 PFIZER VACCINE 2020-12-17 00:00:00 Completed [facility] [place] SARS-COV-2 COVID-19 PFIZER VACCINE 2020-12-17 00:00:00 Completed [facility] Tdap Tdap 2018-05-29 00:00:00 Completed [facility] SARS-COV-2 COVID-19 PFIZER VACCINE Unknown Completed [facility] SARS-COV-2 COVID-19 PFIZER VACCINE Unknown Completed [facility] SARS-COV-2 COVID-19 PFIZER VACCINE Unknown Completed [facility] SARS-COV-2 COVID-19 PFIZER VACCINE Unknown Completed [facility] SARS-COV-2 COVID-19 PFIZER VACCINE Unknown Completed [facility] SARS-COV-2 COVID-19 PFIZER VACCINE Unknown Completed [facility] SARS-COV-2 COVID-19 PFIZER VACCINE Unknown Completed [facility] SARS-COV-2 COVID-19 PFIZER VACCINE Unknown Completed [facility] SARS-COV-2 COVID-19 PFIZER VACCINE Unknown Completed [facility] SARS-COV-2 COVID-19 PFIZER VACCINE Unknown Completed [facility] SARS-COV-2 COVID-19 PFIZER VACCINE Unknown Completed [facility] SARS-COV-2 COVID-19 PFIZER VACCINE Unknown Completed [facility] SARS-COV-2 COVID-19 PFIZER VACCINE Unknown Completed [facility] SARS-COV-2 COVID-19 PFIZER VACCINE Unknown Completed [facility] SARS-COV-2 COVID-19 PFIZER VACCINE Unknown Completed [facility] SARS-COV-2 COVID-19 PFIZER VACCINE Unknown Completed [facility] SARS-COV-2 COVID-19 PFIZER VACCINE Unknown Completed [facility] SARS-COV-2 COVID-19 PFIZER VACCINE Unknown Completed [facility] SARS-COV-2 COVID-19 PFIZER VACCINE Unknown Completed [facility] SARS-COV-2 COVID-19 PFIZER VACCINE Unknown Completed [facility] SARS-COV-2 COVID-19 PFIZER VACCINE Unknown Completed [facility] SARS-COV-2 COVID-19 PFIZER VACCINE Unknown Completed [facility] SARS-COV-2 COVID-19 PFIZER VACCINE Unknown Completed [facility] SARS-COV-2 COVID-19 PFIZER VACCINE Unknown Completed [facility] SARS-COV-2 COVID-19 PFIZER VACCINE Unknown Completed [facility] SARS-COV-2 COVID-19 PFIZER VACCINE Unknown Completed [facility] SARS-COV-2 COVID-19 PFIZER VACCINE Unknown Completed [facility] SARS-COV-2 COVID-19 PFIZER VACCINE Unknown Completed [facility] SARS-COV-2 COVID-19 PFIZER VACCINE Unknown Completed [facility] SARS-COV-2 COVID-19 PFIZER VACCINE Unknown Completed [facility] Influenza Virus Vaccine Quad IM, Preserv and ABX Free 6 MO-64 YRS (FLUCELVAX) Unknown Completed [facility] SARS-COV-2 COVID-19 PFIZER VACCINE Unknown Completed [facility] SARS-COV-2 COVID-19 PFIZER VACCINE Unknown Completed [facility] SARS-COV-2 COVID-19 PFIZER VACCINE Unknown Completed [facility] Influenza Virus Vaccine Quad IM, Preserv and ABX Free 6 MO-64 YRS (FLUCELVAX) Unknown Completed [facility] SARS-COV-2 COVID-19 PFIZER VACCINE Unknown Completed [facility] SARS-COV-2 COVID-19 PFIZER VACCINE Unknown Completed [facility] SARS-COV-2 COVID-19 PFIZER VACCINE Unknown Completed [facility] Influenza Virus Vaccine Quad IM, Preserv and ABX Free 6 MO-64 YRS (FLUCELVAX) Unknown Completed [facility] SARS-COV-2 COVID-19 PFIZER VACCINE Unknown Completed [facility] SARS-COV-2 COVID-19 PFIZER VACCINE Unknown Completed [facility] SARS-COV-2 COVID-19 PFIZER VACCINE Unknown Completed [facility] Influenza Virus Vaccine Quad IM, Preserv and ABX Free 6 MO-64 YRS (FLUCELVAX) Unknown Completed [facility] SARS-COV-2 COVID-19 PFIZER VACCINE Unknown Completed [facility] SARS-COV-2 COVID-19 PFIZER VACCINE Unknown Completed [facility] SARS-COV-2 COVID-19 PFIZER VACCINE Unknown Completed [facility] Influenza Virus Vaccine Quad IM, Preserv and ABX Free 6 MO-64 YRS (FLUCELVAX) Unknown Completed [facility] SARS-COV-2 COVID-19 PFIZER VACCINE Unknown Completed [facility] SARS-COV-2 COVID-19 PFIZER VACCINE Unknown Completed [facility] SARS-COV-2 COVID-19 PFIZER VACCINE Unknown Completed [facility] Influenza Virus Vaccine Quad IM, Preserv and ABX Free 6 MO-64 YRS (FLUCELVAX) Unknown Completed [facility] SARS-COV-2 COVID-19 PFIZER VACCINE Unknown Completed [facility] SARS-COV-2 COVID-19 PFIZER VACCINE Unknown Completed [facility] SARS-COV-2 COVID-19 PFIZER VACCINE Unknown Completed [facility] [place] Influenza Virus Vaccine Quad IM, Preserv and ABX Free 6 MO-64 YRS (FLUCELVAX) Unknown Completed [facility] SARS-COV-2 COVID-19 PFIZER VACCINE Unknown Completed [facility] SARS-COV-2 COVID-19 PFIZER VACCINE Unknown Completed [facility] SARS-COV-2 COVID-19 PFIZER VACCINE Unknown Completed [facility] Influenza Virus Vaccine Quad IM, Preserv and ABX Free 6 MO-64 YRS (FLUCELVAX) Unknown Completed [facility] SARS-COV-2 COVID-19 PFIZER VACCINE Unknown Completed [facility] SARS-COV-2 COVID-19 PFIZER VACCINE Unknown Completed [facility] SARS-COV-2 COVID-19 PFIZER VACCINE Unknown Completed [facility] Influenza Virus Vaccine Quad IM, Preserv and ABX Free 6 MO-64 YRS (FLUCELVAX) Unknown Completed [facility] SARS-COV-2 COVID-19 PFIZER VACCINE Unknown Completed [facility] SARS-COV-2 COVID-19 PFIZER VACCINE Unknown Completed [facility] SARS-COV-2 COVID-19 PFIZER VACCINE Unknown Completed [facility] Influenza Virus Vaccine Quad IM, Preserv and ABX Free 6 MO-64 YRS (FLUCELVAX) Unknown Completed [facility] SARS-COV-2 COVID-19 PFIZER VACCINE Unknown Completed [facility] SARS-COV-2 COVID-19 PFIZER VACCINE Unknown Completed [facility] SARS-COV-2 COVID-19 PFIZER VACCINE Unknown Completed [facility] Influenza Virus Vaccine Quad IM, Preserv and ABX Free 6 MO-64 YRS (FLUCELVAX) Unknown Completed [facility] SARS-COV-2 COVID-19 PFIZER VACCINE Unknown Completed [facility] SARS-COV-2 COVID-19 PFIZER VACCINE Unknown Completed [facility] SARS-COV-2 COVID-19 PFIZER VACCINE Unknown Completed [facility] Influenza Virus Vaccine Quad IM, Preserv and ABX Free 6 MO-64 YRS (FLUCELVAX) Unknown Completed [facility] SARS-COV-2 COVID-19 PFIZER VACCINE Unknown Completed [facility] SARS-COV-2 COVID-19 PFIZER VACCINE Unknown Completed [facility] SARS-COV-2 COVID-19 PFIZER VACCINE Unknown Completed [facility] Influenza Virus Vaccine Quad IM, Preserv and ABX Free 6 MO-64 YRS (FLUCELVAX) Unknown Completed [facility] SARS-COV-2 COVID-19 PFIZER VACCINE Unknown Completed [facility] SARS-COV-2 COVID-19 PFIZER VACCINE Unknown Completed [facility] SARS-COV-2 COVID-19 PFIZER VACCINE Unknown Completed [facility] Influenza Virus Vaccine Quad IM, Preserv and ABX Free 6 MO-64 YRS (FLUCELVAX) Unknown Completed [facility] SARS-COV-2 COVID-19 PFIZER VACCINE Unknown Completed [facility] SARS-COV-2 COVID-19 PFIZER VACCINE Unknown Completed [facility] SARS-COV-2 COVID-19 PFIZER VACCINE Unknown Completed [facility] Influenza Virus Vaccine Quad IM, Preserv and ABX Free 6 MO-64 YRS (FLUCELVAX) Unknown Completed [facility] SARS-COV-2 COVID-19 PFIZER VACCINE Unknown Completed [facility] SARS-COV-2 COVID-19 PFIZER VACCINE Unknown Completed [facility] SARS-COV-2 COVID-19 PFIZER VACCINE Unknown Completed [facility] Influenza Virus Vaccine Quad IM, Preserv and ABX Free 6 MO-64 YRS (FLUCELVAX) Unknown Completed [facility] SARS-COV-2 COVID-19 PFIZER VACCINE Unknown Completed [facility] SARS-COV-2 COVID-19 PFIZER VACCINE Unknown Completed [facility] SARS-COV-2 COVID-19 PFIZER VACCINE Unknown Completed [facility] Influenza Virus Vaccine Quad IM, Preserv and ABX Free 6 MO-64 YRS (FLUCELVAX) Unknown Completed [facility] SARS-COV-2 COVID-19 PFIZER VACCINE Unknown Completed [facility] SARS-COV-2 COVID-19 PFIZER VACCINE Unknown Completed [facility] SARS-COV-2 COVID-19 PFIZER VACCINE Unknown Completed [facility] Influenza Virus Vaccine Quad IM, Preserv and ABX Free 6 MO-64 YRS (FLUCELVAX) Unknown Completed [facility] SARS-COV-2 COVID-19 PFIZER VACCINE Unknown Completed [facility] SARS-COV-2 COVID-19 PFIZER VACCINE Unknown Completed [facility] SARS-COV-2 COVID-19 PFIZER VACCINE Unknown Completed [facility] Influenza Virus Vaccine Quad IM, Preserv and ABX Free 6 MO-64 YRS (FLUCELVAX) Unknown Completed [facility] SARS-COV-2 COVID-19 PFIZER VACCINE Unknown Completed [facility] SARS-COV-2 COVID-19 PFIZER VACCINE Unknown Completed [facility] SARS-COV-2 COVID-19 PFIZER VACCINE Unknown Completed [facility] Influenza Virus Vaccine Quad IM, Preserv and ABX Free 6 MO-64 YRS (FLUCELVAX) Unknown Completed [facility] SARS-COV-2 COVID-19 PFIZER VACCINE Unknown Completed [facility] SARS-COV-2 COVID-19 PFIZER VACCINE Unknown Completed [facility] SARS-COV-2 COVID-19 PFIZER VACCINE Unknown Completed [facility] Influenza Virus Vaccine Quad IM, Preserv and ABX Free 6 MO-64 YRS (FLUCELVAX) Unknown Completed [facility] SARS-COV-2 COVID-19 PFIZER VACCINE Unknown Completed [facility] SARS-COV-2 COVID-19 PFIZER VACCINE Unknown Completed [facility] SARS-COV-2 COVID-19 PFIZER VACCINE Unknown Completed [facility] Influenza Virus Vaccine Quad IM, Preserv and ABX Free 6 MO-64 YRS (FLUCELVAX) Unknown Completed [facility] SARS-COV-2 COVID-19 PFIZER VACCINE Unknown Completed [facility] SARS-COV-2 COVID-19 PFIZER VACCINE Unknown Completed [facility] SARS-COV-2 COVID-19 PFIZER VACCINE Unknown Completed [facility] Influenza Virus Vaccine Quad IM, Preserv and ABX Free 6 MO-64 YRS (FLUCELVAX) Unknown Completed [facility] SARS-COV-2 COVID-19 PFIZER VACCINE Unknown Completed [facility] SARS-COV-2 COVID-19 PFIZER VACCINE Unknown Completed [facility] SARS-COV-2 COVID-19 PFIZER VACCINE Unknown Completed [facility] Influenza Virus Vaccine Quad IM, Preserv and ABX Free 6 MO-64 YRS (FLUCELVAX) Unknown Completed [facility] SARS-COV-2 COVID-19 PFIZER VACCINE Unknown Completed [facility] SARS-COV-2 COVID-19 PFIZER VACCINE Unknown Completed [facility] SARS-COV-2 COVID-19 PFIZER VACCINE Unknown Completed [facility] Influenza Virus Vaccine Quad IM, Preserv and ABX Free 6 MO-64 YRS (FLUCELVAX) Unknown Completed [facility] SARS-COV-2 COVID-19 PFIZER VACCINE Unknown Completed [facility] SARS-COV-2 COVID-19 PFIZER VACCINE Unknown Completed [facility] SARS-COV-2 COVID-19 PFIZER VACCINE Unknown Completed [facility] Influenza Virus Vaccine Quad IM, Preserv and ABX Free 6 MO-64 YRS (FLUCELVAX) Unknown Completed [facility] SARS-COV-2 COVID-19 PFIZER VACCINE Unknown Completed [facility] SARS-COV-2 COVID-19 PFIZER VACCINE Unknown Completed [facility] SARS-COV-2 COVID-19 PFIZER VACCINE Unknown Completed [facility] Influenza Virus Vaccine Quad IM, Preserv and ABX Free 6 MO-64 YRS (FLUCELVAX) Unknown Completed [facility] SARS-COV-2 COVID-19 PFIZER VACCINE Unknown Completed [facility] SARS-COV-2 COVID-19 PFIZER VACCINE Unknown Completed [facility] SARS-COV-2 COVID-19 PFIZER VACCINE Unknown Completed [facility] Influenza Virus Vaccine Quad IM, Preserv and ABX Free 6 MO-64 YRS (FLUCELVAX) Unknown Completed [facility] SARS-COV-2 COVID-19 PFIZER VACCINE Unknown Completed [facility] SARS-COV-2 COVID-19 PFIZER VACCINE Unknown Completed [facility] SARS-COV-2 COVID-19 PFIZER VACCINE Unknown Completed [facility] Influenza Virus Vaccine Quad IM, Preserv and ABX Free 6 MO-64 YRS (FLUCELVAX) Unknown Completed [facility] SARS-COV-2 COVID-19 PFIZER VACCINE Unknown Completed [facility] SARS-COV-2 COVID-19 PFIZER VACCINE Unknown Completed [facility] SARS-COV-2 COVID-19 PFIZER VACCINE Unknown Completed [facility] Influenza Virus Vaccine Quad IM, Preserv and ABX Free 6 MO-64 YRS (FLUCELVAX) Unknown Completed [facility] SARS-COV-2 COVID-19 PFIZER VACCINE Unknown Completed [facility] SARS-COV-2 COVID-19 PFIZER VACCINE Unknown Completed [facility] SARS-COV-2 COVID-19 PFIZER VACCINE Unknown Completed [facility] Influenza Virus Vaccine Quad IM, Preserv and ABX Free 6 MO-64 YRS (FLUCELVAX) Unknown Completed [facility] Vital Signs Vital Name Observation Time Observation Value Comments S ource Systolic blood pressure 2023-12-18 21:04:00 145 mm[Hg] [facility] Diastolic blood pressure 2023-12-18 21:04:00 98 mm[Hg] [facility] Heart rate 2023-12-18 21:04:00 110 /min [facility] Body temperature 2023-12-18 21:04:00 36.5 Radha [facility] Respiratory rate 2023-12-18 21:04:00 18 /min [facility] Body height 2023-12-18 21:04:00 165.1 cm [facility] Body weight 2023-12-18 21:04:00 46.267 kg [facility] BMI 2023-12-18 21:04:00 16.97 kg/m2 [facility] Oxygen saturation in Arterial blood by Pulse oximetry 2023-12-18 21:04:00 98 /min [facility] Body height 2023-09-11 21:41:00 165.1 cm [facility] Body weight 2023-09-11 21:41:00 50.304 kg [facility] BMI 2023-09-11 21:41:00 18.45 kg/m2 [facility] Heart rate 2023-08-28 20:25:00 82 /min [facility] saturation in Arterial blood by Pulse oximetry 2023-08-28 20:25:00 100 /min [facility] Systolic blood pressure 2023-08-28 20:20:00 127 mm[Hg] [facility] Diastolic blood pressure 2023-08-28 20:20:00 81 mm[Hg] [facility] Respiratory rate 2023-08-28 20:20:00 16 /min [facility] Body temperature 2023-08-28 19:26:00 36.39 Radha [facility] Body height 2023-08-16 16:00:00 165.1 cm [facility] Body weight 2023-08-16 16:00:00 48.535 kg [facility] BMI 2023-08-16 16:00:00 17.81 kg/m2 [facility] Heart rate 2023-08-28 20:25:00 82 /min [facility] Oxygen saturation in Arterial blood by Pulse oximetry 2023-08-28 20:25:00 100 /min [facility] Systolic blood pressure 2023-08-28 20:20:00 127 mm[Hg] [facility] Diastolic blood pressure 2023-08-28 20:20:00 81 mm[Hg] [facility] Respiratory rate 2023-08-28 20:20:00 16 /min [facility] Body temperature 2023-08-28 19:26:00 36.39 Radha [facility] Body height 2023-08-16 16:00:00 165.1 cm [facility] 2023-08-16 16:00:00 48.535 kg [facility] BMI 2023-08-16 16:00:00 17.81 kg/m2 [facility] weight 2023-08-10 19:00:00 48.535 kg [facility] BMI 2023-08-10 19:00:00 17.81 kg/m2 [facility] Systolic blood pressure 2023-08-01 18:01:00 120 mm[Hg] [facility] Diastolic blood pressure 2023-08-01 18:01:00 79 mm[Hg] [facility] Heart rate 2023-08-01 18:01:00 112 /min [facility] Body temperature 2023-08-01 18:01:00 35.11 Radha [facility] Respiratory rate 2023-08-01 18:01:00 16 /min [facility] Body height 2023-08-01 18:01:00 165.1 cm [facility] 2023-08-01 18:01:00 48.626 kg [facility] BMI 2023-08-01 18:01:00 17.84 kg/m2 [facility] Oxygen saturation in Arterial blood by Pulse oximetry 2023-08-01 18:01:00 100 /min [facility] Systolic blood pressure 2023-07-17 20:45:00 106 mm[Hg] [facility] Diastolic blood pressure 2023-07-17 20:45:00 68 mm[Hg] [facility] Heart rate 2023-07-17 20:45:00 101 /min [facility] Body temperature 2023-07-17 20:45:00 36.17 Radha [facility] Respiratory rate 2023-07-17 20:45:00 18 /min [facility] Body height 2023-07-17 20:45:00 165.1 cm [facility] 2023-07-17 20:45:00 46.448 [facility] BMI 2023-07-17 20:45:00 17.04 kg/m2 [facility] Oxygen saturation in Arterial blood by Pulse oximetry 2023-07-17 20:45:00 100 /min Room air [facility] Systolic blood pressure 2023-06-12 16:52:00 122 mm[Hg] [facility] Diastolic blood pressure 2023-06-12 16:52:00 82 mm[Hg] [facility] Respiratory rate 2023-06-12 16:52:00 13 /min [facility] Oxygen saturation in Arterial blood by Pulse oximetry 2023-06-12 16:52:00 100 /min [facility] Systolic blood pressure 2023-06-12 16:52:00 122 mm[Hg] [facility] Diastolic blood pressure 2023-06-12 16:52:00 82 mm[Hg] [facility] Respiratory rate 2023-06-12 16:52:00 13 /min [facility] Oxygen saturation in Arterial blood by Pulse oximetry 2023-06-12 16:52:00 100 /min [facility] Systolic blood pressure 2023-06-12 16:52:00 122 mm[Hg] [facility] Diastolic blood pressure 2023-06-12 16:52:00 82 mm[Hg] [facility] Respiratory rate 2023-06-12 16:52:00 13 /min [facility] Oxygen saturation in Arterial blood by Pulse oximetry 2023-06-12 16:52:00 100 /min [facility] Systolic blood pressure 2023-05-25 15:48:00 136 mm[Hg] [facility] Diastolic blood pressure 2023-05-25 15:48:00 89 mm[Hg] [facility] Heart rate 2023-05-25 15:48:00 123 [facility] Res[facility] 2023-05-25 15:46:00 21 /min [facility] Body height 2023-05-25 15:46:00 165.1 cm [facility] Body weight 2023-05-25 15:46:00 43.999 kg [facility] BMI 2023-05-25 15:46:00 16.14 kg/m2 [facility] Oxygen saturation in Arterial blood by Pulse oximetry 2023-05-25 15:46:00 99 /min [facility] Systolic blood pressure 2023-04-26 13:27:00 93 mm[Hg] [facility] Diastolic blood pressure 2023-04-26 13:27:00 55 mm[Hg] [facility] Heart rate 2023-04-26 13:27:00 104 /min Un[facility] Body temperature 2023-04-26 13:27:00 36.89 Radha [facility] Respiratory rate 2023-04-26 13:27:00 18 /min [facility] Body height 2023-04-26 13:27:00 167.6 cm [facility] Body weight 2023-04-26 13:27:00 42.82 kg [facility] BMI 2023-04-26 13:27:00 15.24 kg/m2 [facility] Oxygen saturation in Arterial blood by Pulse oximetry 2023-04-26 13:27:00 100 /min [facility] Systolic blood pressure 2023-04-06 19:07:00 124 mm[Hg] [facility] Diastolic blood pressure 2023-04-06 19:07:00 74 mm[Hg] [facility] Heart rate 2023-04-06 19:07:00 102 /min Un[facility] Respiratory rate 2023-04-06 19:07:00 18 /min [facility] Body height 2023-04-06 19:07:00 165.1 cm [facility] Body weight 2023-04-06 19:07:00 43.908 kg [facility] BMI 2023-04-06 19:07:00 16.11 kg/m2 [facility] Oxygen saturation in Arterial blood by Pulse oximetry 2023-04-06 19:07:00 99 /min [facility] Systolic blood pressure 2023-03-14 15:46:00 125 mm[Hg] [facility] Diastolic blood pressure 2023-03-14 15:46:00 84 mm[Hg] [facility] Heart rate 2023-03-14 15:46:00 103 /min Un[facility] Body temperature 2023-03-14 15:46:00 36.78 Radha [facility] Respiratory rate 2023-03-14 15:46:00 16 /min [facility] Body height 2023-03-14 15:46:00 165.1 cm [facility] Body weight 2023-03-14 15:46:00 43.5 kg [facility] BMI 2023-03-14 15:46:00 15.96 kg/m2 [facility] Oxygen saturation in Arterial blood by Pulse oximetry 2023-03-14 15:46:00 95 /min [facility] Systolic blood pressure 2023-02-14 20:22:00 134 mm[Hg] [facility] Diastolic blood pressure 2023-02-14 20:22:00 92 mm[Hg] [facility] Heart rate 2023-02-14 20:21:00 123 /min Un[facility] Body temperature 2023-02-14 20:21:00 36.61 Radha [facility] Respiratory rate 2023-02-14 20:21:00 16 /min [facility] Body height 2023-02-14 20:21:00 165.1 cm [facility] Body weight 2023-02-14 20:21:00 43.681 kg [facility] BMI 2023-02-14 20:21:00 16.03 kg/m2 [facility] Oxygen saturation in Arterial blood by Pulse oximetry 2023-02-14 20:21:00 96 /min room air [facility] Systolic blood pressure 2023-01-30 13:12:00 115 mm[Hg] [facility] Diastolic blood pressure 2023-01-30 13:12:00 71 mm[Hg] [facility] Heart rate 2023-01-30 13:12:00 107 /min Un[facility] Body temperature 2023-01-30 13:12:00 36.94 Radha [facility] Respiratory rate 2023-01-30 13:12:00 18 /min [facility] Body height 2023-01-30 13:12:00 165.1 cm [facility] Body weight 2023-01-30 13:12:00 43.545 kg [facility] BMI 2023-01-30 13:12:00 15.98 kg/m2 [facility] Oxygen saturation in Arterial blood by Pulse oximetry 2023-01-30 13:12:00 100 /min [facility] Systolic blood pressure 2023-01-05 16:39:00 127 mm[Hg] [facility] Diastolic blood pressure 2023-01-05 16:39:00 85 mm[Hg] [facility] Heart rate 2023-01-05 16:39:00 102 /min Unive [facility] Body temperature 2023-01-05 16:39:00 37.28 Radha [facility] Respiratory rate 2023-01-05 16:39:00 18 /min [facility] Body height 2023-01-05 16:39:00 165.1 cm [facility] Body weight 2023-01-05 16:39:00 47.628 kg [facility] BMI 2023-01-05 16:39:00 17.47 kg/m2 [facility] Oxygen saturation in Arterial blood by Pulse oximetry 2023-01-05 16:39:00 98 /min [facility] Systolic blood pressure 2023-01-05 16:07:00 110 mm[Hg] [facility] Diastolic blood pressure 2023-01-05 16:07:00 76 mm[Hg] [facility] Heart rate 2023-01-05 16:07:00 109 [facility] Oxygen saturation in Arterial blood by Pulse oximetry 2023-01-05 16:07:00 97 /min [facility] Respiratory rate 2023-01-05 15:46:00 17 /min [facility] Body height 2023-01-05 15:46:00 [facility] 2023-01-05 15:46:00 47.129 kg [facility] BMI 2023-01-05 15:46:00 17.29 kg[facility]m2 [facility] Systolic blood pressure 2023-01-04 04:00:00 130 mm[Hg] [facility] Diastolic blood pressure 2023-01-04 04:00:00 96 mm[Hg] [facility] Heart rate 2023-01-04 04:00:00 107 /min Unive [facility] Respiratory rate 2023-01-04 04:00:00 16 /min [facility] Oxygen saturation in Arterial blood by Pulse oximetry 2023-01-04 04:00:00 100 /min [facility] Body temperature 2023-01-04 00:24:00 36.94 Radha [facility] Body height 2023-01-04 00:24:00 165.1 cm [facility] Body weight 2023-01-04 00:24:00 52.164 kg [facility] BMI 2023-01-04 00:24:00 19.14 kg/m2 [facility] Systolic blood pressure 2022-12-20 18:11:00 134 mm[Hg] [facility] Diastolic blood pressure 2022-12-20 18:11:00 83 mm[Hg] [facility] Heart rate 2022-12-20 18:11:00 107 /min Unive [facility] Body temperature 2022-12-20 18:11:00 36.72 Radha [facility] Respiratory rate 2022-12-20 18:11:00 16 /min [facility] Body height 2022-12-20 18:11:00 165.1 cm [facility] Body weight 2022-12-20 18:11:00 47.446 kg [facility] BMI 2022-12-20 18:11:00 17.41 kg/m2 [facility] Oxygen saturation in Arterial blood by Pulse oximetry 2022-12-20 18:11:00 100 /min [facility] Systolic blood pressure 2022-12-13 19:56:00 128 mm[Hg] [facility] Diastolic blood pressure 2022-12-13 19:56:00 72 mm[Hg] [facility] Heart rate 2022-12-13 19:56:00 111 /min Unive [facility] Body height 2022-12-13 19:56:00 165.1 cm [facility] Body weight 2022-12-13 19:56:00 46.267 kg [facility] BMI 2022-12-13 19:56:00 16.97 kg/m2 [facility] Oxygen saturation in Arterial blood by Pulse oximetry 2022-12-13 19:56:00 98 /min [facility] Systolic blood pressure 2022-12-01 17:22:00 124 mm[Hg] [facility] Diastolic blood pressure 2022-12-01 17:22:00 88 mm[Hg] [facility] Heart rate 2022-12-01 17:22:00 80 /min Unive [facility] Body temperature 2022-12-01 17:22:00 37.11 Radha [facility] Respiratory rate 2022-12-01 17:22:00 18 /min [facility] Body weight 2022-12-01 17:22:00 48.535 kg [facility] BMI 2022-12-01 17:22:00 18.37 kg/m2 [facility] Oxygen saturation in Arterial blood by Pulse oximetry 2022-12-01 17:22:00 99 /min [facility] Systolic blood pressure 2022-10-19 20:30:00 150 mm[Hg] [facility] Diastolic blood pressure 2022-10-19 20:30:00 88 mm[Hg] [facility] Heart rate 2022-10-19 20:30:00 99 /min Unive [facility] Body temperature 2022-10-19 20:30:00 37 Radha [facility] Respiratory rate 2022-10-19 20:30:00 18 /min [facility] Oxygen saturation in Arterial blood by Pulse oximetry 2022-10-19 20:30:00 99 /min [facility] Body height 2022-10-19 19:56:00 162.6 cm [facility] Body weight 2022-10-19 19:56:00 52.617 kg [facility] BMI 2022-10-19 19:56:00 19.91 kg/m2 [facility] Body height 2022-08-31 20:15:00 165.1 cm [facility] [facility] Body weight 2022-08-31 20:15:00 61.689 kg [facility] ersblanchard [facility] BMI 2022-08-31 20:15:00 22.63 kg/m2 [facility] Systolic blood pressure 2022-07-29 14:28:00 145 mm[Hg] [place] o [facility] Diastolic blood pressure 2022-07-29 14:28:00 87 mm[Hg] [facility] Heart rate 2022-07-29 14:28:00 108 /min Unive rsblanchard [facility] Body height 2022-07-29 14:28:00 165.1 cm [facility] ersblanchard [facility] Body weight 2022-07-29 14:28:00 61.689 kg [facility] BMI 2022-07-29 14:28:00 22.63 kg/m2 [facility] Body height 2022-06-29 20:01:00 165.1 cm [facility] ersblanchard [facility] Body weight 2022-06-29 20:01:00 61.689 kg [facility] ersblanchard [facility] BMI 2022-06-29 20:01:00 22.63 kg/m2 [facility] BP Systolic 2024-02-14 17:46:00 131 mm[Hg] [...] Ang Weight Measured 2023-04-20 13:42:00 95.00 pounds Brittno F Ang Height Measured 2023-04-20 13:42:00 65.00 [...] Measured 2022-11-08 14:00:00 108.60 pounds Britton F Agn Height Measured 2022-11-08 14:00:00 65.00 inches Britton [...] CARPAL TUNNEL RELEASE 2023-08-28 18:30:00 Roe Mcgarry [facility] HB ABO GROUPING 2023-08-28 17:27:00 Jacqueline Bains [facility] HB ABO GROUPING 2023-08-28 17:27:00 Jacqueline Bains [facility] DAY SURGERY - ADC 2023-08-28 06:01:00 Doctor Unassigned, [place] [facility] EXTRA TUBE LAV 2023-08-17 22:50:00 Jacqueline Bains [facility] BASIC METABOLIC PANEL (NA, K, CL, CO2, GLUCOSE, BUN, CREATININE, CA) 2023-08-17 22:48:00 Jacqueline Bains [facility] CBC WITH DIFF 2023-08-17 22:48:00 Jacqueline Bains [facility] HB ABO GROUPING 2023-08-17 22:48:00 Jacqueline Bains [facility] XR CHEST 2 VW 2023-08-17 22:34:40 Jacqueline Bains [facility] INSURANCE CORRESPONDENCE 2023-08-17 06:01:00 Doctor Unassigned, [facility] INSURANCE CORRESPONDENCE 2023-08-17 06:01:00 Doctor Unassigned, [facility] INSURANCE CORRESPONDENCE 2023-08-16 06:01:00 Doctor Unassigned, [facility] INSURANCE CORRESPONDENCE 2023-08-16 06:01:00 Doctor Unassigned, [facility] EXTERNAL PROVIDER RECORDS 2023-08-11 06:01:00 Doctor Unassigned, [facility] EXTERNAL PROVIDER RECORDS 2023-08-11 06:01:00 Doctor Unassigned, [facility] DSU PRE-OP 2023-08-10 06:01:00 Doctor Unassigned, [facility] DSU PRE-OP 2023-08-10 06:01:00 Doctor Unassigned, [facility] FLU VACC ([id number]), 6 MO-64 YRS, .5ML, IM, QUAD (FLUCELVAX) 2023-07-17 21:16:29 Mica Duncan [facility] CONSENT/REFUSAL FOR DIAGNOSIS AND TREATMENT 2023-07-17 20:36:38 Doctor Unassigned, [facility] ELECTROPHYSIOLOGY PROCEDURE 2023-06-12 16:52:46 Nikki Brunner [facility] ELECTROPHYSIOLOGY PROCEDURE 2023-06-12 16:52:46 Nikki Brunner [facility] HB ECG ROUTINE & RHYTHM STRIP 2023-06-12 15:46:15 Nikki Brunner [facility] DISCLOSURE AND CONSENT, MEDICAL AND SURGICAL PROCEDURES 2023-06-12 05:01:00 Doctor Unassigned, [facility] WOUND CULTURE 2023-04-10 15:04:00 Gabriella Weaver [facility] THYROID STIMULATING HORMONE 2023-03-14 17:42:00 Mackenzie Davis [facility] COMP. METABOLIC PANEL (35041) 2023-03-14 17:42:00 Mackenzie Davis [facility] SEDIMENTATION RATE 2023-03-14 17:42:00 Mackenzie Davis [facility] CBC WITH DIFF 2023-03-14 17:42:00 Mackenzie Davis [facility] URINALYSIS 2023-03-14 17:42:00 Mackenzie Davis [facility] C-REACTIVE PROTEIN 2023-03-14 17:42:00 Mackenzie Davis [facility] C4 COMPLEMENT 2023-03-14 17:42:00 Mackenzie Davis [facility] HCV ANTIBODY 2023-03-14 17:42:00 Mackenzie Davis [facility] PROTEIN CREAT RATIO URINE RANDOM 2023-03-14 17:42:00 Mackenzie Davis [facility] ANTI-CENTROMERE B 2023-03-14 17:42:00 Mackenzie Davis [facility] ANTI-SSB(LA) 2023-03-14 17:42:00 Mackenzie Davis [facility] ANTI-DOUBLE STRANDED DNA 2023-03-14 17:42:00 Mackenzie Davis [facility] FREE T4 2023-03-14 17:42:00 Mackenzie Davis [facility] TRIIODOTHYRONINE 2023-03-14 17:42:00 Mackenzie Davis [facility] HIV 1/2 AG-AB WITH REFLEX 2023-03-14 17:42:00 Mackenzie Davis [facility] WOUND CULTURE 2023-02-14 21:07:00 Jaguar Webb [facility] WOUND CULTURE 2023-02-14 21:06:00 [facility] CONSENT/REFUSAL FOR DIAGNOSIS AND TREATMENT 2023-01-05 16:36:40 Doctor Unassigned, [facility] URINALYSIS 2023-01-04 02:14:00 Con [facility] URINE DRUG (IMMUNOASSAY) - COMPREHENSIVE DRUG SCREEN W/O REFLEX 2023-01-04 02:14:00 Dottie Andujar [facility] LIPASE 2023-01-04 00:37:00 Con [facility] TEST, SERUM 2023-01-04 00:37:00 Con [facility] COMP. METABOLIC PANEL ([id number]) 2023-01-04 00:37[facility]00 [facility] 2023-01-04 00:37:00 Con [facility] EKG-12 LEAD 2022-12-13 20:19:06 Doctor Unassigned, [facility] SD INCISION & DRAINAGE ABSCESS SIMPLE/SINGLE 2022-12-01 17:34:50 Jihan Bains [facility] CONSENT/REFUSAL FOR DIAGNOSIS AND TREATMENT 2022-12-01 17:17:50 Doctor Unassigned, [facility] REFERRAL- REQUEST/RESPONSE 2022-11-25 06:01:00 Doctor Unassigned, [facility] SD INCISION & DRAINAGE ABSCESS SIMPLE/SINGLE 2022-10-19 20:12:40 Jihan Bains [facility] NOTICE OF PRIVACY PRACTICES 2022-10-19 19:46:53 Doctor Unassigned, [facility] CONSENT/REFUSAL FOR DIAGNOSIS AND TREATMENT 2022-10-19 19:45:38 Doctor Unassigned, [facility] REFERRAL- REQUEST/RESPONSE 2022-09-28 06:01:00 Doctor Unassigned, [facility] MR SHOULDER RIGHT WO CONTRAST 2022-08-11 21:44:59 Roe Mcgarry [facility] REFERRAL- REQUEST/RESPONSE 2022-07-27 05:01:00 Doctor Unassigned, [facility] XR SHOULDER 2+ VW RIGHT 2022-06-28 15:06:30 Roe Mcgarry [facility] ASSIGNMENT OF BENEFITS 2022-06-27 20:21:10 Doctor Unassigned, [facility] Encounters Start Date/Time End Date/Time Encounter Type Admission Type Attending [facility] Facility Care Department Encounter ID Source 2024-06-18 15:00:00 2024-06-18 15:00:00 Outpatient MACKENZIE ANDUJAR [facility] [id number] [facility] 2024-03-21 13:00:00 2024-03-21 13:00:00 Outpatient MACKENZIE ANDUJAR [facility] [id number] [facility] 2024-02-23 10:00:00 2024-02-23 10:30:00 Office Visit Mica Duncan [facility] 1.2.840.114 350.1.13.10 4.2.7.2.686 [id number] [facility] 2024-02-23 10:00:00 2024-02-23 10:00:00 Outpatient MICA CADE [facility] [id number] [facility] 2024-02-16 11:19:29 2024-02-16 11:19:29 Outpatient SFA SFA [id number] Britton Nikhil Ang 2024-02-14 17:42:16 2024-02-14 17:42:16 Outpatient SFA SFA [id number] Britton Fry 2024-02-14 00:00:00 2024-02-14 00:00:00 Outpatient Visit SFA [id number] Britton Fry 2024-01-22 14:50:28 2024-01-22 14:50:28 Outpatient SFA SFA [id number] Britton Fry 2024-01-22 00:00:00 2024-01-22 00:00:[address] [facility] [id number] Britton Fry 2023-12-18 16:30:00 2023-12-18 16:45:00 Pricing Manager Visit [facility] 1.2840.114 350.1.13.10 4.2.7.2.686 [id number] [facility] 2023-12-18 16:00:00 2023-12-18 16:30:00 [facility] 1.284.114 350.1.13.10 4.2.7.2.686 [id number] [facility] 2023-12-18 16:00:00 2023-12-18 16:00:00 Outpatient R [facility] [id number] [facility] 2023-12-15 00:00:00 2023-12-15 00:00:00 Telephone Mackenzie Davis [facility] 1.2.840.114 350.1.13.10 4.2.7.2.686 [id number] [facility] 2023-12-05 15:00:00 2023-12-05 15:00:00 Outpatient R MACKENZIE DAVIS [facility] [id number] [facility] 2023-11-17 10:00:00 2023-11-17 10:30:00 Office Visit Mica Duncan [facility] 1.2.840.114 350.1.13.10 4.2.7.2.686 [id number] [facility] 2023-11-17 10:00:00 2023-11-17 10:00:00 Outpatient R MICA DUNCAN [facility] [id number] [facility] 2023-10-31 13:30:00 2023-10-31 13:30:00 Outpatient R [facility] [id number] [facility] 2023-09-29 15:00:00 2023-09-29 15:00:00 Outpatient R HUNTER YUEN [facility] [id number] [facility] 2023-09-28 14:45:00 2023-09-28 14:45:00 Outpatient R ROE MCGARRY CRAIG [facility] [id number] [facility] 2023-09-11 16:15:00 2023-09-11 16:15:00 Office Visit Roe Mc[facility]LINDYMalissa [facility] MED[facility] OFF[facility] BUILD[facility] 1.840.114 350.1.13.10 4.2.7.2.686 [id number] [facility] 2023-09-11 16:15:00 2023-09-11 15:55:54 Outpatient R ROE MCGARRY CRAIG [facility] [id number] [facility] 2023-08-31 15:40:00 2023-08-31 15:40:00 Outpatient R PALMER BRUNNER CHOCKALINGA M [facility] [id number] [facility] 2023-08-30 00:00:00 2023-08-30 00:00:00 Patient Secure Msg Doctor Unassigned, [place] [facility] BU[facility] 1.840.114 350.1.13.10 4.2.7.2.686 [id number] [facility] 2023-08-29 00:00:00 2023-08-29 00:00:00 Telephone Roe Mcgarry [facility] JL?[facility] MED[facility] OFF[facility] BUILD[facility] 1..840.114 350.1.13.10 4.2.7.2.686 [id number] [facility] 2023-08-28 10:56:00 2023-08-28 14:45:00 Outpatient R ROE MCGARRY CRAIG [facility] SOR [id number] [facility] 2023-08-28 10:56:00 2023-08-28 14:45:00 Hospital Encounter Roe Mcgarry [facility] 1.2840.114 350.1.13.10 4.2.7.2.686 [id number] [facility] 2023-08-28 13:20:00 2023-08-28 14:36:00 Surgery Roe Mcgarry [facility] 1.2840.114 350.1.13.10 4.2.7.2.686 [id number] [facility] 2023-08-28 00:00:00 2023-08-28 00:00:00 Orders Only Doctor Unassigned, [place] [facility] 1.2840.114 350.1.13.10 4.2.7.2.686 [id number] [facility] 2023-08-21 16:00:00 2023-08-21 16:00:00 Outpatient R MICA DUNCAN [facility] [id number] [facility] 2023-08-17 16:02:25 2023-08-17 23:59:00 Outpatient R JACQUELINE BAINS [facility] [id number] [facility] 2023-08-17 16:00:00 2023-08-17 23:59:00 Hospital Encounter Jacqueline Bains [facility] 1.2840.114 350.1.13.10 4.2.7.2.686 [id number] [facility] 2023-08-17 16:30:00 2023-08-17 16:45:00 Pricing Manager Visit Pob, Adc Lab Main [facility] 1.114 350.1.13.10 4.2.7.2.686 [id number] [facility] 2023-08-17 00:00:00 2023-08-17 00:00:00 Patient Secure Msg Doctor Unassigned, [place] [facility] 1.114 350.1.13.10 4.2.7.2.686 [id number] [facility] 2023-08-14 15:00:00 2023-08-14 15:00:00 Outpatient NIRMALA MAY EMILY [facility] [id number] [facility] 2023-08-11 00:00:00 2023-08-11 00:00:00 Prep For Surgery Jacqueline Bains [facility]?LINDYMalissa [facility] MEDICAL OFFICE BUILDING 1.114 350.1.13.10 4.2.7.2.686 [id number] [facility] 2023-08-10 13:15:00 2023-08-10 13:20:33 Outpatient R ROE MCGARRY CRAIG [facility] [id number] [facility] 2023-08-10 13:15:00 2023-08-10 13:20:33 Office Visit Roe Mcgarry [facility]?ALEENA MCGILL MED[facility] OFF[facility]ILDING 1.114 350.1.13.10 4.2.7.2.686 [id number] [facility] 2023-08-01 13:00:00 2023-08-01 13:30:00 Office Visit Jaguar Webb Lucas S [facility] 1.114 350.1.13.10 4.2.7.2.686 [id number] [facility] 2023-08-01 13:00:00 2023-08-01 13:00:00 Outpatient R CONOR DIXON LUCAS [facility] [id number] [facility] 2023-08-01 00:00:00 2023-08-01 00:00:00 David Webb Jaguar Horndenilson [facility] 1.0.114 350.1.13.10 4.2.7.2.686 [id number] [facility] 2023-07-20 14:30:00 2023-07-20 14:30:00 Outpatient R AUGUSTIN OTERO [facility] [id number] [facility] 2023-07-17 16:00:00 2023-07-17 16:27:54 Outpatient MICA CADE [facility] [id number] [facility] 2023-07-17 16:00:00 2023-07-17 16:27:54 Office Visit Mica Duncan [facility] 1.0.114 350.1.13.10 4.2.7.2.686 [id number] [facility] 2023-07-17 00:00:00 2023-07-17 00:00:00 Orders Only Doctor Unassigned, [place] [facility] 1.840.114 350.1.13.10 4.2.7.2.686 [id number] [facility] 2023-07-17 00:00:00 2023-07-17 00:00:00 Patient Secure Msg Doctor Unassigned, [place] [facility] 1.2840.114 350.1.13.10 4.2.7.2.686 [id number] [facility] 2023-07-05 00:00:00 2023-07-05 00:00:00 Outpatient R RADIOLOGY [facility] [id number] [facility] 2023-06-27 13:00:00 2023-06-27 13:00:00 Outpatient R [facility] [id number] [facility] 2023-06-26 11:11:23 2023-06-26 11:11:23 Outpatient BRANDON TAYLOR [id number] Britton Fry 2023-06-12 10:20:00 2023-06-12 12:26:00 Outpatient R PALMER BRUNNER CHOCKALINGA M [facility] CCA [id number] [facility] 2023-06-12 10:20:00 2023-06-12 12:26:00 Hospital Encounter Palmer Brunner [facility] 1.840.114 350.1.13.10 4.2.7.2.686 [id number] [facility] 2023-06-12 11:30:00 2023-06-12 12:15:00 Surgery Palmer Brunner [facility] 1.2840.114 350.1.13.10 4.2.7.2.686 [id number] [facility] 2023-06-12 00:00:00 2023-06-12 00:00:00 Orders Only Doctor Unassigned, [place] [facility] 1.2840.114 350.1.13.10 4.2.7.2.686 [id number] [facility] 2023-06-08 13:00:00 2023-06-08 13:15:00 Pricing Manager Visit Pob, Adc Lab Main Palmer Brunner [facility] 1.2840.114 350.1.13.10 4.2.7.2.686 [id number] [facility] 2023-06-08 13:00:00 2023-06-08 13:00:00 Outpatient R PALMER BRUNNER CHOCKALINGA M [facility] [id number] [facility] 2023-06-01 16:00:00 2023-06-01 16:00:00 Outpatient R [facility] [id number] [facility] 2023-05-25 10:40:00 2023-05-25 11:20:28 Outpatient R PALMER BRUNNER CHOCKALINGA M [facility] [id number] [facility] 2023-05-25 10:40:00 2023-05-25 11:20:28 Office Visit [facility] ..840.114 350.1.13.10 4.2.7.2.686 [id number] [facility] 2023-05-15 11:15:00 2023-05-15 11:38:24 Outpatient R JUAREZ BENNETT [facility] [id number] [facility] 2023-05-06 16:23:00 2023-05-06 18:53:00 Emergency ER [facility] [id number] [facility] 2023-05-06 16:23:00 2023-05-06 18:53:00 emergency [id number] 2023-04-26 14:30:00 2023-04-26 15:00:00 Office Visit Mica Duncan [facility] ..840.114 350.1.13.10 4.2.7.2.686 [id number] [facility] 2023-04-26 08:00:00 2023-04-26 08:30:00 Office Visit Bashir Vasquez [facility] 1.114 350.1.13.10 4.2.7.2.686 [id number] [facility] 2023-04-26 08:00:00 2023-04-26 08:00:00 Outpatient BALDO CORONEL [facility] [id number] [facility] 2023-04-26 00:00:00 2023-04-26 00:00:00 Parvin Daily [facility] 1.114 350.1.13.10 4.2.7.2.686 [id number] [facility] 2023-04-26 00:00:00 2023-04-26 00:00:00 Telephone Bashir Vasquez [facility] 1.114 350.1.13.10 4.2.7.2.686 [id number] [facility] 2023-04-20 13:31:38 2023-04-20 13:31:[address] [facility] [id number] Britton Fry 2023-04-10 09:00:00 2023-04-10 09:23:49 Outpatient AUGUSTIN KEITH [facility] [id number] [facility] 2023-04-10 09:00:00 2023-04-10 09:23:49 Office Visit Gabriella [facility] 1.114 350.1.13.10 4.2.7.2.686 [id number] [facility] 2023-04-08 00:00:00 2023-04-08 00:00:00 Patient Secure Mica Frankel [facility] 1.114 350.1.13.10 4.2.7.2.686 [id number] [facility] 2023-04-06 14:20:00 2023-04-06 14:20:00 Office Visit Parvin Longo [facility] 1.2840.114 350.1.13.10 4.2.7.2.686 [id number] [facility] 2023-04-06 14:20:00 2023-04-06 14:18:35 [facility] [id number] [facility] 2023-03-30 13:39:52 2023-03-30 13:39:52 Outpatient SFA SFA [id number] Britton Fry 2023-03-28 00:00:00 2023-03-28 00:00:00 Telephone Jaguar Webb [facility] 1.284.114 350.1.13.10 4.2.7.2.686 [id number] [facility] 2023-03-26 00:00:00 2023-03-26 00:00:00 Patient Secure Msg Mica Duncan [facility] 1.2840.114 350.1.13.10 4.2.7.2.686 [id number] [facility] 2023-03-15 15:00:00 2023-03-15 15:15:00 Pricing Manager Visit Pob, Adc Lab Main Mackenzie Davis [facility] BU[facility] 1.284.114 350.1.13.10 4.2.7.2.686 [id number] [facility] 2023-03-15 15:00:00 2023-03-15 15:00:00 Outpatient R MACKENZIE DAVIS [facility] [id number] [facility] 2023-03-14 14:30:00 2023-03-14 14:45:00 Pricing Manager Visit Pcp-Lab Mackenzie Davis [facility] 1.2.840.114 350.1.13.10 4.2.7.2.686 [id number] [facility] 2023-03-14 11:00:00 2023-03-14 11:48:29 Outpatient R MACKENZIE DAVIS [facility] [id number] [facility] 2023-03-14 11:00:00 2023-03-14 11:48:29 Office Visit Mackenzie Davis [facility] 1.2.840.114 350.1.13.10 4.2.7.2.686 [id number] [facility] 2023-03-14 09:30:00 2023-03-14 10:00:00 Office Visit Mica Duncan [facility] 1.2.840.114 350.1.13.10 4.2.7.2.686 [id number] [facility] 2023-03-14 00:00:00 2023-03-14 00:00:00 Telephone Mackenzie Davis [facility] 1.2.840.114 350.1.13.10 4.2.7.2.686 [id number] [facility] 2023-02-14 15:30:00 2023-02-14 16:30:00 Office Visit Jaguar Webb Lucas S [facility] 1.2.840.114 350.1.13.10 4.2.7.2.686 [id number] [facility] 2023-02-14 15:30:00 2023-02-14 15:30:00 Outpatient CONOR UNGER [facility] [id number] [facility] 2023-02-09 13:15:02 2023-02-09 13:15:02 Outpatient BRANDON TAYLOR [id number] Britton Fry 2023-02-09 00:00:00 2023-02-09 00:00:00 [facility] 1.2.840.114 350.1.13.10 4.2.7.2.686 [id number] [facility] 2023-02-01 00:00:00 2023-02-01 00:00:00 [facility] 1.2.840.114 350.1.13.10 4.2.7.2.686 [id number] [facility] 2023-01-31 14:27:04 2023-01-31 23:59:00 [id number] 2023-01-30 10:45:00 2023-01-30 11:00:00 Pricing Manager Visit Pcp-Lab Mica Duncan [facility] 1.2.840.114 350.1.13.10 4.2.7.2.686 [id number] [facility] 2023-01-30 08:30:00 2023-01-30 09:18:35 Outpatient MICA CADE [facility] [id number] [facility] 2023-01-30 08:30:00 2023-01-30 09:18:35 Office Visit Mica Duncan [facility] 1.2.840.114 350.1.13.10 4.2.7.2.686 [id number] [facility] 2023-01-17 14:30:00 2023-01-17 14:30:00 Outpatient ISIDRA TORRES [facility] [id number] [facility] 2023-01-10 00:00:00 2023-01-10 00:00:00 Outpatient ISIDRA TORRES [facility] [id number] [place] [facility] 2023-01-08 00:00:00 2023-01-08 00:00:00 Patient Secure Modesto Robleskem [facility] BU[facility] 1.2.840.114 350.1.13.10 4.2.7.2.686 [id number] [facility] 2023-01-05 11:41:00 2023-01-05 12:20:00 Emergency X AMY VALDEZ [facility] ERT [id number] [facility] 2023-01-05 11:41:00 2023-01-05 12:20:00 Emergency Amy Valdez [facility] 1.2.840.114 350.1.13.10 4.2.7.2.686 [id number] [facility] 2023-01-05 11:00:00 2023-01-05 11:15:54 [facility] [id number] [facility] 2023-01-05 11:00:00 2023-01-05 11:15:54 [facility] 1.2.840.114 350.1.13.10 4.2.7.2.686 [id number] [facility] 2023-01-04 13:05:09 2023-01-04 13:05:00 Emergency [facility] [id number] [facility] 2023-01-03 19:20:00 2023-01-03 23:13:00 Emergency X DOTTIE ANDUJAR [facility] ERT [id number] [facility] 2023-01-03 19:20:00 2023-01-03 23:13:00 Emergency Dottie Andujar [facility] 1.2.840.114 350.1.13.10 4.2.7.2.686 [id number] [facility] 2022-12-27 16:43:57 2022-12-27 16:43:[address] [facility] [id number] Britton Fry 2022-12-26 00:00:00 2022-12-26 00:00:00 Patient Secure Msg Doctor Unassigned, [place] [facility] 1.0114 350.1.13.10 4.2.7.2.686 [id number] [facility] 2022-12-26 00:00:00 2022-12-26 00:00:00 Telephone Nii Isidra [facility] MED[facility] OFF[facility] BUILD[facility] 1..114 350.1.13.10 4.2.7.2.686 [id number] [facility] 2022-12-24 00:00:00 2022-12-24 00:00:00 Patient Secure Msg Doctor Unassigned, [place] [facility] MED[facility] OFF[facility] BUILD[facility] 1.114 350.1.13.10 4.2.7.2.686 [id number] [facility] 2022-12-20 13:45:00 2022-12-20 16:43:47 Outpatient R ISIDRA BALES [facility] [id number] [facility] 2022-12-20 13:45:00 2022-12-20 14:00:00 Pricing Manager Visit Lab, Tk [facility] MEDICAL OFFICE BUILDING 1..114 350.1.13.10 4.2.7.2.686 [id number] [facility] 2022-12-20 13:00:00 2022-12-20 13:39:25 [facility] MEDICAL OFFICE BUILDING 1..114 350.1.13.10 4.2.7.2.686 [id number] [facility] 2022-12-19 14:08:10 2022-12-19 14:08:10 Outpatient [place] [id number] Britton Fry 2022-12-13 15:20:00 2022-12-13 16:26:29 Outpatient MOHSEN BEAULIEU HOWARD [facility] [id number] [facility] 2022-12-13 15:20:00 2022-12-13 16:26:29 Office Visit Mohsen Paulino [facility] MEDICAL OFF[facility] BUILDING 1..114 350.1.13.10 4.2.7.2.686 [id number] [facility] 2022-12-07 11:20:56 2022-12-07 11:20:56 Outpatient [facility] [id number] Britton Fry 2022-12-02 13:13:09 2022-12-02 13:13:09 Outpatient [place] [id number] Britton Fry 2022-12-01 11:23:00 2022-12-01 11:42:00 Emergency X JIHAN BAINS [facility] ERT [id number] [facility] 2022-12-01 11:23:00 2022-12-01 11:42:00 Emergency Jihan Bains [facility] 1..114 350.1.13.10 4.2.7.2.686 [id number] [facility] 2022-11-28 14:01:21 2022-11-28 14:01:21 Outpatient [place] [id number] Britton Fry 2022-11-25 00:00:00 2022-11-25 00:00:00 Orders Only Doctor Unassigned, [place] [facility] 1.0.114 350.1.13.10 4.2.7.2.686 [id number] [facility] 2022-11-08 13:54:40 2022-11-08 13:54:[address] [facility] [id number] Britton Fry 2022-10-19 13:59:00 2022-10-19 14:50:00 Emergency X BAINSJIHAN [facility] ERT [id number] [facility] 2022-10-19 13:59:00 2022-10-19 14:50:00 Emergency Sydnee Jihan Landis [facility] 1.840.114 350.1.13.10 4.2.7.2.686 [id number] [facility] 2022-10-19 00:00:00 2022-10-19 00:00:00 Orders Only Doctor Unassigned, [place] [facility] 1.840.114 350.1.13.10 4.2.7.2.686 [id number] [facility] 2022-09-28 00:00:00 2022-09-28 00:00:00 Orders Only Doctor Unassigned, [place] [facility] 1.2840.114 350.1.13.10 4.2.7.2.686 [id number] [facility] 2022-08-31 14:30:00 2022-08-31 14:41:03 Outpatient R ROE MCGARRY [facility] [id number] [facility] 2022-08-31 14:30:00 2022-08-31 14:41:03 Office Visit Roe Mcgarry [facility] 1..840.114 350.1.13.10 4.2.7.2.686 [id number] [facility] 2022-08-11 13:26:16 2022-08-11 23:59:00 Outpatient R ROE MCGARRY [facility] [id number] [facility] 2022-08-11 13:26:16 2022-08-11 23:59:00 Hospital Encounter Roe Mcgarry [facility] 1..114 350.1.13.10 4.2.7.2.686 [id number] [facility] 2022-07-29 10:15:00 2022-07-29 10:15:00 Office Visit Roe Mcgarry [facility]?LINDYMalissa MADELYNALISHA MEDICAL OFFICE BUILDING 1.114 350.1.13.10 4.2.7.2.686 [id number] [facility] 2022-07-29 10:15:00 2022-07-29 10:01:38 Outpatient R ROE MCGARRY [facility] [id number] [facility] 2022-07-27 13:45:00 2022-07-27 13:45:00 Outpatient R ROE MCGARRY [facility] [id number] [facility] 2022-07-27 00:00:00 2022-07-27 00:00:00 Orders Only Doctor Unassigned, [place] [facility] 1.114 350.1.13.10 4.2.7.2.686 [id number] [facility] 2022-07-20 00:00:00 2022-07-20 00:00:00 Telephone Jacqueline Bains [facility]?ALEENA JOSHI MEDICAL OFFICE BUILDING 1.114 350.1.13.10 4.2.7.2.686 [id number] [facility] 2022-06-29 14:45:00 2022-06-29 15:21:38 Outpatient R ROE MCGARRY [facility] [id number] [facility] 2022-06-29 14:45:00 2022-06-29 15:21:38 Office Visit Roe Mcgarry [facility]?LINDYMalissa MADELYN MEDICAL OFFICE BUILDING 1.114 350.1.13.10 4.2.7.2.686 [id number] [facility] 2022-06-28 09:55:35 2022-06-28 23:59:00 Outpatient ROE CAMACHO [facility] [id number] [facility] 2022-06-28 09:55:35 2022-06-28 23:59:00 Hospital Encounter Roe Mcgarry [facility] 1..840.114 350.1.13.10 4.2.7.2.686 [id number] [facility] 2022-06-27 15:30:00 2022-06-27 15:30:00 Outpatient ROE CAMACHO [facility] [id number] [facility] 2022-06-27 00:00:00 2022-06-27 00:00:00 Orders Only Doctor Unassigned, [place] [facility] 1..840.114 350.1.13.10 4.2.7.2.686 [id number] [facility] 2022-06-27 00:00:00 2022-06-27 00:00:00 Telephone Jacqueline Bains [facility]?LINDYMalissa [facility] OFF[facility] BUILD[facility] 1..840.114 350.1.13.10 4.2.7.2.686 [id number] [facility] 2021-01-07 09:10:00 2021-01-07 09:10:00 Outpatient CARMELO JACOB [facility] [id number] [facility] 2020-12-17 09:20:00 2020-12-17 09:20:00 Outpatient [facility] [id number] [facility] 2020-10-22 00:00:00 2020-10-22 00:00:00 Outpatient LOUIE ROSENBERG [facility] [id number] [facility] Results Test Description Test Time Test Comments Results Result Co mments Source TSH REFLEX TO FREE [id number] 05:22:45* Test Item Value Reference Range Interpretation Comme nts TSH REFLEX TO FREE T4 (test code = 2834) 1.070 UIU/ML 0.400-4.100 UNLESS OTHERWISE INDICATED, ALL TESTING PERFORMED AT [facility] [address] [place] [address] NATURAL RESOURCE MANAGER: PATY POLLARD M.D. CLIA NUMBER [id number] [facility] [place]. [id number] CBC W/AUTO DIFF WITH [id number] 03:29:48* Test Item Value Reference Range Interpretation [...] 0.00-0.10 ABS NUCLEATED RBCS (test code = 37887) 0.00 K/UL 0.00-0.11 COMPREHENSIVE METABOLIC [id number] 00:00:00* Test Item Value Reference Range Interpretation Comme nts GLUCOSE (test code = 2217) 86 MG/DL BUN (test code = 2208) 14 MG/DL CREATININE (test code = 2214) 0.75 MG/DL eGFR (2020 CKD-EPI) (test code = 93884) 104 ML/MIN/1.73 CALC BUN/CREAT (test code = [...] 19 U/L Britton FryTSH REFLEX TO FREE [id number] 00:00:00* Test Item Value Reference Range Interpretation Comme nts TSH REFLEX TO FREE T4 (test code = 2834) 1.070 UIU/ML Britton FryCBC W/AUTO [id number] 00:00:00* Test Item Value Reference Range Interpretation [...] ABS NUCLEATED RBCS (test cod e = 24931) 0.00 K/UL Britton F AngCOMPREHENSIVE METABOLIC [id number] 00:00:00* Test Item Value Reference Range Interpretation Comme nts GLUCOSE (test code = 2217) 86 MG/DL BUN (test code = 2208) 14 MG/DL CREATININE (test code = 2214) 0.75 MG/DL eGFR (2020 CKD-EPI) (test code = 87068) 104 ML/MIN/1.73 CALC BUN/CREAT (test code = [...] 19 U/L Britton FryTSH REFLEX TO FREE [id number] 00:00:00* Test Item Value Reference Range Interpretation Comme nts TSH REFLEX TO FREE T4 (test code = 2834) 1.070 UIU/ML Britton Tejeda AngCBC W/AUTO [id number] 00:00:00* Test Item Value Reference Range Interpretation [...] ABS NUCLEATED RBCS (test cod e = 38315) 0.00 K/UL Britton Tejeda AngType and Screen - This is a pre-surgical type and screen. ONCE [id number] 17:33:00* Test Item Value Reference Range Interpretation Comme nts ABO & RH (test code = 20) A Positive IAT (test code = 1185) Negative [facility] This is a pre-surgical type and screen. ONCE [id number] 17:33:00* Test Item Value Reference Range Interpretation Comme nts ABO & RH (test code = 20) A Positive IAT (test code = 1185) Negative [facility] PANEL (NA, K, CL, CO2, GLUCOSE, BUN, CREATININE, CA)2023-08-17 23:30:33* Test Item Value Reference Range Interpretation Comme nts NA (test code = 5837009530) 137 mmol/L 135-145 K (test code = 6510247914) 3.9 mmol/L 3.5-5.0 CL (test code = 6005113267) 102 mmol/L 98-108 CO2 TOTAL (test code = 1101689690) 26 mmol/L 23-31 AGAP (test code = 8700954393) 9 2-16 BUN (test code = 4593347160) 17 mg/dL 7-23 GLUCOSE (test code = 5897733154) 105 mg/dL 70-110 CREATININE (test code = 0654013879) 0.55 mg/dL 0.50-1.04 CALCIUM (test code = 8584459363) 9.2 mg/dL 8.6-10.6 eGFR (test code = 46798-5) 120.5 mL/min/1.73m2 CKD-EPI eGFR (20 21). Assuming creatinine has been stable day-to-day for at least three months, the eGFR indicates Category G1 (>= 90 mL/min/1.73 m2) [facility] WITH [id number] 22:58:06* Test Item Value Reference Range Interpretation Comme nts WBC (test code = 6690-2) 5.23 See_Comment [Automated [employer] ge] The system which generated this result transmitted reference range: 4.30 - 11.10 10*3/?L. The reference range was not used to interpret this result as normal/abnormal. RBC (test code = 789-8) 4.13 See_Comment [Automated [employer] ge] The system which generated this result [...] 32.8 g/dL 31.6-35.1 RDW-SD (test code = 03748-2) 50.2 fL 39.0-49.9 H RDW-CV (test code = 788-0) 15.2 % 12.0-15.5 PLT (test code = 777-3) 388 See_Comment H [Automated messa ge] The system which generated this result transmitted reference range: 166 - 358 10*3/?L. The reference range was not used to interpret this result as normal/abnormal. MPV (test code = 55753-1) 8.7 fL 9.5-12.9 L NRBC/100 WBC (test code = 7327259674) 0.0 See_Comment [Automated [employer] ssage] The system which generated this result transmitted reference range: 0.0 - 10.0 /100 WBCs. The reference range was not used to interpret this result as normal/abnormal. NRBC x10^3 (test code = 7470480674) See_Comment [Automated messa ge] The system which generated this result transmitted reference range: 10*3/?L. The reference range was not used to interpret this result as normal/abnormal. GRAN MAT (NEUT) % (test code = 770-8) 59.2 % IMM GRAN % (test code = 6879246098) 0.20 % LYMPH % (test code = 736-9) 31.5 % MONO % (test code = 5905-5) 7.6 % EOS % (test code = 713-8) 1.5 % BASO % (test code = 706-2) 0.0 % GRAN MAT x10^3(ANC) (test code = 8490678996) 3.09 10*3/uL 1.88-7.09 IMM GRAN x10^3 (test code = 0551474402) 0.00-0.06 LYMPH x10^3 (test code = 731-0) 1.65 10*3/uL 1.32-3.29 MONO x10^3 (test code = 742-7) 0.40 10*3/uL 0.33-0.92 EOS x10^3 (test code = 711-2) 0.08 10*3/uL 0.03-0.39 BASO x10^3 (test code = 704-7) 0.01-0.07 Lab Interpretation (test code = 08773-8) Abnormal [facility] -2023-[facility]-17 22:48:00* Test Item Value Reference Range Interpretation Comme nts ABO & RH (test code = 20) A Positive IAT (test code = 1185) Negative [facility] DallasCOMPREHENSIVE METABOLIC [id number] 00:00:00* Test Item Value Reference Range Interpretation Comme nts GLUCOSE (test code = 2217) 119 MG/DL BUN (test code = 2208) 10 MG/DL CREATININE (test code = 2214) 0.66 MG/DL eGFR (2020 CKD-EPI) (test code = 30721) 115 ML/MIN/1.73 CALC BUN/CREAT (test code = [...] (test code = 2219) 17 U[facility] [id number] 00:00:00* Test Item Value Reference Range Interpretation [...] ABS NUCLEATED RBCS (test cod e = 81655) 0.00 K/UL Britton Trevino, THIRD [id number] 00:00:00* Test Item Value Reference Range Interpretation Comme nts TSH, THIRD GENERATION (test code = 2821) 0.659 UIU/ML Britton Tejeda AngCOMPREHENSIVE METABOLIC [id number] 00:00:00* Test Item Value Reference Range Interpretation Comme nts GLUCOSE (test code = 2217) 119 MG/DL BUN (test code = 2208) 10 MG/DL CREATININE (test code = 2214) 0.66 MG/DL eGFR (2020 CKD-EPI) (test code = 61743) 115 ML/MIN/1.73 CALC BUN/CREAT (test code = [...] (test code = 2219) 17 U/L [facility]AUTO [id number] 00:00:00* Test Item Value Reference Range Interpretation [...] ABS NUCLEATED RBCS (test cod e = 15102) 0.00 K/UL Britton Garrett, THIRD [id number] 00:00:00* Test Item Value Reference Range Interpretation Comme nts TSH, THIRD GENERATION (test code = 2821) 0.659 UIU/ML Britton FryANTI-CENTROMERE [id number] 17:57:36* Test Item Value Reference Range Interpretation Comme nts ANTI-CENTR (test code = 7974170868) Negative Negative HIEN (test code = HIEN) Positive - Antibod y detected.Negative - No antibody detected. Lab Interpretation (test code = 25465-8) Normal [id number] 17:57:36* Test Item Value Reference Range Interpretation Comme nts ANTI-SCL70 (test code = 1771190911) Negative Negative HIEN (test code = HIEN) Positive - Antibod y detected.Negative - No antibody detected. Lab Interpretation (test code = 50167-3) [facility]-SM/[id number] 17:57:36* Test Item Value Reference Range Interpretation Comme nts ANTI-SMRNP (test code = 2628516251) Negative Negative HIEN (test code = HIEN) Positive - Antibod y detected.Negative - No antibody detected. Lab Interpretation (test code = 91937-3) [facility]-SSA(RO)2023-03-15 17:57:36* Test Item Value Reference Range Interpretation Comme nts ANTI-SSA(RO) (test code = 5386868151) Negative Negative HIEN (test code = HIEN) Positive - Antibod y detected.Negative - No antibody detected. Lab Interpretation (test code = 29242-1) [facility]-DOUBLE STRANDED [id number] 17:57:16* Test Item Value Reference Range Interpretation Comme nts ANTI-DSDNA (test code = 9078269911) See_Comment [Automated message] The system which generated this result transmitted reference range: 0.0 - 4.0 IU/mL. The reference range was not used to interpret this result as normal/abnormal. HIEN (test code = HIEN) Negative ? ?< or = 4 IU/mLPositive ? ? ?> or = 10 IU/mLIndetermin ate ?5-9 IU/mL Lab Interpretation (test code = 60630-5) Normal [facility]SSB([place])2023-03-15 17:57:16* Test Item Value Reference Range Interpretation Comme nts Anti-SSB(LA) (test code = 3033552790) Negative Negative HIEN (test code = HIEN) Positive - Antibod y detected.Negative - No antibody detected. Lab Interpretation (test code = 91060-6) Normal [facility] DallasC3 [id number] 14:04:35* Test Item Value Reference Range Interpretation Comme nts C3 (test code = 0006029532) 92 mg/dL 86-184 Lab Interpretation (test cod e = 83967-1) Normal [place] [address] [id number] 14:04:35* Test Item Value Reference Range Interpretation Comme nts C3 (test code = 2952746969) 92 mg/dL 86-184 Lab Interpretation (test cod e = 56003-1) Normal [facility] DallasC4 [id number] 13:53:46* Test Item Value Reference Range Interpretation Comme nts C4 (test code = 4704677686) 15 mg/dL 20-59 L Lab Interpretation (test cod e = 91565-7) Abnormal [facility] DallasC-REACTIVE [id number] 13:53:46* Test Item Value Reference Range Interpretation Comme nts CRP (test code = 4361414517) 0.1 mg/dL <=0.8 Lab Interpretation (test cod e = 55824-9) Normal [place] [address] [id number] 13:53:46* Test Item Value Reference Range Interpretation Comme nts C4 (test code = 3203368465) 15 mg/dL 20-59 L Lab Interpretation (test cod e = 54494-2) Abnormal [facility] DallasC-REACTIVE [id number] 13:53:46* Test Item Value Reference Range Interpretation Comme nts CRP (test code = 5006554696) 0.1 mg/dL <=0.8 Lab Interpretation (test cod e = 39146-9) Normal [facility] DallasHCV [id number] 22:18:15* Test Item Value Reference Range Interpretation Comme nts HCV Ab (test code = 92438-7) Negative HCV Semi-Quantitative (test code = 79925-1) 0.02 [facility] DallasHCV [id number] 22:18:15* Test Item Value Reference Range Interpretation Comme nts HCV Ab (test code = 31289-1) Negative HCV Semi-Quantitative (test code = 01967-1) 0.02 [facility] DallasCBC WITH [id number] 20:52:19* Test Item Value Reference Range Interpretation [...] 33.0 g/dL 31.6-35.1 RDW-SD (test code = 37567-6) 48.1 fL 39.0-49.9 RDW-CV (test code = 788-0) 14.2 % 12.0-15.5 PLT (test code = 777-3) 419 See_Comment H [Automated messa ge] The system which generated this result transmitted reference range: 166 - 358 10*3/?L. The reference range was not used to interpret this result as normal/abnormal. MPV (test code = 58481-7) 8.7 fL 9.5-12.9 L NRBC/100 WBC (test code = 2878042111) 0.0 See_Comment [Automated me ssage] The system which generated this result transmitted reference range: 0.0 - 10.0 /100 WBCs. The reference range was not used to interpret this result as normal/abnormal. NRBC x10^3 (test code = 9745872580) See_Comment [Automated messa ge] The system which generated this result transmitted reference range: 10*3/?L. The reference range was not used to interpret this result as normal/abnormal. GRAN MAT (NEUT) % (test code = 770-8) 54.0 % IMM GRAN % (test code = 0627490230) 0.00 % LYMPH % (test code = 736-9) 37.7 % MONO % (test code = 5905-5) 5.3 % EOS % (test code = 713-8) 3.0 % BASO % (test code = 706-2) 0.0 % GRAN MAT x10^3(ANC) (test code = 9611968808) 1.95 10*3/uL 1.88-7.09 IMM GRAN x10^3 (test code = 8058959866) 0.00-0.06 LYMPH x10^3 (test code = 731-0) 1.36 10*3/uL 1.32-3.29 MONO x10^3 (test code = 742-7) 0.19 10*3/uL 0.33-0.92 L EOS x10^3 (test code = 711-2) 0.11 10*3/uL 0.03-0.39 BASO x10^3 (test code = 704-7) 0.01-0.07 Lab Interpretation (test code = 85166-7) Abnormal [facility] WITH [id number] 20:52:19* Test Item Value Reference Range Interpretation [...] 33.0 g/dL 31.6-35.1 RDW-SD (test code = 60734-1) 48.1 fL 39.0-49.9 RDW-CV (test code = 788-0) 14.2 % 12.0-15.5 PLT (test code = 777-3) 419 See_Comment H [Automated messa ge] The system which generated this result transmitted reference range: 166 - 358 10*3/?L. The reference range was not used to interpret this result as normal/abnormal. MPV (test code = 04388-9) 8.7 fL 9.5-12.9 L NRBC/100 WBC (test code = 4459304040) 0.0 See_Comment [Automated [employer] ssage] The system which generated this result transmitted reference range: 0.0 - 10.0 /100 WBCs. The reference range was not used to interpret this result as normal/abnormal. NRBC x10^3 (test code = 8991634258) See_Comment [Automated [employer]] The system which generated this result transmitted reference range: 10*3/?L. The reference range was not used to interpret this result as normal/abnormal. GRAN MAT (NEUT) % (test code = 770-8) 54.0 % IMM GRAN % (test code = 7404734356) 0.00 % LYMPH % (test code = 736-9) 37.7 % MONO % (test code = 5905-5) 5.3 % EOS % (test code = 713-8) 3.0 % BASO % (test code = 706-2) 0.0 % GRAN MAT x10^3(ANC) (test code = 3163959974) 1.95 10*3/uL 1.88-7.09 IMM GRAN x10^3 (test code = 3859977514) 0.00-0.06 LYMPH x10^3 (test code = 731-0) 1.36 10*3/uL 1.32-3.29 MONO x10^3 (test code = 742-7) 0.19 10*3/uL 0.33-0.92 L EOS x10^3 (test code = 711-2) 0.11 10*3/uL 0.03-0.39 BASO x10^3 (test code = 704-7) 0.01-0.07 Lab Interpretation (test code = 19621-2) Abnormal [facility] WITH [id number] 20:52:19* Test Item Value Reference Range Interpretation [...] 33.0 g/dL 31.6-35.1 RDW-SD (test code = 51957-7) 48.1 fL 39.0-49.9 RDW-CV (test code = 788-0) 14.2 % 12.0-15.5 PLT (test code = 777-3) 419 See_Comment H [Automated messa ge] The system which generated this result transmitted reference range: 166 - 358 10*3/?L. The reference range was not used to interpret this result as normal/abnormal. MPV (test code = 15111-1) 8.7 fL 9.5-12.9 L NRBC/100 WBC (test code = [id number]) 0.0 See_Comment [Automated me ssage] The system which generated this result transmitted reference range: 0.0 - 10.0 /100 WBCs. The reference range was not used to interpret this result as normal/abnormal. NRBC x10^3 (test code = 3463720567) See_Comment [Automated messa ge] The system which generated this result transmitted reference range: 10*3/?L. The reference range was not used to interpret this result as normal/abnormal. GRAN MAT (NEUT) % (test code = 770-8) 54.0 % IMM GRAN % (test code = 5722506142) 0.00 % LYMPH % (test code = 736-9) 37.7 % MONO % (test code = 5905-5) 5.3 % EOS % (test code = 713-8) 3.0 % BASO % (test code = 706-2) 0.0 % GRAN MAT x10^3(ANC) (test code = 1018107905) 1.95 10*3/uL 1.88-7.09 IMM GRAN x10^3 (test code = 2168789880) 0.00-0.06 LYMPH x10^3 (test code = 731-0) 1.36 10*3/uL 1.32-3.29 MONO x10^3 (test code = 742-7) 0.19 10*3/uL 0.33-0.92 L EOS x10^3 (test code = 711-2) 0.11 10*3/uL 0.03-0.39 BASO x10^3 (test code = 704-7) 0.01-0.07 Lab Interpretation (test code = 53266-5) Abnormal [facility] WITH [id number] 20:52:19* Test Item Value Reference Range Interpretation [...] 33.0 g/dL 31.6-35.1 RDW-SD (test code = 27220-5) 48.1 fL 39.0-49.9 RDW-CV (test code = 788-0) 14.2 % 12.0-15.5 PLT (test code = 777-3) 419 See_Comment H [Automated messa ge] The system which generated this result transmitted reference range: 166 - 358 10*3/?L. The reference range was not used to interpret this result as normal/abnormal. MPV (test code = 04630-4) 8.7 fL 9.5-12.9 L NRBC/100 WBC (test code = 5281675938) 0.0 See_Comment [Automated [employer] ssage] The system which generated this result transmitted reference range: 0.0 - 10.0 /100 WBCs. The reference range was not used to interpret this result as normal/abnormal. NRBC x10^3 (test code = 1065407499) See_Comment [Automated messa ge] The system which generated this result transmitted reference range: 10*3/?L. The reference range was not used to interpret this result as normal/abnormal. GRAN MAT (NEUT) % (test code = 770-8) 54.0 % IMM GRAN % (test code = 3296702916) 0.00 % LYMPH % (test code = 736-9) 37.7 % MONO % (test code = 5905-5) 5.3 % EOS % (test code = 713-8) 3.0 % BASO % (test code = 706-2) 0.0 % GRAN MAT x10^3(ANC) (test code = 0998670275) 1.95 10*3/uL 1.88-7.09 IMM GRAN x10^3 (test code = 2799384176) 0.00-0.06 LYMPH x10^3 (test code = 731-0) 1.36 10*3/uL 1.32-3.29 MONO x10^3 (test code = 742-7) 0.19 10*3/uL 0.33-0.92 L EOS x10^3 (test code = 711-2) 0.11 10*3/uL 0.03-0.39 BASO x10^3 (test code = 704-7) 0.01-0.07 Lab Interpretation (test code = 31389-7) [facility]-AB WITH [id number] 20:43:58* Test Item Value Reference Range Interpretation Comme nts HIV Semi-quantitative (test code = 87268-1) 0.08 Negative HIEN (test code = HIEN) Non-reactive for HIV-1 antigen and HIV-1/HIV-2 antibodies. ?No laboratory evidence of HIV infection. ?Repeat in 2-4 weeks if acute HIV infection is suspected. [facility] [id number] 20:10:51 * Test Item Value Reference Range Interpretation Comme nts TSH (test code = 2903658649) 0.66 See_Comment [Automated [employer] ge] The system which generated this result transmitted reference range: 0.45 - 4.70 mIU/L. The reference range was not used to interpret this result as normal/abnormal. Lab Interpretation (test code = 22153-4) Normal [facility] [id number] 20:10:51 * Test Item Value Reference Range Interpretation Comme nts TSH (test code = 1325690295) 0.66 See_Comment [Automated [employer] ge] The system which generated this result transmitted reference range: 0.45 - 4.70 mIU/L. The reference range was not used to interpret this result as normal/abnormal. Lab Interpretation (test code = 99346-6) Normal [facility] [id number] 20:10:51 * Test Item Value Reference Range Interpretation Comme nts TSH (test code = 3844458904) 0.66 See_Comment [Automated messa ge] The system which generated this result transmitted reference range: 0.45 - 4.70 mIU/L. The reference range was not used to interpret this result as normal/abnormal. Lab Interpretation (test code = 99968-9) Normal [facility] [id number] 20:10:51 * Test Item Value Reference Range Interpretation Comme nts TSH (test code = 2178184981) 0.66 See_Comment [Automated messa ge] The system which generated this result transmitted reference range: 0.45 - 4.70 mIU/L. The reference range was not used to interpret this result as normal/abnormal. Lab Interpretation (test code = 98713-6) Normal [facility] DallasTRIIODOTHYRONINE2023-06-13 20:10:51* Test Item Value Reference Range Interpretation Comme nts T3 (test code = 3552562159) 153.0 ng/dL 97.0-170.0 Lab Interpretation (test cod e = 13560-7) [id number] 19:56:44* Test Item Value Reference Range Interpretation Comme nts FREE T4 (test code = 8588726710) 1.13 See_Comment [Automated messa ge] The system which generated this result transmitted reference range: 0.78 - 2.20 ng/dL:. The reference range was not used to interpret this result as normal/abnormal. Lab Interpretation (test code = 22391-7) Normal [facility] [id number] 19:43:45* Test Item Value Reference Range Interpretation Comme nts ESR (test code = 67059-0) 14 See_Comment [Automated message] The system which generated this result transmitted reference range: 2 - 30 mm/HR. The reference range was not used to interpret this result as normal/abnormal. Lab Interpretation (test code = 50200-7) Normal [facility] [id number] 19:43:45* Test Item Value Reference Range Interpretation Comme nts ESR (test code = 50857-2) 14 See_Comment [Automated message] The system which generated this result transmitted reference range: 2 - 30 mm/HR. The reference range was not used to interpret this result as normal/abnormal. Lab Interpretation (test code = 60449-8) Normal [facility] [id number] 19:43:45* Test Item Value Reference Range Interpretation Comme nts ESR (test code = 01015-2) 14 See_Comment [Automated message] The system which generated this result transmitted reference range: 2 - 30 mm/HR. The reference range was not used to interpret this result as normal/abnormal. Lab Interpretation (test code = 68432-2) Normal [facility] [id number] 19:43:45* Test Item Value Reference Range Interpretation Comme nts ESR (test code = 81959-7) 14 See_Comment [Automated message] The system which generated this result transmitted reference range: 2 - 30 mm/HR. The reference range was not used to interpret this result as normal/abnormal. Lab Interpretation (test code = 50559-8) Normal [facility]. METABOLIC PANEL (86959)2023-03-14 19:38:19* Test Item Value Reference Range Interpretation Comme nts NA (test code = 9353921935) 139 mmol/L 135-145 K (test code = 1434439143) 3.5 mmol/L 3.5-5.0 CL (test code = 6825148220) 99 mmol/L 98-108 CO2 TOTAL (test code = 4059639262) 29 mmol/L 23-31 AGAP (test code = 1311202088) 11 2-16 BUN (test code = 1533753145) 18 mg/dL 7-23 GLUCOSE (test code = 5250622280) 80 mg/dL 70-110 CREATININE (test code = 2950402868) 0.60 mg/dL 0.50-1.04 TOTAL BILI (test code = 7739050712) 0.5 mg/dL 0.1-1.1 CALCIUM (test code = 8877992514) 9.2 mg/dL 8.6-10.6 T PROTEIN (test code = 0362986091) 7.7 g/dL 6.3-8.2 ALBUMIN (test code = 1483808664) 4.4 g/dL 3.5-5.0 ALK PHOS (test code = 5699103789) 98 U/L 34-122 ALTv (test code = 1742-6) 44 U/L 5-35 H AST(SGOT) (test code = 2539273567) 31 U/L 13-40 eGFR (test code = 8017599567) 111.9 mL/min/1.73m2 HIEN (test code = HIEN) [...] imaging tests). Lab Interpretation (test code = 99036-2) Abnormal [facility]. METABOLIC PANEL (05011)2023-03-14 19:38:19* Test Item Value Reference Range Interpretation Comme nts NA (test code = 7889015893) 139 mmol/L 135-145 K (test code = 7245886972) 3.5 mmol/L 3.5-5.0 CL (test code = 4381599359) 99 mmol/L 98-108 CO2 TOTAL (test code = 2196180425) 29 mmol/L 23-31 AGAP (test code = 8706605729) 11 2-16 BUN (test code = 1460174752) 18 mg/dL 7-23 GLUCOSE (test code = 7074083718) 80 mg/dL 70-110 CREATININE (test code = 1224416958) 0.60 mg/dL 0.50-1.04 TOTAL BILI (test code = 9935252639) 0.5 mg/dL 0.1-1.1 CALCIUM (test code = 6868004366) 9.2 mg/dL 8.6-10.6 T PROTEIN (test code = 7212996025) 7.7 g/dL 6.3-8.2 ALBUMIN (test code = 8041197147) 4.4 g/dL 3.5-5.0 ALK PHOS (test code = 0918995220) 98 U/L 34-122 ALTv (test code = 1742-6) 44 U/L 5-35 H AST(SGOT) (test code = 9874050415) 31 U/L 13-40 eGFR (test code = 2340601911) 111.9 mL/min/1.73m2 HIEN (test code = HIEN) [...] imaging tests). Lab Interpretation (test code = 07853-0) Abnormal [facility]. METABOLIC PANEL (47687)2023-03-14 19:38:19* Test Item Value Reference Range Interpretation Comme nts NA (test code = 7870407304) 139 mmol/L 135-145 K (test code = 6874118747) 3.5 mmol/L 3.5-5.0 CL (test code = 3264329106) 99 mmol/L 98-108 CO2 TOTAL (test code = 2116609799) 29 mmol/L 23-31 AGAP (test code = 3570635600) 11 2-16 BUN (test code = 4111256577) 18 mg/dL 7-23 GLUCOSE (test code = 3719630334) 80 mg/dL 70-110 CREATININE (test code = 7735079348) 0.60 mg/dL 0.50-1.04 TOTAL BILI (test code = 9535119536) 0.5 mg/dL 0.1-1.1 CALCIUM (test code = 0945139118) 9.2 mg/dL 8.6-10.6 T PROTEIN (test code = 7821812513) 7.7 g/dL 6.3-8.2 ALBUMIN (test code = 4100630271) 4.4 g/dL 3.5-5.0 ALK PHOS (test code = 4488374487) 98 U/L 34-122 ALTv (test code = 1742-6) 44 U/L 5-35 H AST(SGOT) (test code = 6844899877) 31 U/L 13-40 eGFR (test code = 6703158218) 111.9 mL/min/1.73m2 HIEN (test code = HIEN) [...] imaging tests). Lab Interpretation (test code = 16442-2) Abnormal [facility]. METABOLIC PANEL (30270)2023-03-14 19:38:19* Test Item Value Reference Range Interpretation Comme nts NA (test code = 4413803822) 139 mmol/L 135-145 K (test code = 4736722825) 3.5 mmol/L 3.5-5.0 CL (test code = 5612936469) 99 mmol/L 98-108 CO2 TOTAL (test code = 5953584486) 29 mmol/L 23-31 AGAP (test code = 8435683580) 11 2-16 BUN (test code = 1324477317) 18 mg/dL 7-23 GLUCOSE (test code = 9676516850) 80 mg/dL 70-110 CREATININE (test code = 2666354420) 0.60 mg/dL 0.50-1.04 TOTAL BILI (test code = 9347686046) 0.5 mg/dL 0.1-1.1 CALCIUM (test code = 2729141854) 9.2 mg/dL 8.6-10.6 T PROTEIN (test code = 6465790579) 7.7 g/dL 6.3-8.2 ALBUMIN (test code = 1756519810) 4.4 g/dL 3.5-5.0 ALK PHOS (test code = 4656639782) 98 U/L 34-122 ALTv (test code = 1742-6) 44 U/L 5-35 H AST(SGOT) (test code = 1580709825) 31 U/L 13-40 eGFR (test code = 2248258891) 111.9 mL/min/1.73m2 HIEN (test code = HIEN) [...] imaging tests). Lab Interpretation (test code = 43327-1) Abnormal [facility]. METABOLIC PANEL (24673)2023-01-04 01:26:46* Test Item Value Reference Range Interpretation Comme nts NA (test code = 4370882729) 134 mmol/L 135-145 L K (test code = 6033033807) 4.1 mmol/L 3.5-5.0 CL (test code = 5856267691) 99 mmol/L 98-108 CO2 TOTAL (test code = 7257509750) 29 mmol/L 23-31 AGAP (test code = 0814948154) 6 2-16 BUN (test code = 4850509262) 18 mg/dL 7-23 GLUCOSE (test code = 7316678933) 116 mg/dL 70-110 H CREATININE (test code = 1768075460) 0.55 mg/dL 0.50-1.04 TOTAL BILI (test code = 1858490333) 0.4 mg/dL 0.1-1.1 CALCIUM (test code = 6002803301) 8.3 mg/dL 8.6-10.6 L T PROTEIN (test code = 3752623576) 6.4 g/dL 6.3-8.2 ALBUMIN (test code = 3873432395) 3.8 g/dL 3.5-5.0 ALK PHOS (test code = 4663561700) 91 U/L 34-122 ALTv (test code = 1742-6) 29 U/L 5-35 AST(SGOT) (test code = 3462702003) 44 U/L 13-40 H eGFR (test code = 7611222335) 123.7 mL/min/1.73m2 HIEN (test code = HIEN) [...] imaging tests). Lab Interpretation (test code = 32178-4) [facility] 01:26:46* Test Item Value Reference Range Interpretation Comme nts LIPASE (test code = 3718409411) 110 U/L 0-220 Lab Interpretation (test cod e = 87633-2) Normal [facility]NC[facility] TEST, [id number] 01:24:51* Test Item Value Reference Range Interpretation Comme nts PREG SERUM (test code = 1452918778) Negative HIEN (test code = HIEN) Less than 10 IU/L. ?If low titer or ectopic is suspected, resubmit specimen in 48-72 hours. [facility] DallasCBC WITH [id number] 01:16:28* Test Item Value Reference Range Interpretation Comme nts WBC (test code = 6690-2) 10.41 See_Comment [Automated [employer]] The system which generated this result transmitted reference range: 4.30 - 11.10 10*3/?L. The reference range was not used to interpret this result as normal/abnormal. RBC (test code = 789-8) 3.62 See_Comment L [Automated [employer]] The system which generated this result [...] 33.0 g/dL 31.6-35.1 RDW-SD (test code = 05502-5) 45.4 fL 39.0-49.9 RDW-CV (test code = 788-0) 13.2 % 12.0-15.5 PLT (test code = 777-3) 293 See_Comment [Automated messa ge] The system which generated this result transmitted reference range: 166 - 358 10*3/?L. The reference range was not used to interpret this result as normal/abnormal. MPV (test code = 36017-9) 9.5 fL 9.5-12.9 NRBC/100 WBC (test code = 0915008570) 0.0 See_Comment [Automated [employer] ssage] The system which generated this result transmitted reference range: 0.0 - 10.0 /100 WBCs. The reference range was not used to interpret this result as normal/abnormal. NRBC x10^3 (test code = 5789131513) See_Comment [Automated [employer]] The system which generated this result transmitted reference range: 10*3/?L. The reference range was not used to interpret this result as normal/abnormal. GRAN MAT (NEUT) % (test code = 770-8) 87.2 % IMM GRAN % (test code = 1780780262) 0.30 % LYMPH % (test code = 736-9) 7.5 % MONO % (test code = 5905-5) 4.3 % EOS % (test code = 713-8) 0.6 % BASO % (test code = 706-2) 0.1 % GRAN MAT x10^3(ANC) (test code = 7596680268) 9.08 10*3/uL 1.88-7.09 H IMM GRAN x10^3 (test code = 1842293052) 0.03 10*3/uL 0.00-0.06 LYMPH x10^3 (test code = 731-0) 0.78 10*3/uL 1.32-3.29 L MONO x10^3 (test code = 742-7) 0.45 10*3/uL 0.33-0.92 EOS x10^3 (test code = 711-2) 0.06 10*3/uL 0.03-0.39 BASO x10^3 (test code = 704-7) 0.01-0.07 Lab Interpretation (test code = 48486-8) [facility]normal [facility] DallasHEMOGLOBIN [id number] 15:40:25* Test Item Value Reference Range Interpretation Comme nts HEMOGLOBIN A1c (test code = 70204) 5.8 % 4.2-5.6 H [employer] GUIDELINES FOR HGB A1C: [...] OR LABORATORY CONSULTATION. CBC W/AUTO DIFF WITH [id number] 12:25:44* Test Item Value Reference Range Interpretation [...] 0.00-0.10 ABS NUCLEATED RBCS (test code = 84771) 0.00 K/UL 0.00-0.11 [facility] has important pathology staff changes effective 11/30/2022. New pathology staff will provide uninterrupted, excellent patient care and clinical consultation. See URL: [email or web address]. UNLESS OTHERWISE INDICATED, ALL TESTING PERFORMED AT [facility] [address] [place] [address] NATURAL RESOURCE MANAGER: PATY POLLARD M.D. CLIA NUMBER [id number] [facility] [place]. [id number] CBC W/AUTO DIFF WITH PLATELETS [ADDED]2022-12-08 00:00:00* [...] ABS NUCLEATED RBCS (test cod e = 22132) 0.00 K/UL Britton FryHEMOGLOBIN [id number] 00:00:00* Test Item Value Reference Range Interpretation Comme nts HEMOGLOBIN A1c (test code = 80815) 5.8 % Britton FryCBC W/AUTO DIFF WITH [...] ABS NUCLEATED RBCS (test cod e = 79758) 0.00 K/UL Britton FryHEMOGLOBIN [id number] 00:00:00* Test Item Value Reference Range Interpretation Comme nts HEMOGLOBIN A1c (test code = 49209) 5.8 % Britton FryHPV HIGH RISK WITH GENOTYPE, [id number] 16:58:23* Test Item Value Reference Range Interpretation Comme nts HPV HIGH RISK INTERP (test code = 12927) NEGATIVE NEGATIVE HPV 16 (test code = 16909) NEGATIVE HPV 18 (test code = 21761) NEGATIVE HPV, HR, OTHER GENOTYPES (test code = 26341) NEGATIVE Testing methodol ogy is real-time PCR [...] (test code = 998) (NOTE) IN ACCORDANCE [facility] FEDERAL GUIDELINES REQUIRING ALL VERBAL REQUESTS FOR LABORATORY TESTS TO BE ACCOMPANIED BY WRITTEN AUTHORIZATION WITHIN 30 DAYS OF THIS REQUEST, PLEASE SIGN BELOW AND RETURN A COPY OF THIS REPORT BY FAX TO THE LABORATORY SCANNING DEPARTMENT AT [phone]. PHYSICIAN'S SIGNATURE DATE [facility] has important pathology staff changes effective 11/30/2022. New pathology staff will provide uninterrupted, excellent patient care and clinical consultation. See URL: [email or web address]. UNLESS OTHERWISE INDICATED, ALL TESTING PERFORMED AT [facility] [address] [place] [address] NATURAL RESOURCE MANAGER: PATY POLLARD M.D. CLIA NUMBER [id number] [facility] [place]. [id number] NOTE: [ADDED]2022-12-06 00:00:00* Test Item Value Reference Range Interpretation Comme nts NOTE: (test code = 998) (NOTE) Britton FryHPV HIGH RISK WITH GENOTYPE, TP [ADDED]2022-12-06 00:00:00* Test Item Value Reference Range Interpretation Comme nts HPV HIGH RISK INTERP (test c ode = 42098) NEGATIVE HPV 16 (test code = 99876) NEGATIVE HPV 18 (test code = 04361) NEGATIVE HPV, HR, OTHER GENOTYPES (te st code = 71630) NEGATIVE Britton FryNOTE: [ADDED]2022-12-06 00:00:00* Test Item Value Reference Range Interpretation Comme nts NOTE: (test code = 998) (NOTE) Britton FryHPV HIGH RISK WITH GENOTYPE, TP [ADDED]2022-12-06 00:00:00* Test Item Value Reference Range Interpretation Comme nts HPV HIGH RISK INTERP (test c ode = 13587) NEGATIVE HPV 16 (test code = 06667) NEGATIVE HPV 18 (test code = 79851) NEGATIVE HPV, HR, OTHER GENOTYPES (te st code = 18053) NEGATIVE Britton FryFOLATE, [id number] 13:36:15* Test Item Value Reference Range Interpretation [...] . . . . . NG/ML >1504 [facility] has important pathology staff changes effective 11/30/2022. New pathology staff will provide uninterrupted, excellent patient care and clinical consultation. See URL: [email or web address]. UNLESS OTHERWISE INDICATED, ALL TESTING PERFORMED AT [facility] [address] [place] [address] NATURAL RESOURCE MANAGER: INGRID BURKETT M.D. [place] NUMBER [id number] [facility] [place]. [id number] VITAMIN D, 25 [id number] 06:40:49* Test Item Value Reference Range Interpretation Comme [facility] VITAMIN D, 25 OH (test code = [...] . . . NG/ML 30-100 TSH, THIRD [id number] 06:40:01* Test Item Value Reference Range Interpretation Comme [facility] TSH, THIRD GENERATION (test code = 2821) 0.466 UIU/ML 0.400-4.100 VITAMIN [id number] 06:40:01* Test Item Value Reference Range Interpretation Comme [facility] VITAMIN B-12 (test code = 2840) 580 PG/ML 200-950 COMPREHENSIVE METABOLIC [id number] 03:56:35* Test Item Value Reference Range Interpretation Comme nts GLUCOSE (test code = 2217) 115 MG/DL 70-99 H BUN (test code = 2208) 16 MG/DL 6-20 CREATININE (test code = 2214) 0.55 MG/DL 0.60-1.30 L eGFR (2020 CKD-EPI) (test code = 32226) 120 ML/MIN/1.73 >60 CALC BUN/CREAT (test code [...] 16 U/L 5-40 CBC W/AUTO DIFF WITH [id number] 03:05:55* Test Item Value Reference Range Interpretation [...] 0.00-0.10 ABS NUCLEATED RBCS (test code = 20827) 0.00 K/UL 0.00-0.11 COMPREHENSIVE METABOLIC [id number] 00:00:00* Test Item Value Reference Range Interpretation Comme nts GLUCOSE (test code = 2217) 115 MG/DL BUN (test code = 2208) 16 MG/DL CREATININE (test code = 2214) 0.55 MG/DL eGFR (2020 CKD-EPI) (test code = 05767) 120 ML/MIN/1.73 CALC BUN/CREAT (test code = [...] (test code = 2219) 16 U/L Britton [id number] 00:00:00* Test Item Value Reference Range Interpretation Comme [facility] TSH, THIRD GENERATION (test code = 2821) 0.466 UIU/ML Britton FryVITAMIN [id number] 00:00:00* Test Item Value Reference Range Interpretation Comme [facility] VITAMIN B-12 (test code = 2840) 580 PG/ML Britton FryVITAMIN D, 25 [id number] 00:00:00* Test Item Value Reference Range Interpretation Comme [facility] VITAMIN D, 25 OH (test code = 4958) 28 NG/ML Britton FryFOLATE, [id number] 00:00:00* Test Item Value Reference Range Interpretation Comme [facility] HEMATOCRIT (test code = 1004) 35.6 % FOLATE, RBC (test code = 2690) 1295 NG/ML Britton FryCBC W/AUTO [id number] 00:00:00* Test Item Value Reference Range Interpretation [...] ABS NUCLEATED RBCS (test cod e = 67799) 0.00 K/UL Britton FryCOMPREHENSIVE METABOLIC [id number] 00:00:00* Test Item Value Reference Range Interpretation Comme nts GLUCOSE (test code = 2217) 115 MG/DL BUN (test code = 2208) 16 MG/DL CREATININE (test code = 2214) 0.55 MG/DL eGFR (2020 CKD-EPI) (test code = 99054) 120 ML/MIN/1.73 CALC BUN/CREAT (test code = [...] (test code = 2219) 16 U/L Britton [id number] 00:00:00* Test Item Value Reference Range Interpretation Comme [facility] TSH, THIRD GENERATION (test code = 2821) 0.466 UIU/ML Britton FryVITAMIN [id number] 00:00:00* Test Item Value Reference Range Interpretation Comme [facility] VITAMIN B-12 (test code = 2840) 580 PG/ML Britton FryVITAMIN D, 25 [id number] 00:00:00* Test Item Value Reference Range Interpretation Comme [facility] VITAMIN D, 25 OH (test code = 4958) 28 NG/ML Britton FryFOLATE, [id number] 00:00:00* Test Item Value Reference Range Interpretation Comme [facility] HEMATOCRIT (test code = 1004) 35.6 % FOLATE, RBC (test code = 2690) 1295 NG/ML Britton FryCBC W/AUTO [id number] 00:00:00* Test Item Value Reference Range Interpretation [...] ABS NUCLEATED RBCS (test cod e = 38386) 0.00 K/UL Britton FryCT/NG, NAAT, [id number] 21:32:13* Test Item Value Reference Range Interpretation Comme nts CHLAMYDIA, NAAT, URINE (test code = 55296) NEGATIVE NEGATIVE Testing is perfo rmed with [email or web address] 6800/8800 systems usingreal-time polymerase chain reaction (PCR) method. A negative result does not exclude low level infection, specimensampling error, or collection error. GONORRHEA, NAAT, URINE (test code = 18109) NEGATIVE NEGATIVE Testing is perfo rmed with [employer] 6800/8800 systems usingreal-time polymerase chain reaction (PCR) method. A negative result does not exclude low level infection, specimensampling error, or collection error. PAP TEST, PAM, [id number] 11:59:30* Test Item Value Reference Range Interpretation Comme nts SOURCE: (test code = 8001) Cervical/Endo cervical SLIDES: (test code = 8011) 1 LMP: (test code = 8021) 07/2022 SPECIMEN ADEQUACY: (test code = 58801) (NOTE) Satisfactory for evaluation. Endocervical cells/transformation zone component not identified. INTERPRETATION: (test code = 75196) NILM/NO EPITH. ABNORMALITY;S EE BELOW ---- NEGATIVE FOR INTRAEPITHELIAL LESION OR MALIGNANCY (NILM) - DIESEL ENGINE FITTER: (test code = 8101) [place], [place]( )[facility] LOCATION: (test code = 69861) (NOTE) Specimens proces sed and interpreted at [facility], [address] [place] [address], , CLIA: [id number] CPT: (test code = 8140) (NOTE) [address] UNLESS OTH ERWISE INDICATED, COMPUTER AIDED AND DIESEL ENGINE FITTER SCREENING PERFORMED. The Pap test is a screening test with an inherent, but low probability of error. Your patient should be reminded to consult you immediately if she experiences any suspicious signs or symptoms, regardless of her Pap test result. An alternate report format containing images or consolidated prior Pap history is available as applicable. [facility] has important pathology staff changes effective 11/30/2022. New pathology staff will provide uninterrupted, excellent patient care and clinical consultation. See URL: [email or web address]. UNLESS OTHERWISE INDICATED, ALL TESTING PERFORMED AT [facility] [address] [place] [address] NATURAL RESOURCE MANAGER: INGRID BURKETT M.D. CLIA NUMBER [id number] [place]. [id number] HEPATITIS PANEL, [id number] 04:20:00* Test Item Value Reference Range Interpretation Comme nts HEPATITIS A IgM (test code = 19084) NON-REACTIVE NON-REACTIVE HEPATITIS B CORE IgM (test code = 4644) NON-REACTIVE NON-REACTIVE HEPATITIS B SURF AG (test code = 2739) NON-REACTIVE NON-REACTIVE HEPATITIS C ANTIBODY (test code = 4675) NON-REACTIVE NON-REACTIVE INTERPRETATION HEPATITIS A: (test code = 2552) (NOTE) Hepatitis A serology shows no evidence of acute hepatitis A. INTERPRETATION HEPATITIS B: (test code = 88969) (NOTE) Hepatitis B serology shows no evidence of acute hepatitis B andno indication of exposure to hepatitis B virus in the previous richie eight months. INTERPRETATION HEPATITIS C: (test code = 42778) (NOTE) Hepatitis C serology shows no evidence of exposure to hepatitisC virus at this time. It can take up to 12 months after exposure tothe hepatitis C virus for antibodies to become detectable in the blood in certain patients. HIV 1/2 4TH GEN, RFLX [id number] 04:20:00* Test Item Value Reference Range Interpretation Comme nts HIV 1/2 4TH GEN, RFLX CONF (test code = 3514) NON-REACTIVE NON-REACTIVE [facility] has impo rtant pathology staff changes effective 11/30/2022. New pathology staff will provide uninterrupted, excellent patient care and clinical consultation. See URL: [email or web address]. UNLESS OTHERWISE INDICATED, ALL TESTING PERFORMED AT [facility] [address] [place] [address] NATURAL RESOURCE MANAGER: INGRID BURKETT M.D. CLIA NUMBER [id number] [place]. [id number] 03:36:27* Test Item Value Reference Range Interpretation Comme nts RPR RESULT (test code = 3501) NON-REACTIVE NON-REACTIVE RPR TITER (test code = 3500) NOT INDIC. TITER NOT INDIC. PAP TEST, THINPREP, [id number] 00:00:00* Test Item Value Reference Range Interpretation Comme nts SOURCE: (test code = 8001) Cervical/Endocervical SLIDES: (test code = 8011) 1 LMP: (test code = 8021) 07/2022 SPECIMEN ADEQUACY: (test code = 03878) (NOTE) INTERPRETATION: (test code = 45843) NILM/NO EPITH. ABNORMALITY;SEE BELOW DIESEL ENGINE FITTER: (test code = 8101) [place], CT(ASCP)IAC LOCATION: (test code = 77251) (NOTE) CPT: (test code = 8140) (NOTE) Britton [id number] 00:00:00* Test Item Value Reference Range Interpretation Comme nts RPR RESULT (test code = 3501) NON-REACTIVE RPR TITER (test code = 3500) NOT INDIC. TITER Britton FryCT/NG, TMA, [id number] 00:00:00* Test Item Value Reference Range Interpretation Comme nts CHLAMYDIA, NAAT, URINE (test code = 24581) NEGATIVE GONORRHEA, NAAT, URINE (test code = 34743) NEGATIVE Britton FryHIV 1/2 4TH GEN, RFLX [id number] 00:00:00* Test Item Value Reference Range Interpretation Comme nts HIV 1/2 4TH GEN, RFLX CONF ( test code = 3514) NON-REACTIVE Britton FryPAP TEST, THINPREP, [id number] 00:00:00* Test Item Value Reference Range Interpretation Comme nts SOURCE: (test code = 8001) Cervical/Endocervical SLIDES: (test code = 8011) 1 LMP: (test code = 8021) 07/2022 SPECIMEN ADEQUACY: (test code = 02586) (NOTE) INTERPRETATION: (test code = 16385) NILM/NO EPITH. ABNORMALITY;SEE BELOW DIESEL ENGINE FITTER: (test code = 8101) [place], CT(ASCP)IAC LOCATION: (test code = 58119) (NOTE) CPT: (test code = 8140) (NOTE) Britton FryACUTE HEPATITIS [id number] 00:00:00* Test Item Value Reference Range Interpretation Comme nts HEPATITIS A IgM (test code = 24714) NON-REACTIVE HEPATITIS B CORE IgM (test c ode = 4644) NON-REACTIVE HEPATITIS B SURF AG (test co de = 2739) NON-REACTIVE HEPATITIS C ANTIBODY (test c ode = 4675) NON-REACTIVE INTERPRETATION HEPATITIS A: (test code = 2552) (NOTE) INTERPRETATION HEPATITIS B: (test code = 22943) (NOTE) INTERPRETATION HEPATITIS C: (test code = 17186) (NOTE) Britton [id number] 00:00:00* Test Item Value Reference Range Interpretation Comme nts RPR RESULT (test code = 3501) NON-REACTIVE RPR TITER (test code = 3500) NOT INDIC. TITER Britton FryCT/NG, TMA, [id number] 00:00:00* Test Item Value Reference Range Interpretation Comme nts CHLAMYDIA, NAAT, URINE (test code = 82760) NEGATIVE GONORRHEA, NAAT, URINE (test code = 19625) NEGATIVE Britton FryHIV 1/2 4TH GEN, RFLX [id number] 00:00:00* Test Item Value Reference Range Interpretation Comme nts HIV 1/2 4TH GEN, RFLX CONF ( test code = 3514) NON-REACTIVE Britton FryACUTE HEPATITIS [id number] 00:00:00* Test Item Value Reference Range Interpretation Comme nts HEPATITIS A IgM (test code = 58722) NON-REACTIVE HEPATITIS B CORE IgM (test c ode = 4644) NON-REACTIVE HEPATITIS B SURF AG (test co de = 2739) NON-REACTIVE HEPATITIS C ANTIBODY (test c ode = 4675) NON-REACTIVE INTERPRETATION HEPATITIS A: (test code = 2552) (NOTE) INTERPRETATION HEPATITIS B: (test code = 12393) (NOTE) INTERPRETATION HEPATITIS C: (test code = 02775) (NOTE) Britton FryTHYROID II PROFILE (TU,T4,FTI,TSH)2022-11-09 05:51:41* Test Item Value Reference Range Interpretation Comme nts T-UPTAKE (test code = 2817) 30.2 % 24.3-39.0 THYROX. BIND. CAPAC. (test code = 40468) 1.1 0.8-1.3 T4 (THYROXINE) (test code = 2819) 8.2 UG/DL 4.5-10.5 CORRECTED T4 (FTI) (test code = 2820) 7.5 UG/DL 4.2-11.6 TSH, THIRD GENERATION (test code = 2821) 0.227 UIU/ML 0.400-4.100 L [facility] has important pathology staff changes effective 11/30/2022. New pathology staff will provide uninterrupted, excellent patient care and clinical consultation. See URL: [email or web address] memorialCa[email or web address].[employer]/path ology-team. UNLESS OTHERWISE INDICATED, ALL TESTING PERFORMED AT [facility] [address] [facility] [place], [place] CLIA: [id number], CAP: [id number] COMPREHENSIVE METABOLIC [id number] 03:40:11* Test Item Value Reference Range Interpretation Comme nts GLUCOSE (test code = 2217) 85 MG/DL 70-99 BUN (test code = 2208) 11 MG/DL 6-20 CREATININE (test code = 2214) 0.66 MG/DL 0.60-1.30 eGFR (2020 CKD-EPI) (test code = 55992) 115 ML/MIN/1.73 >60 CALC BUN/CREAT (test code [...] code = 2219) 15 U/L 5-40 LIPID [id number] 03:40:11* Test Item Value Reference Range Interpretation [...] SPECIMENS. FOR MOREINFORMATION, SEE CLIENT ANNOUNCEMENT AT [email or web address] RISK RATIO LDL/HDL (test code = 2238) 1.49 RATIO <3.22 CBC W/AUTO DIFF WITH [id number] 02:49:31* Test Item Value Reference Range Interpretation [...] = 1065) 0.0 /100 WBC'S See_Comment [Automated [employer] ge] The system which generated this result [...] 0.00-0.10 ABS NUCLEATED RBCS (test code = 17369) 0.00 K/UL 0.00-0.11 HEMOGLOBIN [id number] 02:40:38* Test Item Value Reference Range Interpretation Comme nts HEMOGLOBIN A1c (test code = 05253) 5.8 % 4.2-5.6 H COMPREHENSIVE METABOLIC PANEL [ADDED]2022-11-09 00:00:00* Test Item Value Reference Range Interpretation Comme nts GLUCOSE (test code = 2217) 85 MG/DL BUN (test code = 2208) 11 MG/DL CREATININE (test code = 2214) 0.66 MG/DL eGFR (2020 CKD-EPI) (test code = 49029) 115 ML/MIN/1.73 CALC BUN/CREAT (test code = [...] Comme nts HEMOGLOBIN A1c (test code = 46533) 5.8 % Britton FryLIPID PANEL [ADDED]2022-11-09 00:00:00* [...] THYROX. BIND. CAPAC. (test c ode = 54915) 1.1 T4 (THYROXINE) (test code = 2819) [...] ABS NUCLEATED RBCS (test cod e = 03461) 0.00 K/UL Britton FryCOMPREHENSIVE METABOLIC PANEL [ADDED]2022-11-09 00:00:00* Test Item Value Reference Range Interpretation Comme nts GLUCOSE (test code = 2217) 85 MG/DL BUN (test code = 2208) 11 MG/DL CREATININE (test code = 2214) 0.66 MG/DL eGFR (2020 CKD-EPI) (test code = 74348) 115 ML/MIN/1.73 CALC BUN/CREAT (test code = [...] Comme nts HEMOGLOBIN A1c (test code = 27578) 5.8 % Britton FryLIPID PANEL [ADDED]2022-11-09 00:00:00* [...] THYROX. BIND. CAPAC. (test c ode = 56672) 1.1 T4 (THYROXINE) (test code = 2819) [...] ABS NUCLEATED RBCS (test cod e = 31000) 0.00 K/UL Britton FryCULTURE, [id number] 00:00:00* Test Item Value Reference Range Interpretation Comme nts CULTURE, URINE (test code = 90708) SPECIMEN NUMBER: [id number] Britton FryCULTURE, [id number] 00:00:00* Test Item Value Reference Range Interpretation Comme nts CULTURE, URINE (test code = 75391) SPECIMEN NUMBER: [id number] Britton Tejeda AustinURINALYSIS WITH [id number] 00:00:00* Test Item Value Reference Range Interpretation [...] 0-2 /HPF EPITHELIAL CELLS (test code = 62470) 5-10 /HPF BACTERIA (test code = 1515) 4+ CASTS, HYALINE (test code = 1517) TRACE Britton Tejeda AustinURINALYSIS WITH [id number] 00:00:00* Test Item Value Reference Range Interpretation [...] 0-2 /HPF EPITHELIAL CELLS (test code = 13501) 5-10 /HPF BACTERIA (test code = 1515) 4+ CASTS, HYALINE (test code = 1517) TRACE Britton FryVITAMIN [id number] 00:00:00* Test Item Value Reference Range Interpretation Comme atilio VITAMIN B-12 (test code = 2840) 1017 PG/ML Britton FryVITAMIN D, 25 [id number] 00:00:00* Test Item Value Reference Range Interpretation Comme atilio VITAMIN D, 25 OH (test code = 4958) 36 NG/ML Britton Tejeda AustinVITAMIN [id number] 00:00:00* Test Item Value Reference Range Interpretation Comme atilio VITAMIN B-12 (test code = 2840) 1017 PG/ML Britton FryVITAMIN D, 25 [id number] 00:00:00* Test Item Value Reference Range Interpretation Comme atilio VITAMIN D, 25 OH (test code = 4958) 36 NG/ML Britton FryHEMOGLOBIN [id number] 00:00:00* Test Item Value Reference Range Interpretation Comme atilio HEMOGLOBIN A1c (test code = 10683) 5.4 % Britton FryLIPID [id number] 00:00:00* Test Item Value Reference Range Interpretation Comme nts CHOLESTEROL (test code = 2210) 181 MG/DL TRIGLYCERIDES (test code = 2232) 63 MG/DL HDL CHOLESTEROL (test code = 2220) 60 MG/DL CALC LDL CHOL (test code = 2237) 106 MG/DL RISK RATIO LDL/HDL (test cod e = 2238) 1.77 RATIO Britton FryCOMPREHENSIVE METABOLIC [id number] 00:00:00* Test Item Value Reference Range Interpretation Comme nts GLUCOSE (test code = 2217) 116 MG/DL BUN (test code = 2208) 12 MG/DL CREATININE (test code = 2214) 0.62 MG/DL eGFR AMER. (test cod e = 15723) 134 ML/MIN/1.73 eGFR NON- AMER. (test code = 31419) 116 ML/MIN/1.73 CALC BUN/CREAT (test code = [...] (test code = 2219) 23 U/L Britton [id number] 00:00:00* Test Item Value Reference Range Interpretation Comme nts TSH, THIRD GENERATION (test code = 2821) 1.240 UIU/ML Britton Tejeda AngCBC W/AUTO [id number] 00:00:00* Test Item Value Reference Range Interpretation [...] ABS NUCLEATED RBCS (test cod e = 63515) 0.00 K/UL Britton FryHEMOGLOBIN [id number] 00:00:00* Test Item Value Reference Range Interpretation Comme nts HEMOGLOBIN A1c (test code = 61656) 5.4 % Britton FryLIPID [id number] 00:00:00* Test Item Value Reference Range Interpretation Comme nts CHOLESTEROL (test code = 2210) 181 MG/DL TRIGLYCERIDES (test code = 2232) 63 MG/DL HDL CHOLESTEROL (test code = 2220) 60 MG/DL CALC LDL CHOL (test code = 2237) 106 MG/DL RISK RATIO LDL/HDL (test cod e = 2238) 1.77 RATIO Britton FryCOMPREHENSIVE METABOLIC [id number] 00:00:00* Test Item Value Reference Range Interpretation Comme nts GLUCOSE (test code = 2217) 116 MG/DL BUN (test code = 2208) 12 MG/DL CREATININE (test code = 2214) 0.62 MG/DL eGFR AMER. (test cod e = 27395) 134 ML/MIN/1.73 eGFR NON- AMER. (test code = 36720) 116 ML/MIN/1.73 CALC BUN/CREAT (test code = [...] (test code = 2219) 23 U/L Britton [id number] 00:00:00* Test Item Value Reference Range Interpretation Comme nts TSH, THIRD GENERATION (test code = 2821) 1.240 UIU/ML Britton FryCBC W/AUTO [id number] 00:00:00* Test Item Value Reference Range Interpretation [...] ABS NUCLEATED RBCS (test cod e = 71646) 0.00 K/UL Britton FryGC, AMPLIFIED, [id number] 00:00:00* Test Item Value Reference Range Interpretation Comme nts GONORRHEA, TMA (test code = 32129) NEGATIVE Britton F AustinCHLAMYDIA, AMPLIFIED, [id number] 00:00:00* Test Item Value Reference Range Interpretation Comme nts CHLAMYDIA, TMA (test code = 37889) NEGATIVE Britton F AustinGC, AMPLIFIED, [id number] 00:00:00* Test Item Value Reference Range Interpretation Comme nts GONORRHEA, TMA (test code = 71056) NEGATIVE Britton F AustinCHLAMYDIA, AMPLIFIED, [id number] 00:00:00* Test Item Value Reference Range Interpretation Comme nts CHLAMYDIA, TMA (test code = 21839) NEGATIVE Britton F AustinGC AND CHLAMYDIA, AMPLIFIED, [id number] 00:00:00* Test Item Value Reference Range Interpretation Comme nts GONORRHEA, TMA (test code = 44203) NEGATIVE CHLAMYDIA, TMA (test code = 84383) NEGATIVE Britton F AustinGC AND CHLAMYDIA, AMPLIFIED, [id number] 00:00:00* Test Item Value Reference Range Interpretation Comme nts GONORRHEA, TMA (test code = 84735) NEGATIVE CHLAMYDIA, TMA (test code = 62870) NEGATIVE Britton Tejeda AustinHPV HIGH RISK WITH GENOTYPE, [id number] 00:00:00* Test Item Value Reference Range Interpretation Comme [facility] HPV HIGH RISK INTERP (test c ode = 29092) NEGATIVE HPV 16 (test code = 80196) NEGATIVE HPV 18 (test code = 43350) NEGATIVE HPV, HR, OTHER GENOTYPES (te st code = 89064) NEGATIVE Britton Tejeda AustinPAP TEST, THINPREP, [id number] 00:00:00* Test Item Value Reference Range Interpretation Comme [facility] SOURCE: (test code = 8001) Cervical/Endocervical SLIDES: (test code = 8011) 1 LMP: (test code = 8021) 05/09/18 SPECIMEN ADEQUACY: (test code = 56770) (NOTE) INTERPRETATION: (test code = 05910) NO EPITHELIAL ABNORMALITY SEE BELOW DIESEL ENGINE FITTER: (test code = 8101) [place], CT(ASCP) IAC LOCATION: (test code = 72377) (NOTE) CPT: (test code = 8140) (NOTE) Britton FryHPV HIGH RISK WITH GENOTYPE, [id number] 00:00:00* Test Item Value Reference Range Interpretation Comme nts HPV HIGH RISK INTERP (test c ode = 19227) NEGATIVE HPV 16 (test code = 33830) NEGATIVE HPV 18 (test code = 31202) NEGATIVE HPV, HR, OTHER GENOTYPES (te st code = 96357) NEGATIVE Britton FryPAP TEST, THINPREP, [id number] 00:00:00* Test Item Value Reference Range Interpretation Comme nts SOURCE: (test code = 8001) Cervical/Endocervical SLIDES: (test code = 8011) 1 LMP: (test code = 8021) 05/09/18 SPECIMEN ADEQUACY: (test code = 08576) (NOTE) INTERPRETATION: (test code = 81690) NO EPITHELIAL ABNORMALITY SEE BELOW DIESEL ENGINE FITTER: (test code = 8101) [place], CT(ASCP) IAC LOCATION: (test code = 39835) (NOTE) CPT: (test code = 8140) (NOTE) Britton SrivastavaLTURE, [id number] 00:00:00* Test Item Value Reference Range Interpretation Comme nts CULTURE, URINE (test code = 22463) SPECIMEN NUMBER: [id number] Britton FryCULTURE, [id number] 00:00:00* Test Item Value Reference Range Interpretation Comme nts CULTURE, URINE (test code = 81889) SPECIMEN NUMBER: [id number] Britton FryVITAMIN D,1,19-[id number] 00:00:00* Test Item Value Reference Range Interpretation Comme nts VITAMIN D,1,25-DIHYDROXY (te st code = 4960) 40.2 PG/ML Britton Tejeda AustinVITAMIN D,1,08-[id number] 00:00:00* Test Item Value Reference Range Interpretation Comme nts VITAMIN D,1,25-DIHYDROXY (te st code = 4960) 40.2 PG/ML rBitton FryHEMOGLOBIN [id number] 00:00:00* Test Item Value Reference Range Interpretation Comme at[facility] HEMOGLOBIN A1c (test code = 22779) 5.8 % Britton [id number] 00:00:00* Test Item Value Reference Range Interpretation Comme at[facility] TSH (test code = 2821) 1.08 UIU/ML Britton FryCOMPREHENSIVE METABOLIC [id number] 00:00:00* Test Item Value Reference Range Interpretation Comme nts GLUCOSE (test code = 2217) 90 MG/DL BUN (test code = 2208) 11 MG/DL CREATININE (test code = 2214) 0.61 MG/DL eGFR AMER. (test cod e = 31148) 139 ML/MIN/1.73 eGFR NON- AMER. (test code = 32269) 120 ML/MIN/1.73 CALC BUN/CREAT (test code = [...] ALT (test code = 2219) 20 U/L Brittno FryVITAMIN [id number] 00:00:00* Test Item Value Reference Range Interpretation Comme atilio VITAMIN B-12 (test code = 2840) 647 PG/ML Britton FryCBC W/AUTO [id number] 00:00:00* Test Item Value Reference Range Interpretation [...] code = 1015) 335 K/UL Britton FryHEMOGLOBIN [id number] 00:00:00* Test Item Value Reference Range Interpretation Comme nts HEMOGLOBIN A1c (test code = 50366) 5.8 % Britton [id number] 00:00:00* Test Item Value Reference Range Interpretation Comme nts TSH (test code = 2821) 1.08 UIU/ML Britton FryCOMPREHENSIVE METABOLIC [id number] 00:00:00* Test Item Value Reference Range Interpretation Comme nts GLUCOSE (test code = 2217) 90 MG/DL BUN (test code = 2208) 11 MG/DL CREATININE (test code = 2214) 0.61 MG/DL eGFR AMER. (test cod e = 27949) 139 ML/MIN/1.73 eGFR NON- AMER. (test code = 20000) 120 ML/MIN/1.73 CALC BUN/CREAT (test code = [...] (test code = 2219) 20 U/L [id number] 00:00:00* Test Item Value Reference Range Interpretation Comme nts VITAMIN B-12 (test code = 2840) 647 PG/ML Britton FryC W/AUTO [id number] 00:00:00* Test Item Value Reference Range Interpretation [...] (test code = 1015) 335 K/UL Britton FryCBC W/AUTO [id number] 00:00:00* Test Item Value Reference Range Interpretation [...] = 1015) 392 K/UL Britton FryCBC W/AUTO [id number] 00:00:00* Test Item Value Reference Range Interpretation [...] = 1015) 392 K/UL Britton FryCOMPREHENSIVE METABOLIC [id number] 00:00:00* Test Item Value Reference Range Interpretation Comme nts GLUCOSE (test code = 2217) 71 MG/DL BUN (test code = 2208) 13 MG/DL CREATININE (test code = 2214) 0.70 MG/DL eGFR AMER. (test cod e = 66388) 134 ML/MIN/1.73 eGFR NON- AMER. (test code = 47576) 115 ML/MIN/1.73 CALC BUN/CREAT (test code = [...] (test code = 2219) 32 U/L Britton FryCOMPREHENSIVE METABOLIC [id number] 00:00:00* Test Item Value Reference Range Interpretation Comme nts GLUCOSE (test code = 2217) 71 MG/DL BUN (test code = 2208) 13 MG/DL CREATININE (test code = 2214) 0.70 MG/DL eGFR AMER. (test cod e = 34296) 134 ML/MIN/1.73 eGFR NON- AMER. (test code = 44169) 115 ML/MIN/1.73 CALC BUN/CREAT (test code = [...] 2219) 32 U/L Britton FryPAP TEST, THINPREP, [id number] 00:00:00* Test Item Value Reference Range Interpretation Comme nts SOURCE: (test code = 8001) A) Unspecified SLIDES: (test code = 8011) 1 LMP: (test code = 8021) 06/28/2015 SPECIMEN ADEQUACY: (test code = 28091) (NOTE) INTERPRETATION: (test code = 65434) NO EPITHELIAL ABNORMALITY SEE BELOW DIESEL ENGINE FITTER: (test code = 8101) GARRICK AMOS(ASCP) LOCATION: (test code = 08004) (NOTE) CPT: (test code = 8140) (NOTE) Britton Tejeda AngHPV HIGH RISK WITH GENOTYPE, [id number] 00:00:00* Test Item Value Reference Range Interpretation Comme nts HPV HIGH RISK INTERP (test c ode = 99249) NEGATIVE HPV 16 (test code = 58101) NEGATIVE HPV 18 (test code = 14879) NEGATIVE HPV, HR, OTHER GENOTYPES (te st code = 28544) NEGATIVE Britton FryPAP TEST, THINPREP, [id number] 00:00:00* Test Item Value Reference Range Interpretation Comme nts SOURCE: (test code = 8001) A) Unspecified SLIDES: (test code = 8011) 1 LMP: (test code = 8021) 06/28/2015 SPECIMEN ADEQUACY: (test code = 52222) (NOTE) INTERPRETATION: (test code = 12484) NO EPITHELIAL ABNORMALITY SEE BELOW DIESEL ENGINE FITTER: (test code = 8101) GARRICK AMOS(ASCP) LOCATION: (test code = 62433) (NOTE) CPT: (test code = 8140) (NOTE) Britton FryHPV HIGH RISK WITH GENOTYPE, [id number] 00:00:00* Test Item Value Reference Range Interpretation Comme nts HPV HIGH RISK INTERP (test c ode = 45098) NEGATIVE HPV 16 (test code = 62328) NEGATIVE HPV 18 (test code = 67146) NEGATIVE HPV, HR, OTHER GENOTYPES (te st code = 18086) NEGATIVE Britton FryFOLLICLE STIM [id number] 00:00:00* Test Item Value Reference Range Interpretation Comme nts FOLLICLE STIM HORMONE (test code = 2700) 6.8 MIU/ML FSH INTERPRETATION: (test co de = 21080) (NOTE) Britton [id number] 00:00:00* Test Item Value Reference Range Interpretation Comme nts TSH (test code = 2821) 1.7 UIU/ML Britton FryFOLLICLE STIM [id number] 00:00:00* Test Item Value Reference Range Interpretation Comme nts FOLLICLE STIM HORMONE (test code = 2700) 6.8 MIU/ML FSH INTERPRETATION: (test co de = 09737) (NOTE) Britton [id number] 00:00:00* Test Item Value Reference Range Interpretation Comme nts TSH (test code = 2821) 1.7 UIU/ML Britton Tejeda Ang Notes Date/Time Note Provider Source 2024-02-14 00:00:00 rfdydfcvEgAcFmj1rOuZs02v7rN9IyUvonl XD4voKDVRqUZQV2QwJECdcoK6IQvV0011-9 5-15T00:00:00+ +-------- ----+| Plan Activity | Plan [...] | 2016-04-22 || Appended: 2020-02-13 | || [facility] | |+ + +| [...] +| OTC miralax daily . 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 | || Noted 3 elevated bps yhvo090/80 on 3 different occasions indicated a need [...] || ? foreign body | |+ + +68660-3 Plan of TreatmentLNCARE [facility] [place]-[id number]|2.16.840.1.1 [id number] for patient xarmHcygwlmXdracybxcYDQXi79 Section NarrativeNARRATIVEFormatted C-CDA narrative textSFAStluisjony Beal [facility]2024-05-19T00:00:00 Britton Beal [facility] 2024-01-22 00:00:00 8vKwDoFjLBd0PvsGwwu/RoZub+YkP4U6C9H Bv7N4ssFQT+k/5ttla4sBTFIo+hNa9185-4 01-21T00:00:00+ +-------- ----+| Plan Activity | Plan [...] | 2016-04-22 || Appended: 2020-02-13 | || [facility]or | |+ + +| H Pylori ,CMP, [...] +| OTC miralax daily . 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 | || Noted 3 elevated bps exgj739/80 on 3 different occasions indicated a need [...] have not been effective | |+ + +56922-3 Plan of TreatmentLNCARE PLANTXTSFA|SOC-[id number]|2.16.840.1.1 [id number] for patient hnxtVksamssOuqdlkojbWBXUi36 Section NarrativeNARRATIVEFormatted C-CDA narrative textSFAStpravin Beal [facility]2024-05-11T00:00:00 Britton [facility] 2023-12-18 16:30:00 8283-46-93K63:30:00 Images from the original note were not included.Venipuncture collection performed by clean technique on the right anticubitus. Total of 1 attempts were made. Slight pressure and a bandage/dressing were applied to the site(s). The patient experienced no complications. The following specimens were processed according to instructions and sent to [facility] per lab order on 12/18/2023:LT BLUESST 1REDLAV 2PPTDK GREEN (LiHep)DK GREEN (SodH)GRAYDK BLUE (K2)DK BLUE (S)ACDBlood CultureNIPT/NTD 28757-4Hikmy AxjgVP0857-26-33Q62:36:16Nurse NoteTXT1.2.840.864204.1.13.104.2.7. 2.810758|[id number] for patient tpyk64603-4Tbnbu NoteLNNARRATIVEFormatted C-CDA narrative text[id number] 3UYBGEIRDNBXYHDNFESNZNB1531-92-45W0 6:36:161.2.840.465614.1.72.3.15|1.2 .840.777398.1.13.104.2.7.2.727879_2 [id number] [facility] 2023-12-18 09:21:36 4869-30-53A81:21:36 m offering an earlier appointment at our [place] location. 78291-7Clgbsnshm encounter TkpmBZ1123-69-67S41:22:11Telephone encounter NoteTXT1.2.840.041658.1.13.104.2.7. 2.907862|[id number] for patient ewla11982-5YrbfOBCYWTVVTDLHddnjwcmn C-CDA narrative [id number] Schultz[address] Vp[id number] 1XXDJTPAWZQEVAABICLWZUK9745-87-84Q4 9:22:111.2.840.126682.1.72.3.15|1.2 .840.785920.1.13.104.2.7.2.727879_2 [id number] Lisandro Armenta [facility] 2023-12-15 16:19:51 6536-18-91L93:19:51 Not sure why I am receiving this. 82929-4Xjrldxzpq encounter BnixFL6660-68-90Q31:20:09Telephone encounter NoteTXT1.2.840.575613.1.13.104.2.7. 2.104382|[id number] for patient vxht92660-8WhuzWMRGUFNXKDXNncbvvqhq C-CDA narrative textIM-RHEUMATOLOGY STAFFIM-RHEUMATOLOGY [id number] 8BNIVVSCAHZDSIISPYKZDFN6891-89-37P3 6:20:091.2.840.400797.1.72.3.15|1.2 .840.408023.1.13.104.2.7.2.727879_2 [id number] IM-RHEUMATOLOGY STAFF [facility] 2023-12-15 14:39:16 6092-32-04Z76:39:16 Attempted to call pt back 2x, please offer [facility] for earlier appointment date. 34005-3Shsrannnm encounter MbezTT2125-27-66E20:39:52Telephone encounter NoteTXT1.2.840.373949.1.13.104.2.7. 2.609874|[id number] for patient bvxy22290-6NwtfDVYHHSNEFENXzhxcyuox C-CDA narrative [id number] GarciaRames[address] Hd[id number] 5SIEVYPDKKUZOUVGSHTDRLX1712-62-82H7 4:39:521.2.840.124040.1.72.3.15|1.2 .840.839409.1.13.104.2.7.2.727879_2 [id number] Lisandro Armenta [facility] 2023-12-15 14:32:43 0153-45-86Q78:32:43 Veronica Lino is a 38 year old femalePt is calling back to accept sooner appt. She missed a call. 08612-3Vkdwpzaxt encounter RkneMB2376-40-44I81:33:50Telephone encounter NoteTXT1.2.840.293344.1.13.104.2.7. 2.349977|[id number] for patient tfsu66011-2QlapHRCHBFBCQLYJpcnnkado C-CDA narrative [id number] [address][id number] 3EPJHKSZRJMNBRTFVWKLCKE1075-73-87L4 4:33:501.2.840.598108.1.72.3.15|1.2 .840.956966.1.13.104.2.7.2.727879_2 [id number] Katy Keene [facility] 2023-08-30 15:51:54 8667-73-95Y51:51:54 Please advise, Thank you 04348-9Gsdvyfkqg encounter GoljJZ9885-15-76A16:52:42Telephone encounter NoteTXT1.2.840.076774.1.13.104.2.7. 2.470977|[id number] for patient icbk98231-1MskjPEDUYOJPQOTDacduurfb C-CDA narrative [id number] M [place] [address] Bb[id number] 6ATLTDNTXRREVHOARBASBAH5443-17-32X2 5:52:421.2.840.633459.1.72.3.15|1.2 .840.905128.1.13.104.2.7.2.727879_1 [id number] Kinga Richards HITCHER [facility] 2023-06-08 13:00:00 9460-65-03W64:00:00 Images from the original note were not included.Venipuncture collection performed by clean technique on the right anticubitus. Total of 1 attempts were made. Slight pressure and a bandage/dressing were applied to the site(s). The patient experienced no complications. The following specimens were processed according to instructions and sent to [facility] laboratories per lab order on 06/08/2023: LT BLUE 1 SST 1 RED LAV 1 PPT DK GREEN (LiHep) DK GREEN (SodH) DOMINGUEZ DK BLUE (K2) DK BLUE (S) ACD Blood Culture NIPT/NTD 05187-3Ddiit VqpyLB8293-61-66C79:20:49Nurse NoteTXT1.2.840.471317.1.13.104.2.7. 2.755222|[id number] for patient ugmf60374-3Gwksr NoteUT[address] Gd[id number] 2QWIMKZBCFXFUQBSVBKNSEH8641-80-57I9 3:20:491.2.840.788859.1.72.3.15|1.2 .840.288887.1.13.104.2.7.2.727879_1 [id number] [facility] 2023-06-08 08:45:55 9889-95-39Q27:45:55 [facility] EP LAB PRE-CALL INSTRUCTIONSEP Instructions were sent [...] Hospital [facility] via [address] from either [address] or [address]. Bring your parking ticket with you to be validated, only one parking ticket may be validated per patient.There may be a possibility of hospital admission or late evening discharge; therefore, bring leisure reading and an overnight bag.On the day of your procedure, come directly to the Electrophysiology Lab concierge receptionist desk, located on the 6th floor of [facility] (4M- 2.986.) You will be escorted to the Cardiac [...] read and verbalizes understanding of teaching provided. 51336-1Zllie JkzsLH4188-01-21Y07:18:53Nurse NoteTXT1.2.840.559855.1.13.104.2.7. 2.946361|[id number] for patient [id number] G Dyer RN[id number] 4OEONJMBSOOKOXDWXUGHRGV4903-66-34D7 9:18:531.2.840.162738.1.72.3.15|1.2 .840.404378.1.13.104.2.7.2.727879_1 [id number] Jayleen Dumas RN [facility] 2023-05-04 16:31:12 7271-12-17S36:31:12 Rerouting for closure and completion 26129-8Sfslsrnuk encounter AexgAL9097-92-35S82:31:22Telephone encounter NoteTXT1.2.840.088053.1.13.104.2.7. 2.587631|[id number] for patient [id number] [id number] 0CVGOTCBFPHMNCACAGVMQYV4224-94-05B8 6:31:221.2.840.578283.1.72.3.15|1.2 .840.957171.1.13.104.2.7.2.727879_1 [id number] [facility] 13:17:48 9350-01-03R07:17:48 Dr. Vasquez,Please advise on alternative to Chlorhexidine Gluconate 2 % Towel (pharmacy does not carry this product)The directions for chlorhexidine 0.12% mouthwash, not clear.There are different directions on the prescription . Please advise on which ones patient needs to be taking.Thank you 50012-7Bxmowmviq encounter NlfmCV7501-80-01F70:23:01Telephone encounter NoteTXT1.2.840.586225.1.13.104.2.7. 2.591106|[id number] for patient [id number] M Evans RN[id number] 0NTEIPVSJAYFTXPBEHIDMNK5577-34-99X3 3:23:011.2.840.415623.1.72.3.15|1.2 .840.956687.1.13.104.2.7.2.727879_1 [id number] Kinga Carballo RN [facility] 2023-04-26 10:03:10 6211-92-76A70:03:10 Pharmacy requesting clarification on the directions for chlorhexidine 0.12 % mouthwash. They're also stating that they do not carry Chlorhexidine Gluconate 2 % Towl. [id number] [place] [place] - [address] [facility] & [address] [address] [place] [address]Dnebo: [phone] 00603-5Mbkfyazkw encounter FjdyGX2268-17-16H54:05:40Telephone encounter NoteTXT1.2.840.506377.1.13.104.2.7. 2.884373|[id number] for patient pegi14214-4CttoCFFRPQKIUX[id number] 7UACSQWBCPZPOKKENJJMESP6901-31-02K9 0:05:401.2.840.204447.1.72.3.15|1.2 .840.457048.1.13.104.2.7.2.727879_1 [id number] [facility] 2023-04-26 08:05:57 4768-06-71I46:05:57 Images from the original note were not included.Refill approved per cardiology protocol:Cardiovascular: ?Beta Blockers Passed 04/26/2023 08:01 AM Protocol Details Valid encounter within last 12 months Heart rate within normal limits and completed in the last 12 months 66825-0Wwspyoyfc encounter AgvqZK6987-76-04H17:05:57Telephone encounter NoteTXT1.2.840.586648.1.13.104.2.7. 2.786875|[id number] for patient [id number] D Garcia [id number] 2TFJKQJANAXMKGQWDTCXCHE3798-36-11C7 8:05:571.2.840.853276.1.72.3.15|1.2 .840.102297.1.13.104.2.7.2.727879_1 [id number] Marj Trejo formerly [facility] 2023-04-26 08:00:00 6739-94-27B10:00:00 Addended by: BALDO CERVANTES MD on: 05/08/2023 11:55 AM Modules accepted: Level of Service 16062-3Cimrarbj NeylcadvLS8106-93-10P60:55:53Addend um DocumentTXT1.2.840.684578.1.13.104. 2.7.2.676343|[id number] for patient gxwv95256-4YfixVFGXQWKURA[id number] 9AVWFXRKKPDZEYJTPYJSWLS2744-32-68P7 1:55:531.2.840.328911.1.72.3.15|1.2 .840.327468.1.13.104.2.7.2.727879_1 [id number] [facility]
[2024-03-18 20:11] LABS: Hematocrit 37.5 % (36.0-45.0); Hemoglobin 12.2 g/dL (12.0-15.0); MCV 92.7 fL (80-100); RBC Red Blood Cell Count 4.04 M/uL (3.86-4.86)
[2024-03-18 20:12] LABS: Absolute Eosinophils 0.1 K/uL (0-0.5); Absolute Lymphocytes (CBC) 1.2 K/uL (0.7-4.9); Absolute Monocytes 0.4 K/uL (0.1-1.3); Absolute Neutrophil 5.4 K/uL (1.8-8.0); Basophils % 0.1 % (0-1.3); Lymphocytes % 17.1 % (15.3-44.8); MCH 30.2 pg (27.0-35.0); MCHC 32.5 g/dL (32.0-36.0); MPV 7.1 fL (7.6-11.3); Monocytes % 5.8 % (3.3-12.3); Platelets 360 thou/uL (152-406); Red Cell Distribution Width 14.9 % (12.1-15.2)
[2024-03-18 20:14] LABS: PT Prothrombin Time 11.8 SECONDS (9.5-12.5); PTT, Activated Partial Thromb 29.2 SECONDS (24.3-36.9); Protime INR 1.07
[2024-03-18 20:24] LABS: Albumin 4.1 g/dL (3.4-5.0); Albumin/Globulin Ratio 1.2 (1.1-1.8); Anion Gap 6.5 mEq/L (5.0-15.0); Bilirubin Total 0.3 mg/dL (0.2-1.0); Globulin 3.5 g/dL (2.3-3.5); Potassium 3.5 mEq/L (3.5-5.1); Protein, Total 7.6 g/dL (6.4-8.2)
[2024-03-18] MEDS ORDERED: VANCOMYCIN 1 GM/VIAL ONE (21:08)
[2024-03-18] MEDS ORDERED: NA CHLORIDE 0.9% 250 ML ONE (21:09)
--- NOTE | 2024-03-18 23:09 | EDPHYS ---
Physician Documentation [facility] Name: Beverly Lino Age: 38 yrs Sex: Female : 1985 Arrival Date: 03/18/2024 Time: 17:45 Bed 13 Private MD: ED Physician Prosper Cordova HPI: 03/18 18:14 This 38 yrs old Female presents to ER via Ambulatory with complaints of Knee Pain. sb4 18:14 The patient presents with cellulitis of the lateral aspect of left knee. Onset: The sb4 symptoms/episode began/occurred 4 day(s) ago. Possible cause(s): unknown. Associated signs and symptoms: Pertinent positives: erythema, Pertinent negatives: discharge, drainage, fever. Patient states that she noticed a lesion appear on her left lateral knee 4 days ago and started taking Bactrim because she has had a history of MRSA. She states that she has been seeing an infectious disease doctor is not sure why she keeps having these outbreaks. She states that the redness has gotten worse despite taking Bactrim. She denies any known fevers. 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 - Infectious Disease History:: MRSA (w/in 1 year), . - Social history:: Smoking status: Patient/guardian denies using tobacco. ROS: 18:14 Constitutional: Negative for fever, chills, and weight loss, sb4 18:14 Skin: Positive for cellulitis, erythema, swelling, of the lateral aspect of left knee, 18:14 All other systems are negative, Exam: 18:14 Constitutional: This is a well developed, well nourished patient who is awake, alert, sb4 and in no acute distress. Head/Face: Normocephalic, atraumatic. Eyes: Extra-ocular motions intact. Periorbital areas with no swelling, redness, or edema. ENT: Mucous membranes moist. MS/ Extremity: Pulses equal, no cyanosis. Neurovascular intact. Full, normal range of motion. Neuro: Awake and alert, GCS 15, oriented to person, place, time, and situation. Motor strength 5/5 in all extremities. Sensory grossly intact. 18:14 Skin: abscess, that is small, approximately 1 cm(s), of the lateral aspect of left knee, with surrounding cellulitis, cellulitis, that is moderate, on the lateral aspect of left knee, Vital Signs: 18:04 BP 146 / 83; Pulse 97; Resp 18 S; Temp 98(TE); Pulse Ox 97% on R/A; Weight 50.8 kg (R); aa5 Height 5 ft. 5 in. (R); 21:30 BP 132 / 84; Pulse 95; Resp 18; Pulse Ox 97% on R/A; pc2 23:06 BP 128 / 97; Pulse 93; Resp 18; Pulse Ox 99% ; pc2 18:04 Body Mass Index 18.64 (50.80 kg, 165.1 cm) aa5 MDM: 17:51 Patient medically screened. sb4 23:09 Data reviewed: vital signs, nurses notes, lab test result(s), and as a result, I will sb4 discharge patient. Counseling: I had a detailed discussion with the patient and/or guardian regarding the historical points, exam findings, and any diagnostic results supporting the discharge/admit diagnosis, lab results, to return to the emergency department if symptoms worsen or persist or if there are any questions or concerns that arise at home. 03/18 18:11 Order name: Blood Culture Adult (2) [facility] 03/18 18:11 Order name: CBC with Diff; Complete Time: 20:21 4 03/18 18:11 Order name: CMP; Complete Time: 20:25 sb4 03/18 18:11 Order name: Lactate w/ 2H reflex if indic.; Complete Time: 20:24 sb4 03/18 18:11 Order name: Protime (+inr); Complete Time: 20:21 sb4 03/18 18:11 Order name: Ptt, Activated; Complete Time: 20:21 sb4 03/18 18:17 Order name: Wound Culture 4 03/18 18:11 Order name: IV Saline Lock - Large Bore; Complete Time: 19:58 [facility] 03/18 18:11 Order name: Labs collected and sent; Complete Time: 19:58 sb4 Administered Medications: 21:30 Drug: vancoMYCIN IVPB 1 grams IVPB once over 2 hrs Route: IVPB; Infused Over: 2 hrs; pc2 Site: right forearm; 23:30 Follow up: Response: No adverse reaction; IV Status: Completed infusion; IV Intake: pc2 250ml 23:23 Drug: Hydrocodone-Acetaminophen PO (7.5 mg-325 mg) 1 tabs PO once Route: PO; pc2 23:44 Follow up: Response: No adverse reaction pc2 Disposition Summary: 03/18/24 23:09 Discharge Ordered Notes: Location: Home sb4 Problem: an ongoing problem sb4 Symptoms: are unchanged sb4 Condition: Stable sb4 Diagnosis - Cellulitis of left lower limb sb4 Followup: sb4 - With: Emergency Department - When: As needed - Reason: Trouble breathing, Worsening of condition Discharge Instructions: - Discharge Summary Sheet sb4 - Cellulitis, Adult sb4 Forms: - Antibiotic Education sb4 - Patient Portal Instructions sb4 - Leadership Thank You Letter sb4 Prescriptions: - mupirocin 2 % Topical ointment - apply 1 application TOPICAL route 2 times per day; 1 Applicator; Refills: 0, sb4 Product Selection Permitted - Clindamycin HCl 300 mg Oral Capsule - take 1 capsule ORAL route every 6 hours for 10 days; 40 capsule; Refills: 0, sb4 Product Selection Permitted - Bactrim DS 800-160 mg Oral Tablet - take 1 tablet ORAL route every 12 hours for 10 days; 20 tablet; Refills: 0, sb4 Product Selection Permitted Signatures: Dis[facility] Manjula Goodson RN RN aa5 Tammy Sequeira PA-Leno PABradlyC sb4 Kaye alexis, RN RN pc2 Corrections: (The following items were deleted from the chart) 18:06 18:05 PMHx: Autoinmune disorder (Unknown); aa5 aa5 18:11 18:11 BLOOD CULTURE*+BA.LAB.BRZ ordered. EDMS EDMS 18:11 18:11 CBC+H.LAB.BRZ ordered. EDMS EDMS 18:11 18:11 COMPREHENSIVE METABOLIC PANEL+C.LAB.BRZ ordered. EDMS EDMS 18:11 18:11 LACTATE+C.LAB.BRZ ordered. EDMS EDMS 18:11 18:11 PROTIME (+INR)+COAG.LAB.BRZ ordered. EDMS EDMS 18:11 18:11 PTT, ACTIVATED+COAG.LAB.BRZ ordered. EDMS EDMS
--- NOTE | 2024-03-18 23:09 | ER ---
Nurse's Notes [facility] Name: Beverly Lino Age: 38 yrs Sex: Female : 1985 Arrival Date: 03/18/2024 Time: 17:45 Bed 13 Private MD: Diagnosis: Cellulitis of left lower limb Presentation: 03/18 18:04 Chief complaint: Patient states: sore and redness to left knee that she noticed aa5 Monday. Pt reports hx of MRSA. Coronavirus screen: At this time, the client does not indicate any symptoms associated with coronavirus-19. Ebola Screen: Patient denies travel to an Ebola-affected area in the 21 days before illness onset. Initial Sepsis Screen: Does the patient meet any 2 criteria? No. Patient's initial sepsis screen is negative. Does the patient have a suspected source of infection? No. Patient's initial sepsis screen is negative. Risk Assessment: Do you want to hurt yourself or someone else? Patient reports no desire to harm self or others. Onset of symptoms was March 2024. 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 - Infectious Disease History:: MRSA (w/in 1 year), . - Social history:: Smoking status: Patient/guardian denies using tobacco. Screenin:30 [facility] ED Fall Risk Assessment (Adult) History of falling in the last 3 months, pc2 including since admission No falls in past 3 months (0 pts). Abuse screen: Denies threats or abuse. Denies injuries from another. Nutritional screening: No deficits noted. Tuberculosis screening: No symptoms or risk factors identified. Assessment: 21:15 General: Appears in no apparent distress. comfortable, unkempt, Behavior is calm, pc2 cooperative. Pain: Complains of pain in left knee. Neuro: Level of Consciousness is awake, alert, Oriented to person, place, time, situation, Appropriate for age. Cardiovascular: Patient's skin is warm and dry. Respiratory: Airway is patent Respiratory effort is even, unlabored, Respiratory pattern is regular, symmetrical. GI: No signs and/or symptoms were reported involving the gastrointestinal system. : No signs and/or symptoms were reported regarding the genitourinary system. EENT: No signs and/or symptoms were reported regarding the EENT system. Derm: Skin is intact, wound to left knee, healed scab, redness noted. Wound noted left knee. 21:15 Musculoskeletal: Circulation, motion, and sensation intact. Capillary refill < 3 pc2 seconds. 22:30 Reassessment: No changes from previously documented assessment. Patient and/or family pc2 updated on plan of care and expected duration. Pain level reassessed. Patient is alert, oriented x 3, equal unlabored respirations, skin warm/dry/pink. Vital Signs: 18:04 BP 146 / 83; Pulse 97; Resp 18 S; Temp 98(TE); Pulse Ox 97% on R/A; Weight 50.8 kg (R); aa5 Height 5 ft. 5 in. (R); 21:30 BP 132 / 84; Pulse 95; Resp 18; Pulse Ox 97% on R/A; pc2 23:06 BP 128 / 97; Pulse 93; Resp 18; Pulse Ox 99% ; pc2 18:04 Body Mass Index 18.64 (50.80 kg, 165.1 cm) aa5 ED Course: 17:48 Patient arrived in ED. im 17:48 Tam[facility] Sequeira [facility]C [facility]. sb4 17:48 Prosper Cordova MD is Attending Physician. sb4 18:04 Arm band placed on. aa5 18:05 Triage completed. aa5 19:20 Missed attempt(s): 22 gauge in left forearm. bc6 19:29 Missed attempt(s): 20 gauge in left forearm. Bleeding controlled, band aid applied, bc6 catheter tip intact. 19:58 Inserted saline lock: 22 gauge in right antecubital area, using aseptic technique. ss Blood collected. 21:02 Kaye alexis, RN is Primary Nurse. pc2 21:25 Inserted saline lock: 20 gauge in right forearm, using aseptic technique. pc2 21:34 Patient has correct armband on for positive identification. Placed in gown. Bed in low pc2 position. Call light in reach. Side rails up X2. Provided Education on: POC and timeframe. 23:30 IV discontinued, intact, bleeding controlled, No redness/swelling at site. Pressure pc2 dressing applied. 23:30 No provider procedures requiring assistance completed. pc2 Administered Medications: 21:30 Drug: vancoMYCIN IVPB 1 grams IVPB once over 2 hrs Route: IVPB; Infused Over: 2 hrs; pc2 Site: right forearm; 23:30 Follow up: Response: No adverse reaction; IV Status: Completed infusion; IV Intake: pc2 250ml 23:23 Drug: Hydrocodone-Acetaminophen PO (7.5 mg-325 mg) 1 tabs PO once Route: PO; pc2 23:44 Follow up: Response: No adverse reaction pc2 Medication: 21:34 VIS not applicable for this client. pc2 Intake: 23:30 IV: 250ml; Total: 250ml. pc2 Outcome: 23:09 Discharge ordered by . sb4 23:30 Condition: stable pc2 23:30 Discharged to home ambulatory, with family, pc2 23:30 Discharge instructions given to patient, Instructed on discharge instructions, follow up and referral plans. medication usage, Demonstrated understanding of instructions, follow-up care, medications, wound care, Prescriptions given X 3, 23:46 Patient left the ED. pc2 Signatures: Manjula Carrillo, RN RN aa5 Kennedi Hodgson, RN RN Tammy Cam PABradlyC PA-Leno sb4 Catalina Ward bc6 Dominga Flower Pam, RN RN pc2 Corrections: (The following items were deleted from the chart) 18:06 18:05 PMHx: Autoinmune disorder (Unknown); aa5 aa5
[2024-03-18] MEDS ORDERED: HYDROCODONE/APAP 7.5/325 MG TAB ONE (23:22)
[2024-03-19 00:44] VITALS: BP 128/97; TEMP 98; O2SAT 99
== END 2024-03-18 23:46 | disposition home or self-care (01) ==
LOC: ER 17:45
DX: L03.116 Cellulitis of left lower limb (principal)
CPT/HCPCS: 96365; 87040 ×2; 87070; 85025; 36415; 87205; 85610; 83605; 85730; 80053; 99284; 96366; J7050

== ENCOUNTER 2024-03-22 23:32 | Emergency (ER) | payer OTHER ==
--- OUTSIDE RECORDS SUMMARY | 2024-03-22 23:43 | XMS REPORT | Continuity of Care Document ---
Author Name Unknown Address [address] [facility] [address] [place] [address] [facility] Address [address] [facility] [address] [place] [address] Care Team Providers Care Appraiser Personal Property Name Role Phone Neva Craig PA-C Primary Care Physician MACKENZIE DAVIS Attending Clinician Unavailab CONOR Polk Attending Clinician Unavailable CONOR BELLO Attending Clinician Unavailable Mica Grayson Attending Clinician [phone] MICA DUNCAN Attending Clinician Unavailable [facility] Attending Clinician Unavailable Erin Montesinos MD Attending Clinician ERIN MONTESINOS Attending Clinician Antonia vailable Mackenzie Davis DO Attending Clinician ALPA, HUNTER A Attending Clinician Unavailable ROE MCGARRY Attending Clinician UnavailROE Hill Attending Clinician UnavailRoe Hill MD Attending Clinician [phone] NIKKI BRUNNER Attending Clinician Unav ailNIKKI Yost Attending Clinician Unav ailron Doctor Unassigned, [place] Attending Clinician U JACQUELINE Schmitz Attending Clinician Unavailable Jacqueline Rock Attending Clinician [phone] Pob, [facility] Attending Clinician UnavailNIRMALA Zaroc Attending Clinician UnavailNIRMALA Zarco Attending Clinician Unavailjavid Webb MD, Jaguar Campbell Attending Clinic radha Destiny NETTLES, Conor Villalobos Attending Clinician [phone] AUGUSTIN OTERO Attending Clinician Unavailjavid e RADIOLOGY Attending Clinician Unavailable POP GALINDO Attending Clinician Unavail able JUAREZ BENNETT Attending Clinician Unavailable WILFRIDO KENT Attending Clinician Unavailab radames VAZQUEZ, Bashir Attending Clinician [phone] Baldo Cervantes MD Attending Clinician [phone] BALDO CERVANTES Attending Clinician Unavailable Parvin Longo MD Attending Clinician [phone] Gabriella Weaver MD Attending Clinician [phone] Augustin Otero MD Attending Clinician [phone] PARVIN LONGO Attending Clinician Unavailable PAULINE CONTRERAS Attending Clinician Unava ilable Pcp-Lab Attending Clinician Unavailable ISIDRA BALES Attending Clinician Unavailable AMY VALDEZ Attending Clinician Unavailab Amy Alicia DO Attending Clinician [phone] DOTTIE ANDUJAR Attending Clinician Unavailable Dottie Andujar MD Attending Clinician [phone] Isidra Neville Attending Clinician [phone] Lab, Ang - Db Attending Clinician Unavailable MOHSEN PAULINO Attending Clinician Unavail able MOHSEN PAULINO Attending Clinician Unavail able Mohsen Paulino MD Attending Clinician [phone] JIHAN BAINS Attending Clinician Unavailable Jihan Bains MD Attending Clinician CARMELO PEREZ Attending Clinician Unavailable LOUIE PADRON Attending Clinician Unavailable ROE MCGARRY Admitting Clinician Roe Pascal MD Admitting Clinician NIKKI BRUNNER Admitting Clinician Unav ailable DOTTIE ANDUJAR Admitting Clinician Unavailable ROE MCGARRY Admitting Clinician Unavailjavid weiner Payers Payer Name Policy Type Policy Number Effective Date Expirati on Date Source [facility] [id number] 2015 00:00:00 Problems Condition Name Condition Details Condition Category Status Onset Date Resolution Date Last Treatment Date Treating Clinician Comments Source Carpal tunnel syndrome of left wrist Carpal tunnel syndrome of left wrist Disease Active 2022-10 1- 00:00: 00 [facility] Pre-op testing Pre-op testing Disease Active 2022-10 1 00:00: 00 [facility] Chronic interstiti al cystitis Chronic interstiti al cystitis Disease Active 2022-10 0-16 00:00: 00 [facility] Syncope and collapse Syncope and collapse Disease Active 8-24 00:00: 00 [facility] Dizziness Dizziness Disease Active 3- 00:00: 00 [facility] Weight loss Weight loss Disease Active - 00:00: 00 [facility] Encounter to establish care Encounter to establish care Disease Active - 00:00: 00 [facility] Sinus tachycardi a Sinus tachycardi a Disease Active 3-21 00:00: 00 [facility] Abnormal EKG Abnormal EKG Disease Active 3- 00:00: 00 [facility] No known active problems No known active problems Disease [facility] Allergies, Adverse Reactions, Alerts Allergy Name Allergy Type Status Severity Reaction(s) Onset Date Inactive Date Treating Clinician Comments Source NO KNOWN ALLERGIE S Drug Class Active [facility] Social History Social Habit Start Date Stop Date Quantity Comments Source Gender identity [facility] Alcohol intake 2023-12-18 00:00:00 2023-12-18 00:00:00 Current non-drinker of alcohol (finding) [facility] Alcoholic beverage intake 2023-12-18 00:00:00 2023-12-18 00:00:00 Current non-drinker of alcohol (finding) [facility] History of Social function 2023-08-28 00:00:00 2023-08-28 00:00:00 [facility] Exposure to SARS-CoV-2 (event) 2023-03-25 00:00:00 2023-04-04 10:33:00 Not sure [facility] History SDOH Alcohol Frequency 2023-01-28 00:00:00 2023-01-28 00:00:00 2 [facility] History SDOH Alcohol Std Drinks 2023-01-28 00:00:00 2023-01-28 00:00:00 1 [facility] History SDOH Alcohol Binge 2023-01-28 00:00:00 2023-01-28 00:00:00 1 [facility] History SDOH Social Connections Phone 2023-01-28 00:00:00 2023-01-28 00:00:00 5 [facility] SDOH Social Connections Get Together 2023-01-28 00:00:00 2023-01-28 00:00:00 3 [facility] History SDOH Social Connections [facility] 2023-01-28 00:00:00 2023-01-28 00:00:00 2 [facility] History SDOH Social Connections Membership 2023-01-28 00:00:00 2023-01-28 00:00:00 2 [facility] History SDOH Social Connections Meetings 2023-01-28 00:00:00 2023-01-28 00:00:00 2 [facility] History SDOH Social Connections Living 2023-01-28 00:00:00 2023-01-28 00:00:00 3 [facility] History SDOH Physical Activity DPW 2023-01-28 00:00:00 2023-01-28 00:00:00 4 [facility] History SDOH Physical Activity MPS 2023-01-28 00:00:00 2023-01-28 00:00:00 10 [facility] History SDOH Stress 2023-01-28 00:00:00 2023-01-28 00:00:00 3 [facility] History SDOH Food Worry 2023-01-28 00:00:00 2023-01-28 00:00:00 1 [facility] History SDOH Food Scarcity 2023-01-28 00:00:00 2023-01-28 00:00:00 2 [facility] History SDOH Transport Med 2023-01-28 00:00:00 2023-01-28 00:00:00 2 [facility] History SDOH Transport Non-Med 2023-01-28 00:00:00 2023-01-28 00:00:00 2 [facility] History SDOH Housing Unable to Pay 2023-01-28 00:00:00 2023-01-28 00:00:00 2 [facility] History SDOH Housing Places Lived 2023-01-28 00:00:00 2023-01-28 00:00:00 1 [facility] History SDOH Housing Homeless Last Year 2023-01-28 00:00:00 2023-01-28 00:00:00 2 [facility] Tobacco use and exposure 2022-06-29 00:00:00 2022-06-29 00:00:00 Smokeless tobacco non-user [facility] Sex assigned at 1985 00:00:00 1985 00:00:00 [facility] Smoking Status Start Date Stop Date Source Never smoked tobacco [facility] Medications Ordered Medication Name Filled Medication Name Start Date Stop Date Current Medication? Ordering Clinician Indication Dosage Frequency Signature (SIG) Comments Components Source mupirocin 2 % topical ointment 02-13 00:00: 00 Yes 1% Britton Fry Bactrim DS 800 mg-160 mg tablet 02-13 00:00: 00 Yes 1mg Britton Fry meclizine 25 mg tablet -23 00:00: 00 Yes 1mg Britton Fry NARCAN 4 MG/0.1ML LIQD 01-04 00:00: 00 Yes Britton Fry TAKE 1 TABLET BY MOUTH TWICE DAILY 01-04 00:00: 00 Yes Britton Fry calcium carbonate (CALCIUM 500 ORAL) 12-17 16:06: 28 Yes 3{tbl} Take 3 tablets by mouth in the morning. [facility] iron bis-gly/FA/ C/B12/Ca/richardson cc (IRON 21/7 ORAL) 12-17 16:06: 28 Yes 1{tbl} Take 1 tablet by mouth in the morning. [facility] TAKE 1 TABLET BY MOUTH IN THE MORNING AND IN THE EVENING 12-17 00:00: 00 Yes Britton Fry MUPIROCIN 2 % OINT 12-17 00:00: 00 Yes Britton Fry mupirocin 2 % ointment 12-17 00:00: 00 Yes [id number] Apply to area(s) 3 (three) times daily. [facility] sulfamethox azole-trime thoprim (BACTRIM) 400-80 mg per tablet 12-17 00:00: 00 Yes [id number] 1{tbl} Take 1 tablet by mouth in the morning and 1 tablet in the evening. [facility] TAKE 1 TABLET BY MOUTH TWICE DAILY 11-21 00:00: 00 Yes Britton Fry DISSOLVE 1 FILM UNDER THE TONGUE TWICE DAILY FOR 28 DAYS. 11-21 00:00: 00 Yes 8 Britton Fry QUEtiapine 25 mg tablet 10-23 00:00: 00 Yes [id number] 50mg Take 2 tablets by mouth in the morning. NEEDS APPT FOR FUTURE REFILLS [facility] METOPROLOL SUCCINATE ER 50 MG TB24 10-04 00:00: 00 Yes Britton Fry DISSOLVE 1 FILM UNDER THE TONGUE TWICE DAILY. 2022-10 00:00: 00 Yes Britton Fry TAKE 1 TABLET BY MOUTH IN THE MORNING AND IN THE EVENING WITH MEALS 2022-10 00:00: 00 Yes Britton Fry diclofenac 75 mg EC tablet 2022-10 00:00: 00 Yes [id number] 75mg Take 1 tablet by mouth in the morning and 1 tablet in the evening. Take with meals. [facility] lactated ringers IV infusion 1,000 mL 2022-10 19:45: 00 Yes 1000mL at 75 mL/hr, 1,000 mL, IV Infusion, CONTINUOUS , Starting on Mon08/28/23 at 1345, Until Discontinu ed, Routine, PACU [facility] proMETHazin e (PHENERGAN) 12.5 mg in NS 50 mL IV piggyback (CNR) 2022-10 19:32: 33 Yes 12.5mg 12.5 mg, IV Piggyback, at 200 mL/hr Administer over 15 Minutes, PRN, 1 dose, Starting on Mon08/28/23 at 1332, Until Discontinu ed, Routine, Nausea and Vomiting (N/V), PACU [facility] meperidine (DEMEROL) injection 12.5 mg 2022-10 19:32: 33 Yes 12.5mg 12.5 mg, Slow IV Push, PRN, 1 dose, Starting on Mon08/28/23 at 1332, Until Discontinu ed, Routine, Shivering, PACU
En ter indication for use: Reduce postoperat tee shivering< br>membership solicitor approving Restricted medication : ANESTHESIO LOGY [facility] HYDROmorphO ne (DILAUDID) injection 0.2 mg 2022-10 19:32: 33 Yes .2mg 0.2 mg, Slow IV Push, Q5MIN PRN, 10 doses, Starting on Mon08/28/23 at 1332, Until Discontinu ed, Routine, Pain (scale 7-10), PACU
Us e approved by (Faculty): PACU USE -ANESTHESI A SERVICE-HY DROMORPHON E INJECTIONS [facility] FENTanyl PF (SUBLIMAZE (PF)) injection 25 mcg 2022-10 19:32: 33 Yes 25ug 25 mcg, Slow IV Push, Q5MIN PRN, 4 doses, Starting on Mon08/28/23 at 1332, Until Discontinu ed, Routine, Pain (scale 4-6), PACU [facility] acetaminoph en-codeine (TYLENOL #3) 300-30 mg tablet 1 tablet 2022-10 19:32: 33 08-28 20:07 :00 No 1{tbl} 1 tablet, Oral, PRN, 1 dose, Starting on Mon08/28/23 at 1332, Until Discontinu ed, Routine, Pain (scale 1-3), PACU [facility] bupivacaine (preserv free) (SENSORCAIN E MPF) 0.25 % (2.5 mg/mL) injection 2022-10 19:14: 00 Yes PRN, Starting on Mon08/28/23 at 1314, Until Discontinu ed, Routine, Intra-op [facility] lactated ringers IV infusion 1,000 mL 2022-10 17:00: 00 08-28 17:29 :00 No 1000mL at 42 mL/hr, 1,000 mL, IV Infusion, ONCE, 1 dose, On Mon08/28/23 at 1100, Routine, DSU Pre-op [facility] cetirizine 10 mg tablet 2022-10 15:02: 49 Yes 10mg Take 1 tablet by mouth. [facility] multivit with calcium,iro n,min (WOMEN'S DAILY MULTIVITAMI N ORAL) 2022-10 15:02: 49 Yes 1{tbl} Take 1 tablet by mouth in the morning. [facility] Cholecalcif alisha, Vitamin D3, (VITAMIN D3) 50 mcg (2,000 unit) tablet 2022-10 15:02: 49 Yes 2000U Take 1 tablet by mouth in the morning. [facility] NON-FORMULA RY MEDICATION 2022-10 15:02: 49 Yes 60mg Take 60 mg by mouth in the morning. Tumeric [facility] calcium carbonate (CALCIUM 500 ORAL) 2022-10 15:02: 49 Yes 3{tbl} Take 3 tablets by mouth in the morning. [facility] fluticasone propionate 50 mcg/actuati on nasal spray 2022-10 15:02: 49 Yes [facility] TAKE 1 TABLET BY MOUTH [...] to 7 days. Indication s: acute pain [facility] TAKE 1/2 TO 1 TABLET BY MOUTH EVERY NIGHT NEEDED FOR INSOMNIA 2022-10 00:00: 00 Yes Britton rFy iron bis-gly/FA/ C/B12/Ca/richardson cc (IRON 21/7 ORAL) 2022-10 10:25: 06 Yes 1{tbl} Take 1 tablet by mouth in the morning. [facility] iron bis-gly/FA/ C/B12/Ca/richardson cc (IRON 21/7 ORAL) 2022-10 10:22: 55 Yes 1{tbl} Take 1 tablet by mouth in the morning. [facility] Cholecalcif alisha, Vitamin D3, (VITAMIN D3) 50 mcg (2,000 unit) tablet 2022-10 10:22: 55 Yes 2000U Take 1 tablet by mouth in the morning. [facility] NON-FORMULA RY MEDICATION 2022-10 10:22: 55 Yes 60mg Take 60 mg by mouth in the morning. Tumeric [facility] calcium carbonate (CALCIUM 500 ORAL) 2022-10 10:22: 55 Yes 3{tbl} Take 3 tablets by mouth in the morning. [facility] cetirizine 10 mg tablet 2022-10 10:20: 29 Yes 10mg Take 1 tablet by mouth. [facility] SULFAMETHOX AZOLE/TRIME THOPRIM DS 800-160 MG TABS 2022-10 0-31 00:00: 00 Yes Britton Fry sulfamethox azole-trime thoprim (BACTRIM DS) 800-160 mg per tablet 2022-10 00:00: 00 08-12 05:59 :00 No [id number] 1{tbl} Take 1 tablet by mouth in the morning and 1 tablet in the evening. Do all this for 10 days. [facility] Chlorhexidi ne Gluconate 2 % Towl 2022-10 00:00: 00 08-07 05:59 :00 No [id number] Apply to area(s) daily for 5 days. [facility] pantoprazol e 40 mg EC tablet 2022-10 030 00:00: 00 Yes [facility] buPROPion SR 150 mg SR tablet 2022-10 00:00: 00 Yes 150mg Take 1 tablet by mouth in the morning. [facility] SUBOXONE 8-2 MG FILM 2022-10 00:00: 00 Yes Britton Fry TAKE 1 TABLET BY MOUTH EVERY DAY 2022-10 00:00: 00 Yes Britton Fry FLUoxetine 40 mg capsule 2022-1016 16:11: 44 07-17 00:00 :00 No [facility] cetirizine 10 mg tablet 2022-1016 16:03: 07 Yes 10mg Take 1 tablet by mouth. [facility] metoprolol succinate XL 25 mg 24 hr tablet 2022-10 00:00: 00 Yes [id number] 50mg Take 2 tablets by mouth in the morning. [facility] SWISH AND SPIT 15ML BY MOUTH EVERY MORNING AND EVERY EVENING TWICE DAILY 2022-1016 00:00: 00 Yes Britton Fry QUETIAPINE FUMARATE 25 MG TABS 2022-10 016 00:00: 00 Yes Britton Fry QUEtiapine (SEROQUEL) 25 mg tablet 2022-10 016 00:00: 00 10-23 00:00 :00 No [id number] 50mg Take 2 tablets by mouth in the morning. Start with 1 pill every day for 2 weeks then increase to 2 pills daily [facility] chlorhexidi ne 0.12 % mouthwash 2022-1016 00:00: 00 08-14 00:00 :00 No [id number] 15mL Swish and spit out 15 mL in the morning and 15 mL in the evening. Twice daily x 5 days twice a month x 6 months [facility] Chlorhexidi ne Gluconate 2 % Towl 2022-10 00:00: 00 08-14 00:00 :00 No [id number] Apply to area(s) daily. Once daily x 5 days twice a month x 6 months [facility] TAKE 1 TABLET ONCE DAILY. 06-26 00:00: 00 02-13 00:00 :00 No 50 Britton Fry TAKE 1 TABLET EVERY 8 HOURS NEEDED FOR NAUSEA AND VOMITING. 06-26 00:00: 00 02-13 00:00 :00 No 8 Britton Fry TAKE 1 TABLET EVERY 6-8 HOURS NEEDED FOR DIZZINESS 06-26 00:00: 00 02-13 00:00 :00 No 50 Britton Fry TAKES 1/2 TO 1 TABLET NIGHTLY NEEDED FOR INSOMNIA 06-26 00:00: 00 02-13 00:00 :00 No 50 Britton Fry metoprolol succinate XL 50 mg 24 hr tablet 06-26 00:00: 00 07-17 00:00 :00 No 50mg Take 1 tablet by mouth in the morning. [facility] PANTOPRAZOL E SODIUM 40 MG TBEC 06-12 00:00: 00 Yes Britton Fry meclizine 25 mg tablet 05-30 00:00: 00 Yes CHEW AND SWALLOW 1 TABLET BY MOUTH EVERY 6 HOURS NEEDED FOR DIZZINESS [facility] TAKE 1 TABLET BY MOUTH EVERY 8 HOURS NEEDED 05-26 00:00: 00 Yes Britton Fry mupirocin 2 % ointment 05-15 00:00: 00 Yes [id number] Apply to nares twice daily for 5 days; repeat monthly for 3 months. [facility] TAKE 1 CAPSULE BY MOUTH IN THE MORNING 2023-0 8-14 00:00: 00 Yes Britton Fry doxycycline monohydrate 100 mg capsule 8-14 00:00: 00 07-17 00:00 :00 No [id number] 100mg Take 1 capsule by mouth in the morning. [facility] AMOXICILLIN /CLAVULANAT E POTASSIUM 875-125 MG TABS 8-05 00:00: 00 Yes Britton Fry doxycycline monohydrate 100 mg capsule 04-26 00:00: 00 Yes [id number] 100mg Take 1 capsule by mouth in the morning and 1 capsule in the evening. [facility] TAKE 1 TABLET BY MOUTH IN THE MORNING 04-26 00:00: 00 Yes Britton Fry metoprolol succinate XL 25 mg 24 hr tablet 04-26 00:00: 00 07-17 00:00 :00 No [id number] 25mg Take 1 tablet by mouth in the morning. [facility] chlorhexidi ne 0.12 % mouthwash 04-26 00:00: 00 07-17 00:00 :00 No [id number] 15mL Swish and spit out 15 mL in the morning and 15 mL in the evening. Do all this for 120 days. Twice daily x 5 days twice a month x 6 months [facility] Chlorhexidi ne Gluconate 2 % Towl 04-26 00:00: 00 07-17 00:00 :00 No [id number] Apply to area(s) daily for 120 days. Once daily x 5 days twice a month x 6 months [facility] CHEW AND SWALLOW 1 TAB PO Q 6 HRS PRN DIZZINESS 04-20 00:00: 00 02-13 00:00 :00 No 25 Britton Fry SULFAMETHOX AZOLE/TRIME THOPRIM DS 800-160 MG TABS 04-13 00:00: 00 02-13 00:00 :00 No Britton Nikhil Fry sulfamethox azole-trime thoprim (BACTRIM DS) 800-160 mg per tablet 04-13 00:00: 00 07-17 00:00 :00 No [id number] 1{tbl} Take 1 tablet by mouth in the morning and 1 tablet in the evening. [facility] TAKE 1 CAPSULE BY MOUTH IN THE MORNING AND IN THE EVENING 04-10 00:00: 00 02-13 00:00 :00 No Britton Nikhil Fry MUPIROCIN 2 % OINT 04-10 00:00: 00 02-13 00:00 :00 No Britton Nikhil Fry doxycycline monohydrate 100 mg capsule 04-10 00:00: 00 04-26 00:00 :00 No [id number] 100mg Take 1 capsule by mouth in the morning and 1 capsule in the evening. [facility] DOXYCYCLINE HYC 100MG 04-01 00:00: 00 Yes Britton Fry APPLY SOLUTION WITH CLEAN WASHCLOTH TO ALL SKIN FROM THE NECK DOWN IN THE SHOWER DAILY FOR 5 DAYS. RINSE WELL AFTER EACH APPLICATION . 03-30 00:00: 00 02-13 00:00 :00 No 4 Britton Fry TAKE 1 TABLET TWICE DAILY UNTIL FINISHED. 03-30 00:00: 00 02-13 00:00 :00 No [id number] Britton Fry APPLY PEA-SIZED AMOUNT OF OINTMENT TO [...] THE MORNING 02-21 00:00: 00 Yes Britton Fry metoprolol succinate XL 25 mg 24 hr tablet 02-21 00:00: 00 04-26 00:00 :00 No [id number] 25mg Take 1 tablet by mouth in the morning. [facility] doxycycline hyclate (Vibramycin ) capsule 100 mg 02-15 01:00: 00 02-14 21:51 :42 No [id number] [facility] Z[facility] 50 mg Tab 02-14 00:00: 00 Yes [id number] 50mg Take 50 mg by mouth in the morning. [facility] Zinc 50 mg Tab 02-14 00:00: 00 Yes [id number] 50mg Take 50 mg by mouth in the morning. [facility] doxycycline hyclate 100 mg capsule 02-14 00:00: 00 03-14 00:00 :00 No [id number] 100mg Take 1 capsule by mouth every 12 (twelve) hours. [facility] TAKE 1 TABLET TWICE DAILY UNTIL FINISHED. 02-09 00:00: 00 02-13 00:00 :00 No [id number] Britton Fry norethindro ne-ethinyl estradiol 1-5 mg-mcg tablet 01-30 08:26: 47 01-30 00:00 :00 No 1{tbl} Take 1 tablet by mouth in the morning. [facility] TAKE 1/2 TABLET BY MOUTH AT BEDTIME 01-30 00:00: 00 Yes Britton Fry CLINDAMYCIN HYDROCHLORI DE 300 MG 01-30 00:00: 00 02-13 00:00 :00 No Britton Fry QUEtiapine (SEROQUEL) 50 mg tablet 01-30 00:00: 00 03-14 00:00 :00 No [id number] 25mg Take 0.5 tablets by mouth at bedtime. [facility] pantoprazol e 40 mg EC tablet 01-30 00:00: 00 03-14 00:00 :00 No [id number] 40mg Take 1 tablet by mouth in the morning. Take 30 minutes before food or coffee or any other medication s [facility] clindamycin 300 mg capsule 01-30 00:00: 00 02-14 00:00 :00 No [id number] 300mg Take 1 capsule by mouth 4 (four) times daily. [facility] TAKE 1 CAPSULE BY MOUTH FOUR TIMES DAILY FOR 7 DAYS 01-05 00:00: 00 02-13 00:00 :00 Sinai Fry clindamycin 300 mg capsule 01-05 00:00: 01-13 04:59 :00 No [id number] 300mg Take 1 capsule by mouth 4 (four) times daily for 7 days. [facility] NaCl 0.9% (NS) bolus infusion 1,000 mL 01-04 04:00: 01-04 04:05 :00 No 1000mL at 999 mL/hr, 1,000 mL, IV Infusion, ONCE, 1 dose, On Mon01/03/23 at 2300, STAT [facility] cefTRIAXone (ROCEPHIN) 1,000 mg in NaCl 0.9% (NS) 100 mL MINI-BAG 01-04 03:00: 01-04 03:41 :00 No 1000mg 1,000 mg, IV Piggyback, ONCE, 1 dose, On Mon01/03/23 at 2200, Administer over 30 Minutes, 100 mL
Reas on for Anti-Infec tive: Documented Infection< br>Documen bernice Infection Site: Urine
D uration of Therapy: Other (see Comments) [facility] CEPHALEXIN 500 MG 01-03 00:00: 00 02-13 00:00 :00 Sinai Fry ONDANSETRON ODT 4 MG TBDP 01-03 00:00: 02-13 00:00 :00 Sinai Fry ondansetron 4 mg disintegrat ing tablet 01-03 00:00: 00 01-30 00:00 :00 No [id number] 4mg Take 1 tablet by mouth every 4 (four) hours as needed for Nausea and Vomiting (N/V). [facility] docusate sodium 250 mg capsule 01-03 00:00: 00 01-30 00:00 :00 No [id number] 250mg Take 1 capsule by mouth in the morning. [facility] cephALEXin 500 mg capsule 01-03 00:00: 00 01-05 00:00 :00 No [id number] 500mg Take 1 capsule by mouth in the morning and 1 capsule in the evening. [facility] polyethylen e glycol 3350 (MIRALAX) 17 gram powder 01-03 00:00: 00 01-05 00:00 :00 No [id number] 1{packe t} Take 1 Packet by mouth every 24 (twenty-fo ur) hours as needed for Constipati on. [facility] TAKE 1 TABLET BY MOUTH AT BEDTIME 01-02 00:00: 00 02-13 00:00 :00 No 15 Britton Fry APPLY THIN LAYER TOPICALLY TO THE AFFECTED AREA TWICE DAILY FOR 7 DAYS 12-27 00:00: 00 02-13 00:00 :00 Sinai Fry norethindro ne-ethinyl estradiol 1-5 mg-mcg tablet 12-20 13:12: 15 Yes 1{tbl} Take 1 tablet by mouth in the morning. [facility] SUBOXONE 8-2 MG FILM 12-19 [...] :00 Sinai Fry mirtazapine 15 mg tablet 12-02 00:00: 00 01-30 00:00 :00 No 15mg Take 1 tablet by mouth at bedtime. [facility] MUPIROCIN 2 % OINT 12-01 00:00: 00 02-13 00:00 :00 Sinai Fry DOXYCYCLINE HYCLATE 100 MG - 00:00: 00 02-13 00:00 :00 Sinai Fry mupirocin 2 % ointment 12-01 00:00: 00 01-30 00:00 :00 No [id number] Apply to area(s) 3 (three) times daily. [facility] doxycycline hyclate 100 mg capsule 12-01 00:00: 00 01-05 00:00 :00 No [id number] 100mg Take 1 capsule by mouth in the morning and 1 capsule in the evening. [facility] DISSOLVE 1 FILM UNDER THE [...] DAYS. 2021-10 00:00: 00 02-13 00:00 :00 No Manny Fry DISSOLVE 1 FILM ON TONGUE TWICE DAILY 2021-10 0- 00:00: 00 02-13 00:00 :00 Sinai Fry triamcinolo ne acetonide (KENALOG) injection 40 mg 06-29 21:30: 00 06-29 20:17 :00 No [id number] 40mg [facility] SUBOXONE 8-2 MG FILM 06-29 00:00: 00 02-13 00:00 :00 Sinai Fry TAKE 1 FILM BY MOUTH TWICE DAILY FOR 28 DAYS 06-24 00:00: 00 02-13 00:00 :00 No 8 Britton Fry TAKE 1/2 TO 1 TABLET BY MOUTH EVERY NIGHT 06-24 00:00: 00 02-13 00:00 :00 No Britton Fry BUPRENORPHI NE HYDROCHLORI DE/NALOXON E HYDROCHLORI DE 8-2 MG FILM 08 00:00: 00 02-13 00:00 :00 No Britton [...] Yes 51mg Britton Fry amoxicillin 875 mg-potassiu cate clavulanate 125 mg tablet 2020-10 00:00: 00 Yes 1mg Britton Fry cephalexin 500 mg tablet 2020-10 00:00: 00 Yes 2mg Britton Fry fluconazole 200 mg tablet 2020-10- 00:00: 00 Yes 1mg Britton Fry Zoloft 50 mg tablet 2020-1018 00:00: 00 Yes 1mg Britton Fry Seroquel 50 mg tablet 2020-10-18 00:00: 00 Yes 1mg Britton Fry trazodone 100 mg tablet 2020-1018 00:00: 00 Yes 51mg Britton Fry Zoloft 50 mg tablet 06-23 00:00: 00 Yes 1mg Britton Fry trazodone 100 mg tablet 06-23 00:00: 00 Yes 51mg Britton Fry Seroquel 50 mg tablet 0 06-23 00:00: 00 Yes 1mg [facility] Fry levofloxaci n 250 mg tablet 05-24 00:00: 00 Yes 1mg [facility] Fry Macrobid 100 mg capsule 0 05-19 00:00: 00 Yes 1mg [facility] Fry Zoloft 50 mg tablet 0 - 00:00: 00 Yes 1mg [facility] Fry Seroquel 50 mg tablet 0 04-13 00:00: 00 Yes 1mg [facility] Fry trazodone 100 mg tablet 0 04-13 00:00: 00 Yes 51mg [facility] Zoloft 50 mg tablet 0 03-17 00:00: 00 Yes 1mg [facility] Seroquel 50 mg tablet 0 03-17 00:00: 00 Yes 1mg [facility] trazodone 100 mg tablet 0 03-17 00:00: 00 Yes 51mg [facility] Zoloft 50 mg tablet 0 - 00:00: 00 Yes 1mg [facility] Fry trazodone 50 mg tablet 0 - 00:00: 00 Yes 51mg [facility] Fry Seroquel 50 mg tablet 0 02-27 00:00: 00 Yes 1mg [facility] Fry Zoloft 50 mg tablet 0 5- 00:00: 00 Yes 1mg [facility] Fry trazodone 50 mg tablet 0 - 00:00: 00 Yes 51mg [facility] Seroquel 50 mg tablet 0 5-28 00:00: 00 Yes 1mg [facility] Zoloft 25 mg tablet 0 5- 00:00: 00 Yes 1mg [facility] Seroquel 25 mg tablet 0 5- 00:00: 00 Yes 1mg [facility] Fry trazodone 50 mg tablet 0 5- 00:00: 00 Yes 51mg [facility] Flagyl 500 mg tablet 0 3-30 00:00: 00 Yes 1mg [facility] Fry Zyrtec 10 mg capsule 12-02 00:00: 00 Yes 1mg [facility] Fry amoxicillin 875 mg tablet 06-18 00:00: 00 Yes 1mg [facility]on Fry Bromfed [...] 1{tbl} Take 1 tablet by mouth daily. [facility] promethazin e 12.5 mg tablet [...] 4-6 hours as needed for severe pain [facility] proMETHazin e 25 mg tablet 06-08 00:00: 00 01-05 00:00 :00 No 25mg Take 1 tablet by mouth every 6 (six) hours as needed for N/V unresponsi ve to Ondansetro nYeison [facility] diclofenac 3 % gel 05-19 00:00: 00 01-30 00:00 :00 No Apply 2-3 grams TO affected area THREE TIMES DAILY max EIGHT grams/day [facility] SUBOXONE 8-2 mg sublingual film 03-14 00:00: 00 Yes [facility] prednisone 10 mg tablet 02-09 00:00: 00 Yes mg [facility] Fry gabapentin 100 mg capsule 02-09 00:00: 00 Yes 1mg [facility] Fry cyclobenzap rine 5 mg tablet 02-06 00:00: 00 Yes 1mg [facility] Fry nystatin 100,000 unit/gram ointment 01-19 00:00: 00 01-05 00:00 :00 No APPLY TO THE AFFECTED AREA BID FOR 10 DAYS [facility] prednisone 10 mg tablet 2015-10 00:00: 00 [...] 11-10 00:00: 00 Yes 1mg/5 mL [facility]on Hufed DM 2 mg-30 mg-10 mg/5 mL syrup 2015-0 8-14 00:00: 00 Yes 10mg/5 mL [facility]on Fry [...] SARS-COV-2 COVID-19 PFIZER VACCINE 2021-08-21 00:00:00 Completed [facility] SARS-COV-2 COVID-19 PFIZER VACCINE 2021-08-21 00:00:00 Completed [facility] SARS-COV-2 COVID-19 PFIZER VACCINE 2021-08-21 00:00:00 Completed [facility] SARS-COV-2 COVID-19 PFIZER VACCINE 2021-08-21 00:00:00 Completed [facility] SARS-COV-2 COVID-19 PFIZER VACCINE 2021-08-21 00:00:00 Completed [facility] SARS-COV-2 COVID-19 PFIZER VACCINE 2021-08-21 00:00:00 Completed [facility] SARS-COV-2 COVID-19 PFIZER VACCINE 2021-08-21 00:00:00 Completed [facility] SARS-COV-2 COVID-19 PFIZER VACCINE 2021-08-21 00:00:00 Completed [facility] SARS-COV-2 COVID-19 PFIZER VACCINE 2021-08-21 00:00:00 Completed [facility] SARS-COV-2 COVID-19 PFIZER VACCINE 2021-08-21 00:00:00 Completed [facility] SARS-COV-2 COVID-19 PFIZER VACCINE 2021-08-21 00:00:00 Completed [facility] SARS-COV-2 COVID-19 PFIZER VACCINE 2021-08-21 00:00:00 Completed [facility] SARS-COV-2 COVID-19 PFIZER VACCINE 2021-08-21 00:00:00 Completed [facility] SARS-COV-2 COVID-19 PFIZER VACCINE 2021-08-21 00:00:00 Completed [facility] SARS-COV-2 COVID-19 PFIZER VACCINE 2021-08-21 00:00:00 Completed [facility] SARS-COV-2 COVID-19 PFIZER VACCINE 2021-08-21 00:00:00 Completed [facility] SARS-COV-2 COVID-19 PFIZER VACCINE 2021-08-21 00:00:00 Completed [facility] SARS-COV-2 COVID-19 PFIZER VACCINE 2021-08-21 00:00:00 Completed [facility] SARS-COV-2 COVID-19 PFIZER VACCINE 2021-08-21 00:00:00 Completed [facility] SARS-COV-2 COVID-19 PFIZER VACCINE 2021-08-21 00:00:00 Completed [facility] SARS-COV-2 COVID-19 PFIZER VACCINE 2021-08-21 00:00:00 Completed [facility] SARS-COV-2 COVID-19 PFIZER VACCINE 2021-08-21 00:00:00 Completed [facility] SARS-COV-2 COVID-19 PFIZER VACCINE 2021-08-21 00:00:00 Completed [facility] SARS-COV-2 COVID-19 PFIZER VACCINE 2021-08-21 00:00:00 Completed [facility] SARS-COV-2 COVID-19 PFIZER VACCINE 2021-08-21 00:00:00 Completed [facility] SARS-COV-2 COVID-19 PFIZER VACCINE 2021-08-21 00:00:00 Completed [facility] SARS-COV-2 COVID-19 PFIZER VACCINE 2021-08-21 00:00:00 Completed [facility] SARS-COV-2 COVID-19 PFIZER VACCINE 2021-08-21 00:00:00 Completed [facility] SARS-COV-2 COVID-19 PFIZER VACCINE 2021-08-21 00:00:00 Completed [facility] SARS-COV-2 COVID-19 PFIZER VACCINE 2021-08-21 00:00:00 Completed [facility] SARS-COV-2 COVID-19 PFIZER VACCINE 2021-08-21 00:00:00 Completed [facility] SARS-COV-2 COVID-19 PFIZER VACCINE 2021-08-21 00:00:00 Completed [facility] SARS-COV-2 COVID-19 PFIZER VACCINE 2021-08-21 00:00:00 Completed [facility] SARS-COV-2 COVID-19 PFIZER VACCINE 2021-08-21 00:00:00 Completed [facility] SARS-COV-2 COVID-19 PFIZER VACCINE 2021-08-21 00:00:00 Completed [facility] SARS-COV-2 COVID-19 PFIZER VACCINE 2021-08-21 00:00:00 Completed [facility] SARS-COV-2 COVID-19 PFIZER VACCINE 2021-08-21 00:00:00 Completed [facility] SARS-COV-2 COVID-19 PFIZER VACCINE 2021-08-21 00:00:00 Completed [facility] SARS-COV-2 COVID-19 PFIZER VACCINE 2021-08-21 00:00:00 Completed [facility] SARS-COV-2 COVID-19 PFIZER VACCINE 2021-08-21 00:00:00 Completed [facility] SARS-COV-2 COVID-19 PFIZER VACCINE 2021-08-21 00:00:00 Completed [facility] SARS-COV-2 COVID-19 PFIZER VACCINE 2021-08-21 00:00:00 Completed [facility] SARS-COV-2 COVID-19 PFIZER VACCINE 2021-08-21 00:00:00 Completed [facility] SARS-COV-2 COVID-19 PFIZER VACCINE 2021-08-21 00:00:00 Completed [facility] SARS-COV-2 COVID-19 PFIZER VACCINE 2021-08-21 00:00:00 Completed [facility] SARS-COV-2 COVID-19 PFIZER VACCINE 2021-08-21 00:00:00 Completed [facility] SARS-COV-2 COVID-19 PFIZER VACCINE 2021-08-21 00:00:00 Completed [facility] SARS-COV-2 COVID-19 PFIZER VACCINE 2021-08-21 00:00:00 Completed [facility] SARS-COV-2 COVID-19 PFIZER VACCINE 2021-08-21 00:00:00 Completed [facility] SARS-COV-2 COVID-19 PFIZER VACCINE 2021-08-21 00:00:00 Completed [facility] SARS-COV-2 COVID-19 PFIZER VACCINE 2021-08-21 00:00:00 Completed [facility] SARS-COV-2 COVID-19 PFIZER VACCINE 2021-08-21 00:00:00 Completed [facility] SARS-COV-2 COVID-19 PFIZER VACCINE 2021-08-21 00:00:00 Completed [facility] SARS-COV-2 COVID-19 PFIZER VACCINE 2021-01-07 00:00:00 Completed [facility] SARS-COV-2 COVID-19 PFIZER VACCINE 2021-01-07 00:00:00 Completed [facility] SARS-COV-2 COVID-19 PFIZER VACCINE 2021-01-07 00:00:00 Completed [facility] SARS-COV-2 COVID-19 PFIZER VACCINE 2021-01-07 00:00:00 Completed [facility] SARS-COV-2 COVID-19 PFIZER VACCINE 2021-01-07 00:00:00 Completed [facility] SARS-COV-2 COVID-19 PFIZER VACCINE 2021-01-07 00:00:00 Completed [facility] SARS-COV-2 COVID-19 PFIZER VACCINE 2021-01-07 00:00:00 Completed [facility] SARS-COV-2 COVID-19 PFIZER VACCINE 2021-01-07 00:00:00 Completed [facility] SARS-COV-2 COVID-19 PFIZER VACCINE 2021-01-07 00:00:00 Completed [facility] SARS-COV-2 COVID-19 PFIZER VACCINE 2021-01-07 00:00:00 Completed [facility] SARS-COV-2 COVID-19 PFIZER VACCINE 2021-01-07 00:00:00 Completed [facility] SARS-COV-2 COVID-19 PFIZER VACCINE 2021-01-07 00:00:00 Completed [facility] SARS-COV-2 COVID-19 PFIZER VACCINE 2021-01-07 00:00:00 Completed [facility] SARS-COV-2 COVID-19 PFIZER VACCINE 2021-01-07 00:00:00 Completed [facility] SARS-COV-2 COVID-19 PFIZER VACCINE 2021-01-07 00:00:00 Completed [facility] SARS-COV-2 COVID-19 PFIZER VACCINE 2021-01-07 00:00:00 Completed [facility] SARS-COV-2 COVID-19 PFIZER VACCINE 2021-01-07 00:00:00 Completed [facility] SARS-COV-2 COVID-19 PFIZER VACCINE 2021-01-07 00:00:00 Completed [facility] SARS-COV-2 COVID-19 PFIZER VACCINE 2021-01-07 00:00:00 Completed [facility] SARS-COV-2 COVID-19 PFIZER VACCINE 2021-01-07 00:00:00 Completed [facility] SARS-COV-2 COVID-19 PFIZER VACCINE 2021-01-07 00:00:00 Completed [facility] SARS-COV-2 COVID-19 PFIZER VACCINE 2021-01-07 00:00:00 Completed [facility] SARS-COV-2 COVID-19 PFIZER VACCINE 2021-01-07 00:00:00 Completed [facility] SARS-COV-2 COVID-19 PFIZER VACCINE 2021-01-07 00:00:00 Completed [facility] SARS-COV-2 COVID-19 PFIZER VACCINE 2021-01-07 00:00:00 Completed [facility] SARS-COV-2 COVID-19 PFIZER VACCINE 2021-01-07 00:00:00 Completed [facility] SARS-COV-2 COVID-19 PFIZER VACCINE 2021-01-07 00:00:00 Completed [facility] SARS-COV-2 COVID-19 PFIZER VACCINE 2021-01-07 00:00:00 Completed [facility] SARS-COV-2 COVID-19 PFIZER VACCINE 2021-01-07 00:00:00 Completed [facility] SARS-COV-2 COVID-19 PFIZER VACCINE 2021-01-07 00:00:00 Completed [facility] SARS-COV-2 COVID-19 PFIZER VACCINE 2021-01-07 00:00:00 Completed [facility] SARS-COV-2 COVID-19 PFIZER VACCINE 2021-01-07 00:00:00 Completed [facility] SARS-COV-2 COVID-19 PFIZER VACCINE 2021-01-07 00:00:00 Completed [facility] SARS-COV-2 COVID-19 PFIZER VACCINE 2021-01-07 00:00:00 Completed [facility] SARS-COV-2 COVID-19 PFIZER VACCINE 2021-01-07 00:00:00 Completed [facility] SARS-COV-2 COVID-19 PFIZER VACCINE 2021-01-07 00:00:00 Completed [facility] SARS-COV-2 COVID-19 PFIZER VACCINE 2021-01-07 00:00:00 Completed [facility] SARS-COV-2 COVID-19 PFIZER VACCINE 2021-01-07 00:00:00 Completed [facility] SARS-COV-2 COVID-19 PFIZER VACCINE 2021-01-07 00:00:00 Completed [facility] SARS-COV-2 COVID-19 PFIZER VACCINE 2021-01-07 00:00:00 Completed [facility] SARS-COV-2 COVID-19 PFIZER VACCINE 2021-01-07 00:00:00 Completed [facility] SARS-COV-2 COVID-19 PFIZER VACCINE 2021-01-07 00:00:00 Completed [facility] SARS-COV-2 COVID-19 PFIZER VACCINE 2021-01-07 00:00:00 Completed [facility] SARS-COV-2 COVID-19 PFIZER VACCINE 2021-01-07 00:00:00 Completed [facility] SARS-COV-2 COVID-19 PFIZER VACCINE 2021-01-07 00:00:00 Completed [facility] SARS-COV-2 COVID-19 PFIZER VACCINE 2021-01-07 00:00:00 Completed [facility] SARS-COV-2 COVID-19 PFIZER VACCINE 2021-01-07 00:00:00 Completed [facility] SARS-COV-2 COVID-19 PFIZER VACCINE 2021-01-07 00:00:00 Completed [facility] SARS-COV-2 COVID-19 PFIZER VACCINE 2021-01-07 00:00:00 Completed [facility] SARS-COV-2 COVID-19 PFIZER VACCINE 2021-01-07 00:00:00 Completed [facility] SARS-COV-2 COVID-19 PFIZER VACCINE 2021-01-07 00:00:00 Completed [facility] SARS-COV-2 COVID-19 PFIZER VACCINE 2021-01-07 00:00:00 Completed [facility] SARS-COV-2 COVID-19 PFIZER VACCINE 2021-01-07 00:00:00 Completed [facility] SARS-COV-2 COVID-19 PFIZER VACCINE 2021-01-07 00:00:00 Completed [facility] SARS-COV-2 COVID-19 PFIZER VACCINE 2021-01-07 00:00:00 Completed [facility] SARS-COV-2 COVID-19 PFIZER VACCINE 2021-01-07 00:00:00 Completed [facility] SARS-COV-2 COVID-19 PFIZER VACCINE 2021-01-07 00:00:00 Completed [facility] SARS-COV-2 COVID-19 PFIZER VACCINE 2021-01-07 00:00:00 Completed [facility] SARS-COV-2 COVID-19 PFIZER VACCINE 2021-01-07 00:00:00 Completed [facility] SARS-COV-2 COVID-19 PFIZER VACCINE 2021-01-07 00:00:00 Completed [facility] SARS-COV-2 COVID-19 PFIZER VACCINE 2021-01-07 00:00:00 Completed [facility] SARS-COV-2 COVID-19 PFIZER VACCINE 2021-01-07 00:00:00 Completed [facility] SARS-COV-2 COVID-19 PFIZER VACCINE 2021-01-07 00:00:00 Completed [facility] SARS-COV-2 COVID-19 PFIZER VACCINE 2021-01-07 00:00:00 Completed [facility] SARS-COV-2 COVID-19 PFIZER VACCINE 2021-01-07 00:00:00 Completed [facility] SARS-COV-2 COVID-19 PFIZER VACCINE 2021-01-07 00:00:00 Completed [facility] SARS-COV-2 COVID-19 PFIZER VACCINE 2021-01-07 00:00:00 Completed [facility] SARS-COV-2 COVID-19 PFIZER VACCINE 2021-01-07 00:00:00 Completed [facility] SARS-COV-2 COVID-19 PFIZER VACCINE 2021-01-07 00:00:00 Completed [facility] SARS-COV-2 COVID-19 PFIZER VACCINE 2021-01-07 00:00:00 Completed [facility] SARS-COV-2 COVID-19 PFIZER VACCINE 2020-12-17 00:00:00 Completed [facility] SARS-COV-2 COVID-19 PFIZER VACCINE 2020-12-17 00:00:00 Completed [facility] SARS-COV-2 COVID-19 PFIZER VACCINE 2020-12-17 00:00:00 Completed [facility] SARS-COV-2 COVID-19 PFIZER VACCINE 2020-12-17 00:00:00 Completed [facility] SARS-COV-2 COVID-19 PFIZER VACCINE 2020-12-17 00:00:00 Completed [facility] SARS-COV-2 COVID-19 PFIZER VACCINE 2020-12-17 00:00:00 Completed [facility] SARS-COV-2 COVID-19 PFIZER VACCINE 2020-12-17 00:00:00 Completed [facility] SARS-COV-2 COVID-19 PFIZER VACCINE 2020-12-17 00:00:00 Completed [facility] SARS-COV-2 COVID-19 PFIZER VACCINE 2020-12-17 00:00:00 Completed [facility] SARS-COV-2 COVID-19 PFIZER VACCINE 2020-12-17 00:00:00 Completed [facility] SARS-COV-2 COVID-19 PFIZER VACCINE 2020-12-17 00:00:00 Completed [facility] SARS-COV-2 COVID-19 PFIZER VACCINE 2020-12-17 00:00:00 Completed [facility] SARS-COV-2 COVID-19 PFIZER VACCINE 2020-12-17 00:00:00 Completed [facility] SARS-COV-2 COVID-19 PFIZER VACCINE 2020-12-17 00:00:00 Completed [facility] SARS-COV-2 COVID-19 PFIZER VACCINE 2020-12-17 00:00:00 Completed [facility] SARS-COV-2 COVID-19 PFIZER VACCINE 2020-12-17 00:00:00 Completed [facility] SARS-COV-2 COVID-19 PFIZER VACCINE 2020-12-17 00:00:00 Completed [facility] SARS-COV-2 COVID-19 PFIZER VACCINE 2020-12-17 00:00:00 Completed [facility] SARS-COV-2 COVID-19 PFIZER VACCINE 2020-12-17 00:00:00 Completed [facility] SARS-COV-2 COVID-19 PFIZER VACCINE 2020-12-17 00:00:00 Completed [facility] SARS-COV-2 COVID-19 PFIZER VACCINE 2020-12-17 00:00:00 Completed [facility] SARS-COV-2 COVID-19 PFIZER VACCINE 2020-12-17 00:00:00 Completed [facility] SARS-COV-2 COVID-19 PFIZER VACCINE 2020-12-17 00:00:00 Completed [facility] SARS-COV-2 COVID-19 PFIZER VACCINE 2020-12-17 00:00:00 Completed [facility] SARS-COV-2 COVID-19 PFIZER VACCINE 2020-12-17 00:00:00 Completed [facility] SARS-COV-2 COVID-19 PFIZER VACCINE 2020-12-17 00:00:00 Completed [facility] SARS-COV-2 COVID-19 PFIZER VACCINE 2020-12-17 00:00:00 Completed [facility] SARS-COV-2 COVID-19 PFIZER VACCINE 2020-12-17 00:00:00 Completed [facility] SARS-COV-2 COVID-19 PFIZER VACCINE 2020-12-17 00:00:00 Completed [facility] SARS-COV-2 COVID-19 PFIZER VACCINE 2020-12-17 00:00:00 Completed [facility] SARS-COV-2 COVID-19 PFIZER VACCINE 2020-12-17 00:00:00 Completed [facility] SARS-COV-2 COVID-19 PFIZER VACCINE 2020-12-17 00:00:00 Completed [facility] SARS-COV-2 COVID-19 PFIZER VACCINE 2020-12-17 00:00:00 Completed [facility] SARS-COV-2 COVID-19 PFIZER VACCINE 2020-12-17 00:00:00 Completed [facility] SARS-COV-2 COVID-19 PFIZER VACCINE 2020-12-17 00:00:00 Completed [facility] SARS-COV-2 COVID-19 PFIZER VACCINE 2020-12-17 00:00:00 Completed [facility] SARS-COV-2 COVID-19 PFIZER VACCINE 2020-12-17 00:00:00 Completed [facility] SARS-COV-2 COVID-19 PFIZER VACCINE 2020-12-17 00:00:00 Completed [facility] SARS-COV-2 COVID-19 PFIZER VACCINE 2020-12-17 00:00:00 Completed [facility] SARS-COV-2 COVID-19 PFIZER VACCINE 2020-12-17 00:00:00 Completed [facility] SARS-COV-2 COVID-19 PFIZER VACCINE 2020-12-17 00:00:00 Completed [facility] SARS-COV-2 COVID-19 PFIZER VACCINE 2020-12-17 00:00:00 Completed [facility] SARS-COV-2 COVID-19 PFIZER VACCINE 2020-12-17 00:00:00 Completed [facility] SARS-COV-2 COVID-19 PFIZER VACCINE 2020-12-17 00:00:00 Completed [facility] SARS-COV-2 COVID-19 PFIZER VACCINE 2020-12-17 00:00:00 Completed [facility] SARS-COV-2 COVID-19 PFIZER VACCINE 2020-12-17 00:00:00 Completed [facility] SARS-COV-2 COVID-19 PFIZER VACCINE 2020-12-17 00:00:00 Completed [facility] SARS-COV-2 COVID-19 PFIZER VACCINE 2020-12-17 00:00:00 Completed [facility] SARS-COV-2 COVID-19 PFIZER VACCINE 2020-12-17 00:00:00 Completed [facility] SARS-COV-2 COVID-19 PFIZER VACCINE 2020-12-17 00:00:00 Completed [facility] SARS-COV-2 COVID-19 PFIZER VACCINE 2020-12-17 00:00:00 Completed [facility] SARS-COV-2 COVID-19 PFIZER VACCINE 2020-12-17 00:00:00 Completed [facility] SARS-COV-2 COVID-19 PFIZER VACCINE 2020-12-17 00:00:00 Completed [facility] SARS-COV-2 COVID-19 PFIZER VACCINE 2020-12-17 00:00:00 Completed [facility] SARS-COV-2 COVID-19 PFIZER VACCINE 2020-12-17 00:00:00 Completed [facility] SARS-COV-2 COVID-19 PFIZER VACCINE 2020-12-17 00:00:00 Completed [facility] SARS-COV-2 COVID-19 PFIZER VACCINE 2020-12-17 00:00:00 Completed [facility] SARS-COV-2 COVID-19 PFIZER VACCINE 2020-12-17 00:00:00 Completed [facility] SARS-COV-2 COVID-19 PFIZER VACCINE 2020-12-17 00:00:00 Completed [facility] SARS-COV-2 COVID-19 PFIZER VACCINE 2020-12-17 00:00:00 Completed [facility] SARS-COV-2 COVID-19 PFIZER VACCINE 2020-12-17 00:00:00 Completed [facility] SARS-COV-2 COVID-19 PFIZER VACCINE 2020-12-17 00:00:00 Completed [facility] SARS-COV-2 COVID-19 PFIZER VACCINE 2020-12-17 00:00:00 Completed [facility] SARS-COV-2 COVID-19 PFIZER VACCINE 2020-12-17 00:00:00 Completed [facility] SARS-COV-2 COVID-19 PFIZER VACCINE 2020-12-17 00:00:00 Completed [facility] SARS-COV-2 COVID-19 PFIZER VACCINE 2020-12-17 00:00:00 Completed [facility] SARS-COV-2 COVID-19 PFIZER VACCINE 2020-12-17 00:00:00 Completed [facility] SARS-COV-2 COVID-19 PFIZER VACCINE 2020-12-17 00:00:00 Completed [facility] SARS-COV-2 COVID-19 PFIZER VACCINE 2020-12-17 00:00:00 Completed [facility] SARS-COV-2 COVID-19 PFIZER VACCINE 2020-12-17 00:00:00 Completed [facility] Tdap Tdap 2018-05-29 00:00:00 Completed [facility] SARS-COV-2 COVID-19 PFIZER VACCINE Unknown Completed [facility] SARS-COV-2 COVID-19 PFIZER VACCINE Unknown Completed [facility] SARS-COV-2 COVID-19 PFIZER VACCINE Unknown Completed [facility] SARS-COV-2 COVID-19 PFIZER VACCINE Unknown Completed [facility] SARS-COV-2 COVID-19 PFIZER VACCINE Unknown Completed [facility] SARS-COV-2 COVID-19 PFIZER VACCINE Unknown Completed [facility] SARS-COV-2 COVID-19 PFIZER VACCINE Unknown Completed [facility] SARS-COV-2 COVID-19 PFIZER VACCINE Unknown Completed [facility] SARS-COV-2 COVID-19 PFIZER VACCINE Unknown Completed [facility] SARS-COV-2 COVID-19 PFIZER VACCINE Unknown Completed [facility] SARS-COV-2 COVID-19 PFIZER VACCINE Unknown Completed [facility] SARS-COV-2 COVID-19 PFIZER VACCINE Unknown Completed [facility] SARS-COV-2 COVID-19 PFIZER VACCINE Unknown Completed [facility] SARS-COV-2 COVID-19 PFIZER VACCINE Unknown Completed [facility] SARS-COV-2 COVID-19 PFIZER VACCINE Unknown Completed [facility] SARS-COV-2 COVID-19 PFIZER VACCINE Unknown Completed [facility] SARS-COV-2 COVID-19 PFIZER VACCINE Unknown Completed [facility] SARS-COV-2 COVID-19 PFIZER VACCINE Unknown Completed [facility] SARS-COV-2 COVID-19 PFIZER VACCINE Unknown Completed [facility] SARS-COV-2 COVID-19 PFIZER VACCINE Unknown Completed [facility] SARS-COV-2 COVID-19 PFIZER VACCINE Unknown Completed [facility] SARS-COV-2 COVID-19 PFIZER VACCINE Unknown Completed [facility] SARS-COV-2 COVID-19 PFIZER VACCINE Unknown Completed [facility] SARS-COV-2 COVID-19 PFIZER VACCINE Unknown Completed [facility] SARS-COV-2 COVID-19 PFIZER VACCINE Unknown Completed [facility] SARS-COV-2 COVID-19 PFIZER VACCINE Unknown Completed [facility] SARS-COV-2 COVID-19 PFIZER VACCINE Unknown Completed [facility] SARS-COV-2 COVID-19 PFIZER VACCINE Unknown Completed [facility] SARS-COV-2 COVID-19 PFIZER VACCINE Unknown Completed [facility] SARS-COV-2 COVID-19 PFIZER VACCINE Unknown Completed [facility] Influenza Virus Vaccine Quad IM, Preserv and ABX Free 6 MO-64 YRS (FLUCELVAX) Unknown Completed [facility] SARS-COV-2 COVID-19 PFIZER VACCINE Unknown Completed [facility] SARS-COV-2 COVID-19 PFIZER VACCINE Unknown Completed [facility] SARS-COV-2 COVID-19 PFIZER VACCINE Unknown Completed [facility] Influenza Virus Vaccine Quad IM, Preserv and ABX Free 6 MO-64 YRS (FLUCELVAX) Unknown Completed [facility] SARS-COV-2 COVID-19 PFIZER VACCINE Unknown Completed [facility] SARS-COV-2 COVID-19 PFIZER VACCINE Unknown Completed [facility] SARS-COV-2 COVID-19 PFIZER VACCINE Unknown Completed [facility] Influenza Virus Vaccine Quad IM, Preserv and ABX Free 6 MO-64 YRS (FLUCELVAX) Unknown Completed [facility] SARS-COV-2 COVID-19 PFIZER VACCINE Unknown Completed [facility] SARS-COV-2 COVID-19 PFIZER VACCINE Unknown Completed [facility] SARS-COV-2 COVID-19 PFIZER VACCINE Unknown Completed [facility] Influenza Virus Vaccine Quad IM, Preserv and ABX Free 6 MO-64 YRS (FLUCELVAX) Unknown Completed [facility] SARS-COV-2 COVID-19 PFIZER VACCINE Unknown Completed [facility] SARS-COV-2 COVID-19 PFIZER VACCINE Unknown Completed [facility] SARS-COV-2 COVID-19 PFIZER VACCINE Unknown Completed [facility] Influenza Virus Vaccine Quad IM, Preserv and ABX Free 6 MO-64 YRS (FLUCELVAX) Unknown Completed [facility] SARS-COV-2 COVID-19 PFIZER VACCINE Unknown Completed [facility] SARS-COV-2 COVID-19 PFIZER VACCINE Unknown Completed [facility] SARS-COV-2 COVID-19 PFIZER VACCINE Unknown Completed [facility] Influenza Virus Vaccine Quad IM, Preserv and ABX Free 6 MO-64 YRS (FLUCELVAX) Unknown Completed [facility] SARS-COV-2 COVID-19 PFIZER VACCINE Unknown Completed [facility] SARS-COV-2 COVID-19 PFIZER VACCINE Unknown Completed [facility] SARS-COV-2 COVID-19 PFIZER VACCINE Unknown Completed [facility] Influenza Virus Vaccine Quad IM, Preserv and ABX Free 6 MO-64 YRS (FLUCELVAX) Unknown Completed [facility] SARS-COV-2 COVID-19 PFIZER VACCINE Unknown Completed [facility] SARS-COV-2 COVID-19 PFIZER VACCINE Unknown Completed [facility] SARS-COV-2 COVID-19 PFIZER VACCINE Unknown Completed [facility] Influenza Virus Vaccine Quad IM, Preserv and ABX Free 6 MO-64 YRS (FLUCELVAX) Unknown Completed [facility] SARS-COV-2 COVID-19 PFIZER VACCINE Unknown Completed [facility] SARS-COV-2 COVID-19 PFIZER VACCINE Unknown Completed [facility] SARS-COV-2 COVID-19 PFIZER VACCINE Unknown Completed [facility] Influenza Virus Vaccine Quad IM, Preserv and ABX Free 6 MO-64 YRS (FLUCELVAX) Unknown Completed [facility] SARS-COV-2 COVID-19 PFIZER VACCINE Unknown Completed [facility] SARS-COV-2 COVID-19 PFIZER VACCINE Unknown Completed [facility] SARS-COV-2 COVID-19 PFIZER VACCINE Unknown Completed [facility] Influenza Virus Vaccine Quad IM, Preserv and ABX Free 6 MO-64 YRS (FLUCELVAX) Unknown Completed [facility] SARS-COV-2 COVID-19 PFIZER VACCINE Unknown Completed [facility] SARS-COV-2 COVID-19 PFIZER VACCINE Unknown Completed [facility] SARS-COV-2 COVID-19 PFIZER VACCINE Unknown Completed [facility] Influenza Virus Vaccine Quad IM, Preserv and ABX Free 6 MO-64 YRS (FLUCELVAX) Unknown Completed [facility] SARS-COV-2 COVID-19 PFIZER VACCINE Unknown Completed [facility] SARS-COV-2 COVID-19 PFIZER VACCINE Unknown Completed [facility] SARS-COV-2 COVID-19 PFIZER VACCINE Unknown Completed [facility] Influenza Virus Vaccine Quad IM, Preserv and ABX Free 6 MO-64 YRS (FLUCELVAX) Unknown Completed [facility] SARS-COV-2 COVID-19 PFIZER VACCINE Unknown Completed [facility] SARS-COV-2 COVID-19 PFIZER VACCINE Unknown Completed [facility] SARS-COV-2 COVID-19 PFIZER VACCINE Unknown Completed [facility] Influenza Virus Vaccine Quad IM, Preserv and ABX Free 6 MO-64 YRS (FLUCELVAX) Unknown Completed [facility] SARS-COV-2 COVID-19 PFIZER VACCINE Unknown Completed [facility] SARS-COV-2 COVID-19 PFIZER VACCINE Unknown Completed [facility] SARS-COV-2 COVID-19 PFIZER VACCINE Unknown Completed [facility] Influenza Virus Vaccine Quad IM, Preserv and ABX Free 6 MO-64 YRS (FLUCELVAX) Unknown Completed [facility] SARS-COV-2 COVID-19 PFIZER VACCINE Unknown Completed [facility] SARS-COV-2 COVID-19 PFIZER VACCINE Unknown Completed [facility] SARS-COV-2 COVID-19 PFIZER VACCINE Unknown Completed [facility] Influenza Virus Vaccine Quad IM, Preserv and ABX Free 6 MO-64 YRS (FLUCELVAX) Unknown Completed [facility] SARS-COV-2 COVID-19 PFIZER VACCINE Unknown Completed [facility] SARS-COV-2 COVID-19 PFIZER VACCINE Unknown Completed [facility] SARS-COV-2 COVID-19 PFIZER VACCINE Unknown Completed [facility] Influenza Virus Vaccine Quad IM, Preserv and ABX Free 6 MO-64 YRS (FLUCELVAX) Unknown Completed [facility] SARS-COV-2 COVID-19 PFIZER VACCINE Unknown Completed [facility] SARS-COV-2 COVID-19 PFIZER VACCINE Unknown Completed [facility] SARS-COV-2 COVID-19 PFIZER VACCINE Unknown Completed [facility] Influenza Virus Vaccine Quad IM, Preserv and ABX Free 6 MO-64 YRS (FLUCELVAX) Unknown Completed [facility] SARS-COV-2 COVID-19 PFIZER VACCINE Unknown Completed [facility] SARS-COV-2 COVID-19 PFIZER VACCINE Unknown Completed [facility] SARS-COV-2 COVID-19 PFIZER VACCINE Unknown Completed [facility] Influenza Virus Vaccine Quad IM, Preserv and ABX Free 6 MO-64 YRS (FLUCELVAX) Unknown Completed [facility] SARS-COV-2 COVID-19 PFIZER VACCINE Unknown Completed [facility] SARS-COV-2 COVID-19 PFIZER VACCINE Unknown Completed [facility] SARS-COV-2 COVID-19 PFIZER VACCINE Unknown Completed [facility] Influenza Virus Vaccine Quad IM, Preserv and ABX Free 6 MO-64 YRS (FLUCELVAX) Unknown Completed [facility] SARS-COV-2 COVID-19 PFIZER VACCINE Unknown Completed [facility] SARS-COV-2 COVID-19 PFIZER VACCINE Unknown Completed [facility] SARS-COV-2 COVID-19 PFIZER VACCINE Unknown Completed [facility] Influenza Virus Vaccine Quad IM, Preserv and ABX Free 6 MO-64 YRS (FLUCELVAX) Unknown Completed [facility] SARS-COV-2 COVID-19 PFIZER VACCINE Unknown Completed [facility] SARS-COV-2 COVID-19 PFIZER VACCINE Unknown Completed [facility] SARS-COV-2 COVID-19 PFIZER VACCINE Unknown Completed [facility] Influenza Virus Vaccine Quad IM, Preserv and ABX Free 6 MO-64 YRS (FLUCELVAX) Unknown Completed [facility] SARS-COV-2 COVID-19 PFIZER VACCINE Unknown Completed [facility] SARS-COV-2 COVID-19 PFIZER VACCINE Unknown Completed [facility] SARS-COV-2 COVID-19 PFIZER VACCINE Unknown Completed [facility] Influenza Virus Vaccine Quad IM, Preserv and ABX Free 6 MO-64 YRS (FLUCELVAX) Unknown Completed [facility] SARS-COV-2 COVID-19 PFIZER VACCINE Unknown Completed [facility] SARS-COV-2 COVID-19 PFIZER VACCINE Unknown Completed [facility] SARS-COV-2 COVID-19 PFIZER VACCINE Unknown Completed [facility] Influenza Virus Vaccine Quad IM, Preserv and ABX Free 6 MO-64 YRS (FLUCELVAX) Unknown Completed [facility] SARS-COV-2 COVID-19 PFIZER VACCINE Unknown Completed [facility] SARS-COV-2 COVID-19 PFIZER VACCINE Unknown Completed [facility] SARS-COV-2 COVID-19 PFIZER VACCINE Unknown Completed [facility] Influenza Virus Vaccine Quad IM, Preserv and ABX Free 6 MO-64 YRS (FLUCELVAX) Unknown Completed [facility] SARS-COV-2 COVID-19 PFIZER VACCINE Unknown Completed [facility] SARS-COV-2 COVID-19 PFIZER VACCINE Unknown Completed [facility] SARS-COV-2 COVID-19 PFIZER VACCINE Unknown Completed [facility] Influenza Virus Vaccine Quad IM, Preserv and ABX Free 6 MO-64 YRS (FLUCELVAX) Unknown Completed [facility] SARS-COV-2 COVID-19 PFIZER VACCINE Unknown Completed [facility] SARS-COV-2 COVID-19 PFIZER VACCINE Unknown Completed [facility] SARS-COV-2 COVID-19 PFIZER VACCINE Unknown Completed [facility] Influenza Virus Vaccine Quad IM, Preserv and ABX Free 6 MO-64 YRS (FLUCELVAX) Unknown Completed [facility] SARS-COV-2 COVID-19 PFIZER VACCINE Unknown Completed [facility] SARS-COV-2 COVID-19 PFIZER VACCINE Unknown Completed [facility] SARS-COV-2 COVID-19 PFIZER VACCINE Unknown Completed [facility] Influenza Virus Vaccine Quad IM, Preserv and ABX Free 6 MO-64 YRS (FLUCELVAX) Unknown Completed [facility] SARS-COV-2 COVID-19 PFIZER VACCINE Unknown Completed [facility] SARS-COV-2 COVID-19 PFIZER VACCINE Unknown Completed [facility] SARS-COV-2 COVID-19 PFIZER VACCINE Unknown Completed [facility] Influenza Virus Vaccine Quad IM, Preserv and ABX Free 6 MO-64 YRS (FLUCELVAX) Unknown Completed [facility] SARS-COV-2 COVID-19 PFIZER VACCINE Unknown Completed [facility] SARS-COV-2 COVID-19 PFIZER VACCINE Unknown Completed [facility] SARS-COV-2 COVID-19 PFIZER VACCINE Unknown Completed [facility] Influenza Virus Vaccine Quad IM, Preserv and ABX Free 6 MO-64 YRS (FLUCELVAX) Unknown Completed [facility] SARS-COV-2 COVID-19 PFIZER VACCINE Unknown Completed [facility] SARS-COV-2 COVID-19 PFIZER VACCINE Unknown Completed [facility] SARS-COV-2 COVID-19 PFIZER VACCINE Unknown Completed [facility] Influenza Virus Vaccine Quad IM, Preserv and ABX Free 6 MO-64 YRS (FLUCELVAX) Unknown Completed [facility] SARS-COV-2 COVID-19 PFIZER VACCINE Unknown Completed [facility] SARS-COV-2 COVID-19 PFIZER VACCINE Unknown Completed [facility] SARS-COV-2 COVID-19 PFIZER VACCINE Unknown Completed [facility] Influenza Virus Vaccine Quad IM, Preserv and ABX Free 6 MO-64 YRS (FLUCELVAX) Unknown Completed [facility] Vital Signs Vital Name Observation Time Observation Value Comments S ource Systolic blood pressure 2023-12-18 21:04:00 145 mm[Hg] [facility] Diastolic blood pressure 2023-12-18 21:04:00 98 mm[Hg] [facility] Heart rate 2023-12-18 21:04:00 110 /min [facility] Body temperature 2023-12-18 21:04:00 36.5 Radha [facility] Respiratory rate 2023-12-18 21:04:00 18 /min [facility] Body height 2023-12-18 21:04:00 165.1 cm [facility] Body weight 2023-12-18 21:04:00 46.267 kg [facility] BMI 2023-12-18 21:04:00 16.97 kg/m2 [facility] Oxygen saturation in Arterial blood by Pulse oximetry 2023-12-18 21:04:00 98 /min [facility] Body height 2023-09-11 21:41:00 165.1 cm [facility] Body weight 2023-09-11 21:41:00 50.304 kg [facility] BMI 2023-09-11 21:41:00 18.45 kg/m2 [facility] Heart rate 2023-08-28 20:25:00 82 /min [facility] in Arterial blood by Pulse oximetry 2023-08-28 20:25:00 100 /min [facility] Systolic blood pressure 2023-08-28 20:20:00 127 mm[Hg] [facility] Diastolic blood pressure 2023-08-28 20:20:00 81 mm[Hg] [facility] Respiratory rate 2023-08-28 20:20:00 16 /min [facility] Body temperature 2023-08-28 19:26:00 36.39 Radha [facility] Body height 2023-08-16 16:00:00 165.1 cm [facility] Body weight 2023-08-16 16:00:00 48.535 kg [facility] BMI 2023-08-16 16:00:00 17.81 kg/m2 [facility] Heart rate 2023-08-28 20:25:00 82 /min [facility] Oxygen saturation in Arterial blood by Pulse oximetry 2023-08-28 20:25:00 100 /min [facility] Systolic blood pressure 2023-08-28 20:20:00 127 mm[Hg] [facility] Diastolic blood pressure 2023-08-28 20:20:00 81 mm[Hg] [facility] Respiratory rate 2023-08-28 20:20:00 16 /min [facility] Body temperature 2023-08-28 19:26:00 36.39 Radha [facility] Body height 2023-08-16 16:00:00 165.1 cm [facility] Body weight 2023-08-16 16:00:00 48.535 kg [facility] BMI 2023-08-16 16:00:00 17.81 kg/m2 [facility] Body weight 2023-08-10 19:00:00 48.535 kg [facility] BMI 2023-08-10 19:00:00 17.81 kg/m2 [facility] Systolic blood pressure 2023-08-01 18:01:00 120 mm[Hg] [facility] Diastolic blood pressure 2023-08-01 18:01:00 79 mm[Hg] [facility] Heart rate 2023-08-01 18:01:00 112 /min [facility] Body temperature 2023-08-01 18:01:00 35.11 Radha [facility] Respiratory rate 2023-08-01 18:01:00 16 /min [facility] Body height 2023-08-01 18:01:00 165.1 cm [facility] Body weight 2023-08-01 18:01:00 48.626 kg [facility] BMI 2023-08-01 18:01:00 17.84 kg/m2 [facility] Oxygen saturation in Arterial blood by Pulse oximetry 2023-08-01 18:01:00 100 /min [facility] Systolic blood pressure 2023-07-17 20:45:00 106 mm[Hg] [facility] Diastolic blood pressure 2023-07-17 20:45:00 68 mm[Hg] [facility] Heart rate 2023-07-17 20:45:00 101 /min [facility] Body temperature 2023-07-17 20:45:00 36.17 Radha [facility] Respiratory rate 2023-07-17 20:45:00 18 /min [facility] Body height 2023-07-17 20:45:00 165.1 cm [facility] Body weight 2023-07-17 20:45:00 46.448 kg [facility] BMI 2023-07-17 20:45:00 17.04 kg/m2 [facility] Oxygen saturation in Arterial blood by Pulse oximetry 2023-07-17 20:45:00 100 /min Room air [facility] Systolic blood pressure 2023-06-12 16:52:00 122 mm[Hg] [facility] Diastolic blood pressure 2023-06-12 16:52:00 82 mm[Hg] [facility] Respiratory rate 2023-06-12 16:52:00 13 /min [facility] Oxygen saturation in Arterial blood by Pulse oximetry 2023-06-12 16:52:00 100 /min [facility] Systolic blood pressure 2023-06-12 16:52:00 122 mm[Hg] [facility] Diastolic blood pressure 2023-06-12 16:52:00 82 mm[Hg] [facility] Respiratory rate 2023-06-12 16:52:00 13 /min [facility] Oxygen saturation in Arterial blood by Pulse oximetry 2023-06-12 16:52:00 100 /min [facility] Systolic blood pressure 2023-06-12 16:52:00 122 mm[Hg] [facility] Diastolic blood pressure 2023-06-12 16:52:00 82 mm[Hg] [facility] Respiratory rate 2023-06-12 16:52:00 13 /min [facility] Oxygen saturation in Arterial blood by Pulse oximetry 2023-06-12 16:52:00 100 /min [facility] Systolic blood pressure 2023-05-25 15:48:00 136 mm[Hg] [facility] Diastolic blood pressure 2023-05-25 15:48:00 89 mm[Hg] [facility] Heart rate 2023-05-25 15:48:00 123 /min [facility] Res[facility] rate 2023-05-25 15:46:00 21 /min [facility] Body height 2023-05-25 15:46:00 165.1 cm [facility] Body weight 2023-05-25 15:46:00 43.999 kg [facility] BMI 2023-05-25 15:46:00 16.14 kg/m2 [facility] Oxygen saturation in Arterial blood by Pulse oximetry 2023-05-25 15:46:00 99 /min [facility] Systolic blood pressure 2023-04-26 13:27:00 93 mm[Hg] [facility] Diastolic blood pressure 2023-04-26 13:27:00 55 mm[Hg] [facility] Heart rate 2023-04-26 13:27:00 104 /min [facility] Body temperature 2023-04-26 13:27:00 36.89 Radha [facility] Respiratory rate 2023-04-26 13:27:00 18 /min [facility] Body height 2023-04-26 13:27:00 167.6 cm [facility] Body weight 2023-04-26 13:27:00 42.82 kg [facility] BMI 2023-04-26 13:27:00 15.24 kg/m2 [facility] Oxygen saturation in Arterial blood by Pulse oximetry 2023-04-26 13:27:00 100 /min [facility] Systolic blood pressure 2023-04-06 19:07:00 124 mm[Hg] [facility] Diastolic blood pressure 2023-04-06 19:07:00 74 mm[Hg] [facility] Heart rate 2023-04-06 19:07:00 102 /min [facility] Respiratory rate 2023-04-06 19:07:00 18 /min [facility] Body height 2023-04-06 19:07:00 165.1 cm [facility] Body weight 2023-04-06 19:07:00 43.908 kg [facility] BMI 2023-04-06 19:07:00 16.11 kg/m2 [facility]xygen [facility] in Arterial blood by Pulse oximetry 2023-04-06 19:07:00 99 /min [facility] Systolic blood pressure 2023-03-14 15:46:00 125 mm[Hg] [facility] Diastolic blood pressure 2023-03-14 15:46:00 84 mm[Hg] [facility] Heart rate 2023-03-14 15:46:00 103 /min [facility] Body temperature 2023-03-14 15:46:00 36.78 Radha [facility] Respiratory rate 2023-03-14 15:46:00 16 /min [facility] Body height 2023-03-14 15:46:00 165.1 cm [facility] Body weight 2023-03-14 15:46:00 43.5 kg [facility] BMI 2023-03-14 15:46:00 15.96 kg/m2 [facility] Oxygen saturation in Arterial blood by Pulse oximetry 2023-03-14 15:46:00 95 /min [facility] Systolic blood pressure 2023-02-14 20:22:00 134 mm[Hg] [facility] Diastolic blood pressure 2023-02-14 20:22:00 92 mm[Hg] [facility] Heart rate 2023-02-14 20:21:00 123 /min [facility] Body temperature 2023-02-14 20:21:00 36.61 Radha [facility] Respiratory rate 2023-02-14 20:21:00 16 /min [facility] Body height 2023-02-14 20:21:00 165.1 cm [facility] Body weight 2023-02-14 20:21:00 43.681 kg [facility] BMI 2023-02-14 20:21:00 16.03 kg/m2 [facility] Oxygen saturation in Arterial blood by Pulse oximetry 2023-02-14 20:21:00 96 /min room air [facility] Systolic blood pressure 2023-01-30 13:12:00 115 mm[Hg] [facility] Diastolic blood pressure 2023-01-30 13:12:00 71 mm[Hg] [facility] Heart rate 2023-01-30 13:12:00 107 /min [facility] Body temperature 2023-01-30 13:12:00 36.94 Radha [facility] Respiratory rate 2023-01-30 13:12:00 18 /min [facility] Body height 2023-01-30 13:12:00 165.1 cm [facility] Body weight 2023-01-30 13:12:00 43.545 kg [facility] BMI 2023-01-30 13:12:00 15.98 kg/m2 [facility] Oxygen saturation in Arterial blood by Pulse oximetry 2023-01-30 13:12:00 100 /min [facility] Systolic blood pressure 2023-01-05 16:39:00 127 mm[Hg] [facility] Diastolic blood pressure 2023-01-05 16:39:00 85 mm[Hg] [facility] Heart rate 2023-01-05 16:39:00 102 /min [facility] Body temperature 2023-01-05 16:39:00 37.28 Radha [facility] Respiratory rate 2023-01-05 16:39:00 18 /min [facility] Body height 2023-01-05 16:39:00 165.1 cm [facility] Body weight 2023-01-05 16:39:00 47.628 kg [facility] BMI 2023-01-05 16:39:00 17.47 kg/m2 [facility] Oxygen saturation in Arterial blood by Pulse oximetry 2023-01-05 16:39:00 98 /min [facility] Systolic blood pressure 2023-01-05 16:07:00 110 mm[Hg] [facility] Diastolic blood pressure 2023-01-05 16:07:00 76 mm[Hg] [facility] Heart rate 2023-01-05 16:07:00 109 /min [facility] Oxygen saturation in Arterial blood by Pulse oximetry 2023-01-05 16:07:00 97 /min [facility] Respiratory rate 2023-01-05 15:46:00 17 /min [facility] Body height 2023-01-05 15:46:00 165.1 cm [facility] Body weight 2023-01-05 15:46:00 47.129 kg [facility] BMI 2023-01-05 15:46:00 17.29 kg/m2 [facility] Systolic blood pressure 2023-01-04 04:00:00 130 mm[Hg] [facility] Diastolic blood pressure 2023-01-04 04:00:00 96 mm[Hg] [facility] Heart rate 2023-01-04 04:00:00 107 /min [facility] Respiratory rate 2023-01-04 04:00:00 16 /min [facility] Oxygen saturation in Arterial blood by Pulse oximetry 2023-01-04 04:00:00 100 /min [facility] Body temperature 2023-01-04 00:24:00 36.94 Radha [facility] Body height 2023-01-04 00:24:00 165.1 cm [facility] Body weight 2023-01-04 00:24:00 52.164 kg [facility] BMI 2023-01-04 00:24:00 19.14 kg/m2 [facility] Systolic blood pressure 2022-12-20 18:11:00 134 mm[Hg] [facility] Diastolic blood pressure 2022-12-20 18:11:00 83 mm[Hg] [facility] Heart rate 2022-12-20 18:11:00 107 /min [facility] Body temperature 2022-12-20 18:11:00 36.72 Radha [facility] Respiratory rate 2022-12-20 18:11:00 16 /min [facility] Body height 2022-12-20 18:11:00 165.1 cm [facility] Body weight 2022-12-20 18:11:00 47.446 kg [facility] BMI 2022-12-20 18:11:00 17.41 kg/m2 [facility] Oxygen saturation in Arterial blood by Pulse oximetry 2022-12-20 18:11:00 100 /min [facility] Systolic blood pressure 2022-12-13 19:56:00 128 mm[Hg] [facility] Diastolic blood pressure 2022-12-13 19:56:00 72 mm[Hg] [facility] Heart rate 2022-12-13 19:56:00 111 /min [facility] Body height 2022-12-13 19:56:00 165.1 cm [facility] Body weight 2022-12-13 19:56:00 46.267 kg [facility] BMI 2022-12-13 19:56:00 16.97 kg/m2 [facility] Oxygen saturation in Arterial blood by Pulse oximetry 2022-12-13 19:56:00 98 /min [facility] Systolic blood pressure 2022-12-01 17:22:00 124 mm[Hg] [facility] Diastolic blood pressure 2022-12-01 17:22:00 88 mm[Hg] [facility] Heart rate 2022-12-01 17:22:00 80 /min [facility] Body temperature 2022-12-01 17:22:00 37.11 Radha [facility] Respiratory rate 2022-12-01 17:22:00 18 /min [facility] Body weight 2022-12-01 17:22:00 48.535 kg [facility] BMI 2022-12-01 17:22:00 18.37 kg/m2 [facility] Oxygen saturation in Arterial blood by Pulse oximetry 2022-12-01 17:22:00 99 /min [facility] Systolic blood pressure 2022-10-19 20:30:00 150 mm[Hg] [facility] Diastolic blood pressure 2022-10-19 20:30:00 88 mm[Hg] [facility] Heart rate 2022-10-19 20:30:00 99 /min [facility] Body temperature 2022-10-19 20:30:00 37 Radha [facility] Respiratory rate 2022-10-19 20:30:00 18 /min [facility] Oxygen saturation in Arterial blood by Pulse oximetry 2022-10-19 20:30:00 99 /min [facility] Body height 2022-10-19 19:56:00 162.6 cm [facility] weight 2022-10-19 19:56:00 52.617 kg [facility] BMI 2022-10-19 19:56:00 19.91 kg/m2 [facility] Body height 2022-08-31 20:15:00 165.1 cm [facility] Body weight 2022-08-31 20:15:00 61.689 kg [facility] BMI 2022-08-31 20:15:00 22.63 kg/m2 [facility] Systolic blood pressure 2022-07-29 14:28:00 145 mm[Hg] [facility] Diastolic blood pressure 2022-07-29 14:28:00 87 mm[Hg] [facility] Heart rate 2022-07-29 14:28:00 108 /min [facility] Body height 2022-07-29 14:28:00 165.1 cm [facility] Body weight 2022-07-29 14:28:00 61.689 kg [facility] BMI 2022-07-29 14:28:00 22.63 kg/m2 [facility] Body height 2022-06-29 20:01:00 165.1 cm [facility] Body weight 2022-06-29 20:01:00 61.689 kg [facility] BMI 2022-06-29 20:01:00 22.63 kg/m2 [facility] BP Systolic 2024-02-14 17:46:00 131 mm[Hg] [facility] BP Diastolic 2024-02-14 17:46:00 78 mm[Hg] Milind [facility] Weight Measured 2024-02-14 17:46:00 101.40 pounds [facility] Height Measured 2024-02-14 17:46:00 65.00 inches [facility] Body Temperature 2024-02-14 17:46:00 98.00 degrees [facility] Heart Rate 2024-02-14 17:46:00 99.00 /min [facility] Respiratory Rate 2024-02-14 17:46:00 18.00 /min Britton F Ang BP Systolic 2024-01-22 14:54:00 142 mm[Hg] Step hen F Ang BP Diastolic 2024-01-22 14:54:00 86 mm[Hg] Milind phen F Ang Weight Measured 2024-01-22 14:54:00 100.60 pounds Britton F nAg Height Measured 2024-01-22 14:54:00 65.00 inches Britton F Ang Body Temperature 2024-01-22 14:54:00 98.10 degrees Britton F Ang Heart Rate 2024-01-22 14:54:00 109.00 /min Step hen F Agn Respiratory Rate 2024-01-22 14:54:00 18.00 /min Britton [...] CARPAL TUNNEL RELEASE 2023-08-28 18:30:00 Roe Mcgarry [facility] HB ABO GROUPING 2023-08-28 17:27:00 Jacqueline Bains [facility] HB ABO GROUPING 2023-08-28 17:27:00 Jacqueline Bains [facility] DAY SURGERY - ADC 2023-08-28 06:01:00 Doctor Unassigned, [place] [facility] EXTRA TUBE LAV 2023-08-17 22:50:00 Jacqueline Bains [facility] BASIC METABOLIC PANEL (NA, K, CL, CO2, GLUCOSE, BUN, CREATININE, CA) 2023-08-17 22:48:00 Jacqueline Bains [facility] CBC WITH DIFF 2023-08-17 22:48:00 Jacqueline Bains [facility] HB ABO GROUPING 2023-08-17 22:48:00 Jacqueline Bains [facility] XR CHEST 2 VW 2023-08-17 22:34:40 Jacquelien Bains [facility] INSURANCE CORRESPONDENCE 2023-08-17 06:01:00 Doctor Unassigned, [place] [facility] INSURANCE CORRESPONDENCE 2023-08-17 06:01:00 Doctor Unassigned, [place] [facility] INSURANCE CORRESPONDENCE 2023-08-16 06:01:00 Doctor Unassigned, [place] [facility] INSURANCE CORRESPONDENCE 2023-08-16 06:01:00 Doctor Unassigned, [place] [facility] EXTERNAL PROVIDER RECORDS 2023-08-11 06:01:00 Doctor Unassigned, [place] [facility] EXTERNAL PROVIDER RECORDS 2023-08-11 06:01:00 Doctor Unassigned, [place] [facility] DSU PRE-OP 2023-08-10 06:01:00 Doctor Unassigned, [place] [facility] DSU PRE-OP 2023-08-10 06:01:00 Doctor Unassigned, [place] [facility] FLU VACC ([id number]), 6 MO-64 YRS, .5ML, IM, QUAD (FLUCELVAX) 2023-07-17 21:16:29 Mica Duncan [facility] CONSENT/REFUSAL FOR DIAGNOSIS AND TREATMENT 2023-07-17 20:36:38 Doctor Unassigned, [place] [facility] ELECTROPHYSIOLOGY PROCEDURE 2023-06-12 16:52:46 Nikki Brunner [facility] ELECTROPHYSIOLOGY PROCEDURE 2023-06-12 16:52:46 Nikki Brunner [facility] HB ECG ROUTINE & RHYTHM STRIP 2023-06-12 15:46:15 Nikki Brunner [facility] DISCLOSURE AND CONSENT, MEDICAL AND SURGICAL PROCEDURES 2023-06-12 05:01:00 Doctor Unassigned, [place] [facility] WOUND CULTURE 2023-04-10 15:04:00 Gabriella Weaver [facility] THYROID STIMULATING HORMONE 2023-03-14 17:42:00 Mackenzie Davis [facility] COMP. METABOLIC PANEL ([id number]) 2023-03-14 17:42:00 Mackenzie Davis [facility] SEDIMENTATION RATE 2023-03-14 17:42:00 Mackenzie Davis [facility] CBC WITH DIFF 2023-03-14 17:42:00 Mackenzie Davis [facility] URINALYSIS 2023-03-14 17:42:00 Mackenzie Davis [facility] C-REACTIVE PROTEIN 2023-03-14 17:42:00 Mackenzie Davis [facility] C4 COMPLEMENT 2023-03-14 17:42:00 Mackenzie Davis [facility] HCV ANTIBODY 2023-03-14 17:42:00 Mackenzie Davis [facility] PROTEIN CREAT RATIO URINE RANDOM 2023-03-14 17:42:00 Mackenzie Davis [facility] ANTI-CENTROMERE B 2023-03-14 17:42:00 Mackenzie Davis [facility] ANTI-SSB(LA) 2023-03-14 17:42:00 Mackenzie Davis [facility] ANTI-DOUBLE STRANDED DNA 2023-03-14 17:42:00 Mackenzie Davis [facility] FREE T4 2023-03-14 17:42:00 Mackenzie Davis [facility] TRIIODOTHYRONINE 2023-03-14 17:42:00 Mackenzie Davis [facility] HIV 1/2 AG-AB WITH REFLEX 2023-03-14 17:42:00 Mackenzie Davis [facility] WOUND CULTURE 2023-02-14 21:07:[address] [facility] W[facility] CULT[facility] 2023-02-14 21:06:00 Jaguar Webb [facility] CONSENT/REFUSAL FOR DIAGNOSIS AND TREATMENT 2023-01-05 16:36:40 Doctor Unassigned, [place] [facility] URINALYSIS 2023-01-04 02:14:00 Con [facility] URINE DRUG (IMMUNOASSAY) - COMPREHENSIVE DRUG SCREEN W/O REFLEX 2023-01-04 02:14:00 Dottie Andujar [facility] LIPASE 2023-01-04 00:37:00 Con [facility] TEST, SERUM 2023-01-04 00:37:00 Con [facility] COMP. METABOLIC PANEL ([id number]) 2023-01-04 00:37:00 Dottie Andujar [facility] CBC WITH DIFF 2023-01-04 00:37:00 Con [facility] EKG-12 LEAD 2022-12-13 20:19:06 Doctor Unassigned, [place] [facility] CT INCISION & DRAINAGE ABSCESS SIMPLE/SINGLE 2022-12-01 17:34:50 Jihan Bains [facility] CONSENT/REFUSAL FOR DIAGNOSIS AND TREATMENT 2022-12-01 17:17:50 Doctor Unassigned, [place] [facility] REFERRAL- REQUEST/RESPONSE 2022-11-25 06:01:00 Doctor Unassigned, [place] [facility] CT INCISION & DRAINAGE ABSCESS SIMPLE/SINGLE 2022-10-19 20:12:40 Jihan Bains [facility] NOTICE OF PRIVACY PRACTICES 2022-10-19 19:46:53 Doctor Unassigned, [place] [facility] CONSENT/REFUSAL FOR DIAGNOSIS AND TREATMENT 2022-10-19 19:45:38 Doctor Unassigned, [place] [facility] REFERRAL- REQUEST/RESPONSE 2022-09-28 06:01:00 Doctor Unassigned, [place] [facility] MR SHOULDER RIGHT WO CONTRAST 2022-08-11 21:44:59 Roe Mcgarry [facility] REFERRAL- REQUEST/RESPONSE 2022-07-27 05:01:00 Doctor Unassigned, [place] [facility] XR SHOULDER 2+ VW RIGHT 2022-06-28 15:06:30 Roe Mcgarry [facility] ASSIGNMENT OF BENEFITS 2022-06-27 20:21:10 Doctor Unassigned, [place] [facility] Encounters Start Date/Time End Date/Time Encounter Type Admission Type Attending [facility] Facility Care Department Encounter ID Source 2024-06-18 15:00:00 2024-06-18 15:00:00 Outpatient MACKENZIE ANDUJAR [facility] [id number] [facility] 2024-03-21 13:00:00 2024-03-21 13:00:00 Outpatient MACKENZIE ANDUJAR [facility] [id number] [facility] 2024-02-23 10:00:00 2024-02-23 10:30:00 Office Visit Mica Duncan [facility] 1.2.840.114 350.1.13.10 4.2.7.2.686 [id number] [facility] 2024-02-23 10:00:00 2024-02-23 10:00:00 Outpatient MICA CADE [facility] [id number] [facility] 2024-02-16 11:19:29 2024-02-16 11:19:29 Outpatient SFA [facility] [id number] Britton F Ang 2024-02-14 17:42:16 2024-02-14 17:42:16 Outpatient SFA [facility] [id number] Britton F Ang 2024-02-14 00:00:00 2024-02-14 00:00:00 Outpatient Visit [facility] [id number] Britton Fry 2024-01-22 14:50:28 2024-01-22 14:50:28 Outpatient SFA [facility] [id number] Britton Fry 2024-01-22 00:00:00 2024-01-22 00:00:00 Outpatient Visit SFA [id number] Britton Fry 2023-12-18 16:30:00 2023-12-18 16:45:00 Pricing Associate Visit [facility] 1.840.114 350.1.13.10 4.2.7.2.686 [id number] [facility] 2023-12-18 16:00:00 2023-12-18 16:30:00 [facility] 1.[facility].114 350.1.13.10 4.2.7.2.686 [id number] [facility] 2023-12-18 16:00:00 2023-12-18 16:00:00 Outpatient R ELSI SYLVESTER [facility] [id number] [facility] 2023-12-15 00:00:00 2023-12-15 00:00:00 Telephone Mackenzie Davis [facility] 1.840.114 350.1.13.10 4.2.7.2.686 [id number] [facility] 2023-12-05 15:00:00 2023-12-05 15:00:00 Outpatient R MACKENZIE DAVIS [facility] [id number] [facility] 2023-11-17 10:00:00 2023-11-17 10:30:00 Office Visit Mica Duncan [facility] 1.840.114 350.1.13.10 4.2.7.2.686 [id number] [facility] 2023-11-17 10:00:00 2023-11-17 10:00:00 Outpatient R MICA DUNCAN [facility] [id number] [facility] 2023-10-31 13:30:00 2023-10-31 13:30:00 Outpatient R [facility] [id number] [facility] 2023-09-29 15:00:00 2023-09-29 15:00:00 Outpatient R HUNTER YUEN [facility] [id number] [facility] 2023-09-28 14:45:00 2023-09-28 14:45:00 Outpatient R ROE MCGARRY CRAIG [facility] [id number] [facility] 2023-09-11 16:15:00 2023-09-11 16:15:00 Office Visit Roe Mc[facility] 1.2.840.114 350.1.13.10 4.2.7.2.686 [id number] [facility] 2023-09-11 16:15:00 2023-09-11 15:55:54 Outpatient R ROE MCGARRY CRAIG [facility] [id number] [facility] 2023-08-31 15:40:00 2023-08-31 15:40:00 Outpatient R PALMER BRUNNER CHOCKALINGA M [facility] [id number] [facility] 2023-08-30 00:00:00 2023-08-30 00:00:00 Patient Secure Msg Doctor Unassigned, [place] [facility] 1.2.840.114 350.1.13.10 4.2.7.2.686 [id number] [facility] 2023-08-29 00:00:00 2023-08-29 00:00:00 Telephone Roe Mcgarry [facility] 1.84.114 350.1.13.10 4.2.7.2.686 [id number] [facility] 2023-08-28 10:56:00 2023-08-28 14:45:00 [facility] [id number] [facility] 2023-08-28 10:56:00 2023-08-28 14:45:00 Hospital Encounter Roe Mcgarry [facility] 1.0.114 350.1.13.10 4.2.7.2.686 [id number] [facility] 2023-08-28 13:20:00 2023-08-28 14:36:00 Surgery McgarryRoe Crystal [facility] [place] 1.0.114 350.1.13.10 4.2.7.2.686 [id number] [facility] 2023-08-28 00:00:00 2023-08-28 00:00:00 Orders Only Doctor Unassigned, [place] [facility] 1.2840.114 350.1.13.10 4.2.7.2.686 [id number] [facility] 2023-08-21 16:00:00 2023-08-21 16:00:00 Outpatient R MICA DUNCAN [facility] [id number] [facility] 2023-08-17 16:02:25 2023-08-17 23:59:00 Outpatient JACQUELINE KELLER [facility] [id number] [facility] 2023-08-17 16:00:00 2023-08-17 23:59:00 Hospital Encounter Jacqueline Bains [facility] 1.840.114 350.1.13.10 4.2.7.2.686 [id number] [facility] 2023-08-17 16:30:00 2023-08-17 16:45:00 Pricing Associate Visit Pob, Adc Lab Main Jacqueline Bains [facility] 1..840.114 350.1.13.10 4.2.7.2.686 [id number] [facility] 2023-08-17 00:00:00 2023-08-17 00:00:00 Patient Secure Msg Doctor Unassigned, [place] [facility] 1..840.114 350.1.13.10 4.2.7.2.686 [id number] [facility] 2023-08-14 15:00:00 2023-08-14 15:00:00 Outpatient NIRMALA MAY EMILY [facility] [id number] [facility] 2023-08-11 00:00:00 2023-08-11 00:00:00 Prep For Surgery Jacqueline Bains [facility] 1..840.114 350.1.13.10 4.2.7.2.686 [id number] [facility] 2023-08-10 13:15:00 2023-08-10 13:20:33 Outpatient R ROE MCGARRY CRAIG [facility] [id number] [facility] 2023-08-10 13:15:00 2023-08-10 13:20:33 Office Visit Roe Mcgarry [facility] 1..840.114 350.1.13.10 4.2.7.2.686 [id number] [facility] 2023-08-01 13:00:00 2023-08-01 13:30:00 Office Visit Jaguar Webb Lucas [facility] 1.2.840.114 350.1.13.10 4.2.7.2.686 [id number] [facility] 2023-08-01 13:00:00 2023-08-01 13:00:00 Outpatient R CONOR BELLO LUCAS [facility] [id number] [facility] 2023-08-01 00:00:00 2023-08-01 00:00:00 Jaguar Francis [facility] 1.0.114 350.1.13.10 4.2.7.2.686 [id number] [facility] 2023-07-20 14:30:00 2023-07-20 14:30:00 Outpatient R AUGUSTIN OTERO [facility] [id number] [facility] 2023-07-17 16:00:00 2023-07-17 16:27:54 Outpatient R MICA DUNCAN [facility] [id number] [facility] 2023-07-17 16:00:00 2023-07-17 16:27:54 Office Visit Mica Duncan [facility] 1.840.114 350.1.13.10 4.2.7.2.686 [id number] [facility] 2023-07-17 00:00:00 2023-07-17 00:00:00 Orders Only Doctor Unassigned, [place] [facility] 1.2840.114 350.1.13.10 4.2.7.2.686 [id number] [facility] 2023-07-17 00:00:00 2023-07-17 00:00:00 Patient Secure Msg Doctor Unassigned, [place] [facility] 1.2840.114 350.1.13.10 4.2.7.2.686 [id number] [facility] 2023-07-05 00:00:00 2023-07-05 00:00:00 Outpatient R RADIOLOGY [facility] [id number] [facility] 2023-06-27 13:00:00 2023-06-27 13:00:00 Outpatient R [facility] [id number] [facility] 2023-06-26 11:11:23 2023-06-26 11:11:23 Outpatient SFA BRANDON [id number] Britton Fry 2023-06-12 10:20:00 2023-06-12 12:26:00 Outpatient R PALMER BRUNNER CHOCKALINGA M [facility] CCA [id number] [facility] 2023-06-12 10:20:00 2023-06-12 12:26:00 Hospital Encounter Palmer Brunner [facility] 1.0.114 350.1.13.10 4.2.7.2.686 [id number] [facility] 2023-06-12 11:30:00 2023-06-12 12:15:00 [facility] 1.0.114 350.1.13.10 4.2.7.2.686 [id number] [facility] 2023-06-12 00:00:00 2023-06-12 00:00:00 Orders Only Doctor Unassigned, [place] [facility] 1.2840.114 350.1.13.10 4.2.7.2.686 [id number] [facility] 2023-06-08 13:00:00 2023-06-08 13:15:00 Pricing Associate Visit Pob, Adc Lab Main Palmer Brunner [facility] 1.840.114 350.1.13.10 4.2.7.2.686 [id number] [facility] 2023-06-08 13:00:00 2023-06-08 13:00:00 Outpatient R PALMER BRUNNER CHOCKALINGA M [facility] [id number] [facility] 2023-06-01 16:00:00 2023-06-01 16:00:00 Outpatient R [facility] [id number] [facility] 2023-05-25 10:40:00 2023-05-25 11:20:28 Outpatient R PALMER BRUNNER CHOCKALINGA M [facility] [id number] [facility] 2023-05-25 10:40:00 2023-05-25 11:20:28 Office Visit Palmer Brunner [facility] ..840.114 350.1.13.10 4.2.7.2.686 [id number] [facility] 2023-05-15 11:15:00 2023-05-15 11:38:24 Outpatient R JUAREZ BENNETT [facility] [id number] [facility] 2023-05-06 16:23:00 2023-05-06 18:53:00 Emergency ER [place], [facility] [id number] [facility] 2023-05-06 16:23:00 2023-05-06 18:53:00 emergency [id number] 2023-04-26 14:30:00 2023-04-26 15:00:00 Office Visit Mica Duncan [facility] 1..840.114 350.1.13.10 4.2.7.2.686 [id number] [facility] 2023-04-26 08:00:00 2023-04-26 08:30:00 Office Visit Bashir Vasquez [facility] 1.114 350.1.13.10 4.2.7.2.686 [id number] [facility] 2023-04-26 08:00:00 2023-04-26 08:00:00 Outpatient BALDO CORONEL [facility] [id number] [facility] 2023-04-26 00:00:00 2023-04-26 00:00:00 [facility] 1.114 350.1.13.10 4.2.7.2.686 [id number] [facility] 2023-04-26 00:00:00 2023-04-26 00:00:00 [facility] 1.114 350.1.13.10 4.2.7.2.686 [id number] [facility] 2023-04-20 13:31:38 2023-04-20 13:31:38 Outpatient BRANDON [facility] [id number] Britton Fry 2023-04-10 09:00:00 2023-04-10 09:23:49 Outpatient AUGUSTIN KEITH [facility] [id number] [facility] 2023-04-10 09:00:00 2023-04-10 09:23:49 Office Visit Gabriella Weaver [facility] .114 350.1.13.10 4.2.7.2.686 [id number] [facility] 2023-04-08 00:00:00 2023-04-08 00:00:00 Patient Secure Mica Frankel [facility] 1.114 350.1.13.10 4.2.7.2.686 [id number] [facility] 2023-04-06 14:20:00 2023-04-06 14:20:00 Office [facility] 1.84.114 350.1.13.10 4.2.7.2.686 [id number] [facility] 2023-04-06 14:20:00 2023-04-06 14:18:35 Outpatient R MODESTO LONGOSUSAN [facility] [id number] [facility] 2023-04-01 14:26:00 2023-04-01 16:01:00 Emergency E PAULINE CONTRERAS [id number] [id number] [facility] 2023-03-30 13:39:52 2023-03-30 13:39:52 Outpatient SFA [facility] [id number] Britton Fry 2023-03-28 00:00:00 2023-03-28 00:00:00 Telephone Jaguar Webb [facility] 1.114 350.1.13.10 4.2.7.2.686 [id number] [facility] 2023-03-26 00:00:00 2023-03-26 00:00:00 Patient Secure Msg Mica Duncan [facility] 1..114 350.1.13.10 4.2.7.2.686 [id number] [facility] 2023-03-15 15:00:00 2023-03-15 15:15:00 Pricing Associate Visit Pokarli, Adc Lab Main Mackenzie Davis [facility] 1.84.114 350.1.13.10 4.2.7.2.686 [id number] [facility] 2023-03-15 15:00:00 2023-03-15 15:00:00 Outpatient R MACKENZIE DAVIS [facility] [id number] [facility] 2023-03-14 14:30:00 2023-03-14 14:45:00 Pricing Associate Visit Pcp-Lab Mackenzie Davis [facility] 1.2.840.114 350.1.13.10 4.2.7.2.686 [id number] [facility] 2023-03-14 11:00:00 2023-03-14 11:48:29 Outpatient R MACKENZIE DAVIS [facility] [id number] [facility] 2023-03-14 11:00:00 2023-03-14 11:48:29 Office Visit Mackenzie Davis [facility] 1.2.840.114 350.1.13.10 4.2.7.2.686 [id number] [facility] 2023-03-14 09:30:00 2023-03-14 10:00:00 Office Visit Mica Duncan [facility] 1.2.840.114 350.1.13.10 4.2.7.2.686 [id number] [facility] 2023-03-14 00:00:00 2023-03-14 00:00:00 Telephone Mackenzie Davis [facility] 1.2.840.114 350.1.13.10 4.2.7.2.686 [id number] [facility] 2023-02-14 15:30:00 2023-02-14 16:30:00 Office Visit Jaguar Webb Lucas S [facility] 1.2.840.114 350.1.13.10 4.2.7.2.686 [id number] [facility] 2023-02-14 15:30:00 2023-02-14 15:30:00 Outpatient CONOR UNGER LUCAS [facility] [id number] [facility] 2023-02-09 13:15:02 2023-02-09 13:15:02 Outpatient SFA [facility] [id number] Britton Fry 2023-02-09 00:00:00 2023-02-09 00:00:00 [facility] 1.2.840.114 350.1.13.10 4.2.7.2.686 [id number] [facility] 2023-02-01 00:00:00 2023-02-01 00:00:00 [facility] 1.2.840.114 350.1.13.10 4.2.7.2.686 [id number] [facility] 2023-01-31 14:27:04 2023-01-31 23:59:00 [facility] [id number] [facility] 2023-01-30 10:45:00 2023-01-30 11:00:00 Pricing Associate Visit Pcp-Lab Mica Duncan [facility] 1.2.840.114 350.1.13.10 4.2.7.2.686 [id number] [facility] 2023-01-30 08:30:00 2023-01-30 09:18:35 Outpatient R MICA DUNCAN [facility] [id number] [facility] 2023-01-30 08:30:00 2023-01-30 09:18:35 Office Visit Mica Duncan [facility] 1.2.840.114 350.1.13.10 4.2.7.2.686 [id number] [facility] 2023-01-17 14:30:00 2023-01-17 14:30:00 Outpatient R ISIDRA BALES [facility] [id number] [facility] 2023-01-10 00:00:00 2023-01-10 00:00:00 Outpatient R ISIDRA BALES [facility] [id number] [facility] 2023-01-08 00:00:00 2023-01-08 00:00:00 [facility] 1.2.840.114 350.1.13.10 4.2.7.2.686 [id number] [facility] 2023-01-05 11:41:00 2023-01-05 12:20:00 Emergency [address]Y SANTOS [facility] ERT [id number] [facility] 2023-01-05 11:41:00 2023-01-05 12:20:00 Emergency Amy Valdez [facility] 1.2.840.114 350.1.13.10 4.2.7.2.686 [id number] [facility] 2023-01-05 11:00:00 2023-01-05 11:15:54 [facility] [id number] [facility] 2023-01-05 11:00:00 2023-01-05 11:15:54 [facility] 1.2.840.114 350.1.13.10 4.2.7.2.686 [id number] [facility] 2023-01-04 13:05:09 2023-01-04 13:05:00 Emergency [facility] [id number] [facility] 2023-01-03 19:20:00 2023-01-03 23:13:00 Emergency X DOTTIE ANDUJAR [facility] ERT [id number] [facility] 2023-01-03 19:20:00 2023-01-03 23:13:00 Emergency Dottie Andujar [facility] 1..114 350.1.13.10 4.2.7.2.686 [id number] [facility] 2022-12-27 16:43:57 2022-12-27 16:43:57 Outpatient S[facility] [id number] Britton Fry 2022-12-26 00:00:00 2022-12-26 00:00:00 Patient Secure Msg Doctor Unassigned, [place] [facility] 1.114 350.1.13.10 4.2.7.2.686 [id number] [facility] 2022-12-26 00:00:00 2022-12-26 00:00:00 Telephone Isidra Bales [facility]ALEENA [facility] 1.84.114 350.1.13.10 4.2.7.2.686 [id number] [facility] 2022-12-24 00:00:00 2022-12-24 00:00:00 Patient Secure Msg Doctor Unassigned, [place] [facility]LINDYMalissa [facility] 1.840.114 350.1.13.10 4.2.7.2.686 [id number] [facility] 2022-12-20 13:45:00 2022-12-20 16:43:47 Outpatient R ISIDRA BALES [facility] [id number] [facility] 2022-12-20 13:45:00 2022-12-20 14:00:00 Pricing Associate Visit Lab, [facility] 1.840.114 350.1.13.10 4.2.7.2.686 [id number] [facility] 2022-12-20 13:00:00 2022-12-20 13:39:25 Office Visit Nii Isidra [facility] 1.2.840.114 350.1.13.10 4.2.7.2.686 [id number] [facility] 2022-12-19 14:08:10 2022-12-19 14:08:10 Outpatient [facility] [id number] Britton Fry 2022-12-13 15:20:00 2022-12-13 16:26:29 Outpatient MOHSEN BEAULIEU HOWARD [facility] [id number] [facility] 2022-12-13 15:20:00 2022-12-13 16:26:29 Office Visit Mohsen Paulino [facility] 1..840.114 350.1.13.10 4.2.7.2.686 [id number] [facility] 2022-12-07 11:20:56 2022-12-07 11:20:56 Outpatient [facility] 0308 Britton Fry 2022-12-02 13:13:09 2022-12-02 13:13:09 Outpatient [facility] 0303 Britton Fry 2022-12-01 11:23:00 2022-12-01 11:42:00 Emergency X JIHAN BAINS [facility] ERT [id number] [facility] 2022-12-01 11:23:00 2022-12-01 11:42:00 Emergency Jihan Bains [facility] 1..840.114 350.1.13.10 4.2.7.2.686 [id number] [facility] 2022-11-28 14:01:21 2022-11-28 14:01:21 Outpatient [facility] 0227 Britton Fry 2022-11-25 00:00:00 2022-11-25 00:00:00 Orders Only Doctor Unassigned, [place] [facility] 1.2840.114 350.1.13.10 4.2.7.2.686 [id number] [facility] 2022-11-08 13:54:40 2022-11-08 13:54:40 Outpatient [facility] [id number] Britton Fry 2022-10-19 13:59:00 2022-10-19 14:50:00 Emergency X BAINSJIHAN [facility] [id number] [facility] 2022-10-19 13:59:00 2022-10-19 14:50:00 Emergency Jihan Bains [facility] 1..114 350.1.13.10 4.2.7.2.686 [id number] [facility] 2022-10-19 00:00:00 2022-10-19 00:00:00 Orders Only Doctor Unassigned, [place] [facility] 1.20.114 350.1.13.10 4.2.7.2.686 [id number] [facility] 2022-09-28 00:00:00 2022-09-28 00:00:00 Orders Only Doctor Unassigned, [place] [facility] 1.2840.114 350.1.13.10 4.2.7.2.686 [id number] [facility] 2022-08-31 14:30:00 2022-08-31 14:41:03 Outpatient R ROE MCGARRY [facility] [id number] [facility] 2022-08-31 14:30:00 2022-08-31 14:41:03 Office Visit Roe Mcgarry [facility] 1..114 350.1.13.10 4.2.7.2.686 [id number] [facility] 2022-08-11 13:26:16 2022-08-11 23:59:00 Outpatient R ROE MCGARRY [facility] [id number] [facility] 2022-08-11 13:26:16 2022-08-11 23:59:00 Hospital Encounter Roe Mcgarry [facility] 1.840.114 350.1.13.10 4.2.7.2.686 [id number] [facility] 2022-07-29 10:15:00 2022-07-29 10:15:00 Office Visit Roe Mcgarry [facility] 1.840.114 350.1.13.10 4.2.7.2.686 [id number] [facility] 2022-07-29 10:15:00 2022-07-29 10:01:38 Outpatient R ZEFERINO ROE [facility] [id number] [facility] 2022-07-27 13:45:00 2022-07-27 13:45:00 Outpatient R CMGARRY, ROE [facility] [id number] [facility] 2022-07-27 00:00:00 2022-07-27 00:00:00 Orders Only Doctor Unassigned, [place] [facility] 1.840.114 350.1.13.10 4.2.7.2.686 [id number] [facility] 2022-07-20 00:00:00 2022-07-20 00:00:00 Telephone Jacqueline Bains [facility] 1..840.114 350.1.13.10 4.2.7.2.686 [id number] [facility] 2022-06-29 14:45:00 2022-06-29 15:21:38 Outpatient R ROE MCGARRY [facility] [id number] [facility] 2022-06-29 14:45:00 2022-06-29 15:21:38 Office Visit Roe Mcgarry [facility] 1.2.840.114 350.1.13.10 4.2.7.2.686 [id number] [facility] 2022-06-28 09:55:35 2022-06-28 23:59:00 Outpatient R ROBERT MCGARRYIG [facility] [id number] [facility] 2022-06-28 09:55:35 2022-06-28 23:59:00 Hospital Encounter Roe Mcgarry [facility] 1..840.114 350.1.13.10 4.2.7.2.686 [id number] [facility] 2022-06-27 15:30:00 2022-06-27 15:30:00 Outpatient R ROE MCGARRY [facility] [id number] [facility] 2022-06-27 00:00:00 2022-06-27 00:00:00 Orders Only Doctor Unassigned, [place] [facility] 1..840.114 350.1.13.10 4.2.7.2.686 [id number] [facility] 2022-06-27 00:00:00 2022-06-27 00:00:00 Telephone Jacqueline Bains [facility] 1..840.114 350.1.13.10 4.2.7.2.686 [id number] [facility] 2021-01-07 09:10:00 2021-01-07 09:10:00 Outpatient R CARMELO PEREZ [facility] [id number] [facility] 2020-12-17 09:20:00 2020-12-17 09:20:00 Outpatient [facility] [id number] [facility] 2020-10-22 00:00:00 2020-10-22 00:00:00 Outpatient LOUIE ROSENBERG [facility] [id number] [facility] Results Test Description Test Time Test Comments Results Result Co mments Source TSH REFLEX TO FREE [id number] 05:22:45* Test Item Value Reference Range Interpretation Comme nts TSH REFLEX TO FREE T4 (test code = 2834) 1.070 UIU/ML 0.400-4.100 UNLESS OTHERWISE INDICATED, ALL TESTING PERFORMED AT [facility] [address] [place] [address] FISHER CRAB: PATY POLLARD M.D. CLIA NUMBER [id number] [facility] [place]. [id number] CBC W/AUTO DIFF WITH [id number] 03:29:48* Test Item Value Reference Range Interpretation [...] = 1065) 0.0 /100 WBC'S See_Comment [Automated Third [employer] ge] The system which generated this result [...] 0.00-0.10 ABS NUCLEATED RBCS (test code = 55917) 0.00 K/UL 0.00-0.11 TSH REFLEX TO FREE [id number] 00:00:00* Test Item Value Reference Range Interpretation Comme nts TSH REFLEX TO FREE T4 (test code = 2834) 1.070 UIU/ML Britton Tejeda AngC W/AUTO [id number] 00:00:00* Test Item Value Reference Range Interpretation [...] ABS NUCLEATED RBCS (test cod e = 22837) 0.00 K/UL Britton FryCOMPREHENSIVE METABOLIC [id number] 00:00:00* Test Item Value Reference Range Interpretation Comme nts GLUCOSE (test code = 2217) 86 MG/DL BUN (test code = 2208) 14 MG/DL CREATININE (test code = 2214) 0.75 MG/DL eGFR (2020 CKD-EPI) (test code = 91897) 104 ML/MIN/1.73 CALC BUN/CREAT (test code = [...] 19 U/L Britton FryTSH REFLEX TO FREE [id number] 00:00:00* Test Item Value Reference Range Interpretation Comme nts TSH REFLEX TO FREE T4 (test code = 2834) 1.070 UIU/ML Britton FryCBC W/AUTO [id number] 00:00:00* Test Item Value Reference Range Interpretation [...] ABS NUCLEATED RBCS (test cod e = 20567) 0.00 K/UL Britton Nikhil AngCOMPREHENSIVE METABOLIC [id number] 00:00:00* Test Item Value Reference Range Interpretation Comme nts GLUCOSE (test code = 2217) 86 MG/DL BUN (test code = 2208) 14 MG/DL CREATININE (test code = 2214) 0.75 MG/DL eGFR (2020 CKD-EPI) (test code = 65355) 104 ML/MIN/1.73 CALC BUN/CREAT (test code = [...] (test code = 2219) 19 U/L Britton FryType and Screen - This is a pre-surgical type and screen. ONCE [id number] 17:33:00* Test Item Value Reference Range Interpretation Comme nts ABO & RH (test code = 20) A Positive IAT (test code = 1185) [facility] This is a [facility] type and screen. ONCE [id number] 17:33:00* Test Item Value Reference Range Interpretation Comme nts ABO & RH (test code = 20) A Positive IAT (test code = 1185) Negative [facility] METABOLIC PANEL (NA, K, CL, CO2, GLUCOSE, BUN, CREATININE, CA)2023-08-17 23:30:33* Test Item Value Reference Range Interpretation Comme nts NA (test code = 8483408878) 137 mmol/L 135-145 K (test code = 6346685815) 3.9 mmol/L 3.5-5.0 CL (test code = 0288547327) 102 mmol/L 98-108 CO2 TOTAL (test code = 6770939898) 26 mmol/L 23-31 AGAP (test code = 1154975666) 9 2-16 BUN (test code = 9515142256) 17 mg/dL 7-23 GLUCOSE (test code = 0621015832) 105 mg/dL 70-110 CREATININE (test code = 6250893655) 0.55 mg/dL 0.50-1.04 CALCIUM (test code = 7461883051) 9.2 mg/dL 8.6-10.6 eGFR (test code = 95116-2) 120.5 mL/min/1.73m2 CKD-EPI eGFR (20 21). Assuming creatinine has been stable day-to-day for at least three months, the eGFR indicates Category G1 (>= 90 mL/min/1.73 m2) [facility] WITH [id number] 22:58:06* Test Item Value Reference Range Interpretation Comme nts WBC (test code = 6690-2) 5.23 See_Comment [Automated messa ge] The system which generated this result transmitted reference range: 4.30 - 11.10 10*3/?L. The reference range was not used to interpret this result as normal/abnormal. RBC (test code = 789-8) 4.13 See_Comment [Automated [employer] ge] The system which generated this result [...] 32.8 g/dL 31.6-35.1 RDW-SD (test code = 18397-3) 50.2 fL 39.0-49.9 H RDW-CV (test code = 788-0) 15.2 % 12.0-15.5 PLT (test code = 777-3) 388 See_Comment H [Automated [employer]] The system which generated this result transmitted reference range: 166 - 358 10*3/?L. The reference range was not used to interpret this result as normal/abnormal. MPV (test code = 90522-1) 8.7 fL 9.5-12.9 L NRBC/100 WBC (test code = 7722104475) 0.0 See_Comment [Automated Secure[employer] ssage] The system which generated this result transmitted reference range: 0.0 - 10.0 /100 WBCs. The reference range was not used to interpret this result as normal/abnormal. NRBC x10^3 (test code = 9018117084) See_Comment [Automated [employer]] The system which generated this result transmitted reference range: 10*3/?L. The reference range was not used to interpret this result as normal/abnormal. GRAN MAT (NEUT) % (test code = 770-8) 59.2 % IMM GRAN % (test code = 5002704559) 0.20 % LYMPH % (test code = 736-9) 31.5 % MONO % (test code = 5905-5) 7.6 % EOS % (test code = 713-8) 1.5 % BASO % (test code = 706-2) 0.0 % GRAN MAT x10^3(ANC) (test code = 3027432459) 3.09 10*3/uL 1.88-7.09 IMM GRAN x10^3 (test code = 9476696987) 0.00-0.06 LYMPH x10^3 (test code = 731-0) 1.65 10*3/uL 1.32-3.29 MONO x10^3 (test code = 742-7) 0.40 10*3/uL 0.33-0.92 EOS x10^3 (test code = 711-2) 0.08 10*3/uL 0.03-0.39 BASO x10^3 (test code = 704-7) 0.01-0.07 Lab Interpretation (test code = 11240-1) [facility] 22:48:00* Test Item Value Reference Range Interpretation Comme nts ABO & RH (test code = 20) A Positive IAT (test code = 1185) Negative [facility] [id number] 00:00:00* Test Item Value Reference Range Interpretation Comme nts TSH, THIRD GENERATION (test code = 2821) 0.659 UIU/ML Britton F AustinCOMPREHENSIVE METABOLIC [id number] 00:00:00* Test Item Value Reference Range Interpretation Comme nts GLUCOSE (test code = 2217) 119 MG/DL BUN (test code = 2208) 10 MG/DL CREATININE (test code = 2214) 0.66 MG/DL eGFR (2020 CKD-EPI) (test code = 02250) 115 ML/MIN/1.73 CALC BUN/CREAT (test code = [...] = 2219) 17 U/L Britton FryCBC W/AUTO [id number] 00:00:00* Test Item Value Reference Range Interpretation [...] ABS NUCLEATED RBCS (test cod e = 21132) 0.00 K/UL Britton Nikhil AngTSH, THIRD [id number] 00:00:00* Test Item Value Reference Range Interpretation Comme nts TSH, THIRD GENERATION (test code = 2821) 0.659 UIU/ML Britton FryCOMPREHENSIVE METABOLIC [id number] 00:00:00* Test Item Value Reference Range Interpretation Comme nts GLUCOSE (test code = 2217) 119 MG/DL BUN (test code = 2208) 10 MG/DL CREATININE (test code = 2214) 0.66 MG/DL eGFR (2020 CKD-EPI) (test code = 53547) 115 ML/MIN/1.73 CALC BUN/CREAT (test code = [...] = 2219) 17 U/L Britton FryCBC W/AUTO [id number] 00:00:00* Test Item Value Reference Range Interpretation [...] ABS NUCLEATED RBCS (test cod e = 71844) 0.00 K/UL Britton Tejeda AustinANTI-CENTROMERE [id number] 17:57:36* Test Item Value Reference Range Interpretation Comme nts ANTI-CENTR (test code = 9509561952) Negative Negative HIEN (test code = HIEN) Positive - Antibod y detected.Negative - No antibody detected. Lab Interpretation (test code = 84894-8) Normal [facility]-[id number] 17:57:36* Test Item Value Reference Range Interpretation Comme nts ANTI-SCL70 (test code = 2781387653) Negative Negative HIEN (test code = HIEN) Positive - Antibod y detected.Negative - No antibody detected. Lab Interpretation (test code = 04659-3) Normal [facility]-SM/[id number] 17:57:36* Test Item Value Reference Range Interpretation Comme nts ANTI-SMRNP (test code = 2171772877) Negative Negative HIEN (test code = HIEN) Positive - Antibod y detected.Negative - No antibody detected. Lab Interpretation (test code = 39764-8) Normal [facility]-SSA(RO)2023-03-15 17:57:36* Test Item Value Reference Range Interpretation Comme nts ANTI-SSA(RO) (test code = 8562086285) Negative Negative HIEN (test code = HIEN) Positive - Antibod y detected.Negative - No antibody detected. Lab Interpretation (test code = 11602-4) Normal [facility]-DOUBLE STRANDED [id number] 17:57:16* Test Item Value Reference Range Interpretation Comme nts ANTI-DSDNA (test code = 1556460649) See_Comment [Automated message] The system which generated this result transmitted reference range: 0.0 - 4.0 IU/mL. The reference range was not used to interpret this result as normal/abnormal. HIEN (test code = HIEN) Negative ? ?< or = 4 IU/mLPositive ? ? ?> or = 10 IU/mLIndetermin ate ?5-9 IU/mL Lab Interpretation (test code = 52522-3) [facility]2023-03-15 17:57:16* Test Item Value Reference Range Interpretation Comme nts Anti-SSB(LA) (test code = 2109452133) Negative Negative HIEN (test code = HIEN) Positive - Antibod y detected.Negative - No antibody detected. Lab Interpretation (test code = 47113-9) Normal [place] [address] [id number] 14:04:35* Test Item Value Reference Range Interpretation Comme nts C3 (test code = 1963929854) 92 mg/dL 86-184 Lab Interpretation (test cod e = 31402-2) Normal [place] [address] [id number] 14:04:35* Test Item Value Reference Range Interpretation Comme nts C3 (test code = 7477301237) 92 mg/dL 86-184 Lab Interpretation (test cod e = 66472-0) Normal [place] [address] [id number] 13:53:46* Test Item Value Reference Range Interpretation Comme nts C4 (test code = 9089462542) 15 mg/dL 20-59 L Lab Interpretation (test cod e = 03832-0) [facility]normal [facility] [id number] 13:53:46* Test Item Value Reference Range Interpretation Comme nts CRP (test code = 5730133526) 0.1 mg/dL <=0.8 Lab Interpretation (test cod e = 07493-2) Normal [place] [address] [id number] 13:53:46* Test Item Value Reference Range Interpretation Comme nts C4 (test code = 3741190417) 15 mg/dL 20-59 L Lab Interpretation (test cod e = 24521-2) [facility]normal [facility] [id number] 13:53:46* Test Item Value Reference Range Interpretation Comme nts CRP (test code = 3003062558) 0.1 mg/dL <=0.8 Lab Interpretation (test cod e = 14414-8) [facility] [id number] 22:18:15* Test Item Value Reference Range Interpretation Comme nts HCV Ab (test code = 51722-2) Negative HCV Semi-Quantitative (test code = 47674-5) 0.02 [facility] [id number] 22:18:15* Test Item Value Reference Range Interpretation Comme nts HCV Ab (test code = 52410-5) Negative HCV Semi-Quantitative (test code = 19416-2) 0.02 [facility] WITH [id number] 20:52:19* Test Item Value Reference Range Interpretation [...] 33.0 g/dL 31.6-35.1 RDW-SD (test code = 63968-1) 48.1 fL 39.0-49.9 RDW-CV (test code = 788-0) 14.2 % 12.0-15.5 PLT (test code = 777-3) 419 See_Comment H [Automated messa ge] The system which generated this result transmitted reference range: 166 - 358 10*3/?L. The reference range was not used to interpret this result as normal/abnormal. MPV (test code = 19766-9) 8.7 fL 9.5-12.9 L NRBC/100 WBC (test code = 8326251347) 0.0 See_Comment [Automated me ssage] The system which generated this result transmitted reference range: 0.0 - 10.0 /100 WBCs. The reference range was not used to interpret this result as normal/abnormal. NRBC x10^3 (test code = 8021400375) See_Comment [Automated messa ge] The system which generated this result transmitted reference range: 10*3/?L. The reference range was not used to interpret this result as normal/abnormal. GRAN MAT (NEUT) % (test code = 770-8) 54.0 % IMM GRAN % (test code = 2018733295) 0.00 % LYMPH % (test code = 736-9) 37.7 % MONO % (test code = 5905-5) 5.3 % EOS % (test code = 713-8) 3.0 % BASO % (test code = 706-2) 0.0 % GRAN MAT x10^3(ANC) (test code = 9022879563) 1.95 10*3/uL 1.88-7.09 IMM GRAN x10^3 (test code = 1521478647) 0.00-0.06 LYMPH x10^3 (test code = 731-0) 1.36 10*3/uL 1.32-3.29 MONO x10^3 (test code = 742-7) 0.19 10*3/uL 0.33-0.92 L EOS x10^3 (test code = 711-2) 0.11 10*3/uL 0.03-0.39 BASO x10^3 (test code = 704-7) 0.01-0.07 Lab Interpretation (test code = 87293-4) Abnormal [facility] WITH [id number] 20:52:19* Test Item Value Reference Range Interpretation [...] 33.0 g/dL 31.6-35.1 RDW-SD (test code = 89927-2) 48.1 fL 39.0-49.9 RDW-CV (test code = 788-0) 14.2 % 12.0-15.5 PLT (test code = 777-3) 419 See_Comment H [Automated messa ge] The system which generated this result transmitted reference range: 166 - 358 10*3/?L. The reference range was not used to interpret this result as normal/abnormal. MPV (test code = 51990-9) 8.7 fL 9.5-12.9 L NRBC/100 WBC (test code = 9246087160) 0.0 See_Comment [Automated [employer] ssage] The system which generated this result transmitted reference range: 0.0 - 10.0 /100 WBCs. The reference range was not used to interpret this result as normal/abnormal. NRBC x10^3 (test code = 3090871850) See_Comment [Automated messa ge] The system which generated this result transmitted reference range: 10*3/?L. The reference range was not used to interpret this result as normal/abnormal. GRAN MAT (NEUT) % (test code = 770-8) 54.0 % IMM GRAN % (test code = 7937775023) 0.00 % LYMPH % (test code = 736-9) 37.7 % MONO % (test code = 5905-5) 5.3 % EOS % (test code = 713-8) 3.0 % BASO % (test code = 706-2) 0.0 % GRAN MAT x10^3(ANC) (test code = 7485104724) 1.95 10*3/uL 1.88-7.09 IMM GRAN x10^3 (test code = 7821846359) 0.00-0.06 LYMPH x10^3 (test code = 731-0) 1.36 10*3/uL 1.32-3.29 MONO x10^3 (test code = 742-7) 0.19 10*3/uL 0.33-0.92 L EOS x10^3 (test code = 711-2) 0.11 10*3/uL 0.03-0.39 BASO x10^3 (test code = 704-7) 0.01-0.07 Lab Interpretation (test code = 87198-5) Abnormal [facility] WITH [id number] 20:52:19* Test Item Value Reference Range Interpretation [...] 33.0 g/dL 31.6-35.1 RDW-SD (test code = 56362-3) 48.1 fL 39.0-49.9 RDW-CV (test code = 788-0) 14.2 % 12.0-15.5 PLT (test code = 777-3) 419 See_Comment H [Automated messa ge] The system which generated this result transmitted reference range: 166 - 358 10*3/?L. The reference range was not used to interpret this result as normal/abnormal. MPV (test code = 10754-3) 8.7 fL 9.5-12.9 L NRBC/100 WBC (test code = 2231017926) 0.0 See_Comment [Automated [employer] ssage] The system which generated this result transmitted reference range: 0.0 - 10.0 /100 WBCs. The reference range was not used to interpret this result as normal/abnormal. NRBC x10^3 (test code = 5496833320) See_Comment [Automated [employer] ge] The system which generated this result transmitted reference range: 10*3/?L. The reference range was not used to interpret this result as normal/abnormal. GRAN MAT (NEUT) % (test code = 770-8) 54.0 % IMM GRAN % (test code = 5124248124) 0.00 % LYMPH % (test code = 736-9) 37.7 % MONO % (test code = 5905-5) 5.3 % EOS % (test code = 713-8) 3.0 % BASO % (test code = 706-2) 0.0 % GRAN MAT x10^3(ANC) (test code = 5843588322) 1.95 10*3/uL 1.88-7.09 IMM GRAN x10^3 (test code = 6785575877) 0.00-0.06 LYMPH x10^3 (test code = 731-0) 1.36 10*3/uL 1.32-3.29 MONO x10^3 (test code = 742-7) 0.19 10*3/uL 0.33-0.92 L EOS x10^3 (test code = 711-2) 0.11 10*3/uL 0.03-0.39 BASO x10^3 (test code = 704-7) 0.01-0.07 Lab Interpretation (test code = 45512-6) Abnormal [facility] WITH [id number] 20:52:19* Test Item Value Reference Range Interpretation [...] 33.0 g/dL 31.6-35.1 RDW-SD (test code = 21289-0) 48.1 fL 39.0-49.9 RDW-CV (test code = 788-0) 14.2 % 12.0-15.5 PLT (test code = 777-3) 419 See_Comment H [Automated messa ge] The system which generated this result transmitted reference range: 166 - 358 10*3/?L. The reference range was not used to interpret this result as normal/abnormal. MPV (test code = 56773-4) 8.7 fL 9.5-12.9 L NRBC/100 WBC (test code = 8037433879) 0.0 See_Comment [Automated [employer] ssage] The system which generated this result transmitted reference range: 0.0 - 10.0 /100 WBCs. The reference range was not used to interpret this result as normal/abnormal. NRBC x10^3 (test code = 6202890973) See_Comment [Automated messa ge] The system which generated this result transmitted reference range: 10*3/?L. The reference range was not used to interpret this result as normal/abnormal. GRAN MAT (NEUT) % (test code = 770-8) 54.0 % IMM GRAN % (test code = 3121984070) 0.00 % LYMPH % (test code = 736-9) 37.7 % MONO % (test code = 5905-5) 5.3 % EOS % (test code = 713-8) 3.0 % BASO % (test code = 706-2) 0.0 % GRAN MAT x10^3(ANC) (test code = 2511701636) 1.95 10*3/uL 1.88-7.09 IMM GRAN x10^3 (test code = 9977388151) 0.00-0.06 LYMPH x10^3 (test code = 731-0) 1.36 10*3/uL 1.32-3.29 MONO x10^3 (test code = 742-7) 0.19 10*3/uL 0.33-0.92 L EOS x10^3 (test code = 711-2) 0.11 10*3/uL 0.03-0.39 BASO x10^3 (test code = 704-7) 0.01-0.07 Lab Interpretation (test code = 29767-9) [facility] [id number] 20:43:58* Test Item Value Reference Range Interpretation Comme nts HIV Semi-quantitative (test code = 04762-1) 0.08 Negative HIEN (test code = HIEN) Non-reactive for HIV-1 antigen and HIV-1/HIV-2 antibodies. ?No laboratory evidence of HIV infection. ?Repeat in 2-4 weeks if acute HIV infection is suspected. [facility] [id number] 20:10:51 * Test Item Value Reference Range Interpretation Comme nts TSH (test code = 4799701465) 0.66 See_Comment [Automated [employer] ge] The system which generated this result transmitted reference range: 0.45 - 4.70 mIU/L. The reference range was not used to interpret this result as normal/abnormal. Lab Interpretation (test code = 06905-6) [facility] [id number] 20:10:51 * Test Item Value Reference Range Interpretation Comme nts TSH (test code = 7219670910) 0.66 See_Comment [Automated messa ge] The system which generated this result transmitted reference range: 0.45 - 4.70 mIU/L. The reference range was not used to interpret this result as normal/abnormal. Lab Interpretation (test code = 99466-2) [facility] [id number] 20:10:51 * Test Item Value Reference Range Interpretation Comme nts TSH (test code = 3385179983) 0.66 See_Comment [Automated messa ge] The system which generated this result transmitted reference range: 0.45 - 4.70 mIU/L. The reference range was not used to interpret this result as normal/abnormal. Lab Interpretation (test code = 65371-2) [facility] [id number] 20:10:51 * Test Item Value Reference Range Interpretation Comme nts TSH (test code = 6496950960) 0.66 See_Comment [Automated messa ge] The system which generated this result transmitted reference range: 0.45 - 4.70 mIU/L. The reference range was not used to interpret this result as normal/abnormal. Lab Interpretation (test code = 10629-2) [facility] CenterTRIIOD[facility]YRONINE2023-[facility]-13 20:10:51* Test Item Value Reference Range Interpretation Comme nts T3 (test code = 4985927372) 153.0 ng/dL 97.0-170.0 Lab Interpretation (test cod e = 61665-4) Normal [facility] [id number] 19:56:44* Test Item Value Reference Range Interpretation Comme nts FREE T4 (test code = 9153080891) 1.13 See_Comment [Automated messa ge] The system which generated this result transmitted reference range: 0.78 - 2.20 ng/dL:. The reference range was not used to interpret this result as normal/abnormal. Lab Interpretation (test code = 84848-3) [facility] CenterSEDIMENTATION [id number] 19:43:45* Test Item Value Reference Range Interpretation Comme nts ESR (test code = 97745-3) 14 See_Comment [Automated message] The system which generated this result transmitted reference range: 2 - 30 mm/HR. The reference range was not used to interpret this result as normal/abnormal. Lab Interpretation (test code = 05818-3) Normal [facility] [id number] 19:43:45* Test Item Value Reference Range Interpretation Comme nts ESR (test code = 62278-0) 14 See_Comment [Automated message] The system which generated this result transmitted reference range: 2 - 30 mm/HR. The reference range was not used to interpret this result as normal/abnormal. Lab Interpretation (test code = 05058-9) Normal [facility] [id number] 19:43:45* Test Item Value Reference Range Interpretation Comme nts ESR (test code = 59063-5) 14 See_Comment [Automated message] The system which generated this result transmitted reference range: 2 - 30 mm/HR. The reference range was not used to interpret this result as normal/abnormal. Lab Interpretation (test code = 74237-2) Normal [facility] [id number] 19:43:45* Test Item Value Reference Range Interpretation Comme nts ESR (test code = 65640-3) 14 See_Comment [Automated message] The system which generated this result transmitted reference range: 2 - 30 mm/HR. The reference range was not used to interpret this result as normal/abnormal. Lab Interpretation (test code = 55104-0) Normal [facility]. METABOLIC PANEL ([id number])2023-03-14 19:38:19* Test Item Value Reference Range Interpretation Comme nts NA (test code = 4075531121) 139 mmol/L 135-145 K (test code = 7174157558) 3.5 mmol/L 3.5-5.0 CL (test code = 3412570119) 99 mmol/L 98-108 CO2 TOTAL (test code = 5188949014) 29 mmol/L 23-31 AGAP (test code = 4640485989) 11 2-16 BUN (test code = 5243717933) 18 mg/dL 7-23 GLUCOSE (test code = 4121805201) 80 mg/dL 70-110 CREATININE (test code = 6103893129) 0.60 mg/dL 0.50-1.04 TOTAL BILI (test code = 1055885602) 0.5 mg/dL 0.1-1.1 CALCIUM (test code = 0688932177) 9.2 mg/dL 8.6-10.6 T PROTEIN (test code = 6991339966) 7.7 g/dL 6.3-8.2 ALBUMIN (test code = 2277505739) 4.4 g/dL 3.5-5.0 ALK PHOS (test code = 6753676108) 98 U/L 34-122 ALTv (test code = 1742-6) 44 U/L 5-35 H AST(SGOT) (test code = 9056805326) 31 U/L 13-40 eGFR (test code = 2324187509) 111.9 mL/min/1.73m2 HIEN (test code = HIEN) [...] imaging tests). Lab Interpretation (test code = 55761-7) Abnormal [facility] METABOLIC PANEL ([id number])2023-03-14 19:38:19* Test Item Value Reference Range Interpretation Comme nts NA (test code = 2853762236) 139 mmol/L 135-145 K (test code = 0140802346) 3.5 mmol/L 3.5-5.0 CL (test code = 4590291498) 99 mmol/L 98-108 CO2 TOTAL (test code = 4749241512) 29 mmol/L 23-31 AGAP (test code = 1166675107) 11 2-16 BUN (test code = 9003825988) 18 mg/dL 7-23 GLUCOSE (test code = 7813031006) 80 mg/dL 70-110 CREATININE (test code = 1967987562) 0.60 mg/dL 0.50-1.04 TOTAL BILI (test code = 8622793091) 0.5 mg/dL 0.1-1.1 CALCIUM (test code = 4926081648) 9.2 mg/dL 8.6-10.6 T PROTEIN (test code = 2287591928) 7.7 g/dL 6.3-8.2 ALBUMIN (test code = 6146770366) 4.4 g/dL 3.5-5.0 ALK PHOS (test code = 7611531257) 98 U/L 34-122 ALTv (test code = 1742-6) 44 U/L 5-35 H AST(SGOT) (test code = 2733021035) 31 U/L 13-40 eGFR (test code = 2010258494) 111.9 mL/min/1.73m2 HIEN (test code = HIEN) [...] imaging tests). Lab Interpretation (test code = 09774-9) Abnormal [facility]. METABOLIC PANEL ([id number])2023-03-14 19:38:19* Test Item Value Reference Range Interpretation Comme nts NA (test code = 0064929148) 139 mmol/L 135-145 K (test code = 4916259238) 3.5 mmol/L 3.5-5.0 CL (test code = 7569786020) 99 mmol/L 98-108 CO2 TOTAL (test code = 8811267221) 29 mmol/L 23-31 AGAP (test code = 2891214580) 11 2-16 BUN (test code = 2218532032) 18 mg/dL 7-23 GLUCOSE (test code = 2995962905) 80 mg/dL 70-110 CREATININE (test code = 9876682489) 0.60 mg/dL 0.50-1.04 TOTAL BILI (test code = 8502423639) 0.5 mg/dL 0.1-1.1 CALCIUM (test code = 6829734312) 9.2 mg/dL 8.6-10.6 T PROTEIN (test code = 3260201512) 7.7 g/dL 6.3-8.2 ALBUMIN (test code = 8896323871) 4.4 g/dL 3.5-5.0 ALK PHOS (test code = 0315349211) 98 U/L 34-122 ALTv (test code = 1742-6) 44 U/L 5-35 H AST(SGOT) (test code = 0121892762) 31 U/L 13-40 eGFR (test code = 6749873623) 111.9 mL/min/1.73m2 HIEN (test code = HIEN) [...] imaging tests). Lab Interpretation (test code = 46147-5) Abnormal [facility]. METABOLIC PANEL (45140)2023-03-14 19:38:19* Test Item Value Reference Range Interpretation Comme nts NA (test code = 4949591696) 139 mmol/L 135-145 K (test code = 6392778837) 3.5 mmol/L 3.5-5.0 CL (test code = 2284791142) 99 mmol/L 98-108 CO2 TOTAL (test code = 9990371980) 29 mmol/L 23-31 AGAP (test code = 8546319857) 11 2-16 BUN (test code = 7518641502) 18 mg/dL 7-23 GLUCOSE (test code = 3345161227) 80 mg/dL 70-110 CREATININE (test code = 4623120184) 0.60 mg/dL 0.50-1.04 TOTAL BILI (test code = 7800848566) 0.5 mg/dL 0.1-1.1 CALCIUM (test code = 6718781613) 9.2 mg/dL 8.6-10.6 T PROTEIN (test code = 8392966395) 7.7 g/dL 6.3-8.2 ALBUMIN (test code = 1204792743) 4.4 g/dL 3.5-5.0 ALK PHOS (test code = 8098716683) 98 U/L 34-122 ALTv (test code = 1742-6) 44 U/L 5-35 H AST(SGOT) (test code = 9718116078) 31 U/L 13-40 eGFR (test code = 7079085571) 111.9 mL/min/1.73m2 HIEN (test code = HIEN) [...] imaging tests). Lab Interpretation (test code = 88915-0) Abnormal [facility]. METABOLIC PANEL (53891)2023-01-04 01:26:46* Test Item Value Reference Range Interpretation Comme nts NA (test code = 2173077433) 134 mmol/L 135-145 L K (test code = 1391968313) 4.1 mmol/L 3.5-5.0 CL (test code = 8386230069) 99 mmol/L 98-108 CO2 TOTAL (test code = 2092117210) 29 mmol/L 23-31 AGAP (test code = 4528382255) 6 2-16 BUN (test code = 7702721357) 18 mg/dL 7-23 GLUCOSE (test code = 1618215985) 116 mg/dL 70-110 H CREATININE (test code = 8736944655) 0.55 mg/dL 0.50-1.04 TOTAL BILI (test code = 2557255077) 0.4 mg/dL 0.1-1.1 CALCIUM (test code = 3812547605) 8.3 mg/dL 8.6-10.6 L T PROTEIN (test code = 2058539206) 6.4 g/dL 6.3-8.2 ALBUMIN (test code = 8381337015) 3.8 g/dL 3.5-5.0 ALK PHOS (test code = 5688970327) 91 U/L 34-122 ALTv (test code = 1742-6) 29 U/L 5-35 AST(SGOT) (test code = 9882064663) 44 U/L 13-40 H eGFR (test code = 0298095104) 123.7 mL/min/1.73m2 HIEN (test code = HIEN) [...] imaging tests). Lab Interpretation (test code = 81789-7) [facility] 01:26:46* Test Item Value Reference Range Interpretation Comme nts LIPASE (test code = 0849476640) 110 U/L 0-220 Lab Interpretation (test cod e = 02162-6) Normal [facility] TEST, [id number] 01:24:51* Test Item Value Reference Range Interpretation Comme nts PREG SERUM (test code = 0294841681) Negative HIEN (test code = HIEN) Less than 10 IU/L. ?If low titer or ectopic is suspected, resubmit specimen in 48-72 hours. [facility] CenterCBC WITH [id number] 01:16:28* Test Item Value Reference Range Interpretation Comme nts WBC (test code = 6690-2) 10.41 See_Comment [Automated messa ge] The system which generated this result transmitted reference range: 4.30 - 11.10 10*3/?L. The reference range was not used to interpret this result as normal/abnormal. RBC (test code = 789-8) 3.62 See_Comment L [Automated messa ge] The system [...] 33.0 g/dL 31.6-35.1 RDW-SD (test code = 52881-9) 45.4 fL 39.0-49.9 RDW-CV (test code = 788-0) 13.2 % 12.0-15.5 PLT (test code = 777-3) 293 See_Comment [Automated messa ge] The system which generated this result transmitted reference range: 166 - 358 10*3/?L. The reference range was not used to interpret this result as normal/abnormal. MPV (test code = 36375-2) 9.5 fL 9.5-12.9 NRBC/100 WBC (test code = 6472327448) 0.0 See_Comment [Automated [employer] ssage] The system which generated this result transmitted reference range: 0.0 - 10.0 /100 WBCs. The reference range was not used to interpret this result as normal/abnormal. NRBC x10^3 (test code = 4536752938) See_Comment [Automated [employer] ge] The system which generated this result transmitted reference range: 10*3/?L. The reference range was not used to interpret this result as normal/abnormal. GRAN MAT (NEUT) % (test code = 770-8) 87.2 % IMM GRAN % (test code = 7175148094) 0.30 % LYMPH % (test code = 736-9) 7.5 % MONO % (test code = 5905-5) 4.3 % EOS % (test code = 713-8) 0.6 % BASO % (test code = 706-2) 0.1 % GRAN MAT x10^3(ANC) (test code = 9479462984) 9.08 10*3/uL 1.88-7.09 H IMM GRAN x10^3 (test code = 0557972317) 0.03 10*3/uL 0.00-0.06 LYMPH x10^3 (test code = 731-0) 0.78 10*3/uL 1.32-3.29 L MONO x10^3 (test code = 742-7) 0.45 10*3/uL 0.33-0.92 EOS x10^3 (test code = 711-2) 0.06 10*3/uL 0.03-0.39 BASO x10^3 (test code = 704-7) 0.01-0.07 Lab Interpretation (test code = 52641-6) [facility]normal [facility] CenterHEMOGLOBIN [id number] 15:40:25* Test Item Value Reference Range Interpretation Comme nts HEMOGLOBIN A1c (test code = 03220) 5.8 % 4.2-5.6 H [employer] GUIDELINES FOR HGB A1C: [...] OR LABORATORY CONSULTATION. CBC W/AUTO DIFF WITH [id number] 12:25:44* Test Item Value Reference Range Interpretation [...] 0.00-0.10 ABS NUCLEATED RBCS (test code = 14062) 0.00 K/UL 0.00-0.11 [facility] has important pathology staff changes effective 11/30/2022. New pathology staff will provide uninterrupted, excellent patient care and clinical consultation. See URL: [email or web address]. UNLESS OTHERWISE INDICATED, ALL TESTING PERFORMED AT [facility] [address] [place] [address] FISHER CRAB: PATY POLLARD M.D. CLIA NUMBER [id number] [facility] [place]. [id number] HEMOGLOBIN [id number] 00:00:00* Test Item Value Reference Range Interpretation Comme nts HEMOGLOBIN A1c (test code = 45084) 5.8 % [facility] W/AUTO DIFF WITH PLATELETS [ADDED]2022-12-08 00:00:00* Test [...] ABS NUCLEATED RBCS (test cod e = 18895) 0.00 K/UL Britton FryHEMOGLOBIN [id number] 00:00:00* Test Item Value Reference Range Interpretation Comme nts HEMOGLOBIN A1c (test code = 17609) 5.8 % Britton FryCBC W/AUTO DIFF WITH [...] ABS NUCLEATED RBCS (test cod e = 37094) 0.00 K/UL Britton Tejeda AustinHPV HIGH RISK WITH GENOTYPE, [id number] 16:58:23* Test Item Value Reference Range Interpretation Comme nts HPV HIGH RISK INTERP (test code = 70464) NEGATIVE NEGATIVE HPV 16 (test code = 10540) NEGATIVE HPV 18 (test code = 10802) NEGATIVE HPV, HR, OTHER GENOTYPES (test code = 00690) NEGATIVE Testing methodol ogy is real-time PCR [...] (test code = 998) (NOTE) IN ACCORDANCE [place] FEDERAL GUIDELINES REQUIRING ALL VERBAL REQUESTS FOR LABORATORY TESTS TO BE ACCOMPANIED BY WRITTEN AUTHORIZATION WITHIN 30 DAYS OF THIS REQUEST, PLEASE SIGN BELOW AND RETURN A COPY OF THIS REPORT BY FAX TO THE LABORATORY SCANNING DEPARTMENT AT [phone]. PHYSICIAN'S SIGNATURE DATE [facility] has important pathology staff changes effective 11/30/2022. New pathology staff will provide uninterrupted, excellent patient care and clinical consultation. See URL: [email or web address]. UNLESS OTHERWISE INDICATED, ALL TESTING PERFORMED AT [facility] [address] [place] [place] [address] FISHER CRAB: PATY POLLARD M.D. [place] NUMBER [id number] [facility] [place]. [id number] NOTE: [ADDED]2022-12-06 00:00:00* Test Item Value Reference Range Interpretation Comme nts NOTE: (test code = 998) (NOTE) Britton FryHPV HIGH RISK WITH GENOTYPE, TP [ADDED]2022-12-06 00:00:00* Test Item Value Reference Range Interpretation Comme nts HPV HIGH RISK INTERP (test c ode = 25191) NEGATIVE HPV 16 (test code = 55727) NEGATIVE HPV 18 (test code = 65548) NEGATIVE HPV, HR, OTHER GENOTYPES (te st code = 99761) NEGATIVE Britton FryNOTE: [ADDED]2022-12-06 00:00:00* Test Item Value Reference Range Interpretation Comme nts NOTE: (test code = 998) (NOTE) Britton FryHPV HIGH RISK WITH GENOTYPE, TP [ADDED]2022-12-06 00:00:00* Test Item Value Reference Range Interpretation Comme nts HPV HIGH RISK INTERP (test c ode = 16085) NEGATIVE HPV 16 (test code = 67249) NEGATIVE HPV 18 (test code = 88902) NEGATIVE HPV, HR, OTHER GENOTYPES (te st code = 59102) NEGATIVE Britton FryFOLATE, [id number] 13:36:15* Test Item Value Reference Range Interpretation [...] . . . . . NG/ML >1504 [facility] has important pathology staff changes effective 11/30/2022. New pathology staff will provide uninterrupted, excellent patient care and clinical consultation. See URL: [email or web address]. UNLESS OTHERWISE INDICATED, ALL TESTING PERFORMED AT [facility] [address] [place] [place] [address] FISHER CRAB: INGRID BURKETT M.D. [place] NUMBER [id number] [facility] [place]. [id number] VITAMIN D, 25 [id number] 06:40:49* Test Item Value Reference Range Interpretation Comme [facility] VITAMIN D, 25 OH (test code [...] . . . NG/ML 30-100 TSH, THIRD [id number] 06:40:01* Test Item Value Reference Range Interpretation Comme [facility] TSH, THIRD GENERATION (test code = 2821) 0.466 UIU/ML 0.400-4.100 VITAMIN [id number] 06:40:01* Test Item Value Reference Range Interpretation Comme [facility] VITAMIN B-12 (test code = 2840) 580 PG/ML 200-950 COMPREHENSIVE METABOLIC [id number] 03:56:35* Test Item Value Reference Range Interpretation Comme [facility] GLUCOSE (test code = 2217) 115 MG/DL 70-99 H BUN (test code = 2208) 16 MG/DL 6-20 CREATININE (test code = 2214) 0.55 MG/DL 0.60-1.30 L eGFR (2020 CKD-EPI) (test code = 85985) 120 ML/MIN/1.73 >60 CALC BUN/CREAT (test code = 2234) 29 RATIO 6-28 H SODIUM (test code = 2230) 140 MEQ/L 133-146 POTASSIUM (test code = 2227) 3.7 MEQ/L 3.5-5.4 CHLORIDE (test code = 2214) 101 MEQ/L 95-107 CARBON DIOXIDE (test code = 2205) 31 MEQ/L 19-31 CALCIUM (test code = 2208) 9.1 MG/DL 8.5-10.5 PROTEIN, TOTAL (test code = 2228) 6.6 G/DL 6.1-8.3 ALBUMIN (test code = 2200) 4.2 G/DL 3.5-5.2 CALC GLOBULIN (test code = 2239) 2.4 G/DL 1.9-3.7 CALC A/G RATIO (test [...] 16 U/L 5-40 CBC W/AUTO DIFF WITH [id number] 03:05:55* Test Item Value Reference Range Interpretation [...] 0.00-0.10 ABS NUCLEATED RBCS (test code = 19147) 0.00 K/UL 0.00-0.11 [id number] 00:00:00* Test Item Value Reference Range Interpretation Comme [facility] TSH, THIRD GENERATION (test code = 2821) 0.466 UIU/ML Britton FryVITAMIN [id number] 00:00:00* Test Item Value Reference Range Interpretation Comme [facility] VITAMIN B-12 (test code = 2840) 580 PG/ML Britton FryVITAMIN D, 25 [id number] 00:00:00* Test Item Value Reference Range Interpretation Comme [facility] VITAMIN D, 25 OH (test code = 4958) 28 NG/ML Britton FryFOLATE, [id number] 00:00:00* Test Item Value Reference Range Interpretation Comme [facility] HEMATOCRIT (test code = 1004) 35.6 % FOLATE, RBC (test code = 2690) 1295 NG/ML Britton Tejeda AngCBC W/AUTO [id number] 00:00:00* Test Item Value Reference Range Interpretation [...] ABS NUCLEATED RBCS (test cod e = 04543) 0.00 K/UL Britton F AustinCOMPREHENSIVE METABOLIC [id number] 00:00:00* Test Item Value Reference Range Interpretation Comme nts GLUCOSE (test code = 2217) 115 MG/DL BUN (test code = 2208) 16 MG/DL CREATININE (test code = 2214) 0.55 MG/DL eGFR (2020 CKD-EPI) (test code = 26780) 120 ML/MIN/1.73 CALC BUN/CREAT (test code = [...] (test code = 2219) 16 U/L Britton [id number] 00:00:00* Test Item Value Reference Range Interpretation Comme [facility] TSH, THIRD GENERATION (test code = 2821) 0.466 UIU/ML Britton FryVITAMIN [id number] 00:00:00* Test Item Value Reference Range Interpretation Comme [facility] VITAMIN B-12 (test code = 2840) 580 PG/ML Britton FryVITAMIN D, 25 [id number] 00:00:00* Test Item Value Reference Range Interpretation Comme [facility] VITAMIN D, 25 OH (test code = 4958) 28 NG/ML Britton FryFOLATE, [id number] 00:00:00* Test Item Value Reference Range Interpretation Comme [facility] HEMATOCRIT (test code = 1004) 35.6 % FOLATE, RBC (test code = 2690) 1295 NG/ML Britton FryCBC W/AUTO [id number] 00:00:00* Test Item Value Reference Range Interpretation [...] ABS NUCLEATED RBCS (test cod e = 68654) 0.00 K/UL Britton FryCOMPREHENSIVE METABOLIC [id number] 00:00:00* Test Item Value Reference Range Interpretation Comme nts GLUCOSE (test code = 2217) 115 MG/DL BUN (test code = 2208) 16 MG/DL CREATININE (test code = 2214) 0.55 MG/DL eGFR (2020 CKD-EPI) (test code = 87338) 120 ML/MIN/1.73 CALC BUN/CREAT (test code = [...] = 2219) 16 U/L Britton FryCT/NG, NAAT, [id number] 21:32:13* Test Item Value Reference Range Interpretation Comme nts CHLAMYDIA, NAAT, URINE (test code = 43652) NEGATIVE NEGATIVE Testing is perfo rmed with [employer] 6800/8800 systems usingreal-time polymerase chain reaction (PCR) method. A negative result does not exclude low level infection, specimensampling error, or collection error. GONORRHEA, NAAT, URINE (test code = 98246) NEGATIVE NEGATIVE Testing is perfo rmed with [employer] 6800/8800 systems usingreal-time polymerase chain reaction (PCR) method. A negative result does not exclude low level infection, specimensampling error, or collection error. PAP TEST, THINPREP, [id number] 11:59:30* Test Item Value Reference Range Interpretation Comme nts SOURCE: (test code = 8001) Cervical/Endo cervical SLIDES: (test code = 8011) 1 LMP: (test code = 8021) 07/2022 SPECIMEN ADEQUACY: (test code = 01117) (NOTE) Satisfactory for evaluation. Endocervical cells/transformation zone component not identified. INTERPRETATION: (test code = 52718) NILM/NO EPITH. ABNORMALITY;S EE BELOW ---- NEGATIVE FOR INTRAEPITHELIAL LESION OR MALIGNANCY (NILM) - PHYTOPATHOLOGIST: (test code = 8101) Livier MenesesburyWI( CP)IAC LOCATION: (test code = 92829) (NOTE) Specimens proces sed and interpreted at [facility], [address] [place] [address], , CLIA: [id number] CPT: (test code = 8140) (NOTE) 51090 UNLESS OTH ERWISE INDICATED, COMPUTER AIDED AND PHYTOPATHOLOGIST SCREENING PERFORMED. The Pap test is a screening test with an inherent, but low probability of error. Your patient should be reminded to consult you immediately if she experiences any suspicious signs or symptoms, regardless of her Pap test result. An alternate report format containing images or consolidated prior Pap history is available as applicable. [facility] has important pathology staff changes effective 11/30/2022. New pathology staff will provide uninterrupted, excellent patient care and clinical consultation. See URL: [email or web address]. UNLESS OTHERWISE INDICATED, ALL TESTING PERFORMED AT [facility] [address] [place] [place] [address] FISHER CRAB: INGRID BURKETT M.D. [place] NUMBER [id number] [facility] [place] [place]. [id number] HEPATITIS PANEL, [id number] 04:20:00* Test Item Value Reference Range Interpretation Comme nts HEPATITIS A IgM (test code = 99845) NON-REACTIVE NON-REACTIVE HEPATITIS B CORE IgM (test code = 4644) NON-REACTIVE NON-REACTIVE HEPATITIS B SURF AG (test code = 2739) NON-REACTIVE NON-REACTIVE HEPATITIS C ANTIBODY (test code = 4675) NON-REACTIVE NON-REACTIVE INTERPRETATION HEPATITIS A: (test code = 2552) (NOTE) Hepatitis A serology shows no evidence of acute hepatitis A. INTERPRETATION HEPATITIS B: (test code = 48752) (NOTE) Hepatitis B serology shows no evidence of acute hepatitis B andno indication of exposure to hepatitis B virus in the previous richie eight months. INTERPRETATION HEPATITIS C: (test code = 31016) (NOTE) Hepatitis C serology shows no evidence of exposure to hepatitisC virus at this time. It can take up to 12 months after exposure tothe hepatitis C virus for antibodies to become detectable in the blood in certain patients. HIV 1/2 4TH GEN, RFLX [id number] 04:20:00* Test Item Value Reference Range Interpretation Comme nts HIV 1/2 4TH GEN, RFLX CONF (test code = 3514) NON-REACTIVE NON-REACTIVE [facility] has impo rtant pathology staff changes effective 11/30/2022. New pathology staff will provide uninterrupted, excellent patient care and clinical consultation. See URL: [email or web address]. UNLESS OTHERWISE INDICATED, ALL TESTING PERFORMED AT [facility] [address] [place] [address] FISHER CRAB: INGRID BURKETT M.D. [place] NUMBER [id number] [facility] [place]. [id number] 03:36:27* Test Item Value Reference Range Interpretation Comme nts RPR RESULT (test code = 3501) NON-REACTIVE NON-REACTIVE RPR TITER (test code = 3500) NOT INDIC. TITER NOT INDIC. CT/NG, TMA, [id number] 00:00:00* Test Item Value Reference Range Interpretation Comme nts CHLAMYDIA, NAAT, URINE (test code = 12838) NEGATIVE GONORRHEA, NAAT, URINE (test code = 16651) NEGATIVE Britton FryHIV 1/2 4TH GEN, RFLX [id number] 00:00:00* Test Item Value Reference Range Interpretation Comme nts HIV 1/2 4TH GEN, RFLX CONF ( test code = 3514) NON-REACTIVE Britton FryPAP TEST, THINPREP, [id number] 00:00:00* Test Item Value Reference Range Interpretation Comme nts SOURCE: (test code = 8001) Cervical/Endocervical SLIDES: (test code = 8011) 1 LMP: (test code = 8021) 07/2022 SPECIMEN ADEQUACY: (test code = 84104) (NOTE) INTERPRETATION: (test code = 73646) NILM/NO EPITH. ABNORMALITY;SEE BELOW PHYTOPATHOLOGIST: (test code = 8101) [place], [place](ASCP)IAC LOCATION: (test code = 56089) (NOTE) CPT: (test code = 8140) (NOTE) Britton FryACUTE HEPATITIS [id number] 00:00:00* Test Item Value Reference Range Interpretation Comme nts HEPATITIS A IgM (test code = 54307) NON-REACTIVE HEPATITIS B CORE IgM (test c ode = 4644) NON-REACTIVE HEPATITIS B SURF AG (test co de = 2739) NON-REACTIVE HEPATITIS C ANTIBODY (test c ode = 4610) NON-REACTIVE INTERPRETATION HEPATITIS A: (test code = 2552) (NOTE) INTERPRETATION HEPATITIS B: (test code = 74334) (NOTE) INTERPRETATION HEPATITIS C: (test code = 57459) (NOTE) Britton [id number] 00:00:00* Test Item Value Reference Range Interpretation Comme nts RPR RESULT (test code = 3501) NON-REACTIVE RPR TITER (test code = 3500) NOT INDIC. TITER Britton FryCT/NG, TMA, [id number] 00:00:00* Test Item Value Reference Range Interpretation Comme nts CHLAMYDIA, NAAT, URINE (test code = 39437) NEGATIVE GONORRHEA, NAAT, URINE (test code = 59263) NEGATIVE Britton FryHIV 1/2 4TH GEN, RFLX [id number] 00:00:00* Test Item Value Reference Range Interpretation Comme nts HIV 1/2 4TH GEN, RFLX CONF ( test code = 3514) NON-REACTIVE Britton FryACUTE HEPATITIS [id number] 00:00:00* Test Item Value Reference Range Interpretation Comme nts HEPATITIS A IgM (test code = 77155) NON-REACTIVE HEPATITIS B CORE IgM (test c ode = 4644) NON-REACTIVE HEPATITIS B SURF AG (test co de = 2739) NON-REACTIVE HEPATITIS C ANTIBODY (test c ode = 4675) NON-REACTIVE INTERPRETATION HEPATITIS A: (test code = 2552) (NOTE) INTERPRETATION HEPATITIS B: (test code = 53375) (NOTE) INTERPRETATION HEPATITIS C: (test code = 08190) (NOTE) Britton FryPAP TEST, THINPREP, [id number] 00:00:00* Test Item Value Reference Range Interpretation Comme nts SOURCE: (test code = 8001) Cervical/Endocervical SLIDES: (test code = 8011) 1 LMP: (test code = 8021) 07/2022 SPECIMEN ADEQUACY: (test code = 92538) (NOTE) INTERPRETATION: (test code = 63745) NILM/NO EPITH. ABNORMALITY;SEE BELOW PHYTOPATHOLOGIST: (test code = 8101) GARRICK Mayfield(ASCP)IAC LOCATION: (test code = 52304) (NOTE) CPT: (test code = 8140) (NOTE) Britton [id number] 00:00:00* Test Item Value Reference Range Interpretation Comme nts RPR RESULT (test code = 3501) NON-REACTIVE RPR TITER (test code = 3500) NOT INDIC. TITER Britton FryTHYROID II PROFILE (TU,T4,FTI,TSH)2022-11-09 05:51:41* Test Item Value Reference Range Interpretation Comme nts T-UPTAKE (test code = 2817) 30.2 % 24.3-39.0 THYROX. BIND. CAPAC. (test code = 92049) 1.1 0.8-1.3 T4 (THYROXINE) (test code = 2819) 8.2 UG/DL 4.5-10.5 CORRECTED T4 (FTI) (test code = 2820) 7.5 UG/DL 4.2-11.6 TSH, THIRD GENERATION (test code = 2821) 0.227 UIU/ML 0.400-4.100 L [facility] has important pathology staff changes effective 11/30/2022. New pathology staff will provide uninterrupted, excellent patient care and clinical consultation. See URL: [email or web address]. UNLESS OTHERWISE INDICATED, ALL TESTING PERFORMED AT [facility] [address] [place] [place] [address] CLIA: [id number], CAP: [id number] COMPREHENSIVE METABOLIC [id number] 03:40:11* Test Item Value Reference Range Interpretation Comme nts GLUCOSE (test code = 2217) 85 MG/DL 70-99 BUN (test code = 2208) 11 MG/DL 6-20 CREATININE (test code = 2214) 0.66 MG/DL 0.60-1.30 eGFR (2020 CKD-EPI) (test code = 09733) 115 ML/MIN/1.73 >60 CALC BUN/CREAT (test code = 2235) 17 RATIO 6-28 SODIUM (test code = 223) 142 MEQ/L 133-146 POTASSIUM (test code = 2228) 3.4 MEQ/L 3.5-5.4 L CHLORIDE (test code = 2215) 102 MEQ/L 95-107 CARBON DIOXIDE (test code = 2206) 27 MEQ/L 19-31 CALCIUM (test code = 2209) 9.4 MG/DL 8.5-10.5 PROTEIN, TOTAL (test code = 2228) 7.0 G/DL 6.1-8.3 ALBUMIN (test code = 2200) 4.7 G/DL 3.5-5.2 CALC GLOBULIN (test code [...] code = 2219) 15 U/L 5-40 LIPID [id number] 03:40:11* Test Item Value Reference Range Interpretation Comme nts CHOLESTEROL (test code = 2210) 165 MG/DL <200 TRIGLYCERIDES (test code = 2232) 43 MG/DL <150 HDL CHOLESTEROL (test code = 2220) 61 MG/DL >39 CALC LDL CHOL (test code = 2236) 91 MG/DL <100 NOTE: CALCULATED LDL IS BASED ON JASSI-HERRMANN METHOD WHICHINCLUDES ADJUSTABLE TRIGLYCERIDE:VLDL CHOLESTEROL RATIO.THIS FACTOR VARIES BY MEASURED TRIGLYCERIDE AND NON-HDLCHOLESTEROL CONCENTRATIONS WITH INCREASED CALCULATED LDL SEENIN HIGHER TRIGLYCERIDE OR LOWER NON-HDL SPECIMENS. FOR MOREINFORMATION, SEE CLIENT ANNOUNCEMENT AT [email or web address] RISK RATIO LDL/HDL (test code = 2238) 1.49 RATIO <3.22 CBC W/AUTO DIFF WITH [id number] 02:49:31* Test Item Value Reference Range Interpretation [...] 0.00-0.10 ABS NUCLEATED RBCS (test code = 23963) 0.00 K/UL 0.00-0.11 HEMOGLOBIN [id number] 02:40:38* Test Item Value Reference Range Interpretation Comme nts HEMOGLOBIN A1c (test code = 90048) 5.8 % 4.2-5.6 H COMPREHENSIVE METABOLIC PANEL [ADDED]2022-11-09 00:00:00* Test Item Value Reference Range Interpretation Comme nts GLUCOSE (test code = 2217) 85 MG/DL BUN (test code = 2208) 11 MG/DL CREATININE (test code = 2214) 0.66 MG/DL eGFR (2020 CKD-EPI) (test code = 01785) 115 ML/MIN/1.73 CALC BUN/CREAT (test code = [...] Comme nts HEMOGLOBIN A1c (test code = 24056) 5.8 % Britton Nikhil AngLIPID PANEL [ADDED]2022-11-09 00:00:00* Test Item Value Reference Range Interpretation Comme nts CHOLESTEROL (test code = 2210) 165 MG/DL TRIGLYCERIDES (test code = 2232) 43 MG/DL HDL CHOLESTEROL (test code = 2220) 61 MG/DL CALC LDL CHOL (test code = 2237) 91 MG/DL RISK RATIO LDL/HDL (test cod e = 2238) 1.49 RATIO Britton Nikhil AngTHYROID II PROFILE (TU,T4,FTI,TSH) [ADDED]2022-11-09 00:00:00* Test Item Value Reference Range Interpretation Comme nts T-UPTAKE (test code = 2817) 30.2 % THYROX. BIND. CAPAC. (test c ode = 88223) 1.1 T4 (THYROXINE) (test code = 2819) [...] ABS NUCLEATED RBCS (test cod e = 31411) 0.00 K/UL Britton FryCOMPREHENSIVE METABOLIC PANEL [ADDED]2022-11-09 00:00:00* Test Item Value Reference Range Interpretation Comme nts GLUCOSE (test code = 2217) 85 MG/DL BUN (test code = 2208) 11 MG/DL CREATININE (test code = 2214) 0.66 MG/DL eGFR (2020 CKD-EPI) (test code = 92807) 115 ML/MIN/1.73 CALC BUN/CREAT (test code = [...] Comme nts HEMOGLOBIN A1c (test code = 96245) 5.8 % Britton FryLIPID PANEL [ADDED]2022-11-09 00:00:00* [...] THYROX. BIND. CAPAC. (test c ode = 29890) 1.1 T4 (THYROXINE) (test code = 2819) [...] ABS NUCLEATED RBCS (test cod e = 28814) 0.00 K/UL Britton FryCULTURE, [id number] 00:00:00* Test Item Value Reference Range Interpretation Comme nts CULTURE, URINE (test code = 46569) SPECIMEN NUMBER: [id number] Britton FryCULTURE, [id number] 00:00:00* Test Item Value Reference Range Interpretation Comme nts CULTURE, URINE (test code = 17174) SPECIMEN NUMBER: [id number] Britton Tejeda AustinURINALYSIS WITH [id number] 00:00:00* Test Item Value Reference Range Interpretation [...] 0-2 /HPF EPITHELIAL CELLS (test code = 23450) 5-10 /HPF BACTERIA (test code = 1515) 4+ CASTS, HYALINE (test code = 1517) TRACE Britton Tejeda AustinURINALYSIS WITH [id number] 00:00:00* Test Item Value Reference Range Interpretation [...] 0-2 /HPF EPITHELIAL CELLS (test code = 53170) 5-10 /HPF BACTERIA (test code = 1515) 4+ CASTS, HYALINE (test code = 1517) TRACE Britton FryVITAMIN D, 25 [id number] 00:00:00* Test Item Value Reference Range Interpretation Comme nts VITAMIN D, 25 [place] (test code = 4958) 36 NG/ML Britton Tejeda AustinVITAMIN [id number] 00:00:00* Test Item Value Reference Range Interpretation Comme nts VITAMIN B-12 (test code = 2840) 1017 PG/ML Britton FryVITAMIN D, 25 [id number] 00:00:00* Test Item Value Reference Range Interpretation Comme nts VITAMIN D, 25 [place] (test code = 4958) 36 NG/ML Britton Tejeda AustinVITAMIN [id number] 00:00:00* Test Item Value Reference Range Interpretation Comme nts VITAMIN B-12 (test code = 2840) 1017 PG/ML Britton FryLIPID [id number] 00:00:00* Test Item Value Reference Range Interpretation Comme nts CHOLESTEROL (test code = 2210) 181 MG/DL TRIGLYCERIDES (test code = 2232) 63 MG/DL HDL CHOLESTEROL (test code = 2220) 60 MG/DL CALC LDL CHOL (test code = 2237) 106 MG/DL RISK RATIO LDL/HDL (test cod e = 2238) 1.77 RATIO Britton FryCOMPREHENSIVE METABOLIC [id number] 00:00:00* Test Item Value Reference Range Interpretation Comme nts GLUCOSE (test code = 2217) 116 MG/DL BUN (test code = 2208) 12 MG/DL CREATININE (test code = 2214) 0.62 MG/DL eGFR AMER. (test cod e = 43258) 134 ML/MIN/1.73 eGFR NON- AMER. (test code = 87358) 116 ML/MIN/1.73 CALC BUN/CREAT (test code = [...] (test code = 2219) 23 U/L Britton [id number] 00:00:00* Test Item Value Reference Range Interpretation Comme nts TSH, THIRD GENERATION (test code = 2821) 1.240 UIU/ML Britton FryCBC W/AUTO [id number] 00:00:00* Test Item Value Reference Range Interpretation [...] ABS NUCLEATED RBCS (test cod e = 68471) 0.00 K/UL Britton FryHEMOGLOBIN [id number] 00:00:00* Test Item Value Reference Range Interpretation Comme nts HEMOGLOBIN A1c (test code = 03323) 5.4 % Britton FryLIPID [id number] 00:00:00* Test Item Value Reference Range Interpretation Comme nts CHOLESTEROL (test code = 2210) 181 MG/DL TRIGLYCERIDES (test code = 2232) 63 MG/DL HDL CHOLESTEROL (test code = 2220) 60 MG/DL CALC LDL CHOL (test code = 2237) 106 MG/DL RISK RATIO LDL/HDL (test cod e = 2238) 1.77 RATIO Britton FryCOMPREHENSIVE METABOLIC [id number] 00:00:00* Test Item Value Reference Range Interpretation Comme nts GLUCOSE (test code = 2217) 116 MG/DL BUN (test code = 2208) 12 MG/DL CREATININE (test code = 2214) 0.62 MG/DL eGFR AMER. (test cod e = 67859) 134 ML/MIN/1.73 eGFR NON- AMER. (test code = 78562) 116 ML/MIN/1.73 CALC BUN/CREAT (test code = [...] (test code = 2219) 23 U/L Britton [id number] 00:00:00* Test Item Value Reference Range Interpretation Comme nts TSH, THIRD GENERATION (test code = 2821) 1.240 UIU/ML Britton FryCBC W/AUTO [id number] 00:00:00* Test Item Value Reference Range Interpretation [...] ABS NUCLEATED RBCS (test cod e = 43530) 0.00 K/UL Britton FryHEMOGLOBIN [id number] 00:00:00* Test Item Value Reference Range Interpretation Comme nts HEMOGLOBIN A1c (test code = 04063) 5.4 % Britton F AustinCHLAMYDIA, AMPLIFIED, [id number] 00:00:00* Test Item Value Reference Range Interpretation Comme nts CHLAMYDIA, TMA (test code = 28932) NEGATIVE Britton F AustinGC, AMPLIFIED, [id number] 00:00:00* Test Item Value Reference Range Interpretation Comme nts GONORRHEA, TMA (test code = 47444) NEGATIVE Britton F AustinCHLAMYDIA, AMPLIFIED, [id number] 00:00:00* Test Item Value Reference Range Interpretation Comme nts CHLAMYDIA, TMA (test code = 10456) NEGATIVE Britton F AustinGC, AMPLIFIED, [id number] 00:00:00* Test Item Value Reference Range Interpretation Comme nts GONORRHEA, TMA (test code = 03791) NEGATIVE Britton F AustinGC AND CHLAMYDIA, AMPLIFIED, [id number] 00:00:00* Test Item Value Reference Range Interpretation Comme nts GONORRHEA, TMA (test code = 97095) NEGATIVE CHLAMYDIA, TMA (test code = 55687) NEGATIVE Britton F AustinGC AND CHLAMYDIA, AMPLIFIED, [id number] 00:00:00* Test Item Value Reference Range Interpretation Comme nts GONORRHEA, TMA (test code = 97137) NEGATIVE CHLAMYDIA, TMA (test code = 12824) NEGATIVE Britton FryPAP TEST, THINPREP, [id number] 00:00:00* Test Item Value Reference Range Interpretation Comme nts SOURCE: (test code = 8001) Cervical/Endocervical SLIDES: (test code = 8011) 1 LMP: (test code = 8021) 05/09/18 SPECIMEN ADEQUACY: (test code = 38045) (NOTE) INTERPRETATION: (test code = 82968) NO EPITHELIAL ABNORMALITY SEE BELOW PHYTOPATHOLOGIST: (test code = 8101) [place](ASCP) IAC LOCATION: (test code = 22296) (NOTE) CPT: (test code = 8140) (NOTE) Britton FryHPV HIGH RISK WITH GENOTYPE, [id number] 00:00:00* Test Item Value Reference Range Interpretation Comme nts HPV HIGH RISK INTERP (test c ode = 49734) NEGATIVE HPV 16 (test code = 12255) NEGATIVE HPV 18 (test code = 03273) NEGATIVE HPV, HR, OTHER GENOTYPES (te st code = 89750) NEGATIVE Britton FryPAP TEST, THINPREP, [id number] 00:00:00* Test Item Value Reference Range Interpretation Comme nts SOURCE: (test code = 8001) Cervical/Endocervical SLIDES: (test code = 8011) 1 LMP: (test code = 8021) 05/09/18 SPECIMEN ADEQUACY: (test code = 33113) (NOTE) INTERPRETATION: (test code = 95057) NO EPITHELIAL ABNORMALITY SEE BELOW PHYTOPATHOLOGIST: (test code = 8101) [place](ASCP) IAC LOCATION: (test code = 29085) (NOTE) CPT: (test code = 8140) (NOTE) Britton FryHPV HIGH RISK WITH GENOTYPE, [id number] 00:00:00* Test Item Value Reference Range Interpretation Comme nts HPV HIGH RISK INTERP (test c ode = 74779) NEGATIVE HPV 16 (test code = 40064) NEGATIVE HPV 18 (test code = 95859) NEGATIVE HPV, HR, OTHER GENOTYPES (te st code = 62588) NEGATIVE Britton FryCULTURE, [id number] 00:00:00* Test Item Value Reference Range Interpretation Comme nts CULTURE, URINE (test code = 46398) SPECIMEN NUMBER: [id number] Britton FryCULTURE, [id number] 00:00:00* Test Item Value Reference Range Interpretation Comme nts CULTURE, URINE (test code = 72649) SPECIMEN NUMBER: [id number] Britton Tejeda AustinVITAMIN D,1,78-[id number] 00:00:00* Test Item Value Reference Range Interpretation Comme nts VITAMIN D,1,25-DIHYDROXY (te st code = 4960) 40.2 PG/ML Britton FryVITAMIN D,1,24-[id number] 00:00:00* Test Item Value Reference Range Interpretation Comme nts VITAMIN D,1,25-DIHYDROXY (te st code = 4960) 40.2 PG/ML Britton [id number] 00:00:00* Test Item Value Reference Range Interpretation Comme nts TSH (test code = 2821) 1.08 UIU/ML Britton FryCOMPREHENSIVE METABOLIC [id number] 00:00:00* Test Item Value Reference Range Interpretation Comme nts GLUCOSE (test code = 2217) 90 MG/DL BUN (test code = 2208) 11 MG/DL CREATININE (test code = 2214) 0.61 MG/DL eGFR AMER. (test cod e = 23182) 139 ML/MIN/1.73 eGFR NON- AMER. (test code = 96825) 120 ML/MIN/1.73 CALC BUN/CREAT (test code = [...] code = 2219) 20 U/L Britton FryVITAMIN [id number] 00:00:00* Test Item Value Reference Range Interpretation Comme atilio VITAMIN B-12 (test code = 2840) 647 PG/ML Britton FryCBC W/AUTO [id number] 00:00:00* Test Item Value Reference Range Interpretation [...] code = 1015) 335 K/UL Britton FryHEMOGLOBIN [id number] 00:00:00* Test Item Value Reference Range Interpretation Comme atilio HEMOGLOBIN A1c (test code = 02448) 5.8 % Britton Tejeda [id number] 00:00:00* Test Item Value Reference Range Interpretation Comme nts TSH (test code = 2821) 1.08 UIU/ML Britton FryCOMPREHENSIVE METABOLIC [id number] 00:00:00* Test Item Value Reference Range Interpretation Comme nts GLUCOSE (test code = 2217) 90 MG/DL BUN (test code = 2208) 11 MG/DL CREATININE (test code = 2214) 0.61 MG/DL eGFR AMER. (test cod e = 58493) 139 ML/MIN/1.73 eGFR NON- AMER. (test code = 77868) 120 ML/MIN/1.73 CALC BUN/CREAT (test code = [...] ALT (test code = 2219) 20 U/L rBitton FryVITAMIN [id number] 00:00:00* Test Item Value Reference Range Interpretation Comme nts VITAMIN B-12 (test code = 2840) 647 PG/ML Britton FryCBC W/AUTO [id number] 00:00:00* Test Item Value Reference Range Interpretation [...] code = 1015) 335 K/UL Britton FryHEMOGLOBIN [id number] 00:00:00* Test Item Value Reference Range Interpretation Comme atilio HEMOGLOBIN A1c (test code = 10231) 5.8 % Britton FryCBC W/AUTO [id number] 00:00:00* Test Item Value Reference Range Interpretation [...] (test code = 1015) 392 K/UL Britton Tejeda [facility] W/AUTO [id number] 00:00:00* Test Item Value Reference Range Interpretation [...] (test code = 1015) 392 K/UL Britton Tejeda ByrnedaleCOMPREHENSIVE METABOLIC [id number] 00:00:00* Test Item Value Reference Range Interpretation Comme nts GLUCOSE (test code = 2217) 71 MG/DL BUN (test code = 2208) 13 MG/DL CREATININE (test code = 2214) 0.70 MG/DL eGFR AMER. (test cod e = 91890) 134 ML/MIN/1.73 eGFR NON- AMER. (test code = 52913) 115 ML/MIN/1.73 CALC BUN/CREAT (test code = [...] = 2219) 32 U/L Britton FryCOMPREHENSIVE METABOLIC [id number] 00:00:00* Test Item Value Reference Range Interpretation Comme nts GLUCOSE (test code = 2217) 71 MG/DL BUN (test code = 2208) 13 MG/DL CREATININE (test code = 2214) 0.70 MG/DL eGFR AMER. (test cod e = 55766) 134 ML/MIN/1.73 eGFR NON- AMER. (test code = 04410) 115 ML/MIN/1.73 CALC BUN/CREAT (test code = [...] 2219) 32 U/L Britton FryPAP TEST, THINPREP, [id number] 00:00:00* Test Item Value Reference Range Interpretation Comme nts SOURCE: (test code = 8001) A) Unspecified SLIDES: (test code = 8011) 1 LMP: (test code = 8021) 06/28/2015 SPECIMEN ADEQUACY: (test code = 05951) (NOTE) INTERPRETATION: (test code = 00204) NO EPITHELIAL ABNORMALITY SEE BELOW PHYTOPATHOLOGIST: (test code = 8101) GARRICK AMOS(ASCP) LOCATION: (test code = 72708) (NOTE) CPT: (test code = 8140) (NOTE) Britton Tejeda AustinHPV HIGH RISK WITH GENOTYPE, [id number] 00:00:00* Test Item Value Reference Range Interpretation Comme nts HPV HIGH RISK INTERP (test c ode = 66993) NEGATIVE HPV 16 (test code = 81196) NEGATIVE HPV 18 (test code = 65921) NEGATIVE HPV, HR, OTHER GENOTYPES (te st code = 59990) NEGATIVE Britton FryPAP TEST, THINPREP, [id number] 00:00:00* Test Item Value Reference Range Interpretation Comme nts SOURCE: (test code = 8001) A) Unspecified SLIDES: (test code = 8011) 1 LMP: (test code = 8021) 06/28/2015 SPECIMEN ADEQUACY: (test code = 35308) (NOTE) INTERPRETATION: (test code = 50189) NO EPITHELIAL ABNORMALITY SEE BELOW PHYTOPATHOLOGIST: (test code = 8101) [place], [place](ASCP) LOCATION: (test code = 33083) (NOTE) CPT: (test code = 8140) (NOTE) Britton Tejeda AustinHPV HIGH RISK WITH GENOTYPE, [id number] 00:00:00* Test Item Value Reference Range Interpretation Comme nts HPV HIGH RISK INTERP (test c ode = 38766) NEGATIVE HPV 16 (test code = 11089) NEGATIVE HPV 18 (test code = 16369) NEGATIVE HPV, HR, OTHER GENOTYPES (te st code = 86251) NEGATIVE Britton [id number] 00:00:00* Test Item Value Reference Range Interpretation Comme nts TSH (test code = 2821) 1.7 UIU/ML Britton FryFOLLICLE STIM [id number] 00:00:00* Test Item Value Reference Range Interpretation Comme nts FOLLICLE STIM HORMONE (test code = 2700) 6.8 MIU/ML FSH INTERPRETATION: (test co de = 92910) (NOTE) Britton [id number] 00:00:00* Test Item Value Reference Range Interpretation Comme nts TSH (test code = 2821) 1.7 UIU/ML Britton Tejeda AustinFOLLICLE STIM [id number] 00:00:00* Test Item Value Reference Range Interpretation Comme nts FOLLICLE STIM HORMONE (test code = 2700) 6.8 MIU/ML FSH INTERPRETATION: (test co de = 64604) (NOTE) Britton Fry Notes Date/Time Note Provider Source 2024-02-14 00:00:00 klirhmryCyNgHgr8tNpWv85s3uI6UlKptgx HL2crLQSSbCOGE0YrGVOzoqU7EFsF4224-5 5-15T00:00:00+ +-------- ----+| Plan Activity | Plan [...] || Appended: 2020-02-13 | || [facility] | |+ + +| [...] +| OTC miralax daily . 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 | || Noted 3 elevated bps tqcz765/80 on 3 different occasions indicated a need [...] || ? foreign body | |+ + +62823-0 Plan of TreatmentLNCARE PLANTXTSFA|[id number]|2.16.840.1.1 68958.10.20.22.2.10AVAvailable for patient nzeyLtacqtyNyearxqysHKJXk45 Section NarrativeNARRATIVEFormatted C-CDA narrative textSPlains Regional Medical Centerpravin Yeison [facility]2024-05-19T00:00:00 Britton Yeison [facility] 2024-01-22 00:00:00 5wJlZpGpOGw9DfmMean/RoZub+AwP2L8W0Z Gs2E8zaAUN+k/6krmu7kTNUYf+fEq8745-1 01-21T00:00:00+ +-------- ----+| Plan Activity | Plan [...] || Appended: 2020-02-13 | || [facility] | |+ + +| [...] +| OTC miralax daily . 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 | || Noted 3 elevated bps uemb590/80 on 3 different occasions indicated a need [...] have not been effective | |+ + +69198-5 Plan of TreatmentCARE [facility]|[id number]|2.16.840.1.1 14147.10.20.22.2.10AVAvailable for patient nrgvVnbahntLwvfgigryQEHHc62 Section NarrativeNARRATIVEFormatted C-CDA narrative textSFAStpravin NikhilYieson [facility]2024-05-11T00:00:00 Britton NikhilYeison [facility] 2023-12-18 16:30:00 6138-92-52H54:30:00 Images from the original note were not included.Venipuncture collection performed by clean technique on the right anticubitus. Total of 1 attempts were made. Slight pressure and a bandage/dressing were applied to the site(s). The patient experienced no complications. The following specimens were processed according to instructions and sent to [facility] laboratories per lab order on 12/18/2023:LT BLUESST 1REDLAV 2PPTDK GREEN (LiHep)DK GREEN (SodH)GRAYDK BLUE (K2)DK BLUE (S)ACDBlood CultureNIPT/NTD 79981-5Judde IoeaUB3277-34-40M44:36:16Nurse NoteTXT1.2.840.346467.1.13.104.2.7. 2.156874|[id number] for patient zdik00390-0Vhtnk NoteLNNARRATIVEFormatted C-CDA narrative text[id number] 7MKHHGZAXFQMPMCPGENQQUW5082-73-79C5 6:36:161.2.840.151342.1.72.3.15|1.2 .840.081952.1.13.104.2.7.2.727879_2 [id number] [facility] 2023-12-18 09:21:36 8777-89-78N08:21:36 Lvm offering an earlier appointment at our [place] location. 08875-4Witypjdps encounter GlyvBY7179-96-55T01:22:11Telephone encounter NoteTXT1.2.840.770403.1.13.104.2.7. 2.137683|[id number] for patient mgyt86311-9FsbxHFKKCBWMIFVEzabazusb C-CDA narrative [id number] Schultz[id number] 8KRKRYMWAHDDABWSQITEWCX4751-99-72N2 9:22:111.2.840.236603.1.72.3.15|1.2 .840.316630.1.13.104.2.7.2.727879_2 [id number] Lisandro Armenta [facility] 2023-12-15 16:19:51 8866-28-68H57:19:51 Not sure why I am receiving this. 14366-3Yvjxacxku encounter SgisLZ4826-82-30S13:20:09Telephone encounter NoteTXT1.2.840.934262.1.13.104.2.7. 2.950634|[id number] for patient gmjq97889-7HwkoVSARSETXMYMNqlfixifk C-CDA narrative textIM-RHEUMATOLOGY STAFFIM-RHEUMATOLOGY STAFF[id number] 5UNFBZEMQGZYIHJWSLDUVIA8664-78-29I4 6:20:091.2.840.241210.1.72.3.15|1.2 .840.243146.1.13.104.2.7.2.727879_2 [id number] IM-RHEUMATOLOGY STAFF [facility] 2023-12-15 14:39:16 6542-70-88R42:39:16 Attempted to call pt back 2x, please offer [facility] for earlier appointment date. 23009-3Buuuscxrm encounter HkpdUI9383-99-36U97:39:52Telephone encounter NoteTXT1.2.840.740097.1.13.104.2.7. 2.219040|[id number] for patient spgx43168-8TwzaOPRMILJODTCIjxxeovbb C-CDA narrative [id number] Armenta[id number] 3ZMSWSRRCWWFCRDLOKXSRRJ4507-75-00L6 4:39:521.2.840.727838.1.72.3.15|1.2 .840.735643.1.13.104.2.7.2.727879_2 [id number] Lisandro TrejoRamesh [facility] 2023-12-15 14:32:43 2160-48-32L95:32:43 Veronica Lino is a 38 year old femalePt is calling back to accept sooner appt. She missed a call. 51412-4Vlmjtzies encounter YjwuTF7695-82-71P03:33:50Telephone encounter NoteTXT1.2.840.450764.1.13.104.2.7. 2.985246|[id number] for patient eqsr23761-4TlmlQPWZQABKKYXEllzqyczb C-CDA narrative [id number] [id number] 4FUXERLTFERCUJNOZFFCCSD2528-34-52Q2 4:33:501.2.840.086104.1.72.3.15|1.2 .840.916514.1.13.104.2.7.2.727879_2 [id number] Katy Keene [facility] 2023-08-30 15:51:54 1251-50-94B98:51:54 Please advise, Thank you 94317-3Lzevzvwtv encounter YcggFW0995-30-11Y53:52:42Telephone encounter NoteTXT1.2.840.243467.1.13.104.2.7. 2.739027|[id number] for patient adcp79257-6MvadTLMDJVKAUYLAqkykvmuh C-CDA narrative [id number] [address] [place] [id number] 9ZNQWMTAHWIUDWYQXKLDWTM8899-95-02I2 5:52:421.2.840.353325.1.72.3.15|1.2 .840.138313.1.13.104.2.7.2.727879_1 [id number] Kinga Richards [facility] 2023-06-08 13:00:00 4973-85-56F32:00:00 Images from the original note were not included.Venipuncture collection performed by clean technique on the right anticubitus. Total of 1 attempts were made. Slight pressure and a bandage/dressing were applied to the site(s). The patient experienced no complications. The following specimens were processed according to instructions and sent to [facility] laboratories per lab order on 06/08/2023: LT BLUE 1 SST 1 RED LAV 1 PPT DK GREEN (LiHep) DK GREEN (SodH) DOMINGUEZ DK BLUE (K2) DK BLUE (S) ACD Blood Culture NIPT/NTD 15290-5Plrcr XajgIL6375-96-59I51:20:49Nurse NoteTXT1.2.840.966531.1.13.104.2.7. 2.164700|[id number] for patient jdlj74328-4Eytxh [id number] 3CWMKXIDACJYSEBTGJWCOPC3207-82-25I6 3:20:491.2.840.593609.1.72.3.15|1.2 .840.993360.1.13.104.2.7.2.727879_1 [id number] [facility] [facility] 2023-06-08 08:45:55 1813-15-17V21:45:[address] [facility] EP LAB PRE-CALL INSTRUCTIONSEP Instructions [...] [facility] [address] from either [address] or [address]. Bring your parking ticket with you to be validated, only one parking ticket may be validated per patient.There may be a possibility of hospital admission or late evening discharge; therefore, bring leisure reading and an overnight bag.On the day of your procedure, come directly to the Electrophysiology Lab replenishment buyer desk, located on the 6th floor of [facility] (3E- 2.509.) You will be escorted to the Cardiac [...] read and verbalizes understanding of teaching provided. [id number] SwnvNP8969-17-18F40:18:53Nurse NoteTXT1.2.840.504815.1.13.104.2.7. 2.540186|[id number] for patient [id number] G Dyer RN[id number] 0KWTSVDPCMSQPWPRALJBZQO0125-92-79K9 9:18:531.2.840.278502.1.72.3.15|1.2 .840.048339.1.13.104.2.7.2.727879_1 [id number] Jayleen Dumas RN [facility] 2023-05-04 16:31:12 4353-98-34K51:31:12 Rerouting for closure and completion 35785-9Ptunmyvqb encounter AvflLN7699-85-64E31:31:22Telephone encounter NoteTXT1.2.840.538331.1.13.104.2.7. 2.587342|[id number] for patient [id number] 8MYLXBWXPFTBPEXENMYETGO4450-04-39C8 6:31:221.2.840.429584.1.72.3.15|1.2 .840.615290.1.13.104.2.7.2.727879_1 [id number] Belkis Giuliano [facility] 2023-04-26 13:17:48 6990-14-39L21:17:48 Dr. Vasquez,Please advise on alternative to Chlorhexidine Gluconate 2 % Towel (pharmacy does not carry this product)The directions for chlorhexidine 0.12% mouthwash, not clear.There are different directions on the prescription . Please advise on which ones patient needs to be taking.Thank you [id number] encounter GxnaNV8018-64-51J15:23:01Telephone encounter NoteTXT1.2.840.195438.1.13.104.2.7. 2.999716|[id number] for patient [id number] M Evans RN[address] StreetHm[id number] 6MHTKANTPGIQVPUQYSORENP4495-32-75L6 3:23:011.2.840.084526.1.72.3.15|1.2 .840.337179.1.13.104.2.7.2.727879_1 [id number] Kinga Carballo RN [facility] 2023-04-26 10:03:10 9438-14-03H35:03:10 Pharmacy requesting clarification on the directions for chlorhexidine 0.12 % mouthwash. They're also stating that they do not carry Chlorhexidine Gluconate 2 % Towl. [id number] [place], [place] - [address] [facility] [address] [address]Ovxbe: [phone] 06257-4Xgsbgoquh encounter DzyyKD1034-06-18C18:05:40Telephone encounter NoteTXT1.2.840.760246.1.13.104.2.7. 2.745164|[id number] for patient kdpg54820-3VbruXDGXKURNQE[id number] 7ROXRIRZEWBQOEESCVBGGOC4498-64-16Y6 0:05:401.2.840.839517.1.72.3.15|1.2 .840.619927.1.13.104.2.7.2.727879_1 [id number] [facility] 2023-04-26 08:05:57 1106-39-04P92:05:57 Images from the original note were not included.Refill approved per cardiology protocol:Cardiovascular: ?Beta Blockers Passed 04/26/2023 08:01 AM Protocol Details Valid encounter within last 12 months Heart rate within normal limits and completed in the last 12 months 74173-9Mocpzmmzk encounter MgtnTY2087-88-44D12:05:57Telephone encounter NoteTXT1.2.840.016691.1.13.104.2.7. 2.489126|[id number] for patient [id number] D Garcia [id number] 3OFSCHFSWIWGIAOJEOEUBIJ7574-93-29W5 8:05:571.2.840.352823.1.72.3.15|1.2 .840.002386.1.13.104.2.7.2.727879_1 [id number] Marj Trejo [facility] 2023-04-26 08:00:00 9384-20-77W66:00:00 Addended by: BALDO CERVANTES MD on: 05/08/2023 11:55 AM Modules accepted: Level of Service [id number] NgbkblkhFF5124-81-47G23:55:53Addend um DocumentTXT1.2.840.906145.1.13.104. 2.7.2.360033|[id number] for patient fksp08264-2PuvfPPTAAYWYCN[address] Uf[id number] 2SAYDPWQFGWAFMLTDJMKEXU6760-39-84I6 1:55:531.2.840.729618.1.72.3.15|1.2 .840.306906.1.13.104.2.7.2.727879_1 [id number] [facility]
[2024-03-23] MEDS ORDERED: ONDANSETRON 4 MG/2 ML VIAL ONE (00:46)
[2024-03-23] MEDS ORDERED: MORPHINE 4 MG/ML SYR ONE (00:46)
[2024-03-23] MEDS ORDERED: NA CHLORIDE 0.9% 1,000 ML ONE (00:47)
[2024-03-23 01:07] LABS: Absolute Eosinophils 0.1 K/uL (0-0.5); Absolute Lymphocytes (CBC) 1.6 K/uL (0.7-4.9); Absolute Monocytes 0.7 K/uL (0.1-1.3); Absolute Neutrophil 6.6 K/uL (1.8-8.0); Basophils % 0.1 % (0-1.3); Hematocrit 31.5 % (36.0-45.0); Hemoglobin 10.8 g/dL (12.0-15.0); Lymphocytes % 18.1 % (15.3-44.8); MCH 31.2 pg (27.0-35.0); MCHC 34.2 g/dL (32.0-36.0); MCV 91.1 fL (80-100); MPV 6.7 fL (7.6-11.3); Neutrophils % 72.8 % (41.7-73.7); Nucleated Red Blood Cells % 0.2 % (0-0); Platelets 353 thou/uL (152-406); RBC Red Blood Cell Count 3.45 M/uL (3.86-4.86); Red Cell Distribution Width 14.4 % (12.1-15.2)
[2024-03-23 01:08] LABS: PT Prothrombin Time 12.7 SECONDS (9.4-12.5); PTT, Activated Partial Thromb 28.4 SECONDS (24.3-36.9); Protime INR 1.16
[2024-03-23 01:17] LABS: Albumin 3.3 g/dL (3.4-5.0); Anion Gap 6.6 mEq/L (5.0-15.0); Bilirubin Total 0.2 mg/dL (0.2-1.0); Globulin 3.3 g/dL (2.3-3.5); Potassium 3.6 mEq/L (3.5-5.1); Protein, Total 6.6 g/dL (6.4-8.2)
[2024-03-23 01:19] LABS: Specific Gravity 1.029 (1.005-1.030); Urine Bacteria 20-50 /HPF (<20); Urine Bilirubin NEGATIVE (Negative); Urine Blood Negative (Negative); Urine Clarity Extremely Turbid (Clear); Urine Color Yellow (Yellow); Urine Crystals Unidentified Few /HPF (None Seen); Urine Culture Reflex Order REFLEXED; Urine Glucose NEGATIVE (Negative); Urine Ketones NEGATIVE (Negative); Urine Microscopic Reflex YN ORDER UMIC; Urine Mucus 2+ /HPF (None Seen); Urine Nitrite 2+ (Negative); Urine Protein 1+ (Negative); Urine RBC None Seen /HPF (None Seen); Urine Urobilinogen Normal (Normal); Urine WBC 20-50 /HPF (<5); Urine Yeast (Budding) Occasional /HPF (None Seen); Urine pH 6.5 (5.0-7.0)
--- NOTE | 2024-03-23 01:29 | ER ---
Nurse's Notes [facility] Name: Beverly Lino Age: 38 yrs Sex: Female : 1985 Arrival Date: 03/22/2024 Time: 23:32 Bed 18 Private MD: Diagnosis: Cutaneous abscess left lower extremity, left lower extremity cellulitis and lymphadenopathy, inguinal lymphadenopathy Presentation: 03/22 23:48 Chief complaint: Patient states: Left knee pain, swelling, redness, and draining puss, jw7 just started today. Coronavirus screen: At this time, the client does not indicate any symptoms associated with coronavirus-19. Ebola Screen: No symptoms or risks identified at this time. Initial Sepsis Screen: Does the patient meet any 2 criteria? No. Patient's initial sepsis screen is negative. Does the patient have a suspected source of infection? No. Patient's initial sepsis screen is negative. Risk Assessment: Do you want to hurt yourself or someone else? Patient reports no desire to harm self or others. Onset of symptoms was March 22, 2024. 23:48 Method Of Arrival: Ambulatory jw7 23:48 Acuity: SALVADOR 3 jw7 Triage Assessment: 23:49 General: Appears in no apparent distress. uncomfortable, Behavior is calm, cooperative, jw7 appropriate for age. Pain: Complains of pain in left knee Pain radiates to left leg Pain currently is 9 out of 10 on a pain scale. Quality of pain is described as burning, sharp, throbbing, Pain began gradually, Is continuous. EENT: No deficits noted. No signs and/or symptoms were reported regarding the EENT system. Neuro: Level of Consciousness is awake, alert, obeys commands, Oriented to person, place, time, situation, Appropriate for age. Cardiovascular: Heart tones S1 S2 present Capillary refill < 3 seconds Clubbing of nail beds is absent JVD is absent Patient's skin is warm and dry. Respiratory: Airway is patent Trachea midline Respiratory effort is even, unlabored, Respiratory pattern is regular, symmetrical. GI: Abdomen is flat, non-distended, Bowel sounds present X 4 quads. Abd is soft and non tender X 4 quads. : No deficits noted. No signs and/or symptoms were reported regarding the genitourinary system. Derm: Skin is healthy with good turgor, Skin is dry, Skin is normal, Skin temperature is warm Wound noted left knee Wound is abscess. Musculoskeletal: Circulation, motion, and sensation intact. Range of motion: limited in left knee. 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 - Infectious Disease History:: Denies. - Social history:: Smoking status: Patient denies any tobacco usage or history of. Patient/guardian denies using alcohol, street drugs, IV drugs. Screenin:[facility] ED Fall Risk Assessment (Adult) History of falling in the last 3 months, jw7 including since admission No falls in past 3 months (0 pts) Confusion or Disorientation No (0 pts) Intoxicated or Sedated No (0 pts) Impaired Gait No (0 pts) Mobility Assist Device Used No (0 pt) Altered Elimination No (0 pt) Score/Fall Risk Level 0 - 2 = Low Risk Oriented to surroundings, Maintained a safe environment, Educated pt \T\ family on fall prevention, incl call for assistance when getting out of bed. Abuse screen: Denies threats or abuse. Denies injuries from another. Nutritional screening: No deficits noted. Tuberculosis screening: No symptoms or risk factors identified. Assessment: 03/23 00:00 General: Appears uncomfortable, Behavior is calm, cooperative. Pain: Complains of pain tm6 in left leg and left knee Pain currently is 7 out of 10 on a pain scale. Quality of pain is described as aching, sharp. Pain: Pain began 1 day ago. Neuro: Level of Consciousness is awake, alert, obeys commands, Oriented to person, place, time, situation. Cardiovascular: No deficits noted. Patient's skin is warm and dry. Respiratory: Airway is patent Respiratory effort is even, unlabored, Respiratory pattern is regular, symmetrical. GI: No signs and/or symptoms were reported involving the gastrointestinal system. Abdomen is flat, non-distended. : No signs and/or symptoms were reported regarding the genitourinary system. EENT: No signs and/or symptoms were reported regarding the EENT system. Derm: Abscess located on left knee is quarter sized, has purulent drainage, is hot to touch, is red, is raised. Musculoskeletal: No signs and/or symptoms reported regarding the musculoskeletal system. 02:36 Reassessment: Patient and/or family updated on plan of care and expected duration. Pain tm6 level reassessed. Patient is alert, oriented x 3, equal unlabored respirations, skin warm/dry/pink. 03:35 Reassessment: discharge pending completion of IV antibiotics. tm6 04:15 Reassessment: Patient appears in no apparent distress at this time. tm6 Vital Signs: 03/22 23:48 BP 144 / 90; Pulse 110; Resp 19 S; Temp 98.1(TE); Pulse Ox 97% on R/A; Weight 50.35 kg; jw7 Height 5 ft. 5 in. ; Pain 8/10; 03/23 01:28 BP 119 / 79; Pulse 104; Pulse Ox 100% on R/A; tm6 02:36 BP 128 / 49; Pulse 99; Temp 97.8(O); Pulse Ox 95% on R/A; Pain 0/10; tm6 04:15 BP 133 / 83; Pulse 97; Resp 19; Temp 97.8(O); Pulse Ox 100% on R/A; Pain 4/10; tm6 03/22 23:48 Body Mass Index 18.47 (50.35 kg, 165.1 cm) jw7 03/22 23:48 Pain Scale: Adult jw7 02:36 Pain Scale: Adult tm6 04:15 Pain Scale: Adult tm6 ED Course: 03/22 23:33 Patient arrived in ED. mr 23:36 Tyron Mohan PA is PHCP. cp 23:36 Arya Clay MD is Attending Physician. cp 23:49 Triage completed. jw7 23:49 Arm band placed on. jw7 23:52 Patient has correct armband on for positive identification. Bed in low position. Call jw7 light in reach. Use of Call Light. 03/23 00:00 Provided Education on: use of call [place]. Client placed on continuous cardiac and pulse tm6 oximetry monitoring. NIBP monitoring applied. Pulse ox on. NIBP on. Door closed. Noise minimized. 00:31 XRAY Knee LEFT 3 view In Process Unspecified. EDMS 00:35 Initial lab(s) drawn, by me, sent to lab. First set of blood cultures drawn by me, ty Urine collected: clean catch specimen, cloudy, Wound culture swab sent to lab. 00:44 Keith Mederos, RN is Primary Nurse. tm6 00:50 Wound Culture Sent. ty 00:51 Blood Culture Adult (2) Sent. ty 00:51 Inserted saline lock: 20 gauge in right antecubital area, using aseptic technique. ty Blood collected. 01:12 Wound Culture Sent. tm6 01:33 US Extremity Venous Unilateral Ltd In Process Unspecified. EDMS 02:03 EKG done, by ED staff, reviewed by Arya Clay MD. tm6 03:00 Assist provider with I \T\ D: of an abscess on left knee Set up I\T\D tray. Performed by tm 6 Arya Clay MD Wound packed. iodoform gauze, Dressing with 4X4s, Patient tolerated well. 04:16 IV discontinued, intact, bleeding controlled, No redness/swelling at site. Pressure tm6 dressing applied. Administered Medications: 01:28 Drug: NS 0.9% IV 1000 ml IV at 999 ml/hr Per protocol Route: IV; Rate: 999 ml/hr; Site: tm6 right antecubital; 02:37 Follow up: IV Status: Completed infusion; IV Intake: 1000ml tm6 03:36 Follow up: IV Status: Completed infusion; IV Intake: 1000ml tm6 01:28 Drug: morphine IVP or IV 4 mg IVP once over 4 mins Route: IVP; Infused Over: 4 mins; tm6 Site: right antecubital; 01:28 Drug: Ondansetron IVP 4 mg IVP once; over 2 minutes Route: IVP; Site: right antecubital;tm6 02:08 Drug: Piperacillin-Tazobactam IVPB 3.375 grams IVPB once over 60 mins; (mix in NS 100 tm6 mL) Route: IVPB; Infused Over: 60 mins; Site: right antecubital; 02:41 Drug: vancoMYCIN IVPB 1 grams IVPB once over 2 hrs Route: IVPB; Infused Over: 2 hrs; tm6 Site: right antecubital; 02:59 Drug: Etomidate IVP 10 mg IVP once Route: IVP; Site: right antecubital; tm6 03:00 Drug: Etomidate IVP 10 mg IVP once Route: IVP; Site: right antecubital; tm6 03:42 Drug: Ondansetron PO 4 mg PO once Route: PO; tm6 03:43 Drug: [place] PO 10 mg-325 mg 1 tabs PO once Route: PO; tm6 Medication: 00:00 VIS not applicable for this client. tm6 Intake: 02:37 IV: 1000ml; Total: 1000ml. tm6 03:36 IV: 1000ml; Total: 2000ml. tm6 Outcome: 01:28 ER care complete, transfer ordered by . cp 03:21 Discharge ordered by MD. sp4 04:16 Discharged to home via wheelchair, with family, tm6 04:16 Condition: stable 04:16 Discharge instructions given to patient, family, Instructed on discharge instructions, follow up and referral plans. medication usage, Demonstrated understanding of instructions, follow-up care, medications, Prescriptions given X 4, 04:17 Patient left the ED. tm6 Signatures: Dispatcher [employer] EDKari Ramirez, Sukhwinder Reg mr Tyron Mohan, GALINA PA Kailyn Muñoz RN RN jw7 Arya Clay MD MD sp4 Keith Mederos RN RN tm6 aJce Irby
--- NOTE | 2024-03-23 01:29 | EDPHYS ---
Physician Documentation [facility] Name: Beverly Lino Age: 38 yrs Sex: Female : 1985 Arrival Date: 03/22/2024 Time: 23:32 Bed 18 Private MD: ED Physician Arya Clay HPI: 03/22 23:55 This 38 yrs old Female presents to ER via Ambulatory with complaints of Abscess. cp 23:55 The patient presents with cellulitis of the left leg and left knee. Description: cp erythematous, swollen, warm. Onset: The symptoms/episode began/occurred gradually, and became worse. The patient has been recently seen at the [facility] Emergency Department, this week, for similar complaints was given a prescription for antibiotics. 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 - Infectious Disease History:: Denies. - Social history:: Smoking status: Patient denies any tobacco usage or history of. Patient/guardian denies using alcohol, street drugs, IV drugs. ROS: 23:57 MS/extremity: Positive for pain, swelling, tenderness, Negative for injury or acute cp deformity, 23:57 Constitutional: Negative for body aches, chills, fever, cp 03/23 03:20 Constitutional: Positive for left knee pain and tenderness and redness sp4 Exam: 03/22 23:59 Constitutional: The patient appears in no acute distress, alert, awake, non-toxic, well cp developed, well nourished, uncomfortable, 23:59 Head/Face: Normocephalic, atraumatic. cp 23:59 Cardiovascular: Rate: tachycardic, 23:59 Respiratory: the patient does not display signs of respiratory distress, Respirations: normal, no use of accessory muscles, no retractions, Breath sounds: are clear throughout, no decreased breath sounds, no stridor, no wheezing, 23:59 Abdomen/GI: Inspection: abdomen appears normal, 23:59 Musculoskeletal/extremity: Extremities: grossly normal except: noted in the left leg: erythema, swelling, ROM: limited passive range of motion due to pain, in the left knee, Vital Signs: 23:48 BP 144 / 90; Pulse 110; Resp 19 S; Temp 98.1(TE); Pulse Ox 97% on R/A; Weight 50.35 kg; jw7 Height 5 ft. 5 in. ; Pain 8/10; 03/23 01:28 BP 119 / 79; Pulse 104; Pulse Ox 100% on R/A; tm6 02:36 BP 128 / 49; Pulse 99; Temp 97.8(O); Pulse Ox 95% on R/A; Pain 0/10; tm6 04:15 BP 133 / 83; Pulse 97; Resp 19; Temp 97.8(O); Pulse Ox 100% on R/A; Pain 4/10; tm6 03/22 23:48 Body Mass Index 18.47 (50.35 kg, 165.1 cm) [facility] 03/22 23:48 Pain Scale: Adult jw7 02:36 Pain Scale: Adult tm6 04:15 Pain Scale: Adult tm6 Procedures: 03:17 I \T\ D: Incision and drainage was performed for an abscess of the left left knee - sp4 cutaneous abscess just lateral to the left Prepped with Betadine, Anesthetized with nothing. Done under sedation . Incised with #11 blade. Drained moderate amount purulent fluid. bloody fluid. Packed with iodoform gauze, Dressing: sterile 4x4 gauze, Kerlix Wrap the patient tolerated the procedure well, Cutaneous abscess with no signs of septic joint. This was drained under moderate sedation with etomidate. Moderate sedation: Pre-procedure assessment: the patient has been NPO 4 hour(s) prior to arrival, ASA physical classification: I - healthy, no underlying organic disease, Airway assessment: able to hyperextend neck, able to maintain airway, can open mouth without difficulty, Mallampati classification of tongue size: II - faucial pillars and soft palate can be visualized, but uvula is masked by the base of the tongue, Monitoring during procedure: monitor technician, continuous pulse oximetry, nurse at bedside at all times, Medications employed: Etomidate, 20 mg(s), An incision and drainage accomplished with moderate sedation, Post-procedure assessment: the patient is moderately sedated, Valdovinos sedation score: 4 - brisk response to a light glabellar tap, Respiratory status: requires supplemental oxygen to maintain acceptable oxygen saturation, a reversal agent was not used, No complications . MDM: 03/22 23:50 Patient medically screened. 03/23 01:30 Transition of care: After a detail discussion of the patient's case, care is cp transferred to Arya Clay MD. 03:15 ED course: PROCEDURE: US Duplex Left Lower Extremity Veins CLINICAL INDICATION: The sp4 patient is 38 years old and is Female; Pain;Swelling TECHNIQUE: Real-time duplex ultrasound scan of the left lower extremity veins integrating B-mode two-dimensional vascular structure, Doppler spectral analysis, color flow Doppler imaging and compression. COMPARISON: None. FINDINGS: DEEP VEINS: Unremarkable. No DVT in the visualized common femoral, femoral, proximal deep femoral or popliteal veins. The veins demonstrate normal color flow, are normally compressible, with normal phasic flow and/or augmentation response. SUPERFICIAL VEINS: Unremarkable. No thrombus in the visualized great saphenous vein. SOFT TISSUES: Wound exhibits small complex underlying fluid collection. No popliteal cyst. LYMPH NODES: Prominent left inguinal lymph node. IMPRESSION: 1. No left lower extremity DVT. 2. Prominent left inguinal lymph node. 3. Wound exhibits small complex underlying fluid collection. Electronically signed by: Babatunde Chowdhury DO 03/23/2024 02:31 AM. 03:16 Differential diagnosis: abscess, cellulitis, insect bite. Data reviewed: vital signs, sp4 nurses notes. 03:17 Consideration of Admission/Observation Escalation of care including sp4 admission/observation considered. 03/23 00:03 Order name: Blood Culture Adult (2) 03/23 00:03 Order name: CBC with Diff; Complete Time: 01:24 03/23 01:24 Interpretation: Normal except: RBC 3.45; HGB 10.8; HCT 31.5; MPV 6.7. 03/23 00:03 Order name: CMP; Complete Time: :24 03/23 01:25 Interpretation: Normal except: NA 134; GLUC 113; BUN 20; ALB 3.3; A/G 1.0. cp 03/23 00:03 Order name: Lactate w/ 2H reflex if indic.; Complete Time: 01:24 cp 03/23 00:03 Order name: Protime (+inr); Complete Time: 01:24 cp 03/23 00:03 Order name: Ptt, Activated; Complete Time: 01:24 cp 03/23 00:03 Order name: Urinalysis w/ reflexes; Complete Time: 03:16 cp 03/23 00:03 Order name: Wound Culture; Complete Time: 00:19 cp 03/23 00:12 Order name: CRP; Complete Time: 03:16 cp 03/23 02:31 Order name: Urine Culture EDMS 03/23 00:03 Order name: XRAY Knee LEFT 3 view; Complete Time: 00:19 cp 03/24 00:20 Interpretation: Report reviewed. cp 03/23 00:04 Order name: US Extremity Venous Unilateral Ltd cp 03/23 00:03 Order name: EKG; Complete Time: 00:03 cp 03/23 00:03 Order name: Accucheck; Complete Time: 02:04 cp 03/23 00:03 Order name: Cardiac monitoring; Complete Time: 02:04 cp 03/23 00:03 Order name: EKG - Nurse/Tech; Complete Time: 00:51 cp 03/23 00:03 Order name: IV Saline Lock - Large Bore; Complete Time: 00:50 cp 03/23 00:03 Order name: Labs collected and sent; Complete Time: 00:50 cp 03/23 00:03 Order name: O2 Per Protocol; Complete Time: 01:11 cp 03/23 00:03 Order name: O2 Sat Monitoring; Complete Time: 01:12 cp 03/23 00:03 Order name: Vital Signs; Complete Time: 02:04 cp 03/23 02:01 Order name: Moderate Sedation; Complete Time: 03:20 sp4 03/23 02:01 Order name: Dressing - Wound; Complete Time: 03:20 sp4 03/23 02:01 Order name: Gloves, Sterile; Complete Time: 02:36 sp4 03/23 02:01 Order name: Setup Suture Tray; Complete Time: 02:36 sp4 Administered Medications: 01:28 Drug: NS 0.9% IV 1000 ml IV at 999 ml/hr Per protocol Route: IV; Rate: 999 ml/hr; Site: tm6 right antecubital; 02:37 Follow up: IV Status: Completed infusion; IV Intake: 1000ml tm6 03:36 Follow up: IV Status: Completed infusion; IV Intake: 1000ml tm6 01:28 Drug: morphine IVP or IV 4 mg IVP once over 4 mins Route: IVP; Infused Over: 4 mins; tm6 Site: right antecubital; 01:28 Drug: Ondansetron IVP 4 mg IVP once; over 2 minutes Route: IVP; Site: right antecubital;tm6 02:08 Drug: Piperacillin-Tazobactam IVPB 3.375 grams IVPB once over 60 mins; (mix in NS 100 tm6 mL) Route: IVPB; Infused Over: 60 mins; Site: right antecubital; 02:41 Drug: vancoMYCIN IVPB 1 grams IVPB once over 2 hrs Route: IVPB; Infused Over: 2 hrs; tm6 Site: right antecubital; 02:59 Drug: Etomidate IVP 10 mg IVP once Route: IVP; Site: right antecubital; tm6 03:00 Drug: Etomidate IVP 10 mg IVP once Route: IVP; Site: right antecubital; tm6 03:42 Drug: Ondansetron PO 4 mg PO once Route: PO; tm6 03:43 Drug: [place] PO 10 mg-325 mg 1 tabs PO once Route: PO; tm6 Disposition: 03:17 Co-signature as Attending Physician, Arya Clay MD I agree with the assessment sp4 and plan of care. I reviewed the patient's care provided by Advanced Practice Provider \T\ agree w/ the diagnosis \T\ care plan. I personally saw the pt \T\ performed a substantive portion of the visit, incldng all aspects of the (History/Exam/Medical Decision Making). Disposition Summary: 03/23/24 03:21 Discharge Ordered Notes: Location: Home sp4 Problem: new(03/23/24 03:21) sp4 Symptoms: have improved(03/23/24 03:21) sp4 Condition: Stable(03/23/24 03:21) sp4 Diagnosis - Cutaneous abscess left lower extremity, left lower extremity cellulitis and sp4 lymphadenopathy, inguinal lymphadenopathy Followup: sp4 - With: Private Physician - When: 7 - 10 days - Reason: Recheck today's complaints Discharge Instructions: - Discharge Summary Sheet sp4 - Skin Abscess, Cknf-wn-Fdls sp4 Forms: - Patient Portal Instructions sp4 Prescriptions: - Cephalexin 500 mg Oral Capsule - take 1 capsule ORAL route every 6 hours for 10 days; 40 capsule; Refills: 0, sp4 Product Selection Permitted - Tramadol 50 mg Oral tablet - take 1 tablet ORAL route every 8 hours as needed; 20 tablet; Refills: 0, sp4 Product Selection Permitted - Bactrim DS 800-160 mg Oral Tablet - take 1 tablet ORAL route every 12 hours for 10 days; 20 tablet; Refills: 0, sp4 Product Selection Permitted - ondansetron 8 mg Oral Tablet,disintegrating - take 1 tablet ORAL route every 8 hours PRN nausea; 30 tablet; Refills: 0, sp4 Product Selection Permitted Signatures: Dispatcher [employer] EDMS Tyron Mohan PA PA Kailyn Muñoz RN RN jw7 Arya Clay MD MD sp4 Keith Mederos RN RN tm6 Corrections: (The following items were deleted from the chart) 03:21 01:28 doctor cp sp4 03:21 01:28 [facility] cp sp4 03: 01:28 Higher level of care cp sp4 03:21 01:28 Stable cp sp4 03:21 01:28 an ongoing problem cp sp4 03:21 01:28 have improved cp sp4 03:21 01:28 Cellulitis of left lower limb cp sp4
[2024-03-23] MEDS ORDERED: VANCOMYCIN 1 GM/VIAL ONE (01:33)
[2024-03-23] MEDS ORDERED: NA CHLORIDE 0.9% 250 ML ONE (01:33)
[2024-03-23] MEDS ORDERED: PIPERACIL/TAZO 3.375 GM VIAL IV ONE (01:34)
[2024-03-23] MEDS ORDERED: NA CHLORIDE 0.9% 100 ML ONE (01:34)
[2024-03-23] MEDS ORDERED: ETOMIDATE 20 MG/10 ML VIAL IV ONE (02:34)
[2024-03-23] MEDS ORDERED: MIDAZOLAM HCL 0 ML ONE (03:01)
[2024-03-23] MEDS ORDERED: ONDANSETRON 4 MG (ODT) TAB ONE (03:41)
[2024-03-23] MEDS ORDERED: HYDROCODONE/APAP 10/325 TAB ONE (03:41)
[2024-03-23 04:36] VITALS: BP 133/83; TEMP 97.8; O2SAT 100
--- NOTE | 2024-03-23 17:51 | RAD REPORT ---
EXAM DESCRIPTION: RAD - Knee Left 3 View - 03/23/2024 12:29 am CLINICAL HISTORY: Pain;Swelling COMPARISON: No comparisons TECHNIQUE: Left knee, 3 views. FINDINGS: No fracture, dislocation or periosteal reaction.No joint effusion seen. No joint space troy rowing. Soft tissue swelling anteriorly and laterally at the level of the knee. IMPRESSION: No acute osseus abnormality. Soft tissue swelling as above.
--- NOTE | 2024-03-24 13:30 | EKG ---
Test Date: 2024-03-23 Test Time: 01:58:24 [employer]: LUPE MEASUREMENT RESULTS: Intervals: Rate: 91 WV: 114 QRSD: 76 QT: 364 QTc: 447 [place]: P: 75 WV: 114 QRS: 89 T: 77 INTERPRETIVE STATEMENTS: Normal sinus rhythm Normal ECG Compared to ECG 03/13/2024 11:26:36 Sinus tachycardia no longer present Electronically Signed On 03-24-24 13:27:41 CDT by Davin Henning
--- NOTE | 2024-03-25 18:28 | RAD REPORT ---
EXAM DESCRIPTION: US - Extremity Venous [employer] - 03/23/2024 2:38 am US Duplex Left Lower Extremity Veins CLINICAL HISTORY: The patient is 38 years old and is Female; Pain;Swelling TECHNIQUE: Real-time duplex ultrasound scan of the left lower extremity veins integrating B-mode two -dimensional vascular structure, Doppler spectral analysis, color flow Doppler imaging and compressio n. COMPARISON: None. FINDINGS: DEEP VEINS: Unremarkable. No DVT in the visualized common femoral, femoral, proximal d eep femoral or popliteal veins. The veins demonstrate normal color flow, are normally compressible, with normal phasic flow and/or augmentation response. SUPERFICIAL VEINS: Unremarkable. No thrombus in the visualized great saphenous vein. SOFT TISSUES: Wound exhibits small complex underlying fluid collection. No popliteal cyst. LYMPH NODES: Prominent left inguinal lymph node. IMPRESSION: 1. No left lower extremity DVT. 2. Prominent left inguinal lymph node. 3. Wound exhibits small complex underlying fluid collection. Electronically signed by: Babatunde Chowdhury DO 03/23/2024 02:31 AM CDT 9 Due to temporary technical issues with the PACS/Fluency reporting system, reports are being signed by the in house radiologists without review as a courtesy to insure prompt reporting. The interpreting radiologist is fully responsible for the content of the report.
== END 2024-03-23 04:17 | disposition home or self-care (01) ==
LOC: ER 23:32
PROC: 0H9LXZZ Drainage of Left Lower Leg Skin, External Approach (ICD-10-PCS; principal; 2024-03-23)
DX: L02.416 Cutaneous abscess of left lower limb (principal); L03.116 Cellulitis of left lower limb; R59.0 Localized enlarged lymph nodes
CPT/HCPCS: 96361; 93005; 87040 ×2; 87088; 87070; 85025; 81001; 87086; 36415; 87205; 85610; 83605; 85730; 80053; 86140; 73562; 93971; 96375; 96374; 99285; 10060; Q0162; J2543; J2405; J7050; J7030; 87077; 87186; J2250